=== PATIENT | female | born 1950 | race Caucasian/White ===

== ENCOUNTER 2019-07-08 16:50 | Inpatient (IN) | payer MEDICARE ==
[2019-07-08 17:16] LABS: Basophils % (A) 0 %; Eosinophils # (A) 0.1 k/uL (0-0.7); Eosinophils % (A) 2 %; HCT 35.4 % (34.0-46.0); HGB 11.8 gm/dL (11.4-16.0); Lymphocytes # (A) 0.9 k/uL (1.0-4.8); Lymphocytes % (A) 21 %; MCH 31.2 pg (25.0-35.0); MCHC 33.3 g/dL (31.0-37.0); Monocytes # (A) 0.1 k/uL (0-1.0); Monocytes % (A) 2 %; Neutrophils % (A) 73 %; Platelet Count 331 k/uL (150-450); RBC 3.77 m/uL (3.80-5.40); RDW 12.4 % (11.5-15.5)
[2019-07-08 17:27] LABS: ALT 14 U/L (4-34); AST 28 U/L (14-36); African American GFR (CKD) >90 (>60 ml/min/1.73 sqM); Alkaline Phosphatase 89 U/L (38-126); Anion Gap 6 mmol/L; Blood Urea Nitrogen 8 mg/dL (7-17); Calcium 8.4 mg/dL (8.4-10.2); Carbon Dioxide 22 mmol/L (22-30); Chloride 95 mmol/L (98-107); Glucose 105 mg/dL (74-99); Non-African American GFR(CKD) >90 (>60 ml/min/1.73 sqM); Potassium 4.7 mmol/L (3.5-5.1); Sodium 123 mmol/L (137-145); Total Bilirubin 0.3 mg/dL (0.2-1.3); Total Protein 6.7 g/dL (6.3-8.2)
[2019-07-08] MEDS ORDERED: SODIUM CHLORIDE 0.9% 1,000 ML IV ONE (18:35)
[2019-07-08] MEDS ORDERED: NALOXONE 0.4 MG/ML 1 ML VIAL IV PRN (18:37)
--- NOTE | 2019-07-08 18:55 | ED ---
General Adult HPI - General Chief complaint: Neuro Symptoms/Deficit Stated complaint: Neuro Symptoms Time Seen by Provider: 07/08/19 16:55 Source: patient, EMS Mode of arrival: EMS Limitations: altered mental status - History of Present Illness Initial comments: The patient is a 68-year-old female who was a transfer from [facility] for altered mental status. Formerly [facility] provides a history that the patient was taken into [facility] for ataxia and altered mental status. Laboratory studies and CT of the brain were performed which were unremarkable. The patient did have an elevation in her troponin however was not complaining of any chest pain. They provided her with an aspirin recommended transfer to a facility for neurology evaluation. The patient does arrive to me and does have nystagmus and difficulties with finger to nose. No truncal ataxia appreciated. The patient states that she does not remember most of the details of the morning. She does disclose to me that she has been suffering from trigeminal neuralgia. It reports that she takes gabapentin and carbamazepine for it however as of recently she has been taking excess of her medication. Last night instead of taking 2 tablets of each medication she took 6 tablets of each medication. Reports that this morning she also took 3 tablets of each of the medications when she is only supposed to take the gabapentin. She denies any headaches or visual changes. No blunt head trauma. Denies any neck pain or stiffness. No fevers or chills. Denies any chest pain or shortness of breath. No previous history of cardiac disease. There are no other alleviating, precipitating or modifying factors - Related Data Home Medications Medication Instructions Recorded Confirmed Atorvastatin [Lipitor] 20 mg PO DAILY 07/08/19 07/08/19 Gabapentin [Neurontin] 300 mg PO TID 07/08/19 07/08/19 Lisinopril [Zestril] 10 mg PO BID 07/08/19 07/08/19 Metoprolol Tartrate [Lopressor] 50 mg PO BID 07/08/19 07/08/19 carBAMazepine 200 mg PO QID 07/08/19 07/08/19 Allergies Allergy/AdvReac Type Severity Reaction Status Date / Time Penicillins AdvReac Itching Verified 07/08/19 18:05 Review of Systems ROS Statement: Those systems with pertinent positive or pertinent negative responses have been documented in the HPI. ROS Other: All systems not noted in ROS Statement are negative. Past Medical History Past Medical History: Hyperlipidemia, Hypertension Additional Past Medical History / Comment(s): heart murmur, trigeminal neuralgia, History of Any Multi-Drug Resistant Organisms: None Reported Past Surgical History: Hysterectomy Additional Past Surgical History / Comment(s): surgery for trigeminal neuralgia, Past Psychological History: No Psychological Hx Reported Smoking Status: Former smoker Past Alcohol Use History: None Reported Past Drug Use History: None Reported - Past Family History family Family Medical History: No Reported History General Exam Limitations: altered mental status General appearance: alert, in no apparent distress, other (mild slurred speech) Head exam: Present: atraumatic, normocephalic, normal inspection Eye exam: Present: normal appearance, PERRL, EOMI. Absent: scleral icterus, conjunctival injection, periorbital swelling ENT exam: Present: normal exam, mucous membranes moist Neck exam: Present: normal inspection. Absent: tenderness, meningismus, lymphadenopathy Respiratory exam: Present: normal lung sounds bilaterally. Absent: respiratory distress, wheezes, rales, rhonchi, stridor Cardiovascular Exam: Present: regular rate, normal rhythm, normal heart sounds. Absent: systolic murmur, diastolic murmur, rubs, gallop, clicks GI/Abdominal exam: Present: soft, normal bowel sounds. Absent: distended, tenderness, guarding, rebound, rigid Extremities exam: Present: normal inspection, full ROM, normal capillary refill. Absent: tenderness, pedal edema, joint swelling, calf tenderness Back exam: Present: normal inspection Neurological exam: Present: alert, oriented X3, CN II-XII intact, reflexes normal, other (finger to nose is not smooth/coordinated bilaterally) Psychiatric exam: Present: normal affect, normal mood Skin exam: Present: warm, dry, intact, normal color. Absent: rash Course Vital Signs 07/08/19 07/08/19 16:53 19:28 Temperature 97.7 F Pulse Rate 68 72 Respiratory 18 18 Rate Blood Pressure 150/76 133/68 O2 Sat by Pulse 96 96 Oximetry EKG Findings - EKG Comments: EKG Findings:: EKG demonstrates normal sinus rhythm with a ventricular rate of 32. IL 150. QRS 144. QTC of 536. There is a left bundle branch block. Negative sgarbossa criteria. Medical Decision Making - Medical Decision Making Upon arrival the patient was placed into room 6. A thorough history and physical exam was performed. I did review the records from [facility]. Because of her elevated troponin I did repeat an EKG and laboratory studies here. Sodium is low at 123. Troponin is elevated at 0.185. Carbamazepine l evel is 12.1. The patient was given a liter bolus of normal saline followed by 75 mL per hour. I admitted the patient to the [facility] physicians. Dr. Reyna accepted admission. I will place cardiology and neurology on consult. Patient was admitted to the floor in stable condition - Lab Data Result diagrams: 07/09/19 05:32 07/10/19 06:47 Lab Results 07/08/19 07/08/19 07/08/19 Range/Units 17:11 17:11 17:11 WBC 4.0 (3.8-10.6) k/uL RBC 3.77 L (3.80-5.40) m/uL Hgb 11.8 (11.4-16.0) gm/dL Hct 35.4 (34.0-46.0) % MCV 94.0 (80.0-100.0) fL MCH 31.2 (25.0-35.0) pg MCHC 33.3 (31.0-37.0) g/dL RDW 12.4 (11.5-15.5) % Plt Count 331 (150-450) k/uL Neutrophils % 73 % Lymphocytes % 21 % Monocytes % 2 % Eosinophils % 2 % Basophils % 0 % Neutrophils # 3.0 (1.3-7.7) k/uL Lymphocytes # 0.9 L (1.0-4.8) k/uL Monocytes # 0.1 (0-1.0) k/uL Eosinophils # 0.1 (0-0.7) k/uL Basophils # 0.0 (0-0.2) k/uL Sodium 123 L (137-145) mmol/L Potassium 4.7 (3.5-5.1) mmol/L Chloride 95 L (98-107) mmol/L Carbon Dioxide 22 (22-30) mmol/L Anion Gap 6 mmol/L BUN 8 (7-17) mg/dL Creatinine 0.47 L (0.52-1.04) mg/dL Est GFR (CKD-EPI)AfAm >90 (>60 ml/min/1.73 sqM) Est GFR (CKD-EPI)NonAf >90 (>60 ml/min/1.73 sqM) Glucose 105 H (74-99) mg/dL Calcium 8.4 (8.4-10.2) mg/dL Total Bilirubin 0.3 (0.2-1.3) mg/dL AST 28 (14-36) U/L ALT 14 (4-34) U/L Alkaline Phosphatase 89 (38-126) U/L Troponin I 0.185 H* (0.000-0.034) ng/mL Total Protein 6.7 (6.3-8.2) g/dL Albumin 4.0 (3.5-5.0) g/dL Carbamazepine ug/mL 07/08/19 Range/Units 17:11 WBC (3.8-10.6) k/uL RBC (3.80-5.40) m/uL Hgb (11.4-16.0) gm/dL Hct (34.0-46.0) % MCV (80.0-100.0) fL MCH (25.0-35.0) pg MCHC (31.0-37.0) g/dL RDW (11.5-15.5) % Plt Count (150-450) k/uL Neutrophils % % Lymphocytes % % Monocytes % % Eosinophils % % Basophils % % Neutrophils # (1.3-7.7) k/uL Lymphocytes # (1.0-4.8) k/uL Monocytes # (0-1.0) k/uL Eosinophils # (0-0.7) k/uL Basophils # (0-0.2) k/uL Sodium (137-145) mmol/L Potassium (3.5-5.1) mmol/L Chloride (98-107) mmol/L Carbon Dioxide (22-30) mmol/L Anion Gap mmol/L BUN (7-17) mg/dL Creatinine (0.52-1.04) mg/dL Est GFR (CKD-EPI)AfAm (>60 ml/min/1.73 sqM) Est GFR (CKD-EPI)NonAf (>60 ml/min/1.73 sqM) Glucose (74-99) mg/dL Calcium (8.4-10.2) mg/dL Total Bilirubin (0.2-1.3) mg/dL AST (14-36) U/L ALT (4-34) U/L Alkaline Phosphatase (38-126) U/L Troponin I (0.000-0.034) ng/mL Total Protein (6.3-8.2) g/dL Albumin (3.5-5.0) g/dL Carbamazepine 12.1 ug/mL Disposition Clinical Impression: Acute encephalopathy, Tegretol toxicity, Ataxia, Troponin level elevated, Hyponatremia Disposition: ADMITTED IP TO THIS [facility] Condition: Stable Is patient prescribed a controlled substance at d/c from ED?: No Decision to Admit Reason: Admit from EC Decision Date: 07/08/19 Decision Time: 19:38
[2019-07-08] MEDS: SODIUM CHLORIDE 0.9% 1,000 ML IV SCH (19:28)
[2019-07-08] MEDS: METOPROLOL TARTRATE 50 MG TAB PO SCH (20:42)
[2019-07-08] MEDS: LISINOPRIL 10 MG TAB PO SCH (20:42)
[2019-07-08] MEDS ORDERED: SODIUM BICARB 8.4% 50 ML SYR (1 MEQ/ML) IV STA (22:22)
[2019-07-08] MEDS: DEXTROSE 5% IN WATER 1,000 ML with SODIUM BICARB (1 MEQ/ML) 150 ML IV SCH (23:22)
[2019-07-09 00:17] LABS: African American GFR (CKD) >90 (>60 ml/min/1.73 sqM); Anion Gap 5 mmol/L; Blood Urea Nitrogen 8 mg/dL (7-17); Calcium 8.5 mg/dL (8.4-10.2); Carbamazepine (Tegretol) 8.4 ug/mL; Carbon Dioxide 27 mmol/L (22-30); Chloride 95 mmol/L (98-107); Glucose 93 mg/dL (74-99); Non-African American GFR(CKD) >90 (>60 ml/min/1.73 sqM); Sodium 127 mmol/L (137-145)
--- NOTE | 2019-07-09 02:02 | P.HPIM ---
History of Present Illness H&P Date: 07/08/19 Chief Complaint: confusion one day duration 68 year old female , with TN poorly controlled with current meds of carbamazepine and neurontin, she had severe attack yesterday and started taking extra pills, she believes she had taken at least 6 extra doses yesterday. she currently feels back to her baseline mental status. however, earlier she was found by her sister who came to visit her this morning confused and altered, for which she decided to take her to the hospital . the patient could not comment more about her symptoms , as she does not recall anything wrong with her. she was taken to a different hospital where she had her initial workup done including CT brain without contrast and CTA of head and neck showed possible small vessel disease. . she also had EKG showing LBBB and wide QRS and prolonged QTc , no old EKG to compare , unknonw if this is acute changes. patient denies any associated chest pain . upon her request she was transferred to our facilit y. here she reported overdosing on her pain meds for TN, including carbamazepine , for which acute toxicity suspected given her neuro sympotoms of confusion , and nystagmus findings. along with EKG findings of wide QRS with no old EKG to compare. patient was assumed to have carbamazepine toxicity her level came back at higher than theraputic range. and also found to have low sodium . otherwise h er blood work unremarkable otherwise, denies fever, chills, headache, changes in her vision, nausea or vomting, abd pain , or GI symptoms. she denies falls or head injury, but admits to confusion and ataxia earlier in the morning along with brief episodes of blurry vision. she reports history of TN, and HTN , but denies CAD or CHF. in the past troponins were elevated but trending down . again denies any chest pain or trouble breathing Review of Systems Pertinent positives as noted in HPI. All other systems were reviewed and are negative Past Medical History Past Medical History: Hyperlipidemia, Hypertension Additional Past Medical History / Comment(s): heart murmur, trigeminal neuralgi a, History of Any Multi-Drug Resistant Organisms: None Reported Past Surgical History: Hysterectomy Additional Past Surgical History / Comment(s): surgery for trigeminal neuralgia, Smoking Status: Former smoker - Past Family History family Family Medical History: No Reported History Medications and Allergies Home Medications Medication Instructions Recorded Confirmed Type Atorvastatin [Lipitor] 20 mg PO DAILY 07/08/19 07/08/19 History Gabapentin [Neurontin] 300 mg PO TID 07/08/19 07/08/19 History Lisinopril [Zestril] 10 mg PO BID 07/08/19 07/08/19 History Metoprolol Tartrate [Lopressor] 50 mg PO BID 07/08/19 07/08/19 History carBAMazepine 200 mg PO QID 07/08/19 07/08/19 History Allergies Allergy/AdvReac Type Severity Reaction Status Date / Time Penicillins AdvReac Itching Verified 07/08/19 18:05 Physical Exam Vitals: Vital Signs Temp Pulse Pulse Resp BP BP Pulse Ox 07/08/19 20:16 98 F 72 18 130/72 96 07/08/19 19:28 72 18 133/68 96 07/08/19 16:53 97.7 F 68 18 150/76 96 Intake and Output 07/08/19 07/08/19 07/08/19 06:59 14:59 22:59 Other: Weight 77.111 kg Constitutional: No acute distress, conversant, pleasant Eyes: Anicteric sclerae, moist conjunctiva, no lid-lag Pupils equal round reactive to light, lateral nystagmus with lateral gaze ENMT: NC/AT Oropharynx clear, no erythema, exudates Neck: Supple, FROM, no masses, or JVD No carotid bruits No thyromegaly Lungs: Clear to auscultation Clear to percussion Normal respiratory effort, no accessory muscle use Cardiovascular: Heart regular in rate and rhythm, No murmurs, gallops, or rubs No peripheral edema Abdominal: Soft Nontender, no guarding, rebound or rigidity Abdomen moving with respiration Normoactive bowel sounds No hepatomegaly, No splenomegaly No palpable mass No abdominal wall hernia noted Skin: Normal temperature, tone, texture, turgor No induration No subcutaneous nodules No rash, lesions No ulcers Extremities: No digital cyanosis No clubbing Pedal pulses intact and symmetrical Radial pulses intact and symmetrical No calf tenderness Psychiatric: Alert and oriented to person, place and time Appropriate affect fair judgement Neuro Muscles Strength 5/5 in all 4 extremities Sensation to light touch grossly present throughout Cranial nerves II-XII grossly intact No focal sensory deficits Finger-nose testing no dysmetria however patient is slow, [id number] exam was unremarkable. Patient has lateral nystagmus with lateral gaze, Gait is deferred Lymphatics: no palpable cervical or supraclavicular , or inguinal lymph nodes Results CBC & Chem 7: 07/08/19 17:11 07/08/19 23:02 Labs: Abnormal Lab Results - Last 24 Hours (Table) 07/08/19 07/08/19 07/08/19 Range/Units 17:11 17:11 17:11 RBC 3.77 L (3.80-5.40) m/uL Lymphocytes # 0.9 L (1.0-4.8) k/uL Sodium 123 L (137-145) mmol/L Chloride 95 L (98-107) mmol/L Creatinine 0.47 L (0.52-1.04) mg/dL Glucose 105 H (74-99) mg/dL Troponin I 0.185 H* (0.000-0.034) ng/mL Thrombosis Risk Factor Assmnt - Choose All That Apply Any of the Below Risk Factors Present?: Yes Each Factor Represents 1 point: Obesity (BMI >25) Each Risk Factor Represents 2 Points: Age 61-74 years Thrombosis Risk Factor Assessment Total Risk Factor Score: 3 Thrombosis Risk Factor Assessment Level: Moderate Risk Assessment and Plan Assessment: 68-year-old female with severe trigeminal neuralgia refractory to her home medications, hypertension controlled, comes in with transfer from [facility] for symptoms of ataxia and nystagmus patient admits to overdosing on Tegretol for refractory trigeminal neuralgia pain EKG showed wide QRS no old EKGs to compare admitted for suspected Tegretol toxicity for close monitoring neuro and cardiac eval anticipated length of stay more than 2 midnights Carbamazepine overdosing and poisoning Neuro manifestations with ataxia nystagmus and confusion, improving Cardiomyopathy gestation with white QRS and prolonged QTC unknown baseline Close neuro monitoring Cardiac monitoring Check carbamazepine level every 6 hours Sodium bicarbs IV bolus 150 mEq Start patient on bicarb drip 250 mL per hour (150 meq in 1 L D5%) Hold carbamazepine Consider starting oxcarbamazepine 300 mg twice a day Resume Neurontin Neuro consult Cardiac consult Computed tomography scan findings reviewed Elevated troponins, patient denies any chest pain or shortness of breath Troponins trending down Cardiac monitoring Await cardiac consult Hyponatremia Patient reports this is chronic Continue to monitor currently improving Hypertension controlled resume home meds Preformed a thorough record review from recent hospitalization like [facility] was reviewed and summarized in HPI CODE STATUS: Full code DVT prophylaxis: Mechanical Discussed with: Patient, ER, RN Anticipated length of stay more than [address]: Home A total of 70 minutes was spent on the care of this complex patient more than 50% of the time was spent in counseling and care coordination.
[2019-07-09] MEDS: GABAPENTIN 300 MG CAP PO SCH ×3 (03:29→20:07)
[2019-07-09] MEDS: DEXTROSE 5% IN WATER 1,000 ML with SODIUM BICARB (1 MEQ/ML) 150 ML IV SCH ×3 (03:30→13:37)
[2019-07-09 06:32] LABS: Basophils % (A) 0 %; Eosinophils # (A) 0.1 k/uL (0-0.7); Eosinophils % (A) 2 %; HGB 10.9 gm/dL (11.4-16.0); Lymphocytes # (A) 0.8 k/uL (1.0-4.8); Lymphocytes % (A) 27 %; MCH 31.9 pg (25.0-35.0); MCHC 34.1 g/dL (31.0-37.0); MCV 93.6 fL (80.0-100.0); Mean Platelet Volume 7.3; Monocytes # (A) 0.2 k/uL (0-1.0); Monocytes % (A) 6 %; Neutrophils # (A) 1.8 k/uL (1.3-7.7); Neutrophils % (A) 63 %; Platelet Count 294 k/uL (150-450); RBC 3.42 m/uL (3.80-5.40); RDW 12.5 % (11.5-15.5); WBC 2.9 k/uL (3.8-10.6)
[2019-07-09 06:45] LABS: African American GFR (CKD) >90 (>60 ml/min/1.73 sqM); Anion Gap 1 mmol/L; Blood Urea Nitrogen 6 mg/dL (7-17); Calcium 8.3 mg/dL (8.4-10.2); Carbamazepine (Tegretol) 5.3 ug/mL; Carbon Dioxide 35 mmol/L (22-30); Chloride 96 mmol/L (98-107); Glucose 160 mg/dL (74-99); Non-African American GFR(CKD) >90 (>60 ml/min/1.73 sqM); Potassium 3.3 mmol/L (3.5-5.1); Sodium 132 mmol/L (137-145)
[2019-07-09] MEDS ORDERED: OXcarbazepine 300 MG TAB PO SCH (09:00)
[2019-07-09] MEDS ORDERED: ATORVASTATIN 20 MG TAB PO SCH ×2 (09:00→21:00)
--- NOTE | 2019-07-09 09:10 | ECHOF ---
Referral Reason:Dr Order MEASUREMENTS -------- HEIGHT: 160.0 cm WEIGHT: 85.3 kg BP: 126/80 RVIDd: 2.4 cm (< 3.3) IVSd: 1.8 cm (0.6 - 1.1) LVIDd: 4.0 cm (3.9 - 5.3) LVPWd: 1.6 cm (0.6 - 1.1) IVSs: 1.5 cm LVIDs: 3.5 cm LVPWs: 1.4 cm LAESV Index (A-L): 29.39 ml/m Ao Diam: 2.6 cm (2.0 - 3.7) AV Cusp: 1.7 cm (1.5 - 2.6) LA Diam: 2.6 cm (2.7 - 3.8) MV EXCURSION: 9.718 mm (> 18.000) MV EF SLOPE: 41 mm/s (70 - 150) EPSS: 0.6 cm MV E Hong: 0.62 m/s MV DecT: 201 ms MV A Hong: 1.00 m/s MV E/A Ratio: 0.62 AR PHT: 441 ms RAP: 5.00 mmHg RVSP: 18.54 mmHg FINDINGS -------- Sinus rhythm. Left Bundle Branch Block This was a technically adequate study. The left ventricular size is normal. There is moderate concentric left ventricular hypertrophy. O verall left ventricular systolic function is mild-moderately impaired with, an EF between 40 - 45 %. Normal LAP Grade 1 Diastolic Dysfunction. Basal lateral LV wall motion is hypokinetic. Basal i nferior LV wall motion is hypokinetic. Basal inferoseptal LV wall motion is hypokinetic. Mid la teral LV wall motion is hypokinetic. Mid inferior LV wall motion is hypokinetic. The right ventricle is normal in size. Normal LA size by volume 22+/-6 ml/m2. The right atrial size is normal. Aortic valve is trileaflet and is mildly thickened. Trace amount of aortic regurgitation. Mild mitral annular calcification present. There is trace to mild mitral regurgitation. The tricuspid valve appears structurally normal. Mild tricuspid regurgitation present. Right vent ricular systolic pressure is normal at < 35 mmHg. There is no pulmonic regurgitation present. The aortic root size is normal. Normal inferior vena cava with normal inspiratory collapse consistent with estimated right atrial pre ssure of 5 mmHg. There is a trivial pericardial effusion present. CONCLUSIONS -------- 1. There is moderate concentric left ventricular hypertrophy. 2. Overall left ventricular systolic function is mild-moderately impaired with, an EF between 40 - 45 %. 3. Normal LAP Grade 1 Diastolic Dysfunction. 4. Basal lateral LV wall motion is hypokinetic. 5. Basal inferior LV wall motion is hypokinetic. 6. Basal inferoseptal LV wall motion is hypokinetic. 7. Mid lateral LV wall motion is hypokinetic. 8. Mid inferior LV wall motion is hypokinetic. 9. Normal LA size by volume 22+/-6 ml/m2. 10. Trace amount of aortic regurgitation. 11. Mild mitral annular calcification present. 12. There is trace to mild mitral regurgitation. 13. Mild tricuspid regurgitation present. 14. There is a trivial pericardial effusion present. DECORATING CONSULTANT: Renate Mcdaniel RDCS
[2019-07-09] MEDS: METOPROLOL TARTRATE 50 MG TAB PO SCH ×2 (09:12→20:07)
[2019-07-09] MEDS: LISINOPRIL 10 MG TAB PO SCH ×2 (09:12→20:07)
[2019-07-09] MEDS: HEPARIN SODIUM,PORCINE 5,000 UNIT/ML 1 ML VIAL SQ SCH ×2 (09:12→20:07)
[2019-07-09] MEDS: SODIUM CHLORIDE 0.9% 1,000 ML IV SCH ×3 (09:17→13:37)
[2019-07-09] MEDS ORDERED: POTASSIUM CHLORIDE ER 20 MEQ TAB.ER PO STA (09:52)
[2019-07-09] MEDS ORDERED: SODIUM CHLORIDE 0.9% 1,000 ML in EMPTY BAG 1 BAG IV ONE (09:55)
[2019-07-09] MEDS ORDERED: NITROGLYCERIN SL TABS 0.4 MG TAB SUBLINGUAL PRN (09:55)
[2019-07-09] MEDS ORDERED: ALPRAZolam 0.25 MG TAB PO PRN (09:55)
[2019-07-09] MEDS ORDERED: ATORVASTATIN 80 MG TAB PO STA (09:55)
[2019-07-09] MEDS ORDERED: ALPRAZolam 0.5 MG TAB PO PRN (09:55)
[2019-07-09] MEDS: ASPIRIN 325 MG TAB PO STA ×2 (09:59→10:45)
--- NOTE | 2019-07-09 11:03 | CONS ---
CONSULTATION Lucia Ireland is a 68-year-old lady with a history of hypertension, hyperlipidemia, who also has trigeminal neuralgia, takes carbamazepine at home. Her blood pressure has generally been well controlled, she is reasonably active. She had a stress test in the last year or 2, which were unremarkable for ischemia. However, she came into the hospital with complaints of having an attack of trigeminal neuralgia and she has taken additional medications of carbamazepine, came in with altered mental status. Apparently she was taken to [facility] for ataxia, altered mental status and CT of the brain was performed, which was unremarkable. There was some question of troponin elevation without chest discomfort. She was transferred here since neurology was not available. At the time of my evaluation, she is fully with it, there is no altered mentation. Her sodium when she came in was 123 and her Tegretol level was more than 12.0. However, the level of Tegretol is down to 8.4. Her sodium came up to 132. She is fully lucid. Denies any chest pain or shortness of breath at the time of my evaluation. She is resting comfortably without symptoms. Her troponin levels were 0.1, 0.1 and 0.1 flat. She is resting comfortably without symptoms. PAST MEDICAL HISTORY: Remarkable for hypertension and hyperlipidemia. She also has trigeminal neuralgia and previous hysterectomy. MEDICATIONS: At home include lisinopril 10 mg daily, gabapentin 300 mg t.i.d., atorvastatin 20 mg daily, metoprolol tartrate 50 mg b.i.d., carbamazepine 200 mg q.i.d. ALLERGIES: PENICILLIN. REVIEW OF SYSTEMS: Unremarkable other than above-mentioned facts. PHYSICAL EXAMINATION: Blood pressure is 130/70, pulse rate is 66 per minute, regular. HEENT: Unremarkable. Fundus was not examined by me. NECK: Supple. No JVD. I do not hear a carotid bruit. HEART: Exam reveals S1, S2 heard normally. No rub, murmur or gallop. LUNGS: Clear. Abdomen is soft, nontender. Lower extremities reveal normal pulses. No edema. Central nervous system is normal. EKG revealed sinus mechanism, left bundle. No acute changes. Left bundle is not new for this patient. IMPRESSION: 1. Altered mentation, probably secondary to hyponatremia and elevated Tegretol level, which has resolved. 2. Hypertension. 3. Hyperlipidemia. 4. Troponin elevation, cannot exclude myocardial injury. RECOMMENDATIONS: I am recommending that we will check additional troponin. Get an echocardiogram and supplement her potassium which is somewhat low. Leave her on subcu heparin and based on clinical course, I will make further recommendations. We will increase activity and see how she does today. I discussed my thoughts in detail with the patient. Thank you very much for the consult. LEWIS / TERESA: [id number] /
[2019-07-09] MEDS ORDERED: VERAPAMIL 2.5 MG/ML 2 ML AMP ONE (11:20)
[2019-07-09] MEDS ORDERED: LIDOCAINE 1% INJ 10MG/ML (20 ML MDV) ONE (11:20)
[2019-07-09] MEDS: MIDAZOLAM 2 MG/2 ML VIAL IV ONE ×2 (11:28→11:37)
[2019-07-09] MEDS ORDERED: LIDOCAINE 1% INJ 10MG/ML (20 ML MDV) SQ ONE (11:28)
[2019-07-09] MEDS ORDERED: IV FLUID CONTINUATION 900 ML IV ONE (11:29)
[2019-07-09] MEDS: VERAPAMIL SYRINGE (5 MG/10 ML) INTRAARTER ONE ×2 (11:34→11:43)
[2019-07-09] MEDS ORDERED: HEPARIN SODIUM 1,000 UN/ML (10ML VL) IV ONE (11:38)
[2019-07-09] MEDS ORDERED: IOPAMIDOL-370 100ML BTL INJ ONE (11:43)
--- NOTE | 2019-07-09 12:36 | CC ---
CARDIAC CATHETERIZATION REPORT DATE OF SERVICE: 07/09/2019. PROCEDURE: Left heart catheterization and coronary angiography. PERFORMED BY: Dr. Mame Dietrich. Moderate conscious sedation time was 19 minutes. Patient was administered Versed. Oxygen saturation, hemodynamics and EKG were monitored closely. CLINICAL INFORMATION: Mrs. Lucia Ireland is a 68-year-old lady with a history of nonischemic cardiomyopathy, trigeminal neuralgia, hypertension, and hyperlipidemia. She came into the hospital with altered mentation, had a sodium level of 123, and she also had an elevated Tegretol level. However, once the sodium was corrected, her altered mentation resolved. She was completely lucid. She also had some shortness of breath and echo revealed significant wall motion abnormalities and troponin was elevated suggestive of non-ST elevation CA. She was advised coronary angiography after due discussion regarding risks, benefits, and options. PROCEDURE NOTE: Under local anesthesia and strict aseptic precautions, a 6-Swedish introducer was placed in the right radial artery. Using a 3.5 left and 4.0 right Ne catheters I performed coronary angiography and the same right catheter was used to check LV pressures. LV gram was not performed. The sheath was taken out and TR band applied as per protocol. The saturation of the fingers of the right hand was 95%. The patient tolerated procedure well without complication. Results were discussed with her. I offered to talk to the daughter, but she does not wish me to call and she will call herself. CARDIAC CATHETERIZATION FINDINGS: The left ventricular end-diastolic pressure was 15 mmHg without any gradient across aortic valve. CORONARY ANGIOGRAPHY FINDINGS: RIGHT CORONARY ARTERY: Large dominant vessel. No significant disease Distally it bifurcates into a larger PLV and a relatively smaller PDA. No significant disease, only minor irregularities noted. LEFT MAIN CORONARY ARTERY: Short patent disease-free vessel that bifurcates into LAD and circumflex. LEFT ANTERIOR DESCENDING CORONARY ARTERY: The mid LAD has 35% lesion. LEFT POSTERIOR CIRCUMFLEX CORONARY ARTERY: Nondominant vessel gives off a good-sized obtuse marginal then runs in the AV groove, has minor irregularities. No significant disease is noted in the circumflex system. LEFT VENTRICULOGRAM: Left ventriculogram was not performed. FINAL IMPRESSION: This patient has a right dominant system. Slightly elevated filling pressures. A 35% mid LAD lesion. No other significant disease and LV-gram was not performed. RECOMMENDATIONS: Findings were discussed with the patient. Advised to continue medical therapy. 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 There is no obstructive CAD. She will be going back to the room in a stable condition and results were discussed with her in detail. MMODL / IJN: [id number] /
--- NOTE | 2019-07-09 13:19 | P.CNNES ---
History of Present Illness Consult date: 07/09/19 Requesting physician: Dee Roche Reason for Consult: Acute encephalopathy, ataxia History of Present Illness: Patient is a 68-year-old female, who was transferred from [facility] for altered mental status. Patient has presented with ataxia and altered mental status. Patient had mildly elevated troponins but had no chest pain. Patient was transferred to [facility] for neurological evaluation and altered mental status. Patient has history of trigeminal neuralgia for last 25 years. Patient's t rigeminal neuralgia was very severe, that she required what sounds like microvascular decompression at the [facility] in 2007. After the procedure, her symptoms were much better, and she was taking only Tegretol 1 or 2 tablets a day. However 3 years ago, her symptoms started coming back again off and on. Patient gets episodes of acute neuralgic pain. Patient currently is taking Tegretol 200 mg 4 times a day. Also on gabapentin 300 mg 2 times a day. Patient states that on Friday, 2 days ago, she was in the drive through [place] when she suddenly had an episode of trigeminal neuralgia, pointing to the left ophthalmic division of the trigeminal nerve. Patient states that it was very intense, almost like someone is putting a taser, not letting up. She called her son, who helped her go home. She took an extra tablet of Tegretol, and two extra pills of gabapentin. Afterwards the pain slowly subsided, but the family members noticed that she was slightly altered, not acting right, therefore patient was brought to [facility]. According to the ED report, patient was having trouble recalling events in the previous 24 hours. She was complaining of blurred vision but no diplopia. No tinnitus. She was feeling dizziness, spinning at times. Family members are notices that patient was confused which is not usual for her. Patient underwent UA, which was negative. ProBNP was elevated 2490. Troponin was 0.1 4. Liver panel normal, calcium was slightly low 7.5, sodium was 126, potassium 3.9 renal functions normal. PT/PTT normal, CBC with WBC 3.2, hemoglobin 11.3, platelets 290. EKG shows sinus rhythm with left bundle branch block. Patient underwent CTA of head and neck with and without contrast, which revealed patency of both vertebrals and common carotid arteries. Patency of both carotid bifurcations without hemodynamically significant stenosis. Diminished continuation along the periventricular white matter suggestive of microvascular changes or small vessel disease. Computed tomography scan of head showed atrophic changes and small vessel disease versus microvascular changes that has progressed as compared to the prior study. No acute intracranial bleed, mass effect or acute RETROFLEXION. Patient's vitals in the ER were blood pressure 131/68, pulse rate 70 and patient was afebrile. EKG shows normal sinus rhythm with left bundle branch block. 2-D echo showed moderate concentric LVH. EF between 40-45%. Basal lateral LV month wall motion is hypokinetic. Basal inferior LV wall motion is hypokinetic. Basal inferior septal LV wall motion is hypokinetic. Mid lateral LV wall motion is hypokinetic. Mid inferior LV wall motion is hypokinetic. Normal left atrial size. Blood tests shows sodium 123 on arrival, which has now improved to 132. Renal functions normal. Liver functions normal. Troponins are mildly elevated. Cardiology is on the case. WBC 4.0 hemoglobin 11.8 and platelets are normal. Tegretol level 12.1 on arrival, but now it is 5.3. Patient states that prior to this current episode which occurred on Friday, 2 days ago, the previous episode was about a year ago. She has been doing very well with the current medication regimen as mentioned above. She takes the Tegretol one tablet in the morning, 1 in the afternoon and 2 tablets at bedtime. Also takes gabapentin 1 pill twice a day. Patient quit tobacco 40 years ago. She was a light smoker before that. She drinks alcohol very occasionally. P atient denies missing any doses of her medications. Review of Systems As mentioned above. She complains of fatigue. Denies any chest pain shortness of breath wheezing or cough. Denies nausea vomiting diarrhea. Past Medical History Past Medical History: Hyperlipidemia, Hypertension Additional Past Medical History / Comment(s): heart murmur, trigeminal neuralgia, History of Any Multi-Drug Resistant Organisms: None Reported Past Surgical History: Hysterectomy Additional Past Surgical History / Comment(s): surgery for trigeminal neuralgia, Smoking Status: Former smoker - Past Family History family Family Medical History: No Reported History Medications and Allergies Home Medications Medication Instructions Recorded Confirmed Type Atorvastatin [Lipitor] 20 mg PO DAILY 07/08/19 07/08/19 History Gabapentin [Neurontin] 300 mg PO TID 07/08/19 07/08/19 History Lisinopril [Zestril] 10 mg PO BID 07/08/19 07/08/19 History Metoprolol Tartrate [Lopressor] 50 mg PO BID 07/08/19 07/08/19 History carBAMazepine 200 mg PO QID 07/08/19 07/08/19 History Allergies Allergy/AdvReac Type Severity Reaction Status Date / Time Penicillins AdvReac Itching Verified 07/08/19 18:05 Physical Examination - Vital Signs Vital Signs: Vital Signs Temp Pulse Pulse Resp BP BP Pulse Ox 07/09/19 09:18 98.0 F 74 18 106/64 94 L 07/08/19 23:51 66 18 126/80 97 07/08/19 20:16 98 F 72 18 130/72 96 07/08/19 19:28 72 18 133/68 96 07/08/19 16:53 97.7 F 68 18 150/76 96 Intake and Output 07/08/19 07/09/19 07/09/19 22:59 06:59 14:59 Intake Total 240 Balance 240 Intake: Oral 240 Other: # Voids 3 Weight 77.111 kg 85.5 kg On examination patient is an elderly female, in no distress. Patient is alert and awake oriented to time place and person. Speech and language functions are normal. Attention and concentration and fund of knowledge is adequate. On Cranial nerve examination pupils are round and reactive to light, visual fernando are full, extraocular muscles are intact. Patient has nystagmus and gaze bilaterally. Face is symmetric and tongue protrudes the midline. Palatal elevation and sensation normal. Muscle strength testing the is no pronator drift. The strength is normal in the left arm and both legs. Right arm not checked because of recent cardiac catheterization. Sensory touch is equal. Patient is mildly dysmetric for [id number] on the left. Sensory touch is equal. Tone and bulk of muscles normal. Gait deferred. No obvious bruit, S1 and S2 audible. Peripheral pulses present. Results - Laboratory Findings CBC and BMP: 07/09/19 05:32 07/09/19 05:32 Abnormal Lab Findings: Abnormal Labs 07/08/19 07/08/19 07/08/19 17:11 17:11 17:11 WBC RBC 3.77 L Hgb Hct Lymphocytes # 0.9 L Sodium 123 L Potassium Chloride 95 L Carbon Dioxide BUN Creatinine 0.47 L Glucose 105 H Calcium Troponin I 0.185 H* 07/08/19 07/08/19 07/09/19 23:02 23:02 05:32 WBC 2.9 L RBC 3.42 L Hgb 10.9 L Hct 32.0 L Lymphocytes # 0.8 L Sodium 127 L Potassium Chloride 95 L Carbon Dioxide BUN Creatinine Glucose Calcium Troponin I 0.176 H* 07/09/19 07/09/19 05:32 05:32 WBC RBC Hgb Hct Lymphocytes # Sodium 132 L Potassium 3.3 L Chloride 96 L Carbon Dioxide 35 H BUN 6 L Creatinine 0.42 L Glucose 160 H Calcium 8.3 L Troponin I 0.125 H* Assessment and Plan Assessment: * Trigeminal neuralgia, with recent exacerbation 2 days ago. Patient's neuralgia is under remission at this time. * Altered mental status, likely related to combination of hyponatremia, and taking extra doses of medication to help with trigeminal neuralgia exacerbation. * Elevated cardiac enzymes, with negative cardiac cath. Plan: * Patient's Tegretol level is now back to normal. She wants to go back on Tegretol 200 mg 4 times a day as she was taking previously. Apparently patient has been started on Trileptal 300 mg twice a day, which also works quite well for trigeminal neuralgia. At this time we will stay off Tegretol and continue on Trileptal. However Trileptal is also associated with the risk of hyponatremia, which may have to be monitored. Patient will continue gabapentin 300 mg twice a day. * Patient was recommended to follow up with her neurologist within 1 week to make sure trigeminal neuralgia stays in remission with this new medication. She was recommended to stop Trileptal if she gets any rash. She may still need periodic monitoring of sodium level. * Neurologically clear for discharge.
[2019-07-09] MEDS ORDERED: RX INFO: IV CONTRAST WAS GIVEN 1 EACH MISC MISCELLANE PRN (14:36)
[2019-07-09] MEDS ORDERED: carBAMazepine 200 MG TAB PO STA (16:44)
--- NOTE | 2019-07-09 17:35 | P.PN ---
Subjective Progress Note Date: 07/09/19 Principal diagnosis: Ataxia Patient is a 68-year-old female with hypertension trigeminal neuralgia uptakes Tegretol at home she presented from [facility] for ataxia and mental status changes patient was also noted to have elevated troponin Objective - Vital Signs Vital signs: Vital Signs Temp 98.0 F 07/09/19 09:18 Pulse 65 07/09/19 15:13 Resp 16 07/09/19 15:13 BP 131/69 07/09/19 15:00 Pulse Ox 96 07/09/19 15:00 Intake & Output 07/08/19 07/09/19 07/09/19 18:59 06:59 18:59 Intake Total 576 Balance 576 Weight 77.111 kg 85.5 kg Intake: IV 100 Oral 476 Other: # Voids 3 2 - Constitutional General appearance: Present: no acute distress - EENT ENT: Present: normal oropharynx - Respiratory Respiratory: bilateral: CTA - Cardiovascular Rhythm: regular - Gastrointestinal General gastrointestinal: Present: normal bowel sounds - Integumentary Integumentary: Present: normal turgor - Neurologic Neurologic: Present: CNII-XII intact - Psychiatric Psychiatric: Present: appropriate affect - Labs CBC & Chem 7: 07/09/19 05:32 07/09/19 05:32 Labs: Abnormal Lab Results - Last 24 Hours (Table) 07/08/19 07/08/19 07/08/19 Range/Units 17:11 17:11 23:02 WBC (3.8-10.6) k/uL RBC (3.80-5.40) m/uL Hgb (11.4-16.0) gm/dL Hct (34.0-46.0) % Lymphocytes # (1.0-4.8) k/uL Sodium 123 L (137-145) mmol/L Potassium (3.5-5.1) mmol/L Chloride 95 L (98-107) mmol/L Carbon Dioxide (22-30) mmol/L BUN (7-17) mg/dL Creatinine 0.47 L (0.52-1.04) mg/dL Glucose 105 H (74-99) mg/dL Calcium (8.4-10.2) mg/dL Troponin I 0.185 H* 0.176 H* (0.000-0.034) ng/mL 07/08/19 07/09/19 07/09/19 Range/Units 23:02 05:32 05:32 WBC 2.9 L (3.8-10.6) k/uL RBC 3.42 L (3.80-5.40) m/uL Hgb 10.9 L (11.4-16.0) gm/dL Hct 32.0 L (34.0-46.0) % Lymphocytes # 0.8 L (1.0-4.8) k/uL Sodium 127 L 132 L (137-145) mmol/L Potassium 3.3 L (3.5-5.1) mmol/L Chloride 95 L 96 L (98-107) mmol/L Carbon Dioxide 35 H (22-30) mmol/L BUN 6 L (7-17) mg/dL Creatinine 0.42 L (0.52-1.04) mg/dL Glucose 160 H (74-99) mg/dL Calcium 8.3 L (8.4-10.2) mg/dL Troponin I (0.000-0.034) ng/mL 07/09/19 Range/Units 05:32 WBC (3.8-10.6) k/uL RBC (3.80-5.40) m/uL Hgb (11.4-16.0) gm/dL Hct (34.0-46.0) % Lymphocytes # (1.0-4.8) k/uL Sodium (137-145) mmol/L Potassium (3.5-5.1) mmol/L Chloride (98-107) mmol/L Carbon Dioxide (22-30) mmol/L BUN (7-17) mg/dL Creatinine (0.52-1.04) mg/dL Glucose (74-99) mg/dL Calcium (8.4-10.2) mg/dL Troponin I 0.125 H* (0.000-0.034) ng/mL Assessment and Plan (1) Tegretol toxicity Narrative/Plan: Patient seen earlier today appreciate neurology input heart Tegretol levels have normalized plan for her to continue on Trileptal and gabapentin and recommended staying off the Tegretol she is to follow-up with her neurologist within 1 week and to stop her Tegretol if any rash sodium need to be monitored as an outpatient Current Visit: Yes Status: Acute Code(s): T42.1X1A - POISONING BY IMINOSTILBENES, ACCIDENTAL, INIT SNOMED Code(s): 200963966 (2) Troponin level elevated Narrative/Plan: Appreciate cardiology's input status post cath with no obstructed coronaries, likley secondary to Takotsubo medical management rcommended Current Visit: Yes Status: Acute Code(s): R79.89 - OTHER SPECIFIED ABNORMAL FINDINGS OF BLOOD CHEMISTRY SNOMED Code(s): 344854123 (3) Hyponatremia Narrative/Plan: Improving will need monitoring as outpatient Current Visit: Yes Status: Acute Code(s): E87.1 - HYPO-OSMOLALITY AND HYPONATREMIA SNOMED Code(s): 08684557
[2019-07-09] MEDS ORDERED: HYDROcodone/APAP 7.5-325MG 1 EACH TAB PO PRN (18:38)
[2019-07-09] MEDS: carBAMazepine 200 MG TAB PO SCH (20:07)
[2019-07-10 04:16] VITALS: PULSE 59; RESP 16
[2019-07-10] MEDS: SODIUM CHLORIDE 0.9% 1,000 ML IV SCH (04:16)
[2019-07-10 07:42] LABS: African American GFR (CKD) >90 (>60 ml/min/1.73 sqM); Anion Gap 5 mmol/L; Blood Urea Nitrogen 6 mg/dL (7-17); Calcium 8.9 mg/dL (8.4-10.2); Carbon Dioxide 30 mmol/L (22-30); Chloride 96 mmol/L (98-107); Glucose 97 mg/dL (74-99); Non-African American GFR(CKD) >90 (>60 ml/min/1.73 sqM); Potassium 4.5 mmol/L (3.5-5.1); Sodium 131 mmol/L (137-145)
[2019-07-10] MEDS ORDERED: ASPIRIN 81 MG PO SCH (09:00)
[2019-07-10] MEDS: carBAMazepine 200 MG TAB PO SCH (09:26)
[2019-07-10] MEDS: GABAPENTIN 300 MG CAP PO SCH (09:26)
[2019-07-10] MEDS: METOPROLOL TARTRATE 50 MG TAB PO SCH (09:27)
[2019-07-10] MEDS: HEPARIN SODIUM,PORCINE 5,000 UNIT/ML 1 ML VIAL SQ SCH (09:27)
[2019-07-10] MEDS: LISINOPRIL 10 MG TAB PO SCH (09:27)
[2019-07-10 10:57] VITALS: BP 121/66; TEMP 98.1
--- NOTE | 2019-07-10 12:22 | P.DS ---
Providers Date of admission: 07/08/19 18:41 Expected date of discharge: 07/10/19 Attending physician: Sadie Franklin MD Consults: 07/08/19 18:38 Consult Physician Urgent Consulting Provider: [facility] Consult Reason/Comments: elevated trop Do you want consulting provider notified?: Yes 07/08/19 18:39 Consult Physician Urgent Consulting Provider: Tami Cueto Consult Reason/Comments: acute encephalopathy, ataxia Do you want consulting provider notified?: Yes Primary care physician: Suki Vick - Tasha Diagnosis(es) (1) Tegretol toxicity Subjective patient taking extra doses because of uncontrolled pain. Patient was switched to Trileptal by neurology however patient started to have baked breakthrough pain and she was placed back on Tegretol 400 mg twice a day. Neurology recommended that her switch to take Trileptal can be performed as an outpatient once her trigeminal neuralgia is in remission. Patient will also continue on gabapentin 300 mg 3 times a day. She was seen by me this morning on her pain is now controlled Current Visit: Yes Status: Acute (2) Troponin level elevated Patient had elevated troponin she did has a history of nonischemic cardiomyopathy the setting of her sodium. On 123 and elevated Tegretol levels her mentation improved however she had some shortness of breath and echo showed significant wall motion abnormalities and it was suggesting non-ST elevation OR patient underwent cardiac catheterization this showed a right dominant system. Slightly elevated filling pressures with significant disease. 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 She had no obstructive coronary disease. Current Visit: Yes Status: Acute (3) Hyponatremia Current Visit: Yes Status: Acute Hospital Course: Patient was seen this morning she is back to baseline and her sodium has improved currently 131 she was advised that she needs to follow-up with her family physician as an outpatient for monitoring of her sodium levels she is chest pain-free and has no shortness of breath Patient is stable for discharge Time spent 35 minutes Patient Condition at Discharge: Stable Plan - Discharge Summary Discharge Rx Participant: No New Discharge Prescriptions: No Action Metoprolol Tartrate [Lopressor] 50 mg PO BID Lisinopril [Zestril] 10 mg PO BID Gabapentin [Neurontin] 300 mg PO TID carBAMazepine 200 mg PO QID Atorvastatin [Lipitor] 20 mg PO DAILY Discharge Medication List Atorvastatin [Lipitor] 20 mg PO DAILY 07/08/19 [History] Gabapentin [Neurontin] 300 mg PO TID 07/08/19 [History] Lisinopril [Zestril] 10 mg PO BID 07/08/19 [History] Metoprolol Tartrate [Lopressor] 50 mg PO BID 07/08/19 [History] carBAMazepine 200 mg PO QID 07/08/19 [History] Follow up Appointment(s)/Referral(s): Brian Dietrich MD [STAFF PHYSICIAN] - 07/13/19 1:30 pm Suik Vick MD [Primary Care Provider] - 1-2 days Discharge Disposition: HOME SELF-CARE
--- NOTE | 2019-07-10 14:08 | PN ---
PROGRESS NOTE Mrs Ireland is in sinus rhythm, comfortable, doing well. She has underlying left bundle. Yesterday, I performed a cardiac cath from right radial approach. No significant CAD. Right radial cath site is clean and dry. Vitals are stable. No JVD, S1-S2 heard normally. Lungs are clear. Abdomen and lower extremity exam unchanged. I am recommending that she can be discharged today on the same home medications and I will see her in the office next week. I explained her the cardiac cath findings again and her renal function today is good. She has some wall motion abnormalities and possibility of apical ballooning syndrome should be considered. I discussed the findings and recommendations with her. She will be discharged today. MMODL / IJN: [id number] /
== END 2019-07-10 13:24 | disposition home or self-care (01) | DRG 917 ==
LOC: EC 16:50 → 3SCARD 18:41 → 5NMEDONC 07-09 06:45 → 3SCARD 07-09 06:45
PROVIDERS: ADMIT Internal Medicine; ATTEND Internal Medicine
PROC: 4A023N7 Measurement of Cardiac Sampling and Pressure, Left Heart, Percutaneous Approach (ICD-10-PCS; principal; 2019-07-09 12:40)
PROC: B2111ZZ Fluoroscopy of Multiple Coronary Arteries using Low Osmolar Contrast (ICD-10-PCS; principal; 2019-07-09 12:40)
DX: T42.1X1A Poisoning by iminostilbenes, accidental (unintentional), initial encounter (principal); G93.41 Metabolic encephalopathy; E87.1 Hypo-osmolality and hyponatremia; I42.8 Other cardiomyopathies; I51.81 Takotsubo syndrome; E78.5 Hyperlipidemia, unspecified; F17.200 Nicotine dependence, unspecified, uncomplicated; G50.0 Trigeminal neuralgia; I10 Essential (primary) hypertension; I44.7 Left bundle-branch block, unspecified; H55.00 Unspecified nystagmus; Z79.899 Other long term (current) drug therapy; Z90.710 Acquired absence of both cervix and uterus; Z88.0 Allergy status to penicillin
CPT/HCPCS: 36415; 80048; 80053; 80156; 84484; 85025; 93005; 93306; 93458; 99285

== ENCOUNTER → 2019-07-20 | Outpatient (CLI) | payer MEDICARE ==
[2019-07-20 10:38] LABS: HCT 34.6 % (34.0-46.0); HGB 11.9 gm/dL (11.4-16.0); MCH 32.8 pg (25.0-35.0); MCHC 34.4 g/dL (31.0-37.0); MCV 95.4 fL (80.0-100.0); Mean Platelet Volume 6.8; Platelet Count 371 k/uL (150-450); RBC 3.62 m/uL (3.80-5.40); RDW 12.6 % (11.5-15.5); WBC 3.3 k/uL (3.8-10.6)
[2019-07-20 17:12] LABS: Anion Gap 10.8 mmol/L (4.00-12.00); BUN/Creat Ratio 16.67 Ratio (12.00-20.00); Calcium 9.2 mg/dL (8.7-10.3); Carbon Dioxide 28.2 mmol/L (21.6-31.8); Non-African American GFR(CKD) 92.4 (60.0-200.0); Potassium 4.8 mmol/L (3.5-5.5)
== END ==
LOC: LABWHC1 09:38
PROVIDERS: ATTEND Internal Medicine Endocrinology, Diabetes & Metabolism
DX: I10 Essential (primary) hypertension (principal)
CPT/HCPCS: 36415; 80048; 85027

== ENCOUNTER 2021-12-04 18:34 | Inpatient (IN) | payer MEDICARE ==
[2021-12-04] MEDS ORDERED: SODIUM CHLORIDE 0.9% 1,000 ML IV ONE (18:39)
--- NOTE | 2021-12-04 18:45 | ED ---
Abdominal Pain HPI - General Chief Complaint: Chest Pain Stated Complaint: cardiac, abd pain Time Seen by Provider: 12/04/21 18:39 Source: EMS Mode of arrival: EMS Limitations: altered mental status (Appears delirious) - History of Present Illness Initial Comments: This patient is a 71-year-old woman reportedly with history of trigeminal neuralgia, brought by ambulance to be evaluated for nausea, vomiting and severe upper abdominal pain. Patient on EMS arrival reported to be delirious, diaphoretic, hypotensive. On arrival not able to give much additional history. MD Complaint: abdominal pain -: hour(s) Location: diffuse Radiation: none Severity: severe Associated Symptoms: nausea, vomiting - Related Data Home Medications Medication Instructions Recorded Confirmed Atorvastatin [Lipitor] 20 mg PO DAILY 07/08/19 12/04/21 Gabapentin [Neurontin] 300 mg PO QID 07/08/19 12/04/21 Metoprolol Tartrate [Lopressor] 50 mg PO BID 07/08/19 12/04/21 carBAMazepine 200 mg PO QID 07/08/19 12/04/21 Aspirin EC [Ecotrin Low Dose] 81 mg PO DAILY 12/04/21 12/04/21 Meclizine [Antivert] 12.5 mg PO BID 12/04/21 12/04/21 lisinopriL [Zestril] 20 mg PO DAILY 12/04/21 12/04/21 Allergies Allergy/AdvReac Type Severity Reaction Status Date / Time Penicillins AdvReac Rash/Hives Verified 12/04/21 21:37 Review of Systems ROS Statement: Those systems with pertinent positive or pertinent negative responses have been documented in the HPI. ROS Other: All systems not noted in ROS Statement are negative. Limitations: ROS unobtainable due to patients medical condition Gastrointestinal: Reports: abdominal pain, vomiting Past Medical History Past Medical History: Hyperlipidemia, Hypertension Additional Past Medical History / Comment(s): heart murmur, trigeminal neuralgia, History of Any Multi-Drug Resistant Organisms: None Reported Past Surgical History: Hysterectomy Additional Past Surgical History / Comment(s): surgery for trigeminal neuralgia, Past Psychological History: No Psychological Hx Reported Past Alcohol Use History: None Reported Past Drug Use History: None Reported - Past Family History family Family Medical History: No Reported History Mother Additional Family Medical History / Comment(s): passed from colon cancer in her 60's General Exam Limitations: altered mental status General appearance: obtunded Head exam: Present: atraumatic, normocephalic Eye exam: Present: normal appearance. Absent: scleral icterus, conjunctival injection ENT exam: Present: mucous membranes dry Neck exam: Present: normal inspection Respiratory exam: Present: normal lung sounds bilaterally. Absent: respiratory distress, wheezes, rales, rhonchi, stridor Cardiovascular Exam: Present: regular rate, normal rhythm, normal heart sounds. Absent: systolic murmur, diastolic murmur, rubs, gallop GI/Abdominal exam: Present: soft, tenderness (There is diffuse abdominal te nderness). Absent: guarding, rebound, rigid, mass Extremities exam: Present: normal inspection, normal capillary refill. Absent: pedal edema, calf tenderness Back exam: Present: normal inspection Neurological exam: Present: altered Skin exam: Present: warm, intact, diaphoretic, mottled. Absent: rash Course Vital Signs 12/04/21 12/04/21 12/04/21 18:35 18:39 18:40 Temperature 98.1 F Pulse Rate 95 Pulse Rate [ Pulse Oximetery ] Respiratory 16 Rate Blood Pressure 69/44 86/49 Blood Pressure [Left Arm] Blood Pressure [Right Arm] O2 Sat by Pulse Oximetry 12/04/21 12/04/21 12/04/21 18:43 18:45 18:50 Temperature Pulse Rate 78 80 Pulse Rate [ Pulse Oximetery ] Respiratory Rate Blood Pressure 91/48 97/49 Blood Pressure [Left Arm] Blood Pressure [Right Arm] O2 Sat by Pulse 100 96 97 Oximetry 12/04/21 12/04/21 12/04/21 19:00 19:10 19:20 Temperature Pulse Rate 80 82 82 Pulse Rate [ Pulse Oximetery ] Respiratory Rate Blood Pressure 130/53 91/74 89/55 Blood Pressure [Left Arm] Blood Pressure [Right Arm] O2 Sat by Pulse 98 98 97 Oximetry 12/04/21 12/04/21 12/04/21 19:34 19:40 21:15 Temperature Pulse Rate 84 77 Pulse Rate [ Pulse Oximetery ] Respiratory 18 18 Rate Blood Pressure 94/58 88/51 Blood Pressure [Left Arm] Blood Pressure [Right Arm] O2 Sat by Pulse 97 97 Oximetry 12/04/21 12/04/21 23:30 23:42 Temperature 97.3 F L Pulse Rate 79 Pulse Rate [ 76 Pulse Oximetery ] Respiratory 16 16 Rate Blood Pressure 90/49 Blood Pressure 82/51 [Left Arm] Blood Pressure 76/53 [Right Arm] O2 Sat by Pulse 100 94 L Oximetry Medical Decision Making - Lab Data Result diagrams: 12/05/21 01:58 12/05/21 01:58 Lab Results 12/04/21 12/04/21 12/04/21 Range/Units 18:42 18:42 18:42 WBC 12.3 H (3.8-10.6) k/uL RBC 4.64 (3.80-5.40) m/uL Hgb 14.7 (11.4-16.0) gm/dL Hct 46.0 (34.0-46.0) % MCV 99.1 (80.0-100.0) fL MCH 31.7 (25.0-35.0) pg MCHC 32.0 (31.0-37.0) g/dL RDW 12.2 (11.5-15.5) % Plt Count 418 (150-450) k/uL MPV 7.2 Neutrophils % (Manual) 70 % Band Neuts % (Manual) 2 % Lymphocytes % (Manual) 26 % Monocytes % (Manual) 1 % Eosinophils % (Manual) 1 % Neutrophils # (Manual) 8.80 H (1.3-7.7) k/uL Lymphocytes # (Manual) 3.20 (1.0-4.8) k/uL Monocytes # (Manual) 0.12 (0-1.0) k/uL Eosinophils # (Manual) 0.12 (0-0.7) k/uL Nucleated RBCs 0 (0-0) /100 WBC Manual Slide Review Performed RBC Morphology Normal PT 9.8 (9.0-12.0) sec INR 0.9 (<1.2) APTT 20.3 L (22.0-30.0) sec D-Dimer 8.98 H (<0.60) mg/L FEU Sodium 125 L (137-145) mmol/L Potassium 4.1 (3.5-5.1) mmol/L Chloride 90 L (98-107) mmol/L Carbon Dioxide 19 L (22-30) mmol/L Anion Gap 16 mmol/L BUN 12 (7-17) mg/dL Creatinine 0.76 (0.52-1.04) mg/dL Est GFR (CKD-EPI)AfAm >90 (>60 ml/min/1.73 sqM) Est GFR (CKD-EPI)NonAf 79 (>60 ml/min/1.73 sqM) Glucose 198 H (74-99) mg/dL Calcium 9.8 (8.4-10.2) mg/dL Magnesium 3.1 H (1.6-2.3) mg/dL Total Bilirubin 0.9 (0.2-1.3) mg/dL AST 40 H (14-36) U/L ALT 19 (4-34) U/L Alkaline Phosphatase 470 H (38-126) U/L Troponin I (0.000-0.034) ng/mL NT-Pro-B Natriuret Pep pg/mL Total Protein 6.9 (6.3-8.2) g/dL Albumin 4.5 (3.5-5.0) g/dL Amylase 66 (30-110) U/L Lipase 181 (23-300) U/L 12/04/21 12/04/21 Range/Units 18:42 18:42 WBC (3.8-10.6) k/uL RBC (3.80-5.40) m/uL Hgb (11.4-16.0) gm/dL Hct (34.0-46.0) % MCV (80.0-100.0) fL MCH (25.0-35.0) pg MCHC (31.0-37.0) g/dL RDW (11.5-15.5) % Plt Count (150-450) k/uL MPV Neutrophils % (Manual) % Band Neuts % (Manual) % Lymphocytes % (Manual) % Monocytes % (Manual) % Eosinophils % (Manual) % Neutrophils # (Manual) (1.3-7.7) k/uL Lymphocytes # (Manual) (1.0-4.8) k/uL Monocytes # (Manual) (0-1.0) k/uL Eosinophils # (Manual) (0-0.7) k/uL Nucleated RBCs (0-0) /100 WBC Manual Slide Review RBC Morphology PT (9.0-12.0) sec INR (<1.2) APTT (22.0-30.0) sec D-Dimer (<0.60) mg/L FEU Sodium (137-145) mmol/L Potassium (3.5-5.1) mmol/L Chloride (98-107) mmol/L Carbon Dioxide (22-30) mmol/L Anion Gap mmol/L BUN (7-17) mg/dL Creatinine (0.52-1.04) mg/dL Est GFR (CKD-EPI)AfAm (>60 ml/min/1.73 sqM) Est GFR (CKD-EPI)NonAf (>60 ml/min/1.73 sqM) Glucose (74-99) mg/dL Calcium (8.4-10.2) mg/dL Magnesium (1.6-2.3) mg/dL Total Bilirubin (0.2-1.3) mg/dL AST (14-36) U/L ALT (4-34) U/L Alkaline Phosphatase (38-126) U/L Troponin I <0.012 (0.000-0.034) ng/mL NT-Pro-B Natriuret Pep 961 pg/mL Total Protein (6.3-8.2) g/dL Albumin (3.5-5.0) g/dL Amylase (30-110) U/L Lipase (23-300) U/L - EKG Data EKG shows normal: sinus rhythm, axis (Left axis deviation), intervals (QRS duration 146 ms, prolonged consistent with left bundle branch block. HI and QTc normal.), QRS complexes ((Bundle-branch block) Rate: normal (Rate 61 bpm) Disposition Clinical Impression: Hyponatremia, Acute encephalopathy, Altered mental status, Ileus Disposition: ADMITTED IP TO THIS [facility] Condition: Good
[2021-12-04 18:57] LABS: HGB 14.7 gm/dL (11.4-16.0); MCH 31.7 pg (25.0-35.0); MCV 99.1 fL (80.0-100.0); Mean Platelet Volume 7.2; Platelet Count 418 k/uL (150-450); RBC 4.64 m/uL (3.80-5.40); RDW 12.2 % (11.5-15.5); WBC 12.3 k/uL (3.8-10.6)
[2021-12-04 19:16] LABS: ALT 19 U/L (4-34); AST 40 U/L (14-36); African American GFR (CKD) >90 (>60 ml/min/1.73 sqM); Albumin 4.5 g/dL (3.5-5.0); Alkaline Phosphatase 470 U/L (38-126); Amylase 66 U/L (30-110); Anion Gap 16 mmol/L; Blood Urea Nitrogen 12 mg/dL (7-17); Calcium 9.8 mg/dL (8.4-10.2); Carbon Dioxide 19 mmol/L (22-30); Chloride 90 mmol/L (98-107); Glucose 198 mg/dL (74-99); Lipase 181 U/L (23-300); Magnesium 3.1 mg/dL (1.6-2.3); Non-African American GFR(CKD) 79 (>60 ml/min/1.73 sqM); Potassium 4.1 mmol/L (3.5-5.1); Sodium 125 mmol/L (137-145); Total Bilirubin 0.9 mg/dL (0.2-1.3); Total Protein 6.9 g/dL (6.3-8.2)
[2021-12-04 19:17] LABS: Band Neutrophils % 2 %; Eosinophils # (M) 0.12 k/uL (0-0.7); Monocytes # (M) 0.12 k/uL (0-1.0); Neutrophils % (M) 70 %; Nucleated Red Blood Cells 0 /100 WBC (0-0); Total Cells Counted 100
[2021-12-04 19:18] LABS: RBC Morphology Normal
[2021-12-04 19:20] LABS: INR 0.9 (<1.2); Prothrombin Time 9.8 sec (9.0-12.0)
[2021-12-04 19:31] LABS: Partial Thromboplastin Time 20.3 sec (22.0-30.0)
--- NOTE | 2021-12-04 19:31 | CT ---
EXAMINATION TYPE: CT angio thor/abd pel aorta DATE OF EXAM: 12/04/2021 COMPARISON: None HISTORY: AMS, abd pain, r/o dissection CT DLP: 1765.1 mGycm Automated exposure control for dose reduction was used. CONTRAST: Performed with IV Contrast, patient injected with 100 mL of Isovue 370. Images obtained from the thoracic inlet to the floor the pelvis without and subsequently with the IV contrast. Three-D postprocessed images. There is no mediastinal adenopathy. No hilar masses. There is normal contrast opacification of the pu lmonary arteries. No filling defect there are some interstitial infiltrates in atelectasis in the pos terior lung fernando. There are no hilar masses. Thoracic aorta is intact. No aneurysm. The ascending aorta measures 3.3 cm. No dissection. Liver and spleen are intact. bile ducts are nondilated. There is no adrenal mass. Gallbladder is inta ct and no evidence of pancreatic mass. Kidneys show satisfactory contrast opacification. There is no hydronephrosis. Ureters are not dilated. Bladder distends smoothly. There is mild right-sided fat-con taining inguinal hernia.. No free fluid in the pelvis. No pelvic mass. There is no mesenteric edema. No ascites or free air. No bowel obstruction. There is some fluid-fille d distended small bowel loops that could be mild ileus. The aorta has normal size and there is arterial flow in the celiac artery and superior mesenteric art eries. There is arterial flow in the renal and iliac and femoral arteries. No evidence of hemodynamic stenosis. No arterial aneurysm or dissection. IMPRESSION: Negative CT angiogram of the chest abdomen and pelvis. No arterial aneurysm or dissection. No evidenc e of pulmonary embolism. There is possible small bowel ileus. Interstitial infiltrates and atelectasi s at the posterior lung bases.
--- NOTE | 2021-12-04 19:34 | XR ---
EXAMINATION TYPE: XR chest 1V portable DATE OF EXAM: 12/04/2021 COMPARISON: None HISTORY: Chest pain TECHNIQUE: FINDINGS: There is elevated right diaphragm. There is subsegmental atelectasis at the lung bases bila terally. No hydroureter is seen. There are no hilar masses. IMPRESSION: Subsegmental atelectasis. No heart failure.
[2021-12-04] MEDS ORDERED: ACETAMINOPHEN TAB 325 MG TAB PO PRN (22:15)
[2021-12-04] MEDS ORDERED: NALOXONE 0.4 MG/ML 1 ML VIAL IV PRN (22:15)
[2021-12-05 00:23] LABS: Glucose,Whole Blood 126 mg/dL (70-110)
[2021-12-05] MEDS ORDERED: VANCOMYCIN IV PER PHARMACY 1 EACH MISC MISCELLANE PRN (01:38)
[2021-12-05] MEDS ORDERED: SODIUM CHLORIDE 0.9% 500 ML 500 ML IV ONE (01:47)
[2021-12-05] MEDS: SODIUM CHLORIDE 0.9% 1,000 ML IV SCH ×2 (01:54→05:10)
[2021-12-05 02:00] LABS: Amorphous Sediment,Urine Occasional /hpf; Appearance,Urine Cloudy (Clear); Bacteria,Urine Rare /hpf; Bilirubin,Urine Negative (Negative); Blood,Urine Negative (Negative); Cocaine Screen,Urine Not Detected (NotDetected); Color,Urine Dark Yellow; Glucose,Urine (UA) Negative (Negative); Ketones,Urine Negative (Negative); Leukocyte Esterase,Urine Moderate (Negative); Mucus,Urine Occasional /hpf; Nitrite,Urine Positive (Negative); PH, Urine 6.5 (5.0-8.0); Phencyclidine Screen,Urine Not Detected (NotDetected); Protein,Urine 1+ (Negative); RBC,Urine 1 /hpf (0-5); Specific Gravity,Urine 1.032 (1.001-1.035); Squamous Epithelial Cell,Urine <1 /hpf (0-4); Urn Cannabinoid Scrn Not Detected (NotDetected); Urobilinogen,Urine <2.0 mg/dL (<2.0); WBC,Urine 21 /hpf (0-5)
[2021-12-05] MEDS ORDERED: MEROPENEM 2 GM in SODIUM CHLORIDE 0.9% 100 ML IVPB ONE (02:00)
[2021-12-05 02:01] LABS: Amphetamine Screen,Urine Not Detected (NotDetected); Barbiturate Screen,Urine Not Detected (NotDetected); Benzodiazepines Screen,Urine Not Detected (NotDetected); Methadone Screen, Urine Not Detected (NotDetected); Opiate Screen,Urine Not Detected (NotDetected); Oxycodone Screen, Urine Not Detected (NotDetected); Tricyclic Antidepressant,Urine Not Detected (NotDetected)
[2021-12-05 02:15] LABS: ALT 21 U/L (4-34); AST 45 U/L (14-36); African American GFR (CKD) >90 (>60 ml/min/1.73 sqM); Albumin 3.8 g/dL (3.5-5.0); Alkaline Phosphatase 778 U/L (38-126); Anion Gap 15 mmol/L; Blood Urea Nitrogen 15 mg/dL (7-17); Carbon Dioxide 19 mmol/L (22-30); Chloride 97 mmol/L (98-107); Glucose 131 mg/dL (74-99); Non-African American GFR(CKD) 85 (>60 ml/min/1.73 sqM); Potassium 4.4 mmol/L (3.5-5.1); Sodium 131 mmol/L (137-145); Total Bilirubin 0.8 mg/dL (0.2-1.3)
--- NOTE | 2021-12-05 02:40 | P.EN ---
A- team: Indication: Hypotension, altered mental status Arrived on Scene to find: Lethargic patient with complaints of diffuse abdominal pain, most notably suprapubic region. Patient denied chest discomfort or shortness of breath. Lee catheter in place with 1100 mL's of dark red urine. Vital signs reviewed: vitals BP 91/60, pulse 82, SpO2 97% on room air, and temp 97.1F Patient seen and examined at bedside. General: Ill-appearing female, [no distress], [appears at stated age] Derm: [warm], [dry] Head: [atraumatic], [normocephalic], [symmetric] Eyes: [EOMI], [no lid lag], [anicteric sclera] Mouth: [no lip lesion], [mucus membranes moist] Cardiovascular: [S1S2 reg], [no murmur], [positive posterior tibial pulse bilateral], Lungs: [CTA bilateral], [no rhonchi, no rales] , [no accessory muscle use] Abdominal: [soft], diffuse abdominal tenderness most notably suprapubic, some guarding, [no appreciable organomegaly] Ext: [no gross muscle atrophy], [no edema], [no contractures] Neuro: [no focal neuro deficits] Psych: Lethargic, oriented to person and place Assessment: Shock, suspected septic in nature Case discussed with radiology naturopathic oncology provider Dr. Payne who noted that the patient's prior CT angiogram does not show any obvious etiology for the patient's symptoms. He reported no obvious free air or bowel thickening. He did report severely distended urinary bladder. He suggested a repeat computed tomography scan with contrast to further elucidate the symptoms Plan: Broad-spectrum IV antibiotics including vancomycin and meropenem ordered Lactic acid noted to be elevated to 5 1 L normal saline bolus ordered CT abdomen and pelvis with contrast repeat study ordered Disposition: Continue to monitor on 3 south with low threshold for transfer to ICU if patient does not improve quickly Notified: Primary notified by the RN A Total of 50 minutes of critical care time was spent on the complex care of this patient.
[2021-12-05 02:42] LABS: HCT 45.4 % (34.0-46.0); HGB 14.4 gm/dL (11.4-16.0); MCHC 31.7 g/dL (31.0-37.0); Macrocytosis Slight; Mean Platelet Volume 7.7; Platelet Count 340 k/uL (150-450); RBC 4.36 m/uL (3.80-5.40); RDW 12.5 % (11.5-15.5); WBC 14.2 k/uL (3.8-10.6)
[2021-12-05] MEDS ORDERED: VANCOMYCIN 1,750 MG in SODIUM CHLORIDE 0.9% 500 ML 500 ML IVPB ONE (03:00)
[2021-12-05] MEDS ORDERED: SODIUM CHLORIDE 0.9% 1,000 ML IV ONE (04:08)
[2021-12-05 04:30] LABS: Band Neutrophils % 30 %; Lymphocytes # (M) 0.57 k/uL (1.0-4.8); Monocytes # (M) 0.28 k/uL (0-1.0); Neutrophils % (M) 65 %; Nucleated Red Blood Cells 0 /100 WBC (0-0); Total Cells Counted 200
[2021-12-05 04:37] LABS: Anisocytosis (M) Present; Poikilocytosis (M) Present
--- NOTE | 2021-12-05 05:04 | CT ---
EXAMINATION TYPE: CT brain wo con DATE OF EXAM: 12/05/2021 COMPARISON: None HISTORY: AMS CT DLP: 1099.4 mGycm Automated exposure control for dose reduction was used. Images of the brain obtained with no contrast. There is hypodensity in the periventricular white matter. There is no mass effect nor midline shift. No evidence of intracranial hemorrhage. There is left occipital craniotomy defect. There is some mild cortical hypodensity in the lateral left cerebellar hemisphere that could be postsurgical changes. S tanika turcica appears normal. IMPRESSION: Mild atrophy and chronic small vessel ischemia. No acute intracranial abnormality.
[2021-12-05 05:16] LABS: Glucose,Whole Blood 128 mg/dL (70-110)
--- NOTE | 2021-12-05 05:22 | CT ---
EXAMINATION TYPE: CT abdomen pelvis w con DATE OF EXAM: 12/05/2021 COMPARISON: None HISTORY: Abd pain CT DLP: 1451.6 mGycm Automated exposure control for dose reduction was used. CONTRAST: Performed with IV Contrast, patient injected with 100 mL of Isovue 300. There is some atelectasis at the lung bases. There is small right pleural effusion. Liver and spleen are intact. There is large gallbladder that measures 9.5 x 5.3 cm. No pancreatic mass. Spleen is inta ct. Stomach is intact. The bowel is not dilated. There is no adrenal mass. Kidneys show satisfactory contrast opacification. There is no hydronephrosi s. There is Lee catheter in the urinary bladder. There is contrast in the bladder. There is low-density free fluid in the pelvis. There is dilated large bowel with fluid levels and fecal material. No evidence of free air. The lumba r vertebrae have normal alignment. Disc spaces are fairly normal. No compression fracture. The bony p opal is intact. The hip joints are intact. Small bowel does not appear dilated. Appendix not clearly seen. No sign thickened appendix. IMPRESSION: Compared to examination yesterday there is development of some free fluid in the pelvis. There is con stipation and large bowel ileus not significantly different. The possibility of peritonitis should be considered. There is dilated gallbladder increased compared to yesterday and suggestive of cholecystitis. There is some infiltrate and atelectasis at the lung bases without change.
[2021-12-05] MEDS: NOREPINEPHRINE 4 MG in SODIUM CHLORIDE 0.9% 250 ML IV SCH ×2 (08:29→20:01)
[2021-12-05] MEDS ORDERED: LACTATED RINGERS 1,000 ML IV SCH (09:45)
[2021-12-05] MEDS: ONDANSETRON 4 MG/2 ML VIAL IVP PRN (09:59)
[2021-12-05] MEDS: HYDROmorphone 0.5 MG/0.5 ML SYRINGE IVP PRN ×4 (10:15→23:08)
--- NOTE | 2021-12-05 10:54 | P.CNPUL ---
History of Present Illness Consult date: 12/05/21 Requesting physician: Kulwinder Winkler Reason for consult: other (Critical care management) Chief complaint: Abdominal pain History of present illness: This is a 71-year-old female patient with a known history of hypertension, hyperlipidemia, tic douloureux. She presented to the emergency room yesterday for nausea vomiting and abdominal pain. She was also having altered mental status, hypotension and diaphoresis. CT angiogram of the chest abdomen and pelvis revealed no arterial aneurysms or dissection. No evidence of pulmonary embolism. There is a possible small bowel ileus. Interstitial infiltrates and atelectasis at the lung bases. She was initially admitted to the selective care unit. Approximately 2:00 this morning the patient was found to be more lethargic with complaints of diffuse abdominal pain most notably in the suprapubic region. She also was hypotensive. She was given a liter of normal saline. Computed tomography scan of the brain revealed mild atrophy and chronic small vessel ischemia. No acute intracranial abnormality. She was transferred to the intensive care unit for closer monitoring. She is seen today in consultation. She is awake and alert. She is complaining of fatigue and is drowsy at times. She is oriented. She did require norepinephrine infusion at 4 mcg/m. She is on normal saline now at 130 ML's per hour. She has oxygen at 3 L/m. Follow-up CAT scan of the abdomen revealed development of some free fluid in the pelvis. There is constipation and large bowel ileus not significantly different. Possibility. Tinnitus should be considered. Dilated gallbladder suggestive of cholecystitis. Culture data and atelectasis of the lung bases. Surgical consult is pending. Urine culture pending. White count 14.2. Hemoglobin 14.4. MCV 104. Sodium 131. Potassium 4.4. Bicarb 19. BUN 15. Creatinine 0.72. Glucose 131. Lactic acid 5.0. AST 45. ALT 21. Alk phos 778. Chronic virus by PCR not detected. She had been given vancomycin and meropenem. Review of Systems REVIEW OF SYSTEMS: CONSTITUTIONAL: Fatigue, slow to respond. Denies any recent significant weight loss or weight gain. EYES: Denies change in vision. EARS, NOSE, MOUTH, THROAT: Denies headaches, denies sore throat. CARDIOVASCULAR: Denies chest pain, palpitations or syncopal episodes. RESPIRATORY: Denies shortness of breath, cough, congestion or hemoptysis. GASTROINTESTINAL: Positive for abdominal pain GENITOURINARY: Denies hematuria, denies infections. MUSKULOSKELETAL: Denies pain, denies swelling. INTEGUMENTARY: Denies rash, denies eczema. NEUROLOGICAL: Denies recent memory loss, no recent seizure activity. PSYCHIATRIC: Denies anxiety, denies depression. HEMATOLOGIC/LYMPHATIC: Denies anemia, denies enlarged lymph nodes. Past Medical History Past Medical History: Hyperlipidemia, Hypertension Additional Past Medical History / Comment(s): heart murmur, trigeminal neuralgia, History of Any Multi-Drug Resistant Organisms: None Reported Past Surgical History: Hysterectomy Additional Past Surgical History / Comment(s): surgery for trigeminal neuralgia, Past Psychological History: No Psychological Hx Reported Past Alcohol Use History: None Reported Past Drug Use History: None Reported - Past Family History family Family Medical History: No Reported History Medications and Allergies Home Medications Medication Instructions Recorded Confirmed Type Atorvastatin [Lipitor] 20 mg PO DAILY 07/08/19 12/04/21 History Gabapentin [Neurontin] 300 mg PO QID 07/08/19 12/04/21 History Metoprolol Tartrate [Lopressor] 50 mg PO BID 07/08/19 12/04/21 History carBAMazepine 200 mg PO QID 07/08/19 12/04/21 History Aspirin EC [Ecotrin Low Dose] 81 mg PO DAILY 12/04/21 12/04/21 History Meclizine [Antivert] 12.5 mg PO BID 12/04/21 12/04/21 History lisinopriL [Zestril] 20 mg PO DAILY 12/04/21 12/04/21 History Allergies Allergy/AdvReac Type Severity Reaction Status Date / Time Penicillins AdvReac Rash/Hives Verified 12/04/21 21:37 Physical Exam Vitals: Vital Signs Temp Pulse Pulse Pulse Resp BP BP 12/05/21 09:00 105 H 20 105/55 12/05/21 08:50 104 H 20 109/54 12/05/21 08:40 101 H 16 88/53 12/05/21 08:30 103 H 16 78/48 12/05/21 08:20 105 H 17 92/53 12/05/21 08:10 103 H 19 81/39 12/05/21 08:00 98.2 F 98 17 85/50 12/05/21 07:45 97 17 81/56 12/05/21 07:30 97 17 91/48 12/05/21 07:15 101 H 17 103/53 12/05/21 07:00 100.8 F H 101 H 19 98/61 12/05/21 06:45 103 H 21 102/56 12/05/21 06:30 98 21 98/54 12/05/21 06:15 102 H 20 94/55 12/05/21 06:00 101 H 18 102/51 12/05/21 05:45 101.3 F H 103 H 17 100/59 12/05/21 05:15 102 H 12/05/21 04:12 12/05/21 04:02 96 16 12/05/21 03:45 99.1 F 103 H 18 12/05/21 03:35 98.2 F 110 H 18 12/05/21 02:00 92 12/05/21 01:52 97.6 F 84 15 12/05/21 01:45 12/05/21 01:30 12/05/21 01:26 65/43 12/05/21 01:19 12/05/21 01:09 12/05/21 01:06 12/05/21 00:50 12/05/21 00:10 12/05/21 00:00 12/04/21 23:42 79 16 90/49 12/04/21 23:30 97.3 F L 76 16 82/51 12/04/21 21:15 77 18 88/51 12/04/21 19:40 94/58 12/04/21 19:34 84 18 12/04/21 19:20 82 89/55 12/04/21 19:10 82 91/74 12/04/21 19:00 80 130/53 12/04/21 18:50 80 97/49 12/04/21 18:45 78 91/48 12/04/21 18:43 12/04/21 18:40 86/49 12/04/21 18:39 98.1 F 12/04/21 18:35 95 16 69/44 BP Pulse Ox 12/05/21 09:00 96 12/05/21 08:50 96 12/05/21 08:40 97 12/05/21 08:30 97 12/05/21 08:20 96 12/05/21 08:10 99 12/05/21 08:00 99 12/05/21 07:45 100 12/05/21 07:30 95 12/05/21 07:15 96 12/05/21 07:00 95 12/05/21 06:45 97 12/05/21 06:30 96 12/05/21 06:15 94 L 12/05/21 06:00 95 12/05/21 05:45 95 12/05/21 05:15 12/05/21 04:12 76/48 12/05/21 04:02 85/56 97 12/05/21 03:45 64/48 95 12/05/21 03:35 134/77 96 12/05/21 02:00 97/64 12/05/21 01:52 95/50 98 12/05/21 01:45 91/60 12/05/21 01:30 74/49 12/05/21 01:26 12/05/21 01:19 79/51 12/05/21 01:09 78/53 12/05/21 01:06 92/60 12/05/21 00:50 77/49 12/05/21 00:10 60/50 12/05/21 00:00 65/48 12/04/21 23:42 94 L 12/04/21 23:30 76/53 100 12/04/21 21:15 97 12/04/21 19:40 12/04/21 19:34 97 12/04/21 19:20 97 12/04/21 19:10 98 12/04/21 19:00 98 12/04/21 18:50 97 12/04/21 18:45 96 12/04/21 18:43 100 12/04/21 18:40 12/04/21 18:39 12/04/21 18:35 Intake and Output 12/04/21 12/05/21 12/05/21 22:59 06:59 14:59 Intake Total 130 391.141 Output Total 30 165 Balance 100 226.141 Intake: IV 130 390 Sodium Chloride 0.9% 1, 130 390 000 ml @ 130 mls/hr IV . [id number] [facility] Rx#:[id number] Intake, IV Titration 1.141 Amount Norepinephrine 4 mg In 1.141 Sodium Chloride 0.9% 250 ml @ 0.05 MCG/KG/MIN 15. 554 mls/hr IV .[id number] [facility] Rx#:[id number] Output: Urine 30 165 Other: Voiding Method Indwelling Catheter Indwelling Catheter Weight 81.647 kg GENERAL EXAM: Arousable but doses off easily, 71-year-old female, on 3 L nasal cannula, fairlycomfortable in no apparent distress. HEAD: Normocephalic. History of trigeminal neuralgia EYES: Normal reaction of pupils, equal size. NOSE: Clear with pink turbinates. THROAT: No erythema or exudates. NECK: No masses, no JVD. CHEST: No chest wall deformity. LUNGS: Equal air entry with no crackles, wheeze, rhonchi or dullness. CVS: S1 and S2 normal with no audible murmur, regular rhythm. ABDOMEN: Tender to palpation. SPINE: No scoliosis or deformity SKIN: No rashes CENTRAL NERVOUS SYSTEM: No focal deficits, tone is normal in all 4 extremities. EXTREMITIES: There is no peripheral edema. No clubbing, no cyanosis. Peripheral pulses are intact. Results - Laboratory Findings CBC and BMP: 12/05/21 01:58 12/05/21 01:58 PT/INR, D-dimer PT 9.8 sec (9.0-12.0) 12/04/21 18:42 INR 0.9 (<1.2) 12/04/21 18:42 D-Dimer 8.98 mg/L FEU (<0.60) H 12/04/21 18:42 Abnormal lab findings: Abnormal Labs 12/04/21 12/04/21 12/04/21 18:42 18:42 18:42 WBC 12.3 H MCV Neutrophils # (Manual) 8.80 H Lymphocytes # (Manual) APTT 20.3 L D-Dimer 8.98 H Sodium 125 L Chloride 90 L Carbon Dioxide 19 L Glucose 198 H POC Glucose (mg/dL) Plasma Lactic Acid Aldo Magnesium 3.1 H AST 40 H Alkaline Phosphatase 470 H Total Protein Urine Appearance Urine Protein Urine Nitrite Ur Leukocyte Esterase Urine WBC Urine WBC Clumps Amorphous Sediment Urine Bacteria Urine Mucus 12/05/21 12/05/21 12/05/21 00:21 01:20 01:58 WBC 14.2 H MCV 104.0 H Neutrophils # (Manual) 13.40 H Lymphocytes # (Manual) 0.57 L APTT D-Dimer Sodium Chloride Carbon Dioxide Glucose POC Glucose (mg/dL) 126 H Plasma Lactic Acid Aldo Magnesium AST Alkaline Phosphatase Total Protein Urine Appearance Cloudy H Urine Protein 1+ H Urine Nitrite Positive H Ur Leukocyte Esterase Moderate H Urine WBC 21 H Urine WBC Clumps Occasional H Amorphous Sediment Occasional H Urine Bacteria Rare H Urine Mucus Occasional H 12/05/21 12/05/21 12/05/21 01:58 01:58 05:14 WBC MCV Neutrophils # (Manual) Lymphocytes # (Manual) APTT D-Dimer Sodium 131 L Chloride 97 L Carbon Dioxide 19 L Glucose 131 H POC Glucose (mg/dL) 128 H Plasma Lactic Acid Aldo 5.0 H* Magnesium AST 45 H Alkaline Phosphatase 778 H Total Protein 6.0 L Urine Appearance Urine Protein Urine Nitrite Ur Leukocyte Esterase Urine WBC Urine WBC Clumps Amorphous Sediment Urine Bacteria Urine Mucus 12/05/21 05:46 WBC MCV Neutrophils # (Manual) Lymphocytes # (Manual) APTT D-Dimer Sodium Chloride Carbon Dioxide Glucose POC Glucose (mg/dL) Plasma Lactic Acid Aldo 5.3 H* Magnesium AST Alkaline Phosphatase Total Protein Urine Appearance Urine Protein Urine Nitrite Ur Leukocyte Esterase Urine WBC Urine WBC Clumps Amorphous Sediment Urine Bacteria Urine Mucus - Diagnostic Findings Chest x-ray: image reviewed CT scan - chest: image reviewed Assessment and Plan Assessment: Acute abdominal pain secondary to constipation and large bowel ileus possibility of peritonitis. Development of free fluid in the pelvis. Dilated gallbladder suggestive of cholecystitis Altered mental status secondary to above Hypotension secondary to above currently requiring pressors Lactic acidosis secondary to above Hypertension, history of Hyperlipidemia Tic douloureux Plan: The patient was seen and evaluated CAT scans, medications and labs reviewed Continue vancomycin and meropenem for now Surgical consult pending Titrate the norepinephrine as tolerated Titrate the FiO2 as tolerated Discontinue normal saline and switch to lactated Ringer's We will continue to follow make further recommendations based on her clinical status I have personally seen and examined the patient, performed the documentation and the assessment and plan as written. Number of minutes spent on the visit: 20.
--- NOTE | 2021-12-05 12:29 | P.HPIM ---
History of Present Illness 71-year-old female came in with comments of nausea vomiting and severe abdominal pain patient overall clinical condition worsened on stepdown unit patient was subsequently transferred to ICU patient had a CT-guided CT angios gram of the chest and abdomen and pelvis which showed dilated the gallbladder for possibility of cholecystitis and free fluid in the abdomen. Patient was a lethargic with diffuse abdominal pain hypotensive patient was subsequently transferred to ICU and was started on broad-spectrum and Videx vancomycin and meropenem and lactated Ringer's. Patient lactic acid is high because of which am switching to normal saline. Patient was lethargic and drowsy but improving but now. Patient was evaluated by general surgery and going for expiratory laparotomy patient does have fever and elevated white count of 14.2 no evidence of pneumonia or UTI. REVIEW OF SYSTEMS: CONSTITUTIONAL: As mentioned in HPI HEENT: No recent visual problems or hearing problems. Denied any sore throat. CARDIOVASCULAR: No chest pain, orthopnea, PND, no palpitations, no syncope. PULMONARY: No shortness of breath, no cough, no hemoptysis. GASTROINTESTINAL: As mentioned in HPI NEUROLOGICAL: No headaches, no weakness, no numbness. HEMATOLOGICAL: Denies any bleeding or petechiae. GENITOURINARY: Denies any burning micturition, frequency, or urgency. MUSCULOSKELETAL/RHEUMATOLOGICAL: Denies any joint pain, swelling, or any muscle pain. ENDOCRINE: Denies any polyuria or polydipsia. The rest of the 14-point review of systems is negative. PHYSICAL EXAMINATION: GENERAL: Patient is quite a bit lethargic HEENT: Pupils are round and equally reacting to light. EOMI. No scleral icterus. No conjunctival pallor. Normoce phalic, atraumatic. No pharyngeal erythema. No thyromegaly. CARDIOVASCULAR: S1 and S2 present. No murmurs, rubs, or gallops. PULMONARY: Chest is clear to auscultation, no wheezing or crackles. ABDOMEN: Rigid tender, distended MUSCULOSKELETAL: No joint swelling or deformity. EXTREMITIES: No cyanosis, clubbing, or pedal edema. NEUROLOGICAL: Gross neurological examination did not reveal any focal deficits. SKIN: No rashes. Assessment and plan -Septic shock: Possible intra-abdominal source possibly of cholecystitis and peritonitis cardiovascular broad-spectrum antibiotics any with IV fluids pressor support wean off as tolerated. -Toxic encephalopathy altered mental status secondary to sepsis and septic shock -Lactic acidosis secondary to sepsis hold off lactated Ringer's and patient will be switched to normal saline -Hypertension -hyperlipidemia -Hyponatremia secondary to hypovolemia and sepsis: Continue with IV fluids DVT prophylaxis: Lovenox Past Medical History Past Medical History: Hyperlipidemia, Hypertension Additional Past Medical History / Comment(s): heart murmur, trigeminal neuralgia, History of Any Multi-Drug Resistant Organisms: None Reported Past Surgical History: Hysterectomy Additional Past Surgical History / Comment(s): surgery for trigeminal neuralgia, Past Anesthesia/Blood Transfusion Reactions: No Reported Reaction Past Psychological History: No Psychological Hx Reported Past Alcohol Use History: None Reported Past Drug Use History: None Reported - Past Family History Mother Additional Family Medical History / Comment(s): passed from colon cancer in her 60's family Family Medical History: No Reported History Medications and Allergies Home Medications Medication Instructions Recorded Confirmed Type Atorvastatin [Lipitor] 20 mg PO DAILY 07/08/19 12/04/21 History Gabapentin [Neurontin] 300 mg PO QID 07/08/19 12/04/21 History Metoprolol Tartrate [Lopressor] 50 mg PO BID 07/08/19 12/04/21 History carBAMazepine 200 mg PO QID 07/08/19 12/04/21 History Aspirin EC [Ecotrin Low Dose] 81 mg PO DAILY 12/04/21 12/04/21 History Meclizine [Antivert] 12.5 mg PO BID 12/04/21 12/04/21 History lisinopriL [Zestril] 20 mg PO DAILY 12/04/21 12/04/21 History Allergies Allergy/AdvReac Type Severity Reaction Status Date / Time Penicillins AdvReac Rash/Hives Verified 12/04/21 21:37 Physical Exam Vitals: Vital Signs Temp Pulse Pulse Pulse Resp BP BP 12/05/21 11:00 102 H 15 83/31 12/05/21 10:50 105 H 18 82/46 12/05/21 10:40 105 H 17 91/52 12/05/21 10:30 104 H 16 101/50 12/05/21 10:20 105 H 21 96/54 12/05/21 10:10 103 H 15 94/55 12/05/21 10:00 99 16 99/51 12/05/21 09:50 105 H 17 95/54 12/05/21 09:40 102 H 16 103/59 12/05/21 09:30 105 H 18 105/54 12/05/21 09:20 100 16 98/55 12/05/21 09:10 103 H 17 102/57 12/05/21 09:00 105 H 20 105/55 12/05/21 08:50 104 H 20 109/54 12/05/21 08:40 101 H 16 88/53 12/05/21 08:30 103 H 16 78/48 12/05/21 08:20 105 H 17 92/53 12/05/21 08:10 103 H 19 81/39 12/05/21 08:00 98.2 F 98 17 85/50 12/05/21 07:45 97 17 81/56 12/05/21 07:30 97 17 91/48 12/05/21 07:15 101 H 17 103/53 12/05/21 07:00 100.8 F H 101 H 19 98/61 12/05/21 06:45 103 H 21 102/56 12/05/21 06:30 98 21 98/54 12/05/21 06:15 102 H 20 94/55 12/05/21 06:00 101 H 18 102/51 12/05/21 05:45 101.3 F H 103 H 17 100/59 12/05/21 05:15 102 H 12/05/21 04:12 12/05/21 04:02 96 16 12/05/21 03:45 99.1 F 103 H 18 12/05/21 03:35 98.2 F 110 H 18 12/05/21 02:00 92 12/05/21 01:52 97.6 F 84 15 12/05/21 01:45 12/05/21 01:30 12/05/21 01:26 65/43 12/05/21 01:19 12/05/21 01:09 12/05/21 01:06 12/05/21 00:50 12/05/21 00:10 12/05/21 00:00 12/04/21 23:42 79 16 90/49 12/04/21 23:30 97.3 F L 76 16 82/51 12/04/21 21:15 77 18 88/51 12/04/21 19:40 94/58 12/04/21 19:34 84 18 12/04/21 19:20 82 89/55 12/04/21 19:10 82 91/74 12/04/21 19:00 80 130/53 12/04/21 18:50 80 97/49 12/04/21 18:45 78 91/48 12/04/21 18:43 12/04/21 18:40 86/49 12/04/21 18:39 98.1 F 12/04/21 18:35 95 16 69/44 BP Pulse Ox 12/05/21 11:00 98 12/05/21 10:50 99 12/05/21 10:40 97 12/05/21 10:30 96 12/05/21 10:20 96 12/05/21 10:10 96 12/05/21 10:00 96 12/05/21 09:50 97 12/05/21 09:40 97 12/05/21 09:30 98 12/05/21 09:20 95 12/05/21 09:10 96 12/05/21 09:00 96 12/05/21 08:50 96 12/05/21 08:40 97 12/05/21 08:30 97 12/05/21 08:20 96 12/05/21 08:10 99 12/05/21 08:00 99 12/05/21 07:45 100 12/05/21 07:30 95 12/05/21 07:15 96 12/05/21 07:00 95 12/05/21 06:45 97 12/05/21 06:30 96 12/05/21 06:15 94 L 12/05/21 06:00 95 12/05/21 05:45 95 12/05/21 05:15 12/05/21 04:12 76/48 12/05/21 04:02 85/56 97 12/05/21 03:45 64/48 95 12/05/21 03:35 134/77 96 12/05/21 02:00 97/64 12/05/21 01:52 95/50 98 12/05/21 01:45 91/60 12/05/21 01:30 74/49 12/05/21 01:26 12/05/21 01:19 79/51 12/05/21 01:09 78/53 12/05/21 01:06 92/60 12/05/21 00:50 77/49 12/05/21 00:10 60/50 12/05/21 00:00 65/48 12/04/21 23:42 94 L 12/04/21 23:30 76/53 100 12/04/21 21:15 97 12/04/21 19:40 12/04/21 19:34 97 12/04/21 19:20 97 12/04/21 19:10 98 12/04/21 19:00 98 12/04/21 18:50 97 12/04/21 18:45 96 12/04/21 18:43 100 12/04/21 18:40 12/04/21 18:39 12/04/21 18:35 Intake and Output 12/04/21 12/05/21 12/05/21 22:59 06:59 14:59 Intake Total 130 692.567 Output Total 30 275 Balance 100 417.567 Intake: IV 130 650 Sodium Chloride 0.9% 1, 130 650 000 ml @ 130 mls/hr IV . [id number] [facility] Rx#:[id number] Intake, IV Titration 42.567 Amount Norepinephrine 4 mg In 42.567 Sodium Chloride 0.9% 250 ml @ 0.05 MCG/KG/MIN 15. 554 mls/hr IV .[id number] [facility] Rx#:[id number] Output: Urine 30 275 Other: Voiding Method Indwelling Catheter Indwelling Catheter Weight 81.647 kg 81.647 kg Results CBC & Chem 7: 12/05/21 01:58 12/05/21 01:58 Labs: Abnormal Lab Results - Last 24 Hours (Table) 12/04/21 12/04/21 12/04/21 Range/Units 18:42 18:42 18:42 WBC 12.3 H (3.8-10.6) k/uL MCV (80.0-100.0) fL Neutrophils # (Manual) 8.80 H (1.3-7.7) k/uL Lymphocytes # (Manual) (1.0-4.8) k/uL APTT 20.3 L (22.0-30.0) sec D-Dimer 8.98 H (<0.60) mg/L FEU Sodium 125 L (137-145) mmol/L Chloride 90 L (98-107) mmol/L Carbon Dioxide 19 L (22-30) mmol/L Glucose 198 H (74-99) mg/dL POC Glucose (mg/dL) (70-110) mg/dL Plasma Lactic Acid Aldo (0.7-2.0) mmol/L Magnesium 3.1 H (1.6-2.3) mg/dL AST 40 H (14-36) U/L Alkaline Phosphatase 470 H (38-126) U/L Total Protein (6.3-8.2) g/dL Urine Appearance (Clear) Urine Protein (Negative) Urine Nitrite (Negative) Ur Leukocyte Esterase (Negative) Urine WBC (0-5) /hpf Urine WBC Clumps (None) /hpf Amorphous Sediment (None) /hpf Urine Bacteria (None) /hpf Urine Mucus (None) /hpf 12/05/21 12/05/21 12/05/21 Range/Units 00:21 01:20 01:58 WBC 14.2 H (3.8-10.6) k/uL MCV 104.0 H (80.0-100.0) fL Neutrophils # (Manual) 13.40 H (1.3-7.7) k/uL Lymphocytes # (Manual) 0.57 L (1.0-4.8) k/uL APTT (22.0-30.0) sec D-Dimer (<0.60) mg/L FEU Sodium (137-145) mmol/L Chloride (98-107) mmol/L Carbon Dioxide (22-30) mmol/L Glucose (74-99) mg/dL POC Glucose (mg/dL) 126 H (70-110) mg/dL Plasma Lactic Acid Aldo (0.7-2.0) mmol/L Magnesium (1.6-2.3) mg/dL AST (14-36) U/L Alkaline Phosphatase (38-126) U/L Total Protein (6.3-8.2) g/dL Urine Appearance Cloudy H (Clear) Urine Protein 1+ H (Negative) Urine Nitrite Positive H (Negative) Ur Leukocyte Esterase Moderate H (Negative) Urine WBC 21 H (0-5) /hpf Urine WBC Clumps Occasional H (None) /hpf Amorphous Sediment Occasional H (None) /hpf Urine Bacteria Rare H (None) /hpf Urine Mucus Occasional H (None) /hpf 12/05/21 12/05/21 12/05/21 Range/Units 01:58 01:58 05:14 WBC (3.8-10.6) k/uL MCV (80.0-100.0) fL Neutrophils # (Manual) (1.3-7.7) k/uL Lymphocytes # (Manual) (1.0-4.8) k/uL APTT (22.0-30.0) sec D-Dimer (<0.60) mg/L FEU Sodium 131 L (137-145) mmol/L Chloride 97 L (98-107) mmol/L Carbon Dioxide 19 L (22-30) mmol/L Glucose 131 H (74-99) mg/dL POC Glucose (mg/dL) 128 H (70-110) mg/dL Plasma Lactic Acid Aldo 5.0 H* (0.7-2.0) mmol/L Magnesium (1.6-2.3) mg/dL AST 45 H (14-36) U/L Alkaline Phosphatase 778 H (38-126) U/L Total Protein 6.0 L (6.3-8.2) g/dL Urine Appearance (Clear) Urine Protein (Negative) Urine Nitrite (Negative) Ur Leukocyte Esterase (Negative) Urine WBC (0-5) /hpf Urine WBC Clumps (None) /hpf Amorphous Sediment (None) /hpf Urine Bacteria (None) /hpf Urine Mucus (None) /hpf 12/05/21 Range/Units 05:46 WBC (3.8-10.6) k/uL MCV (80.0-100.0) fL Neutrophils # (Manual) (1.3-7.7) k/uL Lymphocytes # (Manual) (1.0-4.8) k/uL APTT (22.0-30.0) sec D-Dimer (<0.60) mg/L FEU Sodium (137-145) mmol/L Chloride (98-107) mmol/L Carbon Dioxide (22-30) mmol/L Glucose (74-99) mg/dL POC Glucose (mg/dL) (70-110) mg/dL Plasma Lactic Acid Aldo 5.3 H* (0.7-2.0) mmol/L Magnesium (1.6-2.3) mg/dL AST (14-36) U/L Alkaline Phosphatase (38-126) U/L Total Protein (6.3-8.2) g/dL Urine Appearance (Clear) Urine Protein (Negative) Urine Nitrite (Negative) Ur Leukocyte Esterase (Negative) Urine WBC (0-5) /hpf Urine WBC Clumps (None) /hpf Amorphous Sediment (None) /hpf Urine Bacteria (None) /hpf Urine Mucus (None) /hpf Microbiology - Last 24 Hours (Table) 12/05/21 01:20 Urine Culture - Preliminary Urine,Voided Thrombosis Risk Factor Assmnt - Choose All That Apply Any of the Below Risk Factors Present?: Yes Each Factor Represents 1 point: Obesity (BMI >25) Other Risk Factors: Yes Each Risk Factor Represents 2 Points: Age 61-74 years Thrombosis Risk Factor Assessment Total Risk Factor Score: 3 Thrombosis Risk Factor Assessment Level: Moderate Risk
[2021-12-05] MEDS ORDERED: SODIUM CHLORIDE 0.9% 1,000 ML IV SCH (12:30)
--- NOTE | 2021-12-05 12:52 | P.GSCN ---
History of Present Illness Consult date: 12/05/21 History of present illness: CHIEF COMPLAINT: Abdominal pain HISTORY OF PRESENT ILLNESS: This is a 71-year-old female who presented to the hospital with complaints of abdominal pain with nausea and vomiting. She also had altered mental status, hypotensive and diaphoretic. Patient was initially admitted to the cardiac floor. An "Ateam" was called for hypotension and altered mental status. Patient required transfer to the ICU. She's received 2 L fluid bolus. She is on a small dose of Levophed. She has been having fevers, tachycardic, hypotensive, elevated white count and lactic acid. She has diffuse abdominal pain. Computed tomography scan abdomen and pelvis compared to yesterday there is development of some free fluid in the pelvis. There is constipation and large bowel ileus not significant different. Possibility of peritonitis should be considered. Dilated gallbladder increased compared to yesterday and suggestive of cholecystitis. Patient currently on IV antibiotics. Patient has fecal management system in place. She was having copious amounts of diarrhea. Past surgical history includes a hysterectomy. PAST MEDICAL HISTORY: Trigeminal neuralgia, heart murmur, hyperlipidemia and hypertension PAST SURGICAL HISTORY: See list. MEDICATIONS: See list. ALLERGIES: See list. SOCIAL HISTORY: No illicit drug use. REVIEW OF SYSTEMS: CONSTITUTIONAL: Denies fever or chills. HEENT: Denies blurred vision, vision changes, or eye pain. Denies hemoptysis CARDIOVASCULAR: Denies chest pain or pressure. RESPIRATORY: No shortness of breath. GASTROINTESTINAL: See HPI for pertinent findings HEMATOLOGIC: Denies bleeding disorders. GENITOURINARY: Denies any blood in urine or increased urinary frequency. SKIN: Denies pruitis. Denies rash. PHYSICAL EXAM: VITAL SIGNS: Reviewed GENERAL: Well-developed in no acute distress. HEENT: No sclera icterus. Extraocular movements grossly intact. Moist buccal mucosa. Head is atraumatic, normocephalic. No nasal drainage. ABDOMEN: Soft. Distended. Diffuse tenderness more in tender in the lower abdomen NEUROLOGIC: Patient alert and orientated to her name and place. She is confused. And lethargic LABORATORY DATA: IMAGING: CTA chest abdomen pelvis no arterial aneurysm or dissection. No evidence of pulmonary embolism. There is possible small bowel ileus. Interstitial of a tr dino atelectasis at the posterior lung bases. CT abdomen and pelvis as stated above Computed tomography scan of brain mild atrophy and chronic small vessel ischemia. No acute intracranial abnormality. ASSESSMENT: 1. Acute abdominal pain 2. Computed tomography scan abdomen and pelvis with development of free fluid in the pelvis. There is constipation and large bowel ileus. Possibility of pe ritonitis. Dilated gallbladder. 3. Sepsis PLAN: -Patient scheduled for diagnostic laparoscopy and possible laparotomy today with Dr. Aguayo -Keep patient nothing by mouth -Continue supportive care -Continue IV fluids -Continue antibiotics -Continue ICU management Thank you for this consultation Physician Angle Shear Set Up Operator note has been reviewed by physician. Signing provider agrees with the documented findings, assessment, and plan of care. I have personally seen and examined the patient, reviewed the LINING MACHINE OPERATOR /PAs history, exam and MDM and agree with the assessment and plan as written. Based on total visit time, I have performed more than 50% of the visit. As above: Patient seen at 12:30. Patient presented to the hospital with mental status changes, weakness, upper abdominal pain and chest pain, and hypotension. Patient's pain increased while here in the hospital. Initial CT of the chest a nd abdomen showed no definite etiology. Repeat CAT scan abdomen and pelvis was performed early this morning showing again no definitive explanation for her pain however free fluid in the abdomen was present which was not identified previously. There is dilated small and large bowel loops consistent with ileus. The patient's gallbladder is distended as well. The patient points to her lower abdomen as the greatest source of pain currently. Per the ICU staff she has been lethargic throughout the morning but looks better now from a mentation point of view than she has previously. On examination the patient has diffuse tenderness increased in the lower abdomen. The quadrant with the least tenderness actually at this time is the right upper quadrant. She is asking that I not examine her because of the degree of discomfort. The patient has a leukocytosis with significant bandemia as well as lactic acidosis. The clinical scenario was reviewed with the patient and her [id number] present at the bedside. Also discussed her case with Dr. Caban. Certainly abdomen seems to be the most likely source of sepsis. At this point recommend diagnostic laparoscopy to evaluate for possible ischemic bowel. Possible laparotomy and/or bowel resection depending on the intraoperative findings. We did discuss the patient's distended gallbladder seen on CAT scan as well however that seems to be a less likely source of sepsis at this time. Continue broad-spectrum antibiotics. Risks of bleeding, infection, scarring, leak, abscess, possible need for further procedures, hernia, progressive sepsis reviewed. Patient understands and wishes to proceed. Past Medical History Past Medical History: Hyperlipidemia, Hypertension Additional Past Medical History / Comment(s): heart murmur, trigeminal neuralgia, History of Any Multi-Drug Resistant Organisms: None Reported Past Surgical History: Hysterectomy Additional Past Surgical History / Comment(s): surgery for trigeminal neuralgia, Past Anesthesia/Blood Transfusion Reactions: No Reported Reaction Past Psychological History: No Psychological Hx Reported Past Alcohol Use History: None Reported Past Drug Use History: None Reported - Past Family History Mother Additional Family Medical History / Comment(s): passed from colon cancer in her 60's family Family Medical History: No Reported History Medications and Allergies Home Medications Medication Instructions Recorded Confirmed Type Atorvastatin [Lipitor] 20 mg PO DAILY 07/08/19 12/04/21 History Gabapentin [Neurontin] 300 mg PO QID 07/08/19 12/04/21 History Metoprolol Tartrate [Lopressor] 50 mg PO BID 07/08/19 12/04/21 History carBAMazepine 200 mg PO QID 07/08/19 12/04/21 History Aspirin EC [Ecotrin Low Dose] 81 mg PO DAILY 12/04/21 12/04/21 History Meclizine [Antivert] 12.5 mg PO BID 12/04/21 12/04/21 History lisinopriL [Zestril] 20 mg PO DAILY 12/04/21 12/04/21 History Allergies Allergy/AdvReac Type Severity Reaction Status Date / Time Penicillins AdvReac Rash/Hives Verified 12/04/21 21:37 Surgical - Exam Vital Signs Pulse Resp BP 95 16 69/44 12/04/21 18:35 12/04/21 18:35 12/04/21 18:35 Results - Labs 12/05/21 01:58 12/05/21 01:58 Abnormal Lab Results - Last 24 Hours (Table) 12/04/21 12/04/21 12/04/21 Range/Units 18:42 18:42 18:42 WBC 12.3 H (3.8-10.6) k/uL MCV (80.0-100.0) fL Neutrophils # (Manual) 8.80 H (1.3-7.7) k/uL Lymphocytes # (Manual) (1.0-4.8) k/uL APTT 20.3 L (22.0-30.0) sec D-Dimer 8.98 H (<0.60) mg/L FEU Sodium 125 L (137-145) mmol/L Chloride 90 L (98-107) mmol/L Carbon Dioxide 19 L (22-30) mmol/L Glucose 198 H (74-99) mg/dL POC Glucose (mg/dL) (70-110) mg/dL Plasma Lactic Acid Aldo (0.7-2.0) mmol/L Magnesium 3.1 H (1.6-2.3) mg/dL AST 40 H (14-36) U/L Alkaline Phosphatase 470 H (38-126) U/L Total Protein (6.3-8.2) g/dL Urine Appearance (Clear) Urine Protein (Negative) Urine Nitrite (Negative) Ur Leukocyte Esterase (Negative) Urine WBC (0-5) /hpf Urine WBC Clumps (None) /hpf Amorphous Sediment (None) /hpf Urine Bacteria (None) /hpf Urine Mucus (None) /hpf 12/05/21 12/05/21 12/05/21 Range/Units 00:21 01:20 01:58 WBC 14.2 H (3.8-10.6) k/uL MCV 104.0 H (80.0-100.0) fL Neutrophils # (Manual) 13.40 H (1.3-7.7) k/uL Lymphocytes # (Manual) 0.57 L (1.0-4.8) k/uL APTT (22.0-30.0) sec D-Dimer (<0.60) mg/L FEU Sodium (137-145) mmol/L Chloride (98-107) mmol/L Carbon Dioxide (22-30) mmol/L Glucose (74-99) mg/dL POC Glucose (mg/dL) 126 H (70-110) mg/dL Plasma Lactic Acid Aldo (0.7-2.0) mmol/L Magnesium (1.6-2.3) mg/dL AST (14-36) U/L Alkaline Phosphatase (38-126) U/L Total Protein (6.3-8.2) g/dL Urine Appearance Cloudy H (Clear) Urine Protein 1+ H (Negative) Urine Nitrite Positive H (Negative) Ur Leukocyte Esterase Moderate H (Negative) Urine WBC 21 H (0-5) /hpf Urine WBC Clumps Occasional H (None) /hpf Amorphous Sediment Occasional H (None) /hpf Urine Bacteria Rare H (None) /hpf Urine Mucus Occasional H (None) /hpf 12/05/21 12/05/21 12/05/21 Range/Units 01:58 01:58 05:14 WBC (3.8-10.6) k/uL MCV (80.0-100.0) fL Neutrophils # (Manual) (1.3-7.7) k/uL Lymphocytes # (Manual) (1.0-4.8) k/uL APTT (22.0-30.0) sec D-Dimer (<0.60) mg/L FEU Sodium 131 L (137-145) mmol/L Chloride 97 L (98-107) mmol/L Carbon Dioxide 19 L (22-30) mmol/L Glucose 131 H (74-99) mg/dL POC Glucose (mg/dL) 128 H (70-110) mg/dL Plasma Lactic Acid Aldo 5.0 H* (0.7-2.0) mmol/L Magnesium (1.6-2.3) mg/dL AST 45 H (14-36) U/L Alkaline Phosphatase 778 H (38-126) U/L Total Protein 6.0 L (6.3-8.2) g/dL Urine Appearance (Clear) Urine Protein (Negative) Urine Nitrite (Negative) Ur Leukocyte Esterase (Negative) Urine WBC (0-5) /hpf Urine WBC Clumps (None) /hpf Amorphous Sediment (None) /hpf Urine Bacteria (None) /hpf Urine Mucus (None) /hpf 12/05/21 Range/Units 05:46 WBC (3.8-10.6) k/uL MCV (80.0-100.0) fL Neutrophils # (Manual) (1.3-7.7) k/uL Lymphocytes # (Manual) (1.0-4.8) k/uL APTT (22.0-30.0) sec D-Dimer (<0.60) mg/L FEU Sodium (137-145) mmol/L Chloride (98-107) mmol/L Carbon Dioxide (22-30) mmol/L Glucose (74-99) mg/dL POC Glucose (mg/dL) (70-110) mg/dL Plasma Lactic Acid Aldo 5.3 H* (0.7-2.0) mmol/L Magnesium (1.6-2.3) mg/dL AST (14-36) U/L Alkaline Phosphatase (38-126) U/L Total Protein (6.3-8.2) g/dL Urine Appearance (Clear) Urine Protein (Negative) Urine Nitrite (Negative) Ur Leukocyte Esterase (Negative) Urine WBC (0-5) /hpf Urine WBC Clumps (None) /hpf Amorphous Sediment (None) /hpf Urine Bacteria (None) /hpf Urine Mucus (None) /hpf Microbiology - Last 24 Hours (Table) 12/05/21 01:20 Urine Culture - Preliminary Urine,Voided Diabetes panel 12/04/21 12/05/21 Range/Units 18:42 01:58 Sodium 125 L 131 L (137-145) mmol/L Potassium 4.1 4.4 (3.5-5.1) mmol/L Chloride 90 L 97 L (98-107) mmol/L Carbon Dioxide 19 L 19 L (22-30) mmol/L BUN 12 15 (7-17) mg/dL Creatinine 0.76 0.72 (0.52-1.04) mg/dL Glucose 198 H 131 H (74-99) mg/dL Calcium 9.8 9.0 (8.4-10.2) mg/dL AST 40 H 45 H (14-36) U/L ALT 19 21 (4-34) U/L Alkaline Phosphatase 470 H 778 H (38-126) U/L Total Protein 6.9 6.0 L (6.3-8.2) g/dL Albumin 4.5 3.8 (3.5-5.0) g/dL Calcium panel 12/04/21 12/05/21 Range/Units 18:42 01:58 Calcium 9.8 9.0 (8.4-10.2) mg/dL Albumin 4.5 3.8 (3.5-5.0) g/dL Pituitary panel 12/04/21 12/05/21 Range/Units 18:42 01:58 Sodium 125 L 131 L (137-145) mmol/L Potassium 4.1 4.4 (3.5-5.1) mmol/L Chloride 90 L 97 L (98-107) mmol/L Carbon Dioxide 19 L 19 L (22-30) mmol/L BUN 12 15 (7-17) mg/dL Creatinine 0.76 0.72 (0.52-1.04) mg/dL Glucose 198 H 131 H (74-99) mg/dL Calcium 9.8 9.0 (8.4-10.2) mg/dL Adrenal panel 12/04/21 12/05/21 Range/Units 18:42 01:58 Sodium 125 L 131 L (137-145) mmol/L Potassium 4.1 4.4 (3.5-5.1) mmol/L Chloride 90 L 97 L (98-107) mmol/L Carbon Dioxide 19 L 19 L (22-30) mmol/L BUN 12 15 (7-17) mg/dL Creatinine 0.76 0.72 (0.52-1.04) mg/dL Glucose 198 H 131 H (74-99) mg/dL Calcium 9.8 9.0 (8.4-10.2) mg/dL Total Bilirubin 0.9 0.8 (0.2-1.3) mg/dL AST 40 H 45 H (14-36) U/L ALT 19 21 (4-34) U/L Alkaline Phosphatase 470 H 778 H (38-126) U/L Total Protein 6.9 6.0 L (6.3-8.2) g/dL Albumin 4.5 3.8 (3.5-5.0) g/dL
[2021-12-05] MEDS: LACTATED RINGERS 1,000 ML IV SCH ×2 (15:04→21:12)
[2021-12-05] MEDS: MEROPENEM 2 GM in SODIUM CHLORIDE 0.9% 100 ML IVPB SCH ×2 (15:04→23:11)
[2021-12-05] MEDS ORDERED: BUPIVACAIN-EPI 0.25%-1:200,000 30 ML VIAL SQ ONE (15:35)
[2021-12-05] MEDS ORDERED: LIDOCAINE 2% INJ 20 MG/ML (2 ML VIAL) ONE (15:38)
[2021-12-05] MEDS ORDERED: NEOSTIGMINE 1 MG/ML 10 ML VIAL ONE (15:38)
[2021-12-05] MEDS ORDERED: fentaNYL (PF) 50 MCG/ML 2 ML AMP ONE (15:38)
[2021-12-05] MEDS ORDERED: MIDAZOLAM 2 MG/2 ML VIAL ONE (15:38)
[2021-12-05] MEDS ORDERED: SUCCINYLCHOLINE CHLORIDE 200 MG/10 ML VIAL IV ONE (15:38)
[2021-12-05] MEDS ORDERED: ROCURONIUM 10 MG/ML (5 ML VIAL) IV ONE (15:38)
[2021-12-05] MEDS ORDERED: GLYCOPYRROLATE 0.2 MG/ML 2 ML VIAL ONE (15:38)
[2021-12-05] MEDS ORDERED: PROPOFOL 10 MG/ML 20 ML VIAL IV ONE (15:38)
[2021-12-05] MEDS ORDERED: LACTATED RINGERS 1,000 ML IV ONE ×2 (15:42→17:40)
--- NOTE | 2021-12-05 18:21 | P.OP ---
Date of Procedure: 12/05/21 Procedure(s) Performed: PREOPERATIVE DIAGNOSIS: Abdominal sepsis POSTOPERATIVE DIAGNOSIS: Cholecystitis PROCEDURE: Diagnostic laparoscopy, laparoscopic cholecystectomy SURGEON: Dede EBL: 10 mL ANESTHESIA: Gen. COMPLICATIONS: None OPERATIVE PROCEDURE: The patient was brought and placed on the operating room table in the supine position. The patient was placed under general anesthesia at that time. The abdomen was prepped and draped in the usual sterile fashion. A small vertical infraumbilical incision was made. The fascia was grasped with the Kaiser forceps. The fascia was retracted anteriorly. The Veress needle was advanced into the peritoneal cavity. The saline drop test was normal. Insuff lation took place up to 15 mmHg. A 5 mm optical trocar was advanced and the peritoneal cavity. Upon initial insertion of the camera no obvious abnormalities were identified other than a moderate amount of serous fluid in the abdomen. 2 additional 5 mm trochars were placed in the left lateral abdomen under direct visualization. The abdomen was then more carefully examined once we had our graspers available. The bowel was ran from the ileocecal valve to the ligament of Treitz. No small bowel abnormalities were present. I then examined the colon from the cecum to the hepatic flexure from the hepatic flexure to the splenic flexure and from the splenic flexure to the mid sigmoid colon. No abnormalities were present. The patient's serous fluid that was present in the abdominal cavity was evacuated and using a luki tube fluid was sent for Gram stain and culture. The patient's stomach appeared normal. The gallbladder was distended and as I inspected the region of the infundibulum th ere was a slight change in the color of the gallbladder wall that appeared slightly ischemic. I broke scrub at that time and discuss the situation with the family. I advised that given the CAT scan appearance of the gallbladder and the intraoperative appearance of the gallbladder that we proceed with cholecystectomy to at least eliminate that as a possible source of sepsis. An additional 12 mm trocar was advanced into the epigastric incision site. 25 mm trochars were placed in the right upper quadrant. The gallbladder was retracted superiorly and laterally. The peritoneum overlying the infundibulum was bluntly dissected. The patient's cystic duct was visualized. The junction between the cystic duct common and hepatic duct was identified. The critical view of safety was achieved after blunt dissection. The cystic duct was then divided after placement of 3 12 mm clips on the patient's side and one on the specimen side. The cystic artery was identified and clipped as well. A small vessel was seen along the gallbladder fossa and clipped as well. The gallbladder was then removed from the liver bed using electrocautery. There was certainly edema present between the liver and the gallbladder. The gallbladder was then removed from the epigastric trocar site with an Endo Catch bag. The gallbladder fossa was irrigated with saline. There was no evidence of any bleeding or biliary drainage seen. I did place a drain in the gallbladder fossa through the most lateral 5 mm right upper quadrant trocar site. This was sutured in place using a 3-0 silk stitch. The fascia at the 12 millimeter site was closed using a EmMike 0 Vicryl stitch. The trochars were then removed. The skin at all 5 sites was closed using a 4-0 Monocryl stitch. Skin glue was utilized on the incision sites. During the procedure the most inferior left-sided 5 mm trocar was noted to pull back into the abdominal wall. This was trocar that the CO2 gas was connected to. Some of the lower abdominal wall was insufflated as a result of that. At the end of this procedure the sponge and needle counts were correct. DISPOSITION: Guarded to the ICU
--- NOTE | 2021-12-05 19:06 | XR ---
EXAMINATION TYPE: XR chest 1V confirm line [facility] DATE OF EXAM: 12/05/2021 COMPARISON: Yesterday HISTORY: Line placement TECHNIQUE: FINDINGS: There is right jugular catheter with tip in the superior vena cava. There is some infiltrat e or atelectasis at both lung bases. There is soft tissue air on the left lateral chest wall. No pneu mothorax. Trachea is midline. IMPRESSION: There is soft tissue air on the left lateral chest wall. There is increasing infiltrate a nd atelectasis in both lower lobes compared to yesterday. Heart failure is possible as well. No pneum othorax.
[2021-12-05 19:15] LABS: Glucose,Whole Blood 102 mg/dL (70-110)
[2021-12-05] MEDS: HEPARIN SODIUM,PORCINE/PF 5,000 UNIT/0.5 ML SYRINGE SQ SCH ×2 (19:53→23:10)
[2021-12-05] MEDS ORDERED: VANCOMYCIN 1,750 MG in SODIUM CHLORIDE 0.9% 500 ML 500 ML IVPB SCH (20:00)
[2021-12-06] MEDS: HYDROmorphone 0.5 MG/0.5 ML SYRINGE IVP PRN ×5 (01:09→15:04)
[2021-12-06] MEDS: LACTATED RINGERS 1,000 ML IV SCH ×3 (02:31→22:17)
[2021-12-06] MEDS: NOREPINEPHRINE 4 MG in SODIUM CHLORIDE 0.9% 250 ML IV SCH (03:43)
[2021-12-06 04:12] LABS: Glucose,Whole Blood 117 mg/dL (70-110)
[2021-12-06] MEDS ORDERED: METOPROLOL TARTRATE 5 MG/5 ML VIAL IVP ONE (05:01)
[2021-12-06 07:02] LABS: HCT 41.5 % (34.0-46.0); HGB 13.3 gm/dL (11.4-16.0); MCV 100.1 fL (80.0-100.0); Mean Platelet Volume 7.5; Platelet Count 315 k/uL (150-450); RBC 4.15 m/uL (3.80-5.40); RDW 12.5 % (11.5-15.5); WBC 7.9 k/uL (3.8-10.6)
[2021-12-06 07:17] LABS: ALT 26 U/L (4-34); AST 64 U/L (14-36); African American GFR (CKD) >90 (>60 ml/min/1.73 sqM); Albumin 2.4 g/dL (3.5-5.0); Alkaline Phosphatase 401 U/L (38-126); Anion Gap 5 mmol/L; Blood Urea Nitrogen 20 mg/dL (7-17); Calcium 7.5 mg/dL (8.4-10.2); Carbon Dioxide 22 mmol/L (22-30); Chloride 106 mmol/L (98-107); Glucose 116 mg/dL (74-99); Non-African American GFR(CKD) >90 (>60 ml/min/1.73 sqM); Potassium 4.9 mmol/L (3.5-5.1); Sodium 133 mmol/L (137-145); Total Bilirubin 0.4 mg/dL (0.2-1.3); Total Protein 4.4 g/dL (6.3-8.2)
--- NOTE | 2021-12-06 07:59 | P.PN ---
Subjective Progress Note Date: 12/06/21 Principal diagnosis: Sepsis. This is a 71-year-old female patient with a known history of hypertension, hyperlipidemia, tic douloureux. She presented to the emergency room yesterday for nausea vomiting and abdominal pain. She was also having altered mental status, hypotension and diaphoresis. CT angiogram of the chest abdomen and pelvis revealed no arterial aneurysms or dissection. No evidence of pulmonary embolism. There is a possible small bowel ileus. Interstitial infiltrates and atelectasis at the lung bases. She was initially admitted to the selective care unit. Approximately 2:00 this morning the patient was found to be more lethargic with complaints of diffuse abdominal pain most notably in the suprapubic region. She also was hypotensive. She was given a liter of normal saline. Computed tomography scan of the brain revealed mild atrophy and chronic small vessel ischemia. No acute intracranial abnormality. She was transferred to the intensive care unit for closer monitoring. She is seen today in consultation. She is awake and alert. She is complaining of fatigue and is drowsy at times. She is oriented. She did require norepinephrine infusion at 4 mcg/m. She is on normal saline now at 130 ML's per hour. She has oxygen at 3 L/m. Follow-up CAT scan of the abdomen revealed development of some free fluid in the pelvis. There is constipation and large bowel ileus not significantly different. Possibility. Tinnitus should be considered. Dilated gallbladder suggestive of cholecystitis. Culture data and atelectasis of the lung bases. Surgical consult is pending. Urine culture pending. White count 14.2. Hemoglobin 14.4. MCV 104. Sodium 131. Potassium 4.4. Bicarb 19. BUN 15. Creatinine 0.72. Glucose 131. Lactic acid 5.0. AST 45. ALT 21. Alk phos 778. Chronic virus by PCR not detected. She had been given vancomycin and meropenem. Progress note dated 12/06/2021. 71-year-old female that we saw yesterday in consultation, for possible sepsis and hypotension. She was initially admitted to the general medical floor. She has a history of hypertension, hyperlipidemia, and trigeminal neuralgia. We are concerned about abdominal sepsis. She went for laparoscopic exploration, and ended up with a laparoscopic cholecystectomy, for cholecystitis. The patient is currently resting comfortably in the ICU, room 265. Blood cultures are apparently positive for gram-positive cocci. The patient is on vancomycin and meropenem. Today, she is on 2 L of oxygen. The patient remains on lactated Ringer's at 130 mL an hour. In addition, the patient's on norepinephrine at 0.05 mcg/kg/m. She had some tachycardia, and was given some beta tristen from the hospital service. Currently labs include a white count of 7.9, hemoglobin 13.3, hematocrit 41.5, and a platelet count of 315,000. Sodium 133, potassium 4.9, chlorides 106, CO2 22, BUN 20, creatinine 0.62. Albumin was 2.4. Chest x- ray shows bibasilar atelectasis. Blood cultures were positive for staphylococcus epidermidis. Objective - Vital Signs Vital signs: Vital Signs Temp 98.8 F 12/06/21 00:00 Pulse 101 H 12/06/21 07:00 Resp 20 12/06/21 07:00 BP 124/63 12/06/21 07:00 Pulse Ox 94 L 12/06/21 07:00 FiO2 Intake & Output 12/05/21 12/06/21 12/06/21 18:59 06:59 18:59 Intake Total 2262.567 2463.229 138.555 Output Total 520 1395 40 Balance 8612.226 6025.229 98.555 Weight 82.3 kg Intake: IV 2220 2030 130 Lactated Ringers 1,000 ml 1300 130 @ 130 mls/hr IV .Q7H42M [facility] Rx#:[id number] Meropenem 2 gm In Sodium 100 Chloride 0.9% 100 ml @ 33 .3 mls/hr IVPB Q8HR [facility] Rx#:[id number] Sodium Chloride 0.9% 1, 1170 130 000 ml @ 130 mls/hr IV . Q7H42M [facility] Rx#:[id number] Vancomycin 1,750 mg In 500 Sodium Chloride 0.9% 500 ml 500 ml @ 167 mls/hr IVPB Q16H [facility] Rx#: [id number] Intake, IV Titration 42.567 433.229 8.555 Amount Norepinephrine 4 mg In 42.567 433.229 8.555 Sodium Chloride 0.9% 250 ml @ 0.05 MCG/KG/MIN 15. 554 mls/hr IV .[id number] [facility] Rx#:[id number] Output: Drainage 55 Right Abdomen 55 Urine 510 1340 40 Estimated Blood Loss 10 Other: Voiding Method Indwelling Catheter Indwelling Catheter - Exam No acute distress, oriented 3. Nasal O2 in place at 2 L. The patient is a bit pale. HEENT examination is grossly unremarkable. Neck supple. Full range of motion. No adenopathy thyromegaly or neck vein distention. Cardiovascular examination reveals regular rhythm rate. S1-S2 normal. No S3 or S4. No discernible murmur noted. Heart sounds are distant. Heart rate 101 bpm. Lungs reveal scattered bilateral rhonchi. No wheezes. No crackles. Breath sounds equal bilaterally. 2 L saturation is 94%. Abdomen soft without bowel sounds. Abdomen is a bit tender. Extremities are intact. No cyanosis clubbing or edema. Skin is without rash or lesion. Neurologic examination is brief but nonfocal. - Labs CBC & Chem 7: 12/06/21 06:21 12/06/21 06:21 Labs: Abnormal Lab Results - Last 24 Hours (Table) 12/06/21 12/06/21 12/06/21 Range/Units 04:10 06:21 06:21 MCV 100.1 H (80.0-100.0) fL Sodium 133 L (137-145) mmol/L BUN 20 H (7-17) mg/dL Glucose 116 H (74-99) mg/dL POC Glucose (mg/dL) 117 H (70-110) mg/dL Calcium 7.5 L (8.4-10.2) mg/dL AST 64 H (14-36) U/L Alkaline Phosphatase 401 H (38-126) U/L Total Protein 4.4 L (6.3-8.2) g/dL Albumin 2.4 L (3.5-5.0) g/dL Microbiology - Last 24 Hours (Table) 12/05/21 17:32 Body Fluid Culture - Preliminary Peritoneal Fluid 12/05/21 17:32 Anaerobic Culture - Preliminary Peritoneal Fluid 12/05/21 20:46 Stool Culture - Preliminary Stool 12/04/21 19:15 Blood Culture Gram Stain - Preliminary Blood Blood Culture - Preliminary Staphylococcus epidermidis 12/04/21 19:20 Blood Culture Gram Stain - Preliminary Blood 12/04/21 19:20 Blood Culture - Final Blood 12/04/21 19:15 Blood Culture - Final Blood 12/05/21 01:20 Urine Culture - Preliminary Urine,Voided Assessment and Plan Assessment: Postop day #1, status post exploratory laparoscopy, and laparoscopic cholecystectomy, (12/05/2021), for acute cholecystitis. Abdominal pain, with possible abdominal sepsis. Mental status changes, secondary to encephalopathy from sepsis, improved. Hypotension, likely secondary to sepsis, still requiring norepinephrine. Lactic acidosis, secondary to sepsis. History of hypertension. History of hyperlipidemia. History of trigeminal neuralgia/tic douloureux Plan: Plan dated 12/06/2021. The patient will remain in the intensive care unit. The patient is currently on norepinephrine. Receiving lactated Ringer's at 130 mL an hour. The patient's on vancomycin and meropenem. Blood cultures were positive for Staphylococcus epidermidis. We will continue to follow. I did ask the nurse to make sure an incentive spirometer was ordered. She'll be doing it hourly. Labs, x-rays, and medications are reviewed. Prognosis is guarded. We will continue to follow and make recommendations along the way. Time with Patient: Greater than 30
[2021-12-06 08:10] LABS: Band Neutrophils % 25 %; Lymphocytes # (M) 0.55 k/uL (1.0-4.8); Metamyelocytes # (M) 0.16 k/uL (0); Metamyelocytes % 2 %; Monocytes # (M) 0.71 k/uL (0-1.0); Neutrophils % (M) 59 %; Nucleated Red Blood Cells 0 /100 WBC (0-0); Total Cells Counted 200
[2021-12-06] MEDS: MEROPENEM 2 GM in SODIUM CHLORIDE 0.9% 100 ML IVPB SCH ×2 (08:16→16:53)
[2021-12-06] MEDS: HEPARIN SODIUM,PORCINE/PF 5,000 UNIT/0.5 ML SYRINGE SQ SCH ×2 (08:16→16:53)
[2021-12-06] MEDS: VANCOMYCIN 1,500 MG in SODIUM CHLORIDE 0.9% 250 ML IVPB SCH ×2 (10:24→22:15)
--- NOTE | 2021-12-06 11:08 | P.PN ---
Subjective Progress Note Date: 12/06/21 CHIEF COMPLAINT: Abdominal pain with sepsis HISTORY OF PRESENT ILLNESS: Patient is POD#1 status post diagnostic laparoscopy and laparoscopic cholecystectomy for cholecystitis. Gallbladder had appeared slightly ischemic noted in OR report. Patient remains in the ICU. She reports improvement in her abdominal pain from yesterday. Patient is more awake and alert. Denies any nausea or vomiting. She is on 2 L of oxygen satting at 94%. She is afebrile. Mild tachycardic. Has fecal management system in place. JUANA drain 40 mL serous output this a.m. Remains on a small amount of Levophed. WBC is 7.9 Hgb 13.3 platelets 315. Sodium 133 potassium 4.9 creatinine 0.60 total bilirubin 0.4 AST 45 up to 64 ALT 26 alk phos 778 down to 401. Fluid culture from surgery pending. Positive blood culture Staphylococcus epidermidis PHYSICAL EXAM: VITAL SIGNS: Reviewed. GENERAL: Well-developed in no acute distress. HEENT: No sclera icterus. Extraocular movements grossly intact. Moist buccal mucosa. Head is atraumatic, normocephalic. ABDOMEN: Soft. Nondistended. Tenderness at incision site. Decreased tenderness compared to yesterday. Incision sites clean dry and intact. JUANA drainage is serous output. NEUROLOGIC: Alert and oriented. Cranial nerves II through XII grossly intact. ASSESSMENT: 1. Acute cholecystitis status post exploratory laparoscopy and laparoscopic cholecystectomy 2. Abdominal sepsis PLAN: -Start sips of clear liquids -Continue IV fluids -Continue IV antibiotics -Add [place] for oral pain medication -Add incentive spirometer -Continue pain medication as needed -Continue ICU management -Continue supportive care Physician Hand Drawer In Helper note has been reviewed by physician. Signing provider agrees with the documented findings, assessment, and plan of care. I have personally seen and examined the patient, reviewed the CREAM DUMPER /PAs history, exam and MDM and agree with the assessment and plan as written. Based on total visit time, I have performed more than 50% of the visit. As above: Patient is more alert than yesterday. She is off of the IV pressors. Cultures are noted. JUANA drain is serosanguineous. Still complaining of abdomi nal pain but states it is better than yesterday. Mild to moderate diffuse tenderness on exam. Still having loose stools. C. diff was negative. Cultures of the stool are pending. Continue IV antibiotics. Continue with clear liquid diet for now. We'll follow with you. Objective - Vital Signs Vital signs: Vital Signs Temp 99.1 F 12/06/21 08:00 Pulse 105 H 12/06/21 10:15 Resp 17 12/06/21 10:15 BP 129/64 12/06/21 10:15 Pulse Ox 94 L 12/06/21 10:15 FiO2 Intake & Output 12/05/21 12/06/21 12/06/21 18:59 06:59 18:59 Intake Total 2262.567 2463.229 908.417 Output Total 520 1395 215 Balance 2498.851 4301.229 693.417 Weight 82.3 kg Intake: IV 2220 2030 870 Lactated Ringers 1,000 ml 1300 520 @ 130 mls/hr IV .Q7H42M [facility] Rx#:[id number] Meropenem 2 gm In Sodium 100 100 Chloride 0.9% 100 ml @ 33 .3 mls/hr IVPB Q8HR [facility] Rx#:[id number] Sodium Chloride 0.9% 1, 1170 130 000 ml @ 130 mls/hr IV . Q7H42M [facility] Rx#:[id number] Vancomycin 1,500 mg In 250 Sodium Chloride 0.9% 250 ml @ 125 mls/hr IVPB Q12H [facility] Rx#:[id number] Vancomycin 1,750 mg In 500 Sodium Chloride 0.9% 500 ml 500 ml @ 167 mls/hr IVPB Q16H [facility] Rx#: [id number] Intake, IV Titration 42.567 433.229 38.417 Amount Norepinephrine 4 mg In 42.567 433.229 38.417 Sodium Chloride 0.9% 250 ml @ 0.05 MCG/KG/MIN 15. 554 mls/hr IV .[id number] [facility] Rx#:[id number] Output: Drainage 55 Right Abdomen 55 Urine 510 1340 215 Estimated Blood Loss 10 Other: Voiding Method Indwelling Catheter Indwelling Catheter Indwelling Catheter - Labs CBC & Chem 7: 12/06/21 06:21 12/06/21 06:21 Labs: Abnormal Lab Results - Last 24 Hours (Table) 12/06/21 12/06/21 12/06/21 Range/Units 04:10 06:21 06:21 MCV 100.1 H (80.0-100.0) fL Lymphocytes # (Manual) 0.55 L (1.0-4.8) k/uL Metamyelocytes # (Man) 0.16 H (0) k/uL Sodium 133 L (137-145) mmol/L BUN 20 H (7-17) mg/dL Glucose 116 H (74-99) mg/dL POC Glucose (mg/dL) 117 H (70-110) mg/dL Calcium 7.5 L (8.4-10.2) mg/dL AST 64 H (14-36) U/L Alkaline Phosphatase 401 H (38-126) U/L Total Protein 4.4 L (6.3-8.2) g/dL Albumin 2.4 L (3.5-5.0) g/dL Microbiology - Last 24 Hours (Table) 12/05/21 17:32 Body Fluid Culture - Preliminary Peritoneal Fluid 12/05/21 17:32 Anaerobic Culture - Preliminary Peritoneal Fluid 12/05/21 20:46 Stool Culture - Preliminary Stool 12/04/21 19:15 Blood Culture Gram Stain - Preliminary Blood Blood Culture - Preliminary Staphylococcus epidermidis 12/04/21 19:20 Blood Culture Gram Stain - Preliminary Blood 12/04/21 19:20 Blood Culture - Final Blood 12/04/21 19:15 Blood Culture - Final Blood 12/05/21 01:20 Urine Culture - Preliminary Urine,Voided
[2021-12-06] MEDS ORDERED: SODIUM CHLORIDE 0.9% 1,000 ML IV ONE (11:24)
[2021-12-06] MEDS: HYDROmorphone 1 MG/ML 1 ML SYRINGE IVP PRN ×3 (12:40→22:35)
[2021-12-06] MEDS ORDERED: MECLIZINE 12.5 MG TAB PO PRN (13:09)
--- NOTE | 2021-12-06 13:09 | P.PN ---
Subjective Progress Note Date: 12/06/21 71-year-old female came in with comments of nausea vomiting and severe abdominal pain patient overall clinical condition worsened on stepdown unit patient was subsequently transferred to ICU patient had a CT-guided CT angios gram of the chest and abdomen and pelvis which showed dilated the gallbladder for possibility of cholecystitis and free fluid in the abdomen. Patient was a lethargic with diffuse abdominal pain hypotensive patient was subsequently transferred to ICU and was started on broad-spectrum and Videx vancomycin and meropenem and lactated Ringer's. Patient lactic acid is high because of which am switching to normal saline. Patient was lethargic and drowsy but improving but now. Patient was evaluated by general surgery and going for expiratory laparotomy patient does have fever and elevated white count of 14.2 no evidence of pneumonia or UTI. 12/06/2021 Patient is monitored in intensive care unit. She underwent exploratory laprotomy and also laproscopic cholecystectomy with Dr Aguayo yesterday evening. Prior to she had chest xray for line placement which showed increasing infiltrate and atelectasis in both lower lobes compared to yesterday. Heart failure is possible as well. She is maintained on levophed and continues on lactated ringer at 130 mls per hour. She received a 1L fluid bolus today. Patient did have an echocardiogram in 2019 showing LV function of 40 to 45% with hypokinesis. Surgery has cleared patient for small sips of clear liquid today and discussed adding norco for pain management. She has drain present to right abdomen. She had sodium level today of 133, potassium 4.9, BUN 20, creatinine 0.62, glucose 116. C. Dif is negative. Her most recent lactic acid is 5.3, pending repeat today. Blood culture showing staph epi on 1 of 2 cultures. This could be possible contaminant. Stool culture pending. Surgical cultures are pending. She continues on vancomycin and meropenem. Review of Systems Constitutional: Denied any fatigue denied any fever. Cardio vascular: denied any chest pain, palpitations Gastrointestinal: Reports abdominal pain. diarrhea. Pulmonary: Denied any shortness of breath cough Neurologic denied any new focal deficits All inpatient medications were reviewed and appropriate changes in these medications as dictated in the interval history and assessment and plan. PHYSICAL EXAMINATION: GENERAL: Patient is quite a bit lethargic HEENT: Pupils are round and equally reacting to light. EOMI. No scleral icterus. No conjunctival pallor. Normocephalic, atraumatic. No pharyngeal erythema. No thyromegaly. CARDIOVASCULAR: S1 and S2 present. No murmurs, rubs, or gallops. PULMONARY: Chest is clear to auscultation, no wheezing or crackles. ABDOMEN: Post Surgical abdomen. MUSCULOSKELETAL: No joint swelling or deformity. EXTREMITIES: No cyanosis, clubbing, or pedal edema. NEUROLOGICAL: Gross neurological examination did not reveal any focal deficits. SKIN: No rashes. Assessment and plan -Septic shock: Possible intra-abdominal source patient is postoperative day #1 laproscopic cholecystectomy secondary to cholecystitis -Toxic encephalopathy altered mental status secondary to sepsis and septic shock, improving -Lactic acidosis secondary to sepsis -Sinus tachycardia posisbly from sepsis, patient has not been receiving oral medications -Hypertension -hyperlipidemia -Hyponatremia secondary to hypovolemia and sepsis: Continue with IV fluids -History nonischemic cardiomyopathy with most recent LV function 40 to 45% -History trigeminal neuralgia GI prophylaxis: DVT prophylaxis: Lovenox Full Code The impression and plan of care has been dictated by Heather Barber, Nurse Practitioner as directed. Dr. Benjamín MD I have performed a history and physical examination and medical decision making of this patient, discussed the same with the dictator, and agree with the dictators assessment and plan as written, documented as a scribe. Based on total visit time, I have performed more than 50% of this visit. Objective - Vital Signs Vital signs: Vital Signs Temp 99.1 F 12/06/21 08:00 Pulse 105 H 12/06/21 10:15 Resp 17 12/06/21 10:15 BP 129/64 12/06/21 10:15 Pulse Ox 94 L 12/06/21 10:15 FiO2 Intake & Output 12/05/21 12/06/21 12/06/21 18:59 06:59 18:59 Intake Total 2262.567 2463.229 908.417 Output Total 520 1395 215 Balance 2976.028 2461.229 693.417 Weight 82.3 kg Intake: IV 2219 2029 870 Lactated Ringers 1,000 ml 1300 520 @ 130 mls/hr IV .Q7H42M [facility] Rx#:[id number] Meropenem 2 gm In Sodium 100 100 Chloride 0.9% 100 ml @ 33 .3 mls/hr IVPB Q8HR [facility] Rx#:[id number] Sodium Chloride 0.9% 1, 1170 130 000 ml @ 130 mls/hr IV . Q7H42M [facility] Rx#:[id number] Vancomycin 1,500 mg In 250 Sodium Chloride 0.9% 250 ml @ 125 mls/hr IVPB Q12H [facility] Rx#:[id number] Vancomycin 1,750 mg In 500 Sodium Chloride 0.9% 500 ml 500 ml @ 167 mls/hr IVPB Q16H [facility] Rx#: [id number] Intake, IV Titration 42.567 433.229 38.417 Amount Norepinephrine 4 mg In 42.567 433.229 38.417 Sodium Chloride 0.9% 250 ml @ 0.05 MCG/KG/MIN 15. 554 mls/hr IV .[id number] [facility] Rx#:[id number] Output: Drainage 55 Right Abdomen 55 Urine 510 1340 215 Estimated Blood Loss 10 Other: Voiding Method Indwelling Catheter Indwelling Catheter Indwelling Catheter - Labs CBC & Chem 7: 12/06/21 06:21 12/06/21 06:21 Labs: Abnormal Lab Results - Last 24 Hours (Table) 12/06/21 12/06/21 12/06/21 Range/Units 04:10 06:21 06:21 MCV 100.1 H (80.0-100.0) fL Lymphocytes # (Manual) 0.55 L (1.0-4.8) k/uL Metamyelocytes # (Man) 0.16 H (0) k/uL Sodium 133 L (137-145) mmol/L BUN 20 H (7-17) mg/dL Glucose 116 H (74-99) mg/dL POC Glucose (mg/dL) 117 H (70-110) mg/dL Calcium 7.5 L (8.4-10.2) mg/dL AST 64 H (14-36) U/L Alkaline Phosphatase 401 H (38-126) U/L Total Protein 4.4 L (6.3-8.2) g/dL Albumin 2.4 L (3.5-5.0) g/dL Microbiology - Last 24 Hours (Table) 12/05/21 17:32 Body Fluid Culture - Preliminary Peritoneal Fluid 12/05/21 17:32 Anaerobic Culture - Preliminary Peritoneal Fluid 12/05/21 20:46 Stool Culture - Preliminary Stool 12/04/21 19:15 Blood Culture Gram Stain - Preliminary Blood Blood Culture - Preliminary Staphylococcus epidermidis 12/04/21 19:20 Blood Culture Gram Stain - Preliminary Blood 12/04/21 19:20 Blood Culture - Final Blood 12/04/21 19:15 Blood Culture - Final Blood 12/05/21 01:20 Urine Culture - Preliminary Urine,Voided Assessment and Plan Time with Patient: Less than 30
[2021-12-06] MEDS: HYDROcodone/APAP 5-325MG 1 EACH TAB PO PRN (14:44)
[2021-12-06] MEDS: GABAPENTIN 100 MG CAP PO SCH ×2 (15:05→22:15)
[2021-12-06] MEDS: carBAMazepine 200 MG TAB PO SCH ×2 (18:18→22:16)
--- NOTE | 2021-12-06 20:42 | CT ---
EXAM: CODE STROKE: CT brain wo contr CLINICAL HISTORY: Code stroke. COMPARISON: 12/05/2021 TECHNIQUE: Contiguous axial noncontrast images of the brain were obtained. Coronal and sagittal refor mats were generated and reviewed. Automated dose control was used for this exam. FINDINGS: There is no evidence for intracranial hemorrhage, mass effect or midline shift. There is mild white m atter disease and parenchymal volume loss. Ventricular size and configuration is within normal limits for degree of parenchymal volume. The paranasal sinuses demonstrate mild mucosal thickening of the right maxillary sinus, otherwise marizol ar.. The mastoid air cells are clear. No evidence for calvarial fracture. Left occipital craniotomy seen. IMPRESSION: No acute intracranial abnormality.
[2021-12-06 21:00] LABS: Glucose,Whole Blood 101 mg/dL (70-110)
[2021-12-06] MEDS ORDERED: METOPROLOL TARTRATE 25 MG TAB PO SCH (21:00)
--- NOTE | 2021-12-06 21:26 | CT ---
EXAMINATION TYPE: CODE STROKE: CTA head neck DATE OF EXAM: 12/06/2021 HISTORY: code stroke COMPARISON: None available CT DLP: 410 mGycm. Automated Exposure Control for Dose Reduction was Utilized. TECHNIQUE: CTA scan of the head and neck is performed with IV Contrast, patient injected with 100ml mL of Isovue 370, axial images are obtained, coronal and sagittal reformatted images are reviewed. 3D reconstructed images are created on an independent workstation and reviewed. FINDINGS: There are scattered mild atherosclerotic plaques. There is no evidence of high-grade stenosis, dissec tion or aneurysm seen in the bilateral common carotid, cervical internal carotid and vertebral arteri es. There is no evidence of high-grade stenosis, dissection or aneurysm in the intracranial internal singh tid arteries, anterior, middle and posterior cerebral arteries as well as in the imaged vertebral and basilar arteries. The communicating arteries are unremarkable.. There is mild subcutaneous emphysema about the left supraclavicular neck soft tissues. IMPRESSION: No significant abnormality of the head and neck arteries. Incidental subcutaneous emphysema about the left supraclavicular neck soft tissues. Correlate for rec ent procedure/instrumentation. Otherwise clinical follow-up. NASCET criteria was used in interpretation of this exam?
[2021-12-06 21:29] LABS: ALT 25 U/L (4-34); AST 65 U/L (14-36); African American GFR (CKD) >90 (>60 ml/min/1.73 sqM); Albumin 2.1 g/dL (3.5-5.0); Alkaline Phosphatase 346 U/L (38-126); Anion Gap 7 mmol/L; Blood Urea Nitrogen 19 mg/dL (7-17); Calcium 7.3 mg/dL (8.4-10.2); Carbon Dioxide 22 mmol/L (22-30); Chloride 102 mmol/L (98-107); Glucose 104 mg/dL (74-99); HCT 35.6 % (34.0-46.0); HGB 11.6 gm/dL (11.4-16.0); MCH 32.8 pg (25.0-35.0); MCHC 32.5 g/dL (31.0-37.0); Mean Platelet Volume 7.3; Non-African American GFR(CKD) >90 (>60 ml/min/1.73 sqM); Platelet Count 279 k/uL (150-450); Potassium 4.5 mmol/L (3.5-5.1); RBC 3.53 m/uL (3.80-5.40); Sodium 131 mmol/L (137-145); Total Bilirubin 0.4 mg/dL (0.2-1.3); WBC 5.2 k/uL (3.8-10.6)
[2021-12-06 21:30] LABS: INR 0.9 (<1.2); Prothrombin Time 10.4 sec (9.0-12.0)
[2021-12-06 21:31] LABS: Partial Thromboplastin Time 46.2 sec (22.0-30.0)
[2021-12-06 21:55] LABS: Band Neutrophils % 31 %; Eosinophils # (M) 0.05 k/uL (0-0.7); Lymphocytes # (M) 0.47 k/uL (1.0-4.8); Metamyelocytes # (M) 0.21 k/uL (0); Metamyelocytes % 4 %; Monocytes # (M) 0.21 k/uL (0-1.0); Myelocytes # (M) 0.05 k/uL (0); Myelocytes % 1 %; Neutrophils % (M) 52 %; Nucleated Red Blood Cells 0 /100 WBC (0-0); Total Cells Counted 200
[2021-12-07] MEDS: MEROPENEM 2 GM in SODIUM CHLORIDE 0.9% 100 ML IVPB SCH ×3 (00:30→17:22)
[2021-12-07] MEDS: HEPARIN SODIUM,PORCINE/PF 5,000 UNIT/0.5 ML SYRINGE SQ SCH ×3 (00:30→17:22)
[2021-12-07] MEDS: HYDROmorphone 1 MG/ML 1 ML SYRINGE IVP PRN (02:38)
[2021-12-07 06:05] LABS: African American GFR (CKD) >90 (>60 ml/min/1.73 sqM); Non-African American GFR(CKD) 90 (>60 ml/min/1.73 sqM)
[2021-12-07 06:20] LABS: African American GFR (CKD) >90 (>60 ml/min/1.73 sqM); Anion Gap 4 mmol/L; Blood Urea Nitrogen 17 mg/dL (7-17); Calcium 7.5 mg/dL (8.4-10.2); Carbon Dioxide 26 mmol/L (22-30); Chloride 103 mmol/L (98-107); Glucose 103 mg/dL (74-99); Magnesium 2.5 mg/dL (1.6-2.3); Non-African American GFR(CKD) 90 (>60 ml/min/1.73 sqM); Potassium 4.7 mmol/L (3.5-5.1); Sodium 133 mmol/L (137-145)
[2021-12-07 06:32] LABS: HCT 36.9 % (34.0-46.0); MCHC 32.5 g/dL (31.0-37.0); MCV 101.3 fL (80.0-100.0); Mean Platelet Volume 7.5; Platelet Count 276 k/uL (150-450); RBC 3.65 m/uL (3.80-5.40); RDW 12.9 % (11.5-15.5); WBC 6.5 k/uL (3.8-10.6)
[2021-12-07 07:09] LABS: Band Neutrophils % 39 %; Lymphocytes # (M) 0.78 k/uL (1.0-4.8); Metamyelocytes # (M) 0.07 k/uL (0); Metamyelocytes % 1 %; Monocytes # (M) 0.13 k/uL (0-1.0); Neutrophils % (M) 44 %; Nucleated Red Blood Cells 0 /100 WBC (0-0); Total Cells Counted 200
[2021-12-07 07:10] LABS: Anisocytosis (M) Present
[2021-12-07 07:14] LABS: Poikilocytosis (M) Present
[2021-12-07 07:25] LABS: Carbamazepine (Tegretol) 5.6 ug/mL
--- NOTE | 2021-12-07 08:29 | P.CRDCN ---
History of Present Illness Consult date: 12/07/21 Chief complaint: Change in mental status History of present illness: This is a 71-year-old female patient with a past medical history significant for mild nonobstructive coronary artery disease based on heart catheterization in [address] Dietrich, mildly impaired LV function was EF between 40-45% also based on echocardiogram in 2020 as well as hypertension and dyslipidemia. We are asked to see the patient in consultation today in the intensive care. For further evaluation of abnormal cardiac enzymes and mildly elevated troponin. The patient presented to the hospital a few days ago complaining of abdominal discomfort associated with nausea and vomiting. She also was found to have mild change in mental status. She underwent further investigation and she underwent exploratory laparoscopy and resection of the gallbladder. The procedure was uneventful. Last night the patient developed change in mental status. Because of that further investigation was performed and a stroke protocol was done. She underwent a computed tomography scan of the brain which showed no acute abnormalities. She underwent also a CTA of the head and neck and also that came in to be unremarkable. She underwent troponin which came in to be slightly ab normal. Please note that the patient is currently hypotensive and she is septic and she is requiring small doses of norepinephrine. She was seen and evaluated this morning. Clinically she seems to be stable. She reported no pain in the chest and no shortness of breath and no dizziness or lightheadedness and no feeling of any heart racing or fluttering. She has been maintaining normal sinus mechanism. An EKG showed sinus rhythm with LBBB. The rest of blood work came in to be unremarkable Past Medical History Past Medical History: Hyperlipidemia, Hypertension Additional Past Medical History / Comment(s): heart murmur, trigeminal neuralgia, History of Any Multi-Drug Resistant Organisms: None Reported Past Surgical History: Hysterectomy Additional Past Surgical History / Comment(s): surgery for trigeminal neuralgia, Past Anesthesia/Blood Transfusion Reactions: No Reported Reaction Past Psychological History: No Psychological Hx Reported Past Alcohol Use History: None Reported Past Drug Use History: None Reported - Past Family History Mother Additional Family Medical History / Comment(s): passed from colon cancer in her 60's family Family Medical History: No Reported History Medications and Allergies Home Medications Medication Instructions Recorded Confirmed Type Atorvastatin [Lipitor] 20 mg PO DAILY 07/08/19 12/04/21 History Gabapentin [Neurontin] 300 mg PO QID 07/08/19 12/04/21 History Metoprolol Tartrate [Lopressor] 50 mg PO BID 07/08/19 12/04/21 History carBAMazepine 200 mg PO QID 07/08/19 12/04/21 History Aspirin EC [Ecotrin Low Dose] 81 mg PO DAILY 12/04/21 12/04/21 History Meclizine [Antivert] 12.5 mg PO BID 12/04/21 12/04/21 History lisinopriL [Zestril] 20 mg PO DAILY 12/04/21 12/04/21 History Allergies Allergy/AdvReac Type Severity Reaction Status Date / Time Penicillins AdvReac Rash/Hives Verified 12/04/21 21:37 Physical Exam Vitals: Vital Signs Temp Pulse Resp BP Pulse Ox 12/07/21 07:46 91 L 12/07/21 07:30 93 19 129/65 12/07/21 07:00 92 18 110/63 12/07/21 06:30 93 14 104/81 99 12/07/21 06:00 89 11 L 119/63 12/07/21 05:30 95 11 L 136/60 97 12/07/21 05:00 108 H 19 114/59 12/07/21 04:30 94 10 L 93/63 97 12/07/21 04:00 98.2 F 97 13 103/55 12/07/21 03:30 94 14 95/47 97 12/07/21 03:00 96 8 L 136/71 98 12/07/21 02:30 105 H 10 L 119/56 97 12/07/21 02:00 109 H 12 105/83 95 12/07/21 01:30 105 H 15 117/100 94 L 12/07/21 01:00 112 H 14 142/74 12/07/21 00:02 105 H 15 102/48 96 12/07/21 00:00 97.8 F 106 H 9 L 102/48 12/06/21 23:30 109 H 11 L 90/46 97 12/06/21 23:00 118 H 10 L 127/64 12/06/21 22:30 131 H 14 126/73 86 L 12/06/21 22:00 137 H 17 104/57 12/06/21 21:30 137 H 15 100/64 12/06/21 21:00 140 H 15 159/88 12/06/21 20:59 97.6 F 137 H 15 100/64 95 12/06/21 20:30 159/88 12/06/21 20:00 97.6 F 140 H 13 116/60 12/06/21 19:30 128 H 10 L 103/50 95 12/06/21 19:00 131 H 10 L 125/67 94 L 12/06/21 18:30 138 H 20 118/96 96 12/06/21 18:00 133 H 12 121/67 94 L 12/06/21 17:30 130 H 17 122/82 95 12/06/21 17:00 125 H 13 104/57 94 L 12/06/21 16:30 121 H 11 L 106/72 93 L 12/06/21 16:00 120 H 10 L 86/63 93 L 12/06/21 15:30 126 H 12 75/44 93 L 12/06/21 15:00 140 H 16 125/100 95 12/06/21 14:30 120 H 14 122/98 12/06/21 14:00 111 H 12 102/57 94 L 12/06/21 13:30 113 H 13 100/47 94 L 12/06/21 13:00 120 H 15 119/49 93 L 12/06/21 12:45 124 H 11 L 154/120 95 12/06/21 12:30 124 H 25 H 133/77 12/06/21 12:15 129 H 21 136/67 12/06/21 12:00 98.6 F 124 H 17 118/72 90 L 12/06/21 11:45 116 H 17 131/72 9 L 12/06/21 11:30 111 H 15 122/64 95 12/06/21 11:15 111 H 12 108/44 95 12/06/21 11:00 116 H 15 95 12/06/21 10:45 107 H 12 101/50 92 L 12/06/21 10:30 111 H 9 L 126/60 93 L 12/06/21 10:15 105 H 17 129/64 94 L 12/06/21 10:00 104 H 10 L 105/55 94 L 12/06/21 09:45 103 H 10 L 113/57 94 L 12/06/21 09:30 104 H 15 102/54 94 L 12/06/21 09:15 103 H 9 L 100/52 94 L 12/06/21 09:00 105 H 12 107/57 94 L 12/06/21 08:45 106 H 15 97/53 93 L 12/06/21 08:30 107 H 12 70/57 93 L Intake and Output 12/06/21 12/07/21 12/07/21 22:59 06:59 14:59 Intake Total 1520 1040 260 Output Total 710 775 250 Balance 810 265 10 Intake: IV 1040 1040 260 Lactated Ringers 1,000 ml 1040 1040 260 @ 133 mls/hr IV .Q7H32M [facility] Rx#:[id number] Oral 480 Output: Drainage 80 100 Right Abdomen 80 100 Urine 630 775 150 Other: Voiding Method Indwelling Catheter Indwelling Catheter - Constitutional General appearance: no acute distress - Respiratory Respiratory: bilateral: diminished - Cardiovascular Rhythm: regular Heart sounds: normal: S1, S2 Abnormal Heart Sounds: systolic murmur Results 12/07/21 05:40 12/07/21 05:40 Cardiac Enzymes 12/06/21 12/06/21 Range/Units 21:08 21:08 AST 65 H (14-36) U/L Troponin I 0.120 H* (0.000-0.034) ng/mL Coagulation 12/06/21 Range/Units 21:08 PT 10.4 (9.0-12.0) sec APTT 46.2 H (22.0-30.0) sec CBC 12/06/21 12/07/21 Range/Units 21:08 05:40 WBC 5.2 6.5 (3.8-10.6) k/uL RBC 3.53 L 3.65 L (3.80-5.40) m/uL Hgb 11.6 12.0 (11.4-16.0) gm/dL Hct 35.6 36.9 (34.0-46.0) % Plt Count 279 276 (150-450) k/uL Comprehensive Metabolic Panel 12/06/21 12/07/21 12/07/21 Range/Units 21:08 05:40 05:40 Sodium 131 L 133 L (137-145) mmol/L Potassium 4.5 4.7 (3.5-5.1) mmol/L Chloride 102 103 (98-107) mmol/L Carbon Dioxide 22 26 (22-30) mmol/L BUN 19 H 17 (7-17) mg/dL Creatinine 0.62 0.63 0.63 (0.52-1.04) mg/dL Glucose 104 H 103 H (74-99) mg/dL Calcium 7.3 L 7.5 L (8.4-10.2) mg/dL AST 65 H (14-36) U/L ALT 25 (4-34) U/L Alkaline Phosphatase 346 H (38-126) U/L Total Protein 4.0 L (6.3-8.2) g/dL Albumin 2.1 L (3.5-5.0) g/dL Current Medications Generic Name Dose Route Start Last Admin Trade Name Freq PRN Reason Stop Dose Admin Acetaminophen 650 mg 12/04/21 22:15 Acetaminophen Tab 325 Mg Tab PO Q6HR PRN Mild Pain or Fever > 100.5 Hydrocodone Bitart/Acetaminophen 1 each 12/06/21 11:07 12/06/21 14:44 Hydrocodone/Apap 5-325mg 1 Each Tab PO 1 each Q4HR PRN Administration Pain Aspirin 81 mg 12/07/21 09:00 Aspirin 81 Mg PO DAILY [facility] Atorvastatin Calcium 20 mg 12/07/21 09:00 Atorvastatin 20 Mg Tab PO DAILY [facility] Carbamazepine 200 mg 12/06/21 18:00 12/06/21 22:16 Carbamazepine 200 Mg Tab PO 200 mg QID [facility] Administration Gabapentin 200 mg 12/06/21 16:00 12/06/21 22:15 Gabapentin 100 Mg Cap PO 200 mg TID [facility] Administration Heparin Sodium (Porcine) 5,000 unit 12/05/21 18:15 12/07/21 00:30 Heparin Sodium,Porcine/Pf 5,000 Unit/0.5 Ml Syringe SQ 5,000 unit Q8HR [facility] Administration Hydromorphone HCl 0.5 mg 12/05/21 09:33 12/06/21 15:04 Hydromorphone 0.5 Mg/0.5 Ml Syringe IVP 0.5 mg Q2HR PRN Administration Pain Hydromorphone HCl 1 mg 12/05/21 09:33 12/07/21 02:38 Hydromorphone 1 Mg/Ml 1 Ml Syringe IVP 1 mg Q2HR PRN Administration Pain Norepinephrine Bitartrate 4 mg 254 mls @ 15.554 mls/hr 12/05/21 08:15 12/06/21 12:59 / Sodium Chloride IV 0 mcg/kg/min .[id number] [facility] 0 mls/hr Titration Protocol 0.05 MCG/KG/MIN Meropenem 2 gm/ Sodium 100 mls @ 33.3 mls/hr 12/05/21 16:00 12/07/21 00:30 Chloride IVPB 33.3 mls/hr Q8HR [facility] Administration Protocol Lactated Ringer's 1,000 mls @ 133 mls/hr 12/05/21 14:30 12/06/21 22:17 Lactated Ringers IV 133 mls/hr .Q7H32M [facility] Administration Vancomycin HCl 1,500 mg/ 250 mls @ 125 mls/hr 12/06/21 10:00 12/06/21 22:15 Sodium Chloride IVPB 125 mls/hr Q12H [facility] Administration Meclizine HCl 12.5 mg 12/06/21 13:09 Meclizine 12.5 Mg Tab PO BID PRN Vertigo Metoprolol Tartrate 50 mg 12/07/21 09:00 Metoprolol Tartrate 25 Mg Tab PO BID [facility] Miscellaneous Information 1 each 12/07/21 09:00 Vancomycin Trough Due 1 Each Misc MISCELLANE 12/07/21 09:01 ONCE ONE Naloxone HCl 0.2 mg 12/04/21 22:15 Naloxone 0.4 Mg/Ml 1 Ml Vial IV Q2M PRN Opioid Reversal Ondansetron HCl 4 mg 12/05/21 09:33 12/05/21 09:59 Ondansetron 4 Mg/2 Ml Vial IVP 4 mg Q6HR PRN Administration Nausea And Vomiting Intake and Output 12/06/21 12/07/21 12/07/21 22:59 06:59 14:59 Intake Total 1520 1040 260 Output Total 710 775 250 Balance 810 265 10 Intake: IV 1040 1040 260 Lactated Ringers 1,000 ml 1040 1040 260 @ 133 mls/hr IV .Q7H32M [facility] Rx#:[id number] Oral 480 Output: Drainage 80 100 Right Abdomen 80 100 Urine 630 775 150 Other: Voiding Method Indwelling Catheter Indwelling Catheter 12/07/21 05:40 12/07/21 05:40 Assessment and Plan Assessment: Assessment #1 abdominal discomfort associated with nausea and vomiting related to cholecystitis #2 status post laparoscopic cholecystectomy #3 change in mental status #4 hypotension related to sepsis currently the patient is on norepinephrine #5 evidence of myocardial injury was no evidence of ischemia #6 known mild nonobstructive coronary artery disease Plan #1 continue supporting the patient's blood pressure #2 continue aspirin as well as a statin #3 the evidence of myocardial injury is likely related to hypotension #4 we will obtain an echocardiogram to assess for any wall motion abnormalities and assess ejection fraction #5 continue beta tristen #6 follow-up with the patient
--- NOTE | 2021-12-07 08:59 | P.PN ---
Subjective Progress Note Date: 12/07/21 Principal diagnosis: Sepsis. This is a 71-year-old female patient with a known history of hypertension, hyperlipidemia, tic douloureux. She presented to the emergency room yesterday for nausea vomiting and abdominal pain. She was also having altered mental status, hypotension and diaphoresis. CT angiogram of the chest abdomen and pelvis revealed no arterial aneurysms or dissection. No evidence of pulmonary embolism. There is a possible small bowel ileus. Interstitial infiltrates and atelectasis at the lung bases. She was initially admitted to the selective care unit. Approximately 2:00 this morning the patient was found to be more lethargic with complaints of diffuse abdominal pain most notably in the suprapubic region. She also was hypotensive. She was given a liter of normal saline. Computed tomography scan of the brain revealed mild atrophy and chronic small vessel ischemia. No acute intracranial abnormality. She was transferred to the intensive care unit for closer monitoring. She is seen today in consultation. She is awake and alert. She is complaining of fatigue and is drowsy at times. She is oriented. She did require norepinephrine infusion at 4 mcg/m. She is on normal saline now at 130 ML's per hour. She has oxygen at 3 L/m. Follow-up CAT scan of the abdomen revealed development of some free fluid in the pelvis. There is constipation and large bowel ileus not significantly different. Possibility. Tinnitus should be considered. Dilated gallbladder suggestive of cholecystitis. Culture data and atelectasis of the lung bases. Surgical consult is pending. Urine culture pending. White count 14.2. Hemoglobin 14.4. MCV 104. Sodium 131. Potassium 4.4. Bicarb 19. BUN 15. Creatinine 0.72. Glucose 131. Lactic acid 5.0. AST 45. ALT 21. Alk phos 778. Chronic virus by PCR not detected. She had been given vancomycin and meropenem. Progress note dated 12/06/2021. 71-year-old female that we saw yesterday in consultation, for possible sepsis and hypotension. She was initially admitted to the general medical floor. She has a history of hypertension, hyperlipidemia, and trigeminal neuralgia. We are concerned about abdominal sepsis. She went for laparoscopic exploration, and ended up with a laparoscopic cholecystectomy, for cholecystitis. The patient is currently resting comfortably in the ICU, room 265. Blood cultures are apparently positive for gram-positive cocci. The patient is on vancomycin and meropenem. Today, she is on 2 L of oxygen. The patient remains on lactated Ringer's at 130 mL an hour. In addition, the patient's on norepinephrine at 0.05 mcg/kg/m. She had some tachycardia, and was given some beta tristen from the hospital service. Currently labs include a white count of 7.9, hemoglobin 13.3, hematocrit 41.5, and a platelet count of 315,000. Sodium 133, potassium 4.9, chlorides 106, CO2 22, BUN 20, creatinine 0.62. Albumin was 2.4. Chest x- ray shows bibasilar atelectasis. Blood cultures were positive for staphylococcus epidermidis. Progress note dated 12/07/2021. 72-year-old female seen 2 days ago in consultation, her sepsis and hypotension. The patient went to the operating room, and had a laparoscopic cholecystectomy, for cholecystitis. Apparently last night, she developed significant confusion and disorientation. Currently, the patient's on 4 L nasal cannula. She's receiving lactated Ringer's at 130 mL an hour. Today is postop day #2. The patient did go for computed tomography scan of the brain which was negative, and a CT angiogram which was also negative. Urine is showing evidence of gram- negative bacilli. She remains on vancomycin and meropenem. White count 6.5, hemoglobin 12, hematocrit 36.9, and platelet count 276,000. Sodium 133, potassium 4.7, chlorides 103, CO2 26, BUN 17, creatinine 0.63. Troponins were 0.120 and 0.461. Cardiology was consulted. TSH was normal. Objective - Vital Signs Vital signs: Vital Signs Temp 98.2 F 12/07/21 04:00 Pulse 93 12/07/21 07:30 Resp 19 12/07/21 07:30 BP 129/65 12/07/21 07:30 Pulse Ox 91 L 12/07/21 07:46 FiO2 Intake & Output 12/06/21 12/07/21 12/07/21 18:59 06:59 18:59 Intake Total 2922.365 1560 260 Output Total 840 1155 250 Balance 2082.365 405 10 Intake: IV 1910 1560 260 Lactated Ringers 1,000 ml 910 @ 130 mls/hr IV .Q7H42M [facility] Rx#:[id number] Lactated Ringers 1,000 ml 650 1560 260 @ 133 mls/hr IV .Q7H32M [facility] Rx#:[id number] Meropenem 2 gm In Sodium 100 Chloride 0.9% 100 ml @ 33 .3 mls/hr IVPB Q8HR [facility] Rx#:[id number] Vancomycin 1,500 mg In 250 Sodium Chloride 0.9% 250 ml @ 125 mls/hr IVPB Q12H [facility] Rx#:[id number] Intake, IV Titration 52.365 Amount Norepinephrine 4 mg In 52.365 Sodium Chloride 0.9% 250 ml @ 0.05 MCG/KG/MIN 15. 554 mls/hr IV .[id number] [facility] Rx#:[id number] Oral 960 Output: Drainage 115 100 Right Abdomen 115 100 Urine 725 1155 150 Other: Voiding Method Indwelling Catheter Indwelling Catheter - Exam No acute distress, confused. Nasal O2 in place at 4 L. HEENT examination is grossly unremarkable. Neck supple. Full range of motion. No adenopathy thyromegaly or neck vein distention. Cardiovascular examination reveals regular rhythm rate. S1-S2 normal. No S3 or S4. No discernible murmur noted. Heart sounds are distant. Heart rate 93 bpm. Lungs reveal scattered bilateral rhonchi. No wheezes. No crackles. Breath sounds equal bilaterally. 4 L saturation is 93%. Abdomen soft without bowel sounds. Abdomen is a bit tender. Extremities are intact. No cyanosis clubbing or edema. Skin is without rash or lesion. Neurologic examination is brief but nonfocal. - Labs CBC & Chem 7: 12/07/21 05:40 12/07/21 05:40 Labs: Abnormal Lab Results - Last 24 Hours (Table) 12/06/21 12/06/21 12/06/21 Range/Units 21:08 21:08 21:08 RBC 3.53 L (3.80-5.40) m/uL MCV 101.0 H (80.0-100.0) fL Lymphocytes # (Manual) 0.47 L (1.0-4.8) k/uL Metamyelocytes # (Man) 0.21 H (0) k/uL Myelocytes # (Manual) 0.05 H (0) k/uL APTT 46.2 H (22.0-30.0) sec Sodium 131 L (137-145) mmol/L BUN 19 H (7-17) mg/dL Glucose 104 H (74-99) mg/dL Calcium 7.3 L (8.4-10.2) mg/dL Magnesium (1.6-2.3) mg/dL AST 65 H (14-36) U/L Alkaline Phosphatase 346 H (38-126) U/L Troponin I (0.000-0.034) ng/mL Total Protein 4.0 L (6.3-8.2) g/dL Albumin 2.1 L (3.5-5.0) g/dL 12/06/21 12/07/21 12/07/21 Range/Units 21:08 05:40 05:40 RBC 3.65 L (3.80-5.40) m/uL MCV 101.3 H (80.0-100.0) fL Lymphocytes # (Manual) 0.78 L (1.0-4.8) k/uL Metamyelocytes # (Man) 0.07 H (0) k/uL Myelocytes # (Manual) (0) k/uL APTT (22.0-30.0) sec Sodium 133 L (137-145) mmol/L BUN (7-17) mg/dL Glucose 103 H (74-99) mg/dL Calcium 7.5 L (8.4-10.2) mg/dL Magnesium 2.5 H (1.6-2.3) mg/dL AST (14-36) U/L Alkaline Phosphatase (38-126) U/L Troponin I 0.120 H* (0.000-0.034) ng/mL Total Protein (6.3-8.2) g/dL Albumin (3.5-5.0) g/dL 12/07/21 Range/Units 05:40 RBC (3.80-5.40) m/uL MCV (80.0-100.0) fL Lymphocytes # (Manual) (1.0-4.8) k/uL Metamyelocytes # (Man) (0) k/uL Myelocytes # (Manual) (0) k/uL APTT (22.0-30.0) sec Sodium (137-145) mmol/L BUN (7-17) mg/dL Glucose (74-99) mg/dL Calcium (8.4-10.2) mg/dL Magnesium (1.6-2.3) mg/dL AST (14-36) U/L Alkaline Phosphatase (38-126) U/L Troponin I 0.461 H* (0.000-0.034) ng/mL Total Protein (6.3-8.2) g/dL Albumin (3.5-5.0) g/dL Microbiology - Last 24 Hours (Table) 12/05/21 17:32 Gram Stain - Preliminary Peritoneal Fluid Body Fluid Culture - Preliminary 12/05/21 01:20 Urine Culture - Preliminary Urine,Voided Gram Neg Bacilli Assessment and Plan Assessment: Postop day #2, status post exploratory laparoscopy, and laparoscopic cholecystectomy, (12/05/2021), for acute cholecystitis. Abdominal pain, with possible abdominal sepsis. Mental status changes, secondary to encephalopathy from sepsis, initially better, but now bit worse. Hypotension, likely secondary to sepsis, still requiring norepinephrine. Lactic acidosis, secondary to sepsis. History of hypertension. History of hyperlipidemia. History of trigeminal neuralgia/tic douloureux Plan: Plan dated 12/06/2021. The patient will remain in the intensive care unit. The patient is currently on norepinephrine. Receiving lactated Ringer's at 130 mL an hour. The patient's on vancomycin and meropenem. Blood cultures were positive for Staphylococcus epidermidis. We will continue to follow. I did ask the nurse to make sure an incentive spirometer was ordered. She'll be doing it hourly. Labs, x-rays, and medications are reviewed. Prognosis is guarded. We will continue to follow and make recommendations along the way. Plan dated 12/07/2021. The patient will be seen by neurology. Computed tomography scan of the brain was negative. CT angiogram was negative. The patient's urine is showing eviden ce of gram-negative bacilli. Her encephalopathy could relate to sepsis. She remains on vancomycin and meropenem. She is on 4 L. Today's postop day #2. She's getting lactated Ringer's at 130 mL an hour. Labs, x-rays, and medications are reviewed. Additional recommendations and suggestions are forthcoming. Time with Patient: Greater than 30
[2021-12-07] MEDS ORDERED: VANCOMYCIN TROUGH DUE 1 EACH MISC MISCELLANE ONE (09:00)
[2021-12-07] MEDS: GABAPENTIN 100 MG CAP PO SCH ×3 (09:20→22:06)
[2021-12-07] MEDS: ASPIRIN 81 MG PO SCH (09:20)
[2021-12-07] MEDS: ATORVASTATIN 20 MG TAB PO SCH (09:20)
[2021-12-07] MEDS: METOPROLOL TARTRATE 25 MG TAB PO SCH ×2 (09:21→18:58)
[2021-12-07] MEDS: carBAMazepine 200 MG TAB PO SCH ×4 (09:21→22:06)
[2021-12-07] MEDS: NOREPINEPHRINE 4 MG in SODIUM CHLORIDE 0.9% 250 ML IV SCH (09:21)
[2021-12-07] MEDS: LACTATED RINGERS 1,000 ML IV SCH ×3 (09:22→21:24)
--- NOTE | 2021-12-07 10:15 | P.CNNES ---
History of Present Illness Consult date: 12/07/21 Requesting physician: Yosef Caban Reason for Consult: altered mental status. History of Present Illness: This is a 71-year-old woman with history of hypertension, hyperlipidemia, trigeminal neuralgia who presented emergency department because of abdominal pain with nausea vomiting. Neurology is consulted for altered mental status. Some of the history is obtained from medical record and patient's nurses at. It seems the patient presented with altered mental status with hypotension and diaphoresis. Patient urinary analysis and urine culture was positive for urinary tract infection. As well as was felt the patient had the abdominal sepsis. Patient had laparoscopic cholecystectomy for cholecystitis during this hospital visit and today is postop day 2. She was getting Dilaudid. Per the overnight nurse the patient the confusion was worsening and it appears that she had difficulty getting her words out and will concern for stroke and stroke code was activated. As a result she had CT of the head which is reported as no acute intracranial abnormality. CT and drowsy of the head and neck was reported as no significant abnormality of the head and neck artery. Incidental subcutaneous emphysema about the left supraclavicular neck soft tissue. Correlate for recent procedure/instrumentation. Otherwise clinical follow-up. According to the patient she does not have any history of stroke or seizures in the past. No IV TPA was given since she likely due to sepsis and the risk outweighed the benefit and was outside window. Today one of the ICU nurses stated that she has not been sleeping sensitized patient has been in the the hospital and has not slept for couple days. She is on Carbamazepine 200mg 1 tab qid for Trigemenial Neurlagia. Some of the other workup during his hospital visit consisted of: Ammonia level is less than 9 TSH is 1.650 Her initial sodium is 125 and most recent one is 133. AST and ALT slightly elevated and is slightly trending up. UDS is negative. Carbamazepine level is 5.6 Blood cultures is staph epidermidis and the urine culture was gram-negative bacilli. I personally reviewed the CT of the head and there is no acute or subacute ischemia. There is no intracranial hemorrhage. The patient does have old surgical over posterior left for her Trigemenial neuralgia and she did verify that. Review of Systems Review of system: The 12 point system was reviewed and apparent positive and negative per HPI. Past Medical History Past Medical History: Hyperlipidemia, Hypertension Additional Past Medical History / Comment(s): heart murmur, trigeminal neuralgi a, History of Any Multi-Drug Resistant Organisms: None Reported Past Surgical History: Hysterectomy Additional Past Surgical History / Comment(s): surgery for trigeminal neuralgia, Past Anesthesia/Blood Transfusion Reactions: No Reported Reaction Past Psychological History: No Psychological Hx Reported Past Alcohol Use History: None Reported Past Drug Use History: None Reported - Past Family History Mother Additional Family Medical History / Comment(s): passed from colon cancer in her 60's family Family Medical History: No Reported History Medications and Allergies Home Medications Medication Instructions Recorded Confirmed Type Atorvastatin [Lipitor] 20 mg PO DAILY 07/08/19 12/04/21 History Gabapentin [Neurontin] 300 mg PO QID 07/08/19 12/04/21 History Metoprolol Tartrate [Lopressor] 50 mg PO BID 07/08/19 12/04/21 History carBAMazepine 200 mg PO QID 07/08/19 12/04/21 History Aspirin EC [Ecotrin Low Dose] 81 mg PO DAILY 12/04/21 12/04/21 History Meclizine [Antivert] 12.5 mg PO BID 12/04/21 12/04/21 History lisinopriL [Zestril] 20 mg PO DAILY 12/04/21 12/04/21 History Allergies Allergy/AdvReac Type Severity Reaction Status Date / Time Penicillins AdvReac Rash/Hives Verified 12/04/21 21:37 Physical Examination - Vital Signs Vital Signs: Vital Signs Temp Pulse Resp BP Pulse Ox 12/07/21 07:46 91 L 12/07/21 07:30 93 19 129/65 12/07/21 07:00 92 18 110/63 12/07/21 06:30 93 14 104/81 99 12/07/21 06:00 89 11 L 119/63 12/07/21 05:30 95 11 L 136/60 97 12/07/21 05:00 108 H 19 114/59 12/07/21 04:30 94 10 L 93/63 97 12/07/21 04:00 98.2 F 97 13 103/55 12/07/21 03:30 94 14 95/47 97 12/07/21 03:00 96 8 L 136/71 98 12/07/21 02:30 105 H 10 L 119/56 97 12/07/21 02:00 109 H 12 105/83 95 12/07/21 01:30 105 H 15 117/100 94 L 12/07/21 01:00 112 H 14 142/74 12/07/21 00:02 105 H 15 102/48 96 12/07/21 00:00 97.8 F 106 H 9 L 102/48 12/06/21 23:30 109 H 11 L 90/46 97 12/06/21 23:00 118 H 10 L 127/64 12/06/21 22:30 131 H 14 126/73 86 L 12/06/21 22:00 137 H 17 104/57 12/06/21 21:30 137 H 15 100/64 12/06/21 21:00 140 H 15 159/88 12/06/21 20:59 97.6 F 137 H 15 100/64 95 12/06/21 20:30 159/88 12/06/21 20:00 97.6 F 140 H 13 116/60 12/06/21 19:30 128 H 10 L 103/50 95 12/06/21 19:00 131 H 10 L 125/67 94 L 12/06/21 18:30 138 H 20 118/96 96 12/06/21 18:00 133 H 12 121/67 94 L 12/06/21 17:30 130 H 17 122/82 95 12/06/21 17:00 125 H 13 104/57 94 L 12/06/21 16:30 121 H 11 L 106/72 93 L 12/06/21 16:00 120 H 10 L 86/63 93 L 12/06/21 15:30 126 H 12 75/44 93 L 12/06/21 15:00 140 H 16 125/100 95 12/06/21 14:30 120 H 14 122/98 12/06/21 14:00 111 H 12 102/57 94 L 12/06/21 13:30 113 H 13 100/47 94 L 12/06/21 13:00 120 H 15 119/49 93 L 12/06/21 12:45 124 H 11 L 154/120 95 12/06/21 12:30 124 H 25 H 133/77 12/06/21 12:15 129 H 21 136/67 12/06/21 12:00 98.6 F 124 H 17 118/72 90 L 12/06/21 11:45 116 H 17 131/72 9 L 12/06/21 11:30 111 H 15 122/64 95 12/06/21 11:15 111 H 12 108/44 95 12/06/21 11:00 116 H 15 95 12/06/21 10:45 107 H 12 101/50 92 L 12/06/21 10:30 111 H 9 L 126/60 93 L 12/06/21 10:15 105 H 17 129/64 94 L 12/06/21 10:00 104 H 10 L 105/55 94 L Intake and Output 12/06/21 12/07/21 12/07/21 22:59 06:59 14:59 Intake Total 1520 1040 260 Output Total 710 775 250 Balance 810 265 10 Intake: IV 1040 1040 260 Lactated Ringers 1,000 ml 1040 1040 260 @ 133 mls/hr IV .Q7H32M [facility] Rx#:[id number] Oral 480 Output: Drainage 80 100 Right Abdomen 80 100 Urine 630 775 150 Other: Voiding Method Indwelling Catheter Indwelling Catheter GENERAL: The patient is lying in bed and is not in acute distress. CHEST: The heart rate is regular rate rhythm. No murmurs to auscultation. LUNG: Clear to auscultation bilaterally no wheezing noted throughout. Not labored breathing. ABDOMEN/GI: Bowel sounds present in all 4 quadrants. No tenderness to palpation throughout. NEUROLOGICAL: Higher mental function: The patient is slightly drowsy but awakeable to voice. Is oriented to self, stated she is in the hospital with options. She correctly stated the month and year. She correctly stated the current stated and country. She is able to name objects correctly. She has some word finding difficulty and appears expressive aphasia. Patient is following simple commands. No aphasia and no neglect. Cranial nerves: The pupils are round, equal and reactive to light. Visual fernando had a hard time because of cooperation. Extraocular movement is intact no nystagmus is noted. Facial sensation is normal to touch throughout. The facial strength is normal throughout. Hearing is normal bilaterally to hand rub. Tongue is midline and moved [id number] without any difficulty. No dysarthria is noted. Shoulder shrug is normal bilaterally. Motor: The strength is 5 over 5 throughout uppers while lowers had hard time but was able to slightly lift above gravity. Normal tone and bulk. Cerebellum: Normal finger to nose bilaterally. Sensation: Sensation is normal to touch throughout. Reflexes (right/left): 2+ throughout. Plantars are mute bilaterally. Results - Laboratory Findings CBC and BMP: 12/07/21 05:40 12/07/21 05:40 Abnormal Lab Findings: Abnormal Labs 12/04/21 12/04/21 12/04/21 18:42 18:42 18:42 WBC 12.3 H RBC MCV Neutrophils # (Manual) 8.80 H Lymphocytes # (Manual) Metamyelocytes # (Man) Myelocytes # (Manual) APTT 20.3 L D-Dimer 8.98 H Sodium 125 L Chloride 90 L Carbon Dioxide 19 L BUN Glucose 198 H POC Glucose (mg/dL) Plasma Lactic Acid Aldo Calcium Magnesium 3.1 H AST 40 H Alkaline Phosphatase 470 H Troponin I Total Protein Albumin Urine Appearance Urine Protein Urine Nitrite Ur Leukocyte Esterase Urine WBC Urine WBC Clumps Amorphous Sediment Urine Bacteria Urine Mucus 12/05/21 12/05/21 12/05/21 00:21 01:20 01:58 WBC 14.2 H RBC MCV 104.0 H Neutrophils # (Manual) 13.40 H Lymphocytes # (Manual) 0.57 L Metamyelocytes # (Man) Myelocytes # (Manual) APTT D-Dimer Sodium Chloride Carbon Dioxide BUN Glucose POC Glucose (mg/dL) 126 H Plasma Lactic Acid Aldo Calcium Magnesium AST Alkaline Phosphatase Troponin I Total Protein Albumin Urine Appearance Cloudy H Urine Protein 1+ H Urine Nitrite Positive H Ur Leukocyte Esterase Moderate H Urine WBC 21 H Urine WBC Clumps Occasional H Amorphous Sediment Occasional H Urine Bacteria Rare H Urine Mucus Occasional H 12/05/21 12/05/21 12/05/21 01:58 01:58 05:14 WBC RBC MCV Neutrophils # (Manual) Lymphocytes # (Manual) Metamyelocytes # (Man) Myelocytes # (Manual) APTT D-Dimer Sodium 131 L Chloride 97 L Carbon Dioxide 19 L BUN Glucose 131 H POC Glucose (mg/dL) 128 H Plasma Lactic Acid Aldo 5.0 H* Calcium Magnesium AST 45 H Alkaline Phosphatase 778 H Troponin I Total Protein 6.0 L Albumin Urine Appearance Urine Protein Urine Nitrite Ur Leukocyte Esterase Urine WBC Urine WBC Clumps Amorphous Sediment Urine Bacteria Urine Mucus 12/05/21 12/06/21 12/06/21 05:46 04:10 06:21 WBC RBC MCV 100.1 H Neutrophils # (Manual) Lymphocytes # (Manual) 0.55 L Metamyelocytes # (Man) 0.16 H Myelocytes # (Manual) APTT D-Dimer Sodium Chloride Carbon Dioxide BUN Glucose POC Glucose (mg/dL) 117 H Plasma Lactic Acid Aldo 5.3 H* Calcium Magnesium AST Alkaline Phosphatase Troponin I Total Protein Albumin Urine Appearance Urine Protein Urine Nitrite Ur Leukocyte Esterase Urine WBC Urine WBC Clumps Amorphous Sediment Urine Bacteria Urine Mucus 12/06/21 12/06/21 12/06/21 06:21 21:08 21:08 WBC RBC 3.53 L MCV 101.0 H Neutrophils # (Manual) Lymphocytes # (Manual) 0.47 L Metamyelocytes # (Man) 0.21 H Myelocytes # (Manual) 0.05 H APTT 46.2 H D-Dimer Sodium 133 L Chloride Carbon Dioxide BUN 20 H Glucose 116 H POC Glucose (mg/dL) Plasma Lactic Acid Aldo Calcium 7.5 L Magnesium AST 64 H Alkaline Phosphatase 401 H Troponin I Total Protein 4.4 L Albumin 2.4 L Urine Appearance Urine Protein Urine Nitrite Ur Leukocyte Esterase Urine WBC Urine WBC Clumps Amorphous Sediment Urine Bacteria Urine Mucus 12/06/21 12/06/21 12/07/21 21:08 21:08 05:40 WBC RBC 3.65 L MCV 101.3 H Neutrophils # (Manual) Lymphocytes # (Manual) 0.78 L Metamyelocytes # (Man) 0.07 H Myelocytes # (Manual) APTT D-Dimer Sodium 131 L Chloride Carbon Dioxide BUN 19 H Glucose 104 H POC Glucose (mg/dL) Plasma Lactic Acid Aldo Calcium 7.3 L Magnesium AST 65 H Alkaline Phosphatase 346 H Troponin I 0.120 H* Total Protein 4.0 L Albumin 2.1 L Urine Appearance Urine Protein Urine Nitrite Ur Leukocyte Esterase Urine WBC Urine WBC Clumps Amorphous Sediment Urine Bacteria Urine Mucus 12/07/21 12/07/21 05:40 05:40 WBC RBC MCV Neutrophils # (Manual) Lymphocytes # (Manual) Metamyelocytes # (Man) Myelocytes # (Manual) APTT D-Dimer Sodium 133 L Chloride Carbon Dioxide BUN Glucose 103 H POC Glucose (mg/dL) Plasma Lactic Acid Aldo Calcium 7.5 L Magnesium 2.5 H AST Alkaline Phosphatase Troponin I 0.461 H* Total Protein Albumin Urine Appearance Urine Protein Urine Nitrite Ur Leukocyte Esterase Urine WBC Urine WBC Clumps Amorphous Sediment Urine Bacteria Urine Mucus Assessment and Plan Assessment: Altered mental status due to multifactorial: Septic encephalopathy (possible abdominal sepsis with UTI), medication (Dilaudid) and sleep deprivation Patient has some expressive aphasia rule out stroke Acute cholecystitis status post exploratory laparoscopic cholecystectomy Chronic mild hyponatremia on Tegretol History of trigeminal neuralgia Plan: I ordered a routine EEG. Recommend MRI of the brain without is cleared by surgery team. Patient is on aspirin 81 mg, Lipitor 20 mg daily. 2-D echo was ordered by cardiology Q2 hour neuro checks. We'll defer the rest of the medical management to the primary team and ICU team. Cardiology was consulted for elevated troponin General surgery team is on board The plan is discussed with the nurse. Thank you for the consultation. Abdelrahman Caban M.D. Neuro-Hospitalist Time with Patient: Greater than 30
[2021-12-07] MEDS: VANCOMYCIN 1,500 MG in SODIUM CHLORIDE 0.9% 250 ML IVPB SCH (11:37)
--- NOTE | 2021-12-07 12:25 | CA ---
Transthoracic Echo Report Name: Lucia Ireland Age: 71 Gender: F : 1950 Exam Date: 12/07/2021 07:58 Exam Location: [facility] Ht (in): 64 Wt (lb): 181 Ordering Physician: Elian Costa MD ([id number]) Attending/Referring Phys: Brian Dietrich MD ([id number]) Trekking Guide Leisa Overton RDCS Procedure CPT: Indications: elevated troponin Cardiac Hx: Technical Quality: Good Contrast 1: N/A Total Dose (mL): Contrast 2: Total Dose (mL): MEASUREMENTS (Male / Female) Normal Values 2D ECHO LV Diastolic Diameter PLAX 4.6 cm 4.2 - 5.9 / 3.9 - 5.3 cm LV Systolic Diameter PLAX 3.9 cm IVS Diastolic Thickness 1.2 cm 0.6 - 1.0 / 0.6 - 0.9 cm LVPW Diastolic Thickness 1.2 cm 0.6 - 1.0 / 0.6 - 0.9 cm LV Relative Wall Thickness 0.5 RV Internal Dim ED PLAX 3.9 cm LA Systolic Diameter LX 3.0 cm 3.0 - 4.0 / 2.7 - 3.8 cm M-MODE Aortic Root Diameter MM 3.3 cm LA Systolic Diameter MM 3.4 cm LA Ao Ratio MM 1.0 MV E Point Septal Separation 0.2 cm AV Cusp Separation MM 2.1 cm DOPPLER MV Area PHT 4.5 cm??? Mitral E Point Velocity 36.6 cm/s Mitral A Point Velocity 99.7 cm/s Mitral E to A Ratio 0.4 MV Deceleration Time 168.4 ms TR Peak Velocity 339.9 cm/s TR Peak Gradient 46.2 mmHg Right Ventricular Systolic Press 48.5 mmHg FINDINGS Left Ventricle Left ventricular ejection fraction is estimated at 40-45%. Septel, Inferior hypokinesis, Right Ventricle Mild right ventricular dilatation. Mild pulmonary hypertension. Right Atrium Right atrium not well visualized. Left Atrium Normal left atrial size. Possible PFO.ASD. Mitral Valve Structurally normal mitral valve. Mild mitral regurgitation. Aortic Valve Trileaflet aortic valve. Aortic valve sclerosis. Tricuspid Valve Structurally normal tricuspid valve. Moderate tricuspid regurgitation. Pulmonic Valve Structurally normal pulmonic valve. Pericardium Echo free space anterior to the right ventricle likely represents a fat pad. Aorta Aortic root and proximal ascending aorta not well visualized. CONCLUSIONS Reduced systolic function ejection fraction 40-45% with septal and inferior wall hypokinesis Previewed by: Dr. Alex Gonzalez MD (Electronically Signed) Final Date: 07 December 2021 12:24
--- NOTE | 2021-12-07 13:46 | P.PN ---
Subjective Progress Note Date: 12/07/21 71-year-old female came in with comments of nausea vomiting and severe abdominal pain patient overall clinical condition worsened on stepdown unit patient was subsequently transferred to ICU patient had a CT-guided CT angios gram of the chest and abdomen and pelvis which showed dilated the gallbladder for possibility of cholecystitis and free fluid in the abdomen. Patient was a lethargic with diffuse abdominal pain hypotensive patient was subsequently transferred to ICU and was started on broad-spectrum and Videx vancomycin and meropenem and lactated Ringer's. Patient lactic acid is high because of which am switching to normal saline. Patient was lethargic and drowsy but improving but now. Patient was evaluated by general surgery and going for expiratory laparotomy patient does have fever and elevated white count of 14.2 no evidence of pneumonia or UTI. 12/06/2021 Patient is monitored in intensive care unit. She underwent exploratory laprotomy and also laproscopic cholecystectomy with Dr Aguayo yesterday evening. Prior to she had chest xray for line placement which showed increasing infiltrate and atelectasis in both lower lobes compared to yesterday. Heart failure is possible as well. She is maintained on levophed and continues on lactated ringer at 130 mls per hour. She received a 1L fluid bolus today. Patient did have an echocardiogram in 2019 showing LV function of 40 to 45% with hypokinesis. Surgery has cleared patient for small sips of clear liquid today and discussed adding norco for pain management. She has drain present to right abdomen. She had sodium level today of 133, potassium 4.9, BUN 20, creatinine 0.62, glucose 116. C. Dif is negative. Her most recent lactic acid is 5.3, pending repeat today. Blood culture showing staph epi on 1 of 2 cultures. This could be possible contaminant. Stool culture pending. Surgical cultures are pending. She continues on vancomycin and meropenem. 12/07/2021 Patient continues to be monitored in ICU. She had an episode of acute confusion yesterday around dinner time and code stroke was called. Brain CT/CTA completed which are negative for acute, no stroke, mass, or hemorrhage noted. Neurology was consulted. Patient underwent EEG today which is pending. She did have troponin elevation found during routine stroke protocol lab work, for this cardiology was consulted and felt troponin elevation is from sepsis. Echocardio gram showing EF 40 to 45% with septal inferior hypokinesis with moderate TR. Labs today showing sodium 133, potassium 4.7, BUN 17, creatinine 0.63, calcium 7.5, magnesium 2.5. TSH 1.650. She is alert x 2 today with confusion. She is tolerating diet, reports no abdominal pain. She is having diarrhea, FMS is in place, and was checked for C.Dif is pending at this time. Narcotics have been placed on hold. She continues on IV antibiotics. Urine culture showing gram negative bacilli.Temperature 98.4, heart rate 100, blood pressure 128/73, 98% room air. Pressor support has been placed on hold for the last 24 hours. She is being followed by gen surgery, supervisor assembly and packing, and neurology. Review of Systems Constitutional: Denied any fatigue denied any fever. Cardio vascular: denied any chest pain, palpitations Gastrointestinal: Reports abdominal pain. diarrhea. Pulmonary: Denied any shortness of breath cough Neurologic denied any new focal deficits All inpatient medications were reviewed and appropriate changes in these medications as dictated in the interval history and assessment and plan. PHYSICAL EXAMINATION: GENERAL: Patient is awake alert x 2 she is confused. HEENT: Pupils are round and equally reacting to light. EOMI. No scleral icterus. No conjunctival pallor. Normocephalic, atraumatic. No pharyngeal erythema. No thyromegaly. CARDIOVASCULAR: S1 and S2 present. No murmurs, rubs, or gallops. PULMONARY: Chest is clear to auscultation, no wheezing or crackles. ABDOMEN: Post Surgical abdomen. Normoactive bowel sounds. MUSCULOSKELETAL: No joint swelling or deformity. EXTREMITIES: No cyanosis, clubbing, Mild lower extremity edema. NEUROLOGICAL: Gross neurological examination did not reveal any focal deficits. Confused. SKIN: No rashes. Assessment and plan -Septic shock: Possible intra-abdominal source patient is postoperative day #2 laproscopic cholecystectomy secondary to cholecystitis on Antibiotics, cultures are pending -Toxic encephalopathy altered mental status secondary to sepsis and septic shock -Lactic acidosis secondary to sepsis -Sinus tachycardia, hypotension from sepsis, patient has also been resumed on home beta tristen and heart rate has improved -Troponin Leak from sepsis -Hypertension was hypotensive and now off pressor support maintaining blood pressure in the 120s systolic -Possible acute UTI, urine culture showing gram negative bacilli -Diarrhea, C.Dif pending -hyperlipidemia -Hyponatremia secondary to hypovolemia and sepsis: Continue with IV fluids -History nonischemic cardiomyopathy with most recent LV function 40 to 45% -History trigeminal neuralgia Resumed on home medication, gabapentin has been decreased from home dose -GI prophylaxis: DVT prophylaxis: Lovenox Full Code The impression and plan of care has been dictated by Heather Barber, Nurse Practitioner as directed. Dr. Benjamín MD I have performed a history and physical examination and medical decision making of this patient, discussed the same with the dictator, and agree with the dictators assessment and plan as written, documented as a scribe. Based on total visit time, I have performed more than 50% of this visit. Objective - Vital Signs Vital signs: Vital Signs Temp 98.4 F 12/07/21 08:59 Pulse 100 12/07/21 10:00 Resp 15 12/07/21 10:00 BP 128/73 12/07/21 10:00 Pulse Ox 98 12/07/21 10:00 FiO2 Intake & Output 12/06/21 12/07/21 12/07/21 18:59 06:59 18:59 Intake Total 2922.365 1560 850 Output Total 840 1155 600 Balance 2082.365 405 250 Intake: IV 1910 1560 650 Lactated Ringers 1,000 ml 910 @ 130 mls/hr IV .Q7H42M [facility] Rx#:[id number] Lactated Ringers 1,000 ml 650 1560 650 @ 133 mls/hr IV .Q7H32M [facility] Rx#:[id number] Meropenem 2 gm In Sodium 100 Chloride 0.9% 100 ml @ 33 .3 mls/hr IVPB Q8HR [facility] Rx#:[id number] Vancomycin 1,500 mg In 250 Sodium Chloride 0.9% 250 ml @ 125 mls/hr IVPB Q12H [facility] Rx#:[id number] Intake, IV Titration 52.365 Amount Norepinephrine 4 mg In 52.365 Sodium Chloride 0.9% 250 ml @ 0.05 MCG/KG/MIN 15. 554 mls/hr IV .[id number] [facility] Rx#:[id number] Oral 960 200 Output: Drainage 115 100 Right Abdomen 115 100 Urine 725 1155 500 Other: Voiding Method Indwelling Catheter Indwelling Catheter Indwelling Catheter - Labs CBC & Chem 7: 12/07/21 05:40 12/07/21 05:40 Labs: Abnormal Lab Results - Last 24 Hours (Table) 12/06/21 12/06/21 12/06/21 Range/Units 21:08 21:08 21:08 RBC 3.53 L (3.80-5.40) m/uL MCV 101.0 H (80.0-100.0) fL Lymphocytes # (Manual) 0.47 L (1.0-4.8) k/uL Metamyelocytes # (Man) 0.21 H (0) k/uL Myelocytes # (Manual) 0.05 H (0) k/uL APTT 46.2 H (22.0-30.0) sec Sodium 131 L (137-145) mmol/L BUN 19 H (7-17) mg/dL Glucose 104 H (74-99) mg/dL Calcium 7.3 L (8.4-10.2) mg/dL Magnesium (1.6-2.3) mg/dL AST 65 H (14-36) U/L Alkaline Phosphatase 346 H (38-126) U/L Troponin I (0.000-0.034) ng/mL Total Protein 4.0 L (6.3-8.2) g/dL Albumin 2.1 L (3.5-5.0) g/dL 12/06/21 12/07/21 12/07/21 Range/Units 21:08 05:40 05:40 RBC 3.65 L (3.80-5.40) m/uL MCV 101.3 H (80.0-100.0) fL Lymphocytes # (Manual) 0.78 L (1.0-4.8) k/uL Metamyelocytes # (Man) 0.07 H (0) k/uL Myelocytes # (Manual) (0) k/uL APTT (22.0-30.0) sec Sodium 133 L (137-145) mmol/L BUN (7-17) mg/dL Glucose 103 H (74-99) mg/dL Calcium 7.5 L (8.4-10.2) mg/dL Magnesium 2.5 H (1.6-2.3) mg/dL AST (14-36) U/L Alkaline Phosphatase (38-126) U/L Troponin I 0.120 H* (0.000-0.034) ng/mL Total Protein (6.3-8.2) g/dL Albumin (3.5-5.0) g/dL 12/07/21 Range/Units 05:40 RBC (3.80-5.40) m/uL MCV (80.0-100.0) fL Lymphocytes # (Manual) (1.0-4.8) k/uL Metamyelocytes # (Man) (0) k/uL Myelocytes # (Manual) (0) k/uL APTT (22.0-30.0) sec Sodium (137-145) mmol/L BUN (7-17) mg/dL Glucose (74-99) mg/dL Calcium (8.4-10.2) mg/dL Magnesium (1.6-2.3) mg/dL AST (14-36) U/L Alkaline Phosphatase (38-126) U/L Troponin I 0.461 H* (0.000-0.034) ng/mL Total Protein (6.3-8.2) g/dL Albumin (3.5-5.0) g/dL Microbiology - Last 24 Hours (Table) 12/05/21 17:32 Gram Stain - Preliminary Peritoneal Fluid Body Fluid Culture - Preliminary 12/05/21 01:20 Urine Culture - Preliminary Urine,Voided Gram Neg Bacilli Assessment and Plan Time with Patient: Greater than 30
--- NOTE | 2021-12-07 14:39 | P.PN ---
Subjective Progress Note Date: 12/07/21 CHIEF COMPLAINT: Abdominal pain with sepsis HISTORY OF PRESENT ILLNESS: Patient is POD#2 status post diagnostic laparoscopy and laparoscopic cholecystectomy for cholecystitis. Gallbladder had appeared slightly ischemic noted in OR report. Patient remains in the ICU. Overnight patient developed significant confusion and disorientation. Patient had a computed tomography scan of the brain was negative and CTA that was negative for any significant abnormality in the head and neck arteries. Incidental subcutaneous emphysema about the left supraclavicular soft tissue of the neck. Correlate for recent procedure or instrumentation. Echo EF of 40-45% with septal and inferior wall hypokinesis. Patient is being evaluated by neurology service and scheduled for MRI of the brain. She is currently off the Levophed. Her stool output has decreased. C. diff is negative. Her stool cultures pending. Afebrile. Her tachycardia has improved. They have resumed a beta tristen. Blood pressure is stable. White count 6.5. Positive blood culture. Elevated troponin seen evaluated by cardiology service who felt there is evidence of myocardial injury due to hypotension and no evidence of ischemia. Patient seen and examined with Dr. jones PHYSICAL EXAM: VITAL SIGNS: Reviewed. GENERAL: Well-developed in no acute distress. HEENT: No sclera icterus. Extraocular movements grossly intact. Moist buccal mucosa. Head is atraumatic, normocephalic. ABDOMEN: Soft. Nondistended. Tenderness at incision sites. Decreased tenderness compared to yesterday. Incision sites clean dry and intact. JUANA drainage is serous output. NEUROLOGIC: Patient is awake but confused. Alert and orientated 1 name only ASSESSMENT: 1. Acute cholecystitis status post exploratory laparoscopy and laparoscopic cholecystectomy 2. Abdominal sepsis 3. Encephalopathy likely due to sepsis 4. Elevated troponins evaluated by cardiology PLAN: -Continue clear liquids -Continue IV fluids -Continue IV antibiotics -Continue pain medication as needed. Discussed with nursing staff to limit the amount of narcotics given -Continue ICU management -Continue supportive care Physician Medical Lab Assistant note has been reviewed by physician. Signing provider agrees with the documented findings, assessment, and plan of care. Objective - Vital Signs Vital signs: Vital Signs Temp 98.4 F 12/07/21 08:59 Pulse 100 12/07/21 10:00 Resp 15 12/07/21 10:00 BP 128/73 12/07/21 10:00 Pulse Ox 98 12/07/21 10:00 FiO2 Intake & Output 12/06/21 12/07/21 12/07/21 18:59 06:59 18:59 Intake Total 2922.365 1560 850 Output Total 840 1155 600 Balance 2082.365 405 250 Weight 82.3 kg Intake: IV 1910 1560 650 Lactated Ringers 1,000 ml 910 @ 130 mls/hr IV .Q7H42M [facility] Rx#:[id number] Lactated Ringers 1,000 ml 650 1560 650 @ 133 mls/hr IV .Q7H32M [facility] Rx#:[id number] Meropenem 2 gm In Sodium 100 Chloride 0.9% 100 ml @ 33 .3 mls/hr IVPB Q8HR [facility] Rx#:[id number] Vancomycin 1,500 mg In 250 Sodium Chloride 0.9% 250 ml @ 125 mls/hr IVPB Q12H [facility] Rx#:[id number] Intake, IV Titration 52.365 Amount Norepinephrine 4 mg In 52.365 Sodium Chloride 0.9% 250 ml @ 0.05 MCG/KG/MIN 15. 554 mls/hr IV .[id number] [facility] Rx#:[id number] Oral 960 200 Output: Drainage 115 100 Right Abdomen 115 100 Urine 725 1155 500 Other: Voiding Method Indwelling Catheter Indwelling Catheter Indwelling Catheter - Labs CBC & Chem 7: 12/07/21 05:40 12/07/21 05:40 Labs: Abnormal Lab Results - Last 24 Hours (Table) 12/06/21 12/06/21 12/06/21 Range/Units 21:08 21:08 21:08 RBC 3.53 L (3.80-5.40) m/uL MCV 101.0 H (80.0-100.0) fL Lymphocytes # (Manual) 0.47 L (1.0-4.8) k/uL Metamyelocytes # (Man) 0.21 H (0) k/uL Myelocytes # (Manual) 0.05 H (0) k/uL APTT 46.2 H (22.0-30.0) sec Sodium 131 L (137-145) mmol/L BUN 19 H (7-17) mg/dL Glucose 104 H (74-99) mg/dL Calcium 7.3 L (8.4-10.2) mg/dL Magnesium (1.6-2.3) mg/dL AST 65 H (14-36) U/L Alkaline Phosphatase 346 H (38-126) U/L Troponin I (0.000-0.034) ng/mL Total Protein 4.0 L (6.3-8.2) g/dL Albumin 2.1 L (3.5-5.0) g/dL 12/06/21 12/07/21 12/07/21 Range/Units 21:08 05:40 05:40 RBC 3.65 L (3.80-5.40) m/uL MCV 101.3 H (80.0-100.0) fL Lymphocytes # (Manual) 0.78 L (1.0-4.8) k/uL Metamyelocytes # (Man) 0.07 H (0) k/uL Myelocytes # (Manual) (0) k/uL APTT (22.0-30.0) sec Sodium 133 L (137-145) mmol/L BUN (7-17) mg/dL Glucose 103 H (74-99) mg/dL Calcium 7.5 L (8.4-10.2) mg/dL Magnesium 2.5 H (1.6-2.3) mg/dL AST (14-36) U/L Alkaline Phosphatase (38-126) U/L Troponin I 0.120 H* (0.000-0.034) ng/mL Total Protein (6.3-8.2) g/dL Albumin (3.5-5.0) g/dL 12/07/21 Range/Units 05:40 RBC (3.80-5.40) m/uL MCV (80.0-100.0) fL Lymphocytes # (Manual) (1.0-4.8) k/uL Metamyelocytes # (Man) (0) k/uL Myelocytes # (Manual) (0) k/uL APTT (22.0-30.0) sec Sodium (137-145) mmol/L BUN (7-17) mg/dL Glucose (74-99) mg/dL Calcium (8.4-10.2) mg/dL Magnesium (1.6-2.3) mg/dL AST (14-36) U/L Alkaline Phosphatase (38-126) U/L Troponin I 0.461 H* (0.000-0.034) ng/mL Total Protein (6.3-8.2) g/dL Albumin (3.5-5.0) g/dL Microbiology - Last 24 Hours (Table) 12/05/21 17:32 Gram Stain - Preliminary Peritoneal Fluid Body Fluid Culture - Preliminary 12/05/21 01:20 Urine Culture - Preliminary Urine,Voided Gram Neg Bacilli
[2021-12-07] MEDS ORDERED: QUEtiapine 25 MG TAB PO PRN (19:58)
[2021-12-08] MEDS: HEPARIN SODIUM,PORCINE/PF 5,000 UNIT/0.5 ML SYRINGE SQ SCH ×4 (00:18→23:43)
[2021-12-08] MEDS: MEROPENEM 2 GM in SODIUM CHLORIDE 0.9% 100 ML IVPB SCH ×4 (00:18→23:43)
--- NOTE | 2021-12-08 02:04 | EEG ---
ELECTROENCEPHALOGRAM REPORT CLINICAL HISTORY: This is a 71-year-old woman with altered mental status. RELEVANT MEDICATION: Dilaudid. EEG TYPE: A routine 21-channel EEG is performed with video using the 10/20 electrode placement system. DESCRIPTION: Wakefulness is only obtained. During awake state, the background consists of low-to- moderate voltage of 6.5 to 7.5 hertz activity that is well modulated, well sustained. At times, the background consists of diffuse delta activities and sometimes intermixed with theta. There is no physiological stage 2 sleep architecture. There is no focal slowing. Interictal and ictal is none. ACTIVATION PROCEDURE: Photic stimulation was briefly done, but was discontinued because of her cooperation. With limited photic stimulation, there is no photic driving and there is no abnormality during the photic stimulation. Hyperventilation is not performed. CLINICAL INTERPRETATION: This is an abnormal routine EEG. The background slowing is suggestive of mild-to- moderate encephalopathy. Otherwise, there is no focal slowing, epileptiform discharges, or seizure on the EEG. Clinical correlation is recommended MMODMarge / PAULN: [id number] / MTDD
[2021-12-08] MEDS: LACTATED RINGERS 1,000 ML IV SCH ×4 (05:15→23:44)
[2021-12-08] MEDS: NOREPINEPHRINE 4 MG in SODIUM CHLORIDE 0.9% 250 ML IV SCH ×2 (05:16→18:15)
[2021-12-08 06:50] LABS: HCT 37.7 % (34.0-46.0); HGB 12.5 gm/dL (11.4-16.0); MCH 33.9 pg (25.0-35.0); MCV 102.8 fL (80.0-100.0); Macrocytosis Slight; Mean Platelet Volume 7.3; Platelet Count 260 k/uL (150-450); RBC 3.67 m/uL (3.80-5.40); RDW 12.8 % (11.5-15.5); WBC 7.1 k/uL (3.8-10.6)
[2021-12-08 07:33] LABS: African American GFR (CKD) >90 (>60 ml/min/1.73 sqM); Anion Gap 8 mmol/L; Blood Urea Nitrogen 12 mg/dL (7-17); Calcium 7.9 mg/dL (8.4-10.2); Carbon Dioxide 25 mmol/L (22-30); Chloride 101 mmol/L (98-107); Glucose 123 mg/dL (74-99); Non-African American GFR(CKD) >90 (>60 ml/min/1.73 sqM); Potassium 3.8 mmol/L (3.5-5.1); Sodium 134 mmol/L (137-145)
--- NOTE | 2021-12-08 08:12 | P.PN ---
Subjective Progress Note Date: 12/08/21 Principal diagnosis: Change in mental state This is a 71-year-old female patient with a past medical history significant for mild nonobstructive coronary artery disease based on heart catheterization in [address] Dietrich, mildly impaired LV function was EF between 40-45% also based on echocardiogram in 2020 as well as hypertension and dyslipidemia. We are asked to see the patient in consultation today in the intensive care. For further evaluation of abnormal cardiac enzymes and mildly elevated troponin. The patient presented to the hospital a few days ago complaining of abdominal discomfort associated with nausea and vomiting. She also was found to have mild change in mental status. She underwent further investigation and she underwent exploratory laparoscopy and resection of the gallbladder. The procedure was uneventful. Last night the patient developed change in mental status. Because of that further investigation was performed and a stroke protocol was done. She underwent a computed tomography scan of the brain which showed no acute abnormalities. She underwent also a CTA of the head and neck and also that came in to be unremarkable. She underwent troponin which came in to be slightly abnormal. Please note that the patient is currently hypotensive and she is septic and she is requiring small doses of norepinephrine. She was seen and evaluated this morning. Clinically she seems to be stable. She reported no pain in the chest and no shortness of breath and no dizziness or lightheadedness and no feeling of a otherwise continue aspirin and statin ny heart racing or fluttering. She has been maintaining normal sinus mechanism. An EKG showed sinus rhythm with LBBB. The rest of blood work came in to be unremarkable December [id number] The patient was seen this morning. Her mentation has improved. She remains asymptomatic interval chest pain or chest discomfort or shortness of breath. The echo showed similar finding compared to before was EF between 40-45%. She remains slightly tachycardic and for that reason I'm going to increase the dose of beta tristen. Objective - Vital Signs Vital signs: Vital Signs Temp 98.2 F 12/08/21 04:00 Pulse 108 H 12/08/21 07:00 Resp 14 12/08/21 07:00 BP 131/74 12/08/21 07:00 Pulse Ox 95 12/08/21 07:00 FiO2 Intake & Output 12/07/21 12/08/21 12/08/21 18:59 06:59 18:59 Intake Total 2340 1560 130 Output Total 1345 1005 60 Balance 995 555 70 Weight 82.3 kg 90.9 kg Intake: IV 1690 1560 130 Lactated Ringers 1,000 ml 1690 1560 130 @ 133 mls/hr IV .Q7H32M [facility] Rx#:[id number] Oral 650 Output: Drainage 175 45 Right Abdomen 175 45 Urine 1170 960 60 Other: Voiding Method Indwelling Catheter Indwelling Catheter - Constitutional General appearance: Present: no acute distress - Respiratory Respiratory: bilateral: diminished - Cardiovascular Rhythm: regular - Labs CBC & Chem 7: 12/08/21 06:11 12/08/21 06:11 Labs: Abnormal Lab Results - Last 24 Hours (Table) 12/07/21 12/08/21 12/08/21 Range/Units 05:40 06:11 06:11 RBC 3.67 L (3.80-5.40) m/uL MCV 102.8 H (80.0-100.0) fL Sodium 134 L (137-145) mmol/L Creatinine 0.48 L (0.52-1.04) mg/dL Glucose 123 H (74-99) mg/dL Calcium 7.9 L (8.4-10.2) mg/dL Troponin I 0.461 H* (0.000-0.034) ng/mL Microbiology - Last 24 Hours (Table) 12/05/21 20:46 Stool Culture - Preliminary Stool 12/05/21 01:20 Urine Culture - Final Urine,Voided Klebsiella pneumoniae 12/05/21 17:32 Gram Stain - Preliminary Peritoneal Fluid Body Fluid Culture - Preliminary Assessment and Plan Assessment: Assessment #1 abdominal discomfort associated with nausea and vomiting related to cholecystitis #2 status post laparoscopic cholecystectomy #3 change in mental status #4 hypotension related to sepsis currently the patient is on norepinephrine #5 evidence of myocardial injury was no evidence of ischemia #6 known mild nonobstructive coronary artery disease Plan #1 continue supporting the patient's blood pressure #2 continue aspirin as well as a statin #3 the evidence of myocardial injury is likely related to hypotension #4 increase the dose of beta tristen
[2021-12-08] MEDS: METOPROLOL TARTRATE 50 MG TAB PO SCH ×3 (08:14→21:43)
[2021-12-08] MEDS: ATORVASTATIN 20 MG TAB PO SCH (08:14)
[2021-12-08] MEDS: GABAPENTIN 100 MG CAP PO SCH ×3 (08:14→21:42)
[2021-12-08] MEDS: carBAMazepine 200 MG TAB PO SCH ×4 (08:14→21:43)
[2021-12-08] MEDS: ASPIRIN 81 MG PO SCH (08:14)
--- NOTE | 2021-12-08 10:44 | P.PN ---
Subjective Progress Note Date: 12/08/21 71-year-old female came in with comments of nausea vomiting and severe abdominal pain patient overall clinical condition worsened on stepdown unit patient was subsequently transferred to ICU patient had a CT-guided CT angios gram of the chest and abdomen and pelvis which showed dilated the gallbladder for possibility of cholecystitis and free fluid in the abdomen. Patient was a lethargic with diffuse abdominal pain hypotensive patient was subsequently transferred to ICU and was started on broad-spectrum and Videx vancomycin and meropenem and lactated Ringer's. Patient lactic acid is high because of which am switching to normal saline. Patient was lethargic and drowsy but improving but now. Patient was evaluated by general surgery and going for expiratory laparotomy patient does have fever and elevated white count of 14.2 no evidence of pneumonia or UTI. 12/06/2021 Patient is monitored in intensive care unit. She underwent exploratory laprotomy and also laproscopic cholecystectomy with Dr Aguayo yesterday evening. Prior to she had chest xray for line placement which showed increasing infiltrate and atelectasis in both lower lobes compared to yesterday. Heart failure is possible as well. She is maintained on levophed and continues on lactated ringer at 130 mls per hour. She received a 1L fluid bolus today. Patient did have an echocardiogram in 2019 showing LV function of 40 to 45% with hypokinesis. Surgery has cleared patient for small sips of clear liquid today and discussed adding norco for pain management. She has drain present to right abdomen. She had sodium level today of 133, potassium 4.9, BUN 20, creatinine 0.62, glucose 116. C. Dif is negative. Her most recent lactic acid is 5.3, pending repeat today. Blood culture showing staph epi on 1 of 2 cultures. This could be possible contaminant. Stool culture pending. Surgical cultures are pending. She continues on vancomycin and meropenem. 12/07/2021 Patient continues to be monitored in ICU. She had an episode of acute confusion yesterday around dinner time and code stroke was called. Brain CT/CTA completed which are negative for acute, no stroke, mass, or hemorrhage noted. Neurology was consulted. Patient underwent EEG today which is pending. She did have troponin elevation found during routine stroke protocol lab work, for this cardiology was consulted and felt troponin elevation is from sepsis. Echocardio gram showing EF 40 to 45% with septal inferior hypokinesis with moderate TR. Labs today showing sodium 133, potassium 4.7, BUN 17, creatinine 0.63, calcium 7.5, magnesium 2.5. TSH 1.650. She is alert x 2 today with confusion. She is tolerating diet, reports no abdominal pain. She is having diarrhea, FMS is in place, and was checked for C.Dif is pending at this time. Narcotics have been placed on hold. She continues on IV antibiotics. Urine culture showing gram negative bacilli.Temperature 98.4, heart rate 100, blood pressure 128/73, 98% room air. Pressor support has been placed on hold for the last 24 hours. She is being followed by gen surgery, rounding and backing machine operator, and neurology. 12/08/2021 Patient continues in intensive care unit. She had a dose of seroquel at HS and nurse reports her sleeping well last night. FMS management system was removed and patient has not had a BM. She is tolerating some clear liquid diet. She is alert x 2, able to state she is in the hospital, thinks it is 1970s. Does have some ongoing speech issues. From a neurology perspective MRI has been ordered to rule out stroke. Continues with JUANA drain to right abdomen with serosanguineous drainage. White count 7.1, sodium 134, potassium 3.8, BUN 12, creatinine 0.48. Troponins are trending 0.120, 0.461 - cardiology is following patient and beta tristen will be increased today as she has remained slightly tachycardic. Review of Systems Constitutional: Denied any fatigue denied any fever. Cardio vascular: denied any chest pain, palpitations Gastrointestinal: Denies pain, no diarrhea Pulmonary: Denied any shortness of breath cough Neurologic denied any new focal deficits, confused All inpatient medications were reviewed and appropriate changes in these medications as dictated in the interval history and assessment and plan. PHYSICAL EXAMINATION: GENERAL: Patient is awake alert x 2 she is confused. HEENT: Pupils are round and equally reacting to light. EOMI. No scleral icterus. No conjunctival pallor. Normocephalic, atraumatic. No pharyngeal erythema. No thyromegaly. CARDIOVASCULAR: S1 and S2 present. No murmurs, rubs, or gallops. PULMONARY: Chest is clear to auscultation, no wheezing or crackles. ABDOMEN: Post Surgical abdomen. Normoactive bowel sounds. IDC in place, FMS has been removed MUSCULOSKELETAL: No joint swelling or deformity. EXTREMITIES: No cyanosis, clubbing, Mild lower extremity edema. NEUROLOGICAL: Gross neurological examination did not reveal any focal deficits. Confused. She does have some slowed speech response. SKIN: No rashes. Assessment and plan -Septic shock: Possible intra-abdominal source patient is postoperative day #3 laproscopic cholecystectomy secondary to cholecystitis on Antibiotics, cultures are pending -Toxic encephalopathy altered mental status secondary to sepsis and septic shock, rule out stroke, mentation has slightly improved today -Lactic acidosis secondary to sepsis -Sinus tachycardia, hypotension from sepsis, patient has also been resumed on home beta tristen and heart rate has improved -Troponin Leak from sepsis -Hypertension was hypotensive and now off pressor support maintaining blood pressure in the 120s systolic -Klebsiella UTI continues on meropenem -Diarrhea, C.Dif pending -hyperlipidemia -Hyponatremia secondary to hypovolemia and sepsis: Continue with IV fluids -History nonischemic cardiomyopathy with most recent LV function 40 to 45% -History trigeminal neuralgia Resumed on home medication, gabapentin has been decreased from home dose -GI prophylaxis: DVT prophylaxis: Lovenox Full Code Plan Patient will continue to be monitored in intensive care unit with cardiology, neurology, surgery, and pulmonary rounding and backing machine operator following the patient closely. She is off pressor support maintaining blood pressure. She continues with intermittent episode of tachycardia and beta tristen was adjusted. Blood cultures with staph epi are most likely a contaminent species. She does have Klebsiella UTI and continues on IV meropenem. Mentation has slightly improved, however MRI has been ordered to rule out stroke. On clear liquid diet. The impression and plan of care has been dictated by Heather Barber, Nurse Practitioner as directed. Dr. Benjamín MD I have performed a history and physical examination and medical decision making of this patient, discussed the same with the dictator, and agree with the dictators assessment and plan as written, documented as a scribe. Based on total visit time, I have performed more than 50% of this visit. Objective - Vital Signs Vital signs: Vital Signs Temp 98 F 12/08/21 08:00 Pulse 86 12/08/21 10:00 Resp 15 12/08/21 10:00 BP 134/82 12/08/21 10:00 Pulse Ox 95 12/08/21 10:00 FiO2 Intake & Output 12/07/21 12/08/21 12/08/21 18:59 06:59 18:59 Intake Total 2340 1560 520 Output Total 1345 1005 355 Balance 995 555 165 Weight 82.3 kg 90.9 kg Intake: IV 1690 1560 520 Lactated Ringers 1,000 ml 1690 1560 520 @ 133 mls/hr IV .Q7H32M [facility] Rx#:[id number] Oral 650 Output: Drainage 175 45 70 Right Abdomen 175 45 70 Urine 1170 960 285 Other: Voiding Method Indwelling Catheter Indwelling Catheter Indwelling Catheter - Labs CBC & Chem 7: 12/08/21 06:11 12/08/21 06:11 Labs: Abnormal Lab Results - Last 24 Hours (Table) 12/08/21 12/08/21 Range/Units 06:11 06:11 RBC 3.67 L (3.80-5.40) m/uL MCV 102.8 H (80.0-100.0) fL Sodium 134 L (137-145) mmol/L Creatinine 0.48 L (0.52-1.04) mg/dL Glucose 123 H (74-99) mg/dL Calcium 7.9 L (8.4-10.2) mg/dL Microbiology - Last 24 Hours (Table) 12/05/21 20:46 Stool Culture - Preliminary Stool 12/05/21 01:20 Urine Culture - Final Urine,Voided Klebsiella pneumoniae 12/05/21 17:32 Gram Stain - Preliminary Peritoneal Fluid Body Fluid Culture - Preliminary Assessment and Plan Time with Patient: Greater than 30
--- NOTE | 2021-12-08 11:49 | P.PN ---
Subjective Progress Note Date: 12/08/21 Principal diagnosis: Sepsis. This is a 71-year-old female patient with a known history of hypertension, hyperlipidemia, tic douloureux. She presented to the emergency room yesterday for nausea vomiting and abdominal pain. She was also having altered mental status, hypotension and diaphoresis. CT angiogram of the chest abdomen and pelvis revealed no arterial aneurysms or dissection. No evidence of pulmonary embolism. There is a possible small bowel ileus. Interstitial infiltrates and atelectasis at the lung bases. She was initially admitted to the selective care unit. Approximately 2:00 this morning the patient was found to be more lethargic with complaints of diffuse abdominal pain most notably in the suprapubic region. She also was hypotensive. She was given a liter of normal saline. Computed tomography scan of the brain revealed mild atrophy and chronic small vessel ischemia. No acute intracranial abnormality. She was transferred to the intensive care unit for closer monitoring. She is seen today in consultation. She is awake and alert. She is complaining of fatigue and is drowsy at times. She is oriented. She did require norepinephrine infusion at 4 mcg/m. She is on normal saline now at 130 ML's per hour. She has oxygen at 3 L/m. Follow-up CAT scan of the abdomen revealed development of some free fluid in the pelvis. There is constipation and large bowel ileus not significantly different. Possibility. Tinnitus should be considered. Dilated gallbladder suggestive of cholecystitis. Culture data and atelectasis of the lung bases. Surgical consult is pending. Urine culture pending. White count 14.2. Hemoglobin 14.4. MCV 104. Sodium 131. Potassium 4.4. Bicarb 19. BUN 15. Creatinine 0.72. Glucose 131. Lactic acid 5.0. AST 45. ALT 21. Alk phos 778. Chronic virus by PCR not detected. She had been given vancomycin and meropenem. Progress note dated 12/06/2021. 71-year-old female that we saw yesterday in consultation, for possible sepsis and hypotension. She was initially admitted to the general medical floor. She has a history of hypertension, hyperlipidemia, and trigeminal neuralgia. We are concerned about abdominal sepsis. She went for laparoscopic exploration, and ended up with a laparoscopic cholecystectomy, for cholecystitis. The patient is currently resting comfortably in the ICU, room 265. Blood cultures are apparently positive for gram-positive cocci. The patient is on vancomycin and meropenem. Today, she is on 2 L of oxygen. The patient remains on lactated Ringer's at 130 mL an hour. In addition, the patient's on norepinephrine at 0.05 mcg/kg/m. She had some tachycardia, and was given some beta tristen from the hospital service. Currently labs include a white count of 7.9, hemoglobin 13.3, hematocrit 41.5, and a platelet count of 315,000. Sodium 133, potassium 4.9, chlorides 106, CO2 22, BUN 20, creatinine 0.62. Albumin was 2.4. Chest x- ray shows bibasilar atelectasis. Blood cultures were positive for staphylococcus epidermidis. Progress note dated 12/07/2021. 72-year-old female seen 2 days ago in consultation, her sepsis and hypotension. The patient went to the operating room, and had a laparoscopic cholecystectomy, for cholecystitis. Apparently last night, she developed significant confusion and disorientation. Currently, the patient's on 4 L nasal cannula. She's receiving lactated Ringer's at 130 mL an hour. Today is postop day #2. The patient did go for computed tomography scan of the brain which was negative, and a CT angiogram which was also negative. Urine is showing evidence of gram- negative bacilli. She remains on vancomycin and meropenem. White count 6.5, hemoglobin 12, hematocrit 36.9, and platelet count 276,000. Sodium 133, potassium 4.7, chlorides 103, CO2 26, BUN 17, creatinine 0.63. Troponins were 0.120 and 0.461. Cardiology was consulted. TSH was normal. Progress note dated 12/08/2021. 71-year-old female seen 3 days ago consultation for sepsis and hypotension. The patient ended up going to the operating room, and had a laparoscopic cholecystectomy for cholecystitis. More recently, she developed significant confusion, and disorientation. This morning, she was going for an MRI scan. She's currently on 2 L of oxygen. She's receiving lactated Ringer's at 130 mL an hour. Staphylococcus epidermidis was found in the blood. Klebsiella species was found in the urine. The patient is on meropenem. White count 7.1, hemoglobin 12.5, hematocrit 37.7, and platelet count 260,000. Sodium 134, potassium 3.8, chlorides 101, CO2 25, BUN 12, creatinine 0.48. Objective - Vital Signs Vital signs: Vital Signs Temp 98 F 12/08/21 08:00 Pulse 91 12/08/21 11:00 Resp 15 12/08/21 11:00 BP 133/71 12/08/21 11:00 Pulse Ox 92 L 12/08/21 11:00 FiO2 Intake & Output 12/07/21 12/08/21 12/08/21 18:59 06:59 18:59 Intake Total 2340 1560 650 Output Total 1345 1005 465 Balance 995 555 185 Weight 82.3 kg 90.9 kg Intake: IV 1690 1560 650 Lactated Ringers 1,000 ml 1690 1560 650 @ 133 mls/hr IV .Q7H32M [facility] Rx#:[id number] Oral 650 Output: Drainage 175 45 120 Right Abdomen 175 45 120 Urine 1170 960 345 Other: Voiding Method Indwelling Catheter Indwelling Catheter Indwelling Catheter - Exam No acute distress, confused. Nasal O2 in place at 2 L. HEENT examination is grossly unremarkable. Neck supple. Full range of motion. No adenopathy thyromegaly or neck vein distention. Cardiovascular examination reveals regular rhythm rate. S1-S2 normal. No S3 or S4. No discernible murmur noted. Heart sounds are distant. Heart rate 88 bpm. Lungs reveal scattered bilateral rhonchi. No wheezes. No crackles. Breath sounds equal bilaterally. 2 L saturation is 95 %. Abdomen soft without bowel sounds. Abdomen is a bit tender. Extremities are intact. No cyanosis clubbing or edema. Skin is without rash or lesion. Neurologic examination is brief but nonfocal. - Labs CBC & Chem 7: 12/08/21 06:11 12/08/21 06:11 Labs: Abnormal Lab Results - Last 24 Hours (Table) 12/08/21 12/08/21 Range/Units 06:11 06:11 RBC 3.67 L (3.80-5.40) m/uL MCV 102.8 H (80.0-100.0) fL Sodium 134 L (137-145) mmol/L Creatinine 0.48 L (0.52-1.04) mg/dL Glucose 123 H (74-99) mg/dL Calcium 7.9 L (8.4-10.2) mg/dL Microbiology - Last 24 Hours (Table) 12/05/21 20:46 Stool Culture - Preliminary Stool 12/05/21 01:20 Urine Culture - Final Urine,Voided Klebsiella pneumoniae 12/05/21 17:32 Gram Stain - Preliminary Peritoneal Fluid Body Fluid Culture - Preliminary Assessment and Plan Assessment: Postop day #3, status post exploratory laparoscopy, and laparoscopic cholecystectomy, (12/05/2021), for acute cholecystitis. Abdominal pain, with possible abdominal sepsis. Mental status changes, secondary to encephalopathy from sepsis, initially better, but now a bit worse. Hypotension, likely secondary to sepsis, recovered. Lactic acidosis, secondary to sepsis. History of hypertension. History of hyperlipidemia. History of trigeminal neuralgia/tic douloureux Plan: Plan dated 12/06/2021. The patient will remain in the intensive care unit. The patient is currently on norepinephrine. Receiving lactated Ringer's at 130 mL an hour. The patient's on vancomycin and meropenem. Blood cultures were positive for Staphylococcus epidermidis. We will continue to follow. I did ask the nurse to make sure an incentive spirometer was ordered. She'll be doing it hourly. Labs, x-rays, and medications are reviewed. Prognosis is guarded. We will continue to follow and make recommendations along the way. Plan dated 12/07/2021. The patient will be seen by neurology. Computed tomography scan of the brain was negative. CT angiogram was negative. The patient's urine is showing evidence of gram-negative bacilli. Her encephalopathy could relate to sepsis. She remains on vancomycin and meropenem. She is on 4 L. Today's postop day #2. She's getting lactated Ringer's at 130 mL an hour. Labs, x-rays, and medications are reviewed. Additional recommendations and suggestions are forthcoming. Plan dated 12/08/2021. The patient will be going for an MRI of the brain today. Today is postop day #3. She has been seen by neurology. She remains on appropriate medications. She remains on meropenem. Klebsiella species was found in the urine. Labs, x- rays, medications are reviewed. The patient was weaned off of pressors She continues on incentive spirometer. Additional recommendations and suggestions are forthcoming. Prognosis is guarded. We will continue to follow patient and make recommendations along the way. Time with Patient: Greater than 30
--- NOTE | 2021-12-08 12:20 | MR ---
EXAMINATION TYPE: MR brain wo con DATE OF EXAM: 12/08/2021 COMPARISON: CT 12/06/2021 HISTORY: 71-year-old female confusion, AMS TECHNIQUE: Multiplanar, multisequence images of the brain and brainstem were acquired without IV con trast. Diffusion-weighted imaging is performed. The patient was moving and fast brain protocol was ut ilized. There is artifact due to a rosary with safety pin posteriorly. This was removed at the end of the scan and the patient would not allow for any additional scanning. FINDINGS: No evidence for acute infarction, hemorrhage, mass, mass effect, midline shift, herniation, effacemen t of basal cisterns, or extra-axial fluid collection. The ventricles and sulci are age-appropriate with mild generalized volume loss. Major intracranial flow voids are intact. Images weighted sequences show a small peripheral area of focal encephalomalacia in the adjacent ilio psoas posterolateral left cerebellar hemisphere. There is moderate patchy and confluent bright white matter change in both cerebral hemispheres. Midline structures demonstrate normal morphology. The craniocervical junction is normal. Moderate mucosal thickening posterior right maxillary sinus. IMPRESSION: Motion degraded exam. There is additional metal artifact posteriorly. No definite acute intracranial abnormality seen. No definite abnormality on diffusion sequence. Mild age-related atrophy. Moderate p atchy and confluent burden of chronic small vessel ischemic disease. 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
--- NOTE | 2021-12-08 13:45 | P.PN ---
Subjective Progress Note Date: 12/08/21 The patient is seen at bedside and per nurse sometimes she seems confused. Otherwise no change. Objective - Vital Signs Vital signs: Vital Signs Temp 98 F 12/08/21 12:04 Pulse 98 12/08/21 12:04 Resp 20 12/08/21 12:04 BP 134/77 12/08/21 12:04 Pulse Ox 91 L 12/08/21 12:04 FiO2 Intake & Output 12/07/21 12/08/21 12/08/21 18:59 06:59 18:59 Intake Total 2340 1560 780 Output Total 1345 1005 565 Balance 995 555 215 Weight 82.3 kg 90.9 kg Intake: IV 1690 1560 780 Lactated Ringers 1,000 ml 1690 1560 780 @ 133 mls/hr IV .Q7H32M [facility] Rx#:[id number] Oral 650 Output: Drainage 175 45 160 Right Abdomen 175 45 160 Urine 1170 960 405 Other: Voiding Method Indwelling Catheter Indwelling Catheter Indwelling Catheter - Exam GENERAL: The patient is lying in bed and is not in acute distress. NEUROLOGICAL: Higher mental function: The patient is slightly drowsy but awakeable to voice. Is oriented to self, stated she is in the hospital. She correctly stated the month and did not respond to year. She is able to name objects correctly. She has some word finding difficulty and appears to talking jibberish and appears expressive aphasia. Patient is following simple commands. No aphasia and no neglect. Cranial nerves: The pupils are round, equal and reactive to light. Visual fernando had a hard time because of cooperation. Extraocular movement is intact no nystagmus is noted. Facial sensation is normal to touch throughout. The facial strength is normal throughout. Hearing is normal bilaterally to hand rub. Tongue is midline and moved [id number] without any difficulty. No dysarthria is noted. Shoulder shrug is normal bilaterally. Motor: The strength is 5 over 5 throughout uppers while lowers had hard time but was able to slightly lift above gravity. Normal tone and bulk. Cerebellum: Normal finger to nose bilaterally. Sensation: Sensation is normal to touch throughout. Reflexes (right/left): 2+ throughout. Plantars are mute bilaterally. Some of the other workup during his hospital visit consisted of: Ammonia level is less than 9 TSH is 1.650 Her initial sodium is 125 and most recent one is 133. AST and ALT slightly elevated and is slightly trending up. UDS is negative. Carbamazepine level is 5.6 Blood cultures is staph epidermidis and the urine culture was gram-negative bacilli. CT of the head which is reported as no acute intracranial abnormality. I personally reviewed the CT of the head and there is no acute or subacute ischem ia. There is no intracranial hemorrhage. The patient does have old surgical over posterior left for her Trigemenial neuralgia and she did verify that. CTA head and neck was reported as no significant abnormality of the head and neck artery. Incidental subcutaneous emphysema about the left supraclavicular neck soft tissue. Correlate for recent procedure/instrumentation. Otherwise clinical follow-up. Routine EEG is abnormal. The back was suggestive mild to moderate encephalopathy. Otherwise there is no focal slowing, perform discharges or seizure on the EEG. MRI the brain is reported as motion degraded exam. There is additional metal artifact posterior. No definite acute intracranial abnormality seen. No definite of abnormality on diffusion sequence. Mild age-related atrophy. Mod erate patchy and confluent burden of chronic small vessel ischemic disease. 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 I personally reviewed the MRI and agree with the report 2-D echo is reported as reduced systolic function with ejection fraction of 40- 45% with septal and inferior wall hypokinesis. Normal left atrial size. Possible PFO ASD - Labs CBC & Chem 7: 12/08/21 06:11 12/08/21 06:11 Labs: Abnormal Lab Results - Last 24 Hours (Table) 12/08/21 12/08/21 Range/Units 06:11 06:11 RBC 3.67 L (3.80-5.40) m/uL MCV 102.8 H (80.0-100.0) fL Sodium 134 L (137-145) mmol/L Creatinine 0.48 L (0.52-1.04) mg/dL Glucose 123 H (74-99) mg/dL Calcium 7.9 L (8.4-10.2) mg/dL Microbiology - Last 24 Hours (Table) 12/04/21 19:15 Blood Culture Gram Stain - Preliminary Blood Blood Culture - Preliminary Staphylococcus epidermidis 12/04/21 19:20 Blood Culture Gram Stain - Preliminary Blood Blood Culture - Preliminary Coagulase Negative Staph 12/05/21 20:46 Stool Culture - Preliminary Stool 12/05/21 01:20 Urine Culture - Final Urine,Voided Klebsiella pneumoniae Assessment and Plan Assessment: Altered mental status due to multifactorial: Septic encephalopathy (possible abdominal sepsis with UTI) Patient has appearnace some expressive aphasia seems due to above. MRI Brain is negative for stroke Acute cholecystitis status post exploratory laparoscopic cholecystectomy Chronic mild hyponatremia on Tegretol History of trigeminal neuralgia Plan: Patient is on aspirin 81 mg, Lipitor 20 mg daily. Q2 hour neuro checks. We'll defer the rest of the medical management to the primary team and ICU team. Cardiology was consulted for elevated troponin General surgery team is on board The plan is discussed with the nurse. Abdelrahman Caban M.D. Neuro-Hospitalist Time with Patient: Less than 30
--- NOTE | 2021-12-08 15:42 | P.PN ---
Subjective Progress Note Date: 12/08/21 CHIEF COMPLAINT: Cholecystitis HISTORY OF PRESENT ILLNESS: The patient is a 71-year-old female who presented with sepsis including cholecystitis. She had acute mental status changes. Extensive workup is being done. Patient is resting comfortably in the intensive care unit. ROS: No reports of nausea and vomiting. No fevers or chills. No new chest pain. PHYSICAL EXAM: VITAL SIGNS: Reviewed CONSTITUTIONAL: Well developed and in no acute distress. EYES: Extraocular movements grossly intact. HEAD, EARS, NOSE, THROAT: Moist buccal mucosa. Head is atraumatic, normocephalic. No nasal drainage. RESPIRATORY: Non-labored respirations and equal bilateral excursions. CARDIOVASCULAR: Palpable 2+ radial pulses. ABDOMEN: Incisions intact MUSCULOSKELETAL: No gross deformity of the lower extremities noted. No clubbing. No cyanosis. SKIN: Good skin turgor. Well perfused. NEUROLOGIC: Cranial nerves II through XII grossly intact PSYCH: Lethargic CLINICAL LABS: Reviewed. WBC normal 7.1. Hemoglobin improving 12.1-12.5. ASSESSMENT: 1. Cholecystitis with sepsis 2. Acute neurological event PLAN: 1. Continue antibiotics 2. Neurology consulted for acute neurological event Objective - Vital Signs Vital signs: Vital Signs Temp 98 F 12/08/21 12:04 Pulse 105 H 12/08/21 15:00 Resp 15 12/08/21 15:00 BP 158/79 12/08/21 15:00 Pulse Ox 91 L 12/08/21 15:00 FiO2 Intake & Output 12/07/21 12/08/21 12/08/21 18:59 06:59 18:59 Intake Total 2340 1560 1140 Output Total 1345 1005 665 Balance 995 555 475 Weight 82.3 kg 90.9 kg Intake: IV 1690 1560 1140 Lactated Ringers 1,000 ml 1690 1560 1040 @ 133 mls/hr IV .Q7H32M [facility] Rx#:[id number] Meropenem 2 gm In Sodium 100 Chloride 0.9% 100 ml @ 33 .3 mls/hr IVPB Q8HR [facility] Rx#:[id number] Oral 650 Output: Drainage 175 45 160 Right Abdomen 175 45 160 Urine 1170 960 505 Other: Voiding Method Indwelling Catheter Indwelling Catheter Indwelling Catheter - Labs CBC & Chem 7: 12/08/21 06:11 12/08/21 06:11 Labs: Abnormal Lab Results - Last 24 Hours (Table) 12/08/21 12/08/21 Range/Units 06:11 06:11 RBC 3.67 L (3.80-5.40) m/uL MCV 102.8 H (80.0-100.0) fL Sodium 134 L (137-145) mmol/L Creatinine 0.48 L (0.52-1.04) mg/dL Glucose 123 H (74-99) mg/dL Calcium 7.9 L (8.4-10.2) mg/dL Microbiology - Last 24 Hours (Table) 12/05/21 17:32 Anaerobic Culture - Preliminary Peritoneal Fluid 12/05/21 17:32 Gram Stain - Preliminary Peritoneal Fluid Body Fluid Culture - Preliminary 12/04/21 19:15 Blood Culture Gram Stain - Preliminary Blood Blood Culture - Preliminary Staphylococcus epidermidis 12/04/21 19:20 Blood Culture Gram Stain - Preliminary Blood Blood Culture - Preliminary Coagulase Negative Staph 12/05/21 20:46 Stool Culture - Preliminary Stool 12/05/21 01:20 Urine Culture - Final Urine,Voided Klebsiella pneumoniae
[2021-12-08] MEDS: ONDANSETRON 4 MG/2 ML VIAL IVP PRN ×2 (16:00→22:21)
[2021-12-09] MEDS: HYDROcodone/APAP 5-325MG 1 EACH TAB PO PRN ×2 (03:55→18:00)
[2021-12-09 05:53] LABS: Basophils % (A) 1 %; Eosinophils # (A) 0.2 k/uL (0-0.7); Eosinophils % (A) 3 %; HCT 38.1 % (34.0-46.0); HGB 12.2 gm/dL (11.4-16.0); Lymphocytes # (A) 0.6 k/uL (1.0-4.8); Lymphocytes % (A) 10 %; MCH 32.1 pg (25.0-35.0); MCHC 32.1 g/dL (31.0-37.0); Mean Platelet Volume 7.4; Monocytes # (A) 0.4 k/uL (0-1.0); Monocytes % (A) 6 %; Neutrophils # (A) 4.8 k/uL (1.3-7.7); Neutrophils % (A) 78 %; Platelet Count 313 k/uL (150-450); RBC 3.81 m/uL (3.80-5.40); RDW 12.5 % (11.5-15.5); WBC 6.1 k/uL (3.8-10.6)
[2021-12-09 06:08] LABS: African American GFR (CKD) >90 (>60 ml/min/1.73 sqM); Anion Gap 9 mmol/L; Blood Urea Nitrogen 13 mg/dL (7-17); Calcium 7.9 mg/dL (8.4-10.2); Carbon Dioxide 27 mmol/L (22-30); Chloride 97 mmol/L (98-107); Glucose 109 mg/dL (74-99); Non-African American GFR(CKD) >90 (>60 ml/min/1.73 sqM); Potassium 3.2 mmol/L (3.5-5.1); Sodium 133 mmol/L (137-145)
[2021-12-09] MEDS: POTASSIUM CHLORIDE 20 MEQ in WATER FOR INJECTION 1 100ML.BAG IVPB SCH ×5 (06:33→16:44)
--- NOTE | 2021-12-09 07:58 | P.PN ---
Subjective Progress Note Date: 12/09/21 Principal diagnosis: Change in mental state This is a 71-year-old female patient with a past medical history significant for mild nonobstructive coronary artery disease based on heart catheterization in [address] Dietrich, mildly impaired LV function was EF between 40-45% also based on echocardiogram in 2020 as well as hypertension and dyslipidemia. We are asked to see the patient in consultation today in the intensive care. For further evaluation of abnormal cardiac enzymes and mildly elevated troponin. The patient presented to the hospital a few days ago complaining of abdominal discomfort associated with nausea and vomiting. She also was found to have mild change in mental status. She underwent further investigation and she underwent exploratory laparoscopy and resection of the gallbladder. The procedure was uneventful. Last night the patient developed change in mental status. Because of that further investigation was performed and a stroke protocol was done. She underwent a computed tomography scan of the brain which showed no acute abnormalities. She underwent also a CTA of the head and neck and also that came in to be unremarkable. She underwent troponin which came in to be slightly abnormal. Please note that the patient is currently hypotensive and she is septic and she is requiring small doses of norepinephrine. She was seen and evaluated this morning. Clinically she seems to be stable. She reported no pain in the chest and no shortness of breath and no dizziness or lightheadedness and no feeling of a otherwise continue aspirin and statin ny heart racing or fluttering. She has been maintaining normal sinus mechanism. An EKG showed sinus rhythm with LBBB. The rest of blood work came in to be unremarkable December 082021 The patient was seen this morning. Her mentation has improved. She remains asymptomatic interval chest pain or chest discomfort or shortness of breath. The echo showed similar finding compared to before was EF between 40-45%. She remains slightly tachycardic and for that reason I'm going to increase the dose of beta tristen. December 092021 The patient was seen this morning. She reports no pain in the chest and no shortness of breath at this point. The echo revealed an EF between 40-40% which has not changed compared to before. On examination she is tachycardic. Yesterday I did increase the dose of carvedilol but in spite of that she continues to be tachycardic and going to follow-up with the dose of metoprolol 200 mg by mouth twice a day. The patient can be transferred out of the intensive care unit. Objective - Vital Signs Vital signs: Vital Signs Temp 98.0 F 12/09/21 02:15 Pulse 102 H 12/09/21 02:15 Resp 14 12/09/21 02:15 BP 134/80 12/09/21 02:15 Pulse Ox 92 L 12/09/21 02:15 FiO2 Intake & Output 12/08/21 12/09/21 12/09/21 18:59 06:59 18:59 Intake Total 1620 660 Output Total 1020 955 60 Balance 600 -295 -60 Intake: IV 1620 660 Lactated Ringers 1,000 ml 1420 660 @ 133 mls/hr IV .Q7H32M [facility] Rx#:[id number] Meropenem 2 gm In Sodium 200 Chloride 0.9% 100 ml @ 33 .3 mls/hr IVPB Q8HR [facility] Rx#:[id number] Output: Drainage 340 440 60 Right Abdomen 340 440 60 Urine 680 515 Other: Voiding Method Indwelling Catheter Indwelling Catheter # Bowel Movements 1 - Constitutional General appearance: Present: no acute distress - Respiratory Respiratory: bilateral: diminished - Cardiovascular Rhythm: regular Heart sounds: normal: S1, S2 - Labs CBC & Chem 7: 12/09/21 05:37 12/09/21 05:37 Labs: Abnormal Lab Results - Last 24 Hours (Table) 12/09/21 12/09/21 Range/Units 05:37 05:37 Lymphocytes # 0.6 L (1.0-4.8) k/uL Sodium 133 L (137-145) mmol/L Potassium 3.2 L (3.5-5.1) mmol/L Chloride 97 L (98-107) mmol/L Glucose 109 H (74-99) mg/dL Calcium 7.9 L (8.4-10.2) mg/dL Microbiology - Last 24 Hours (Table) 12/05/21 20:46 Stool Culture - Final Stool 12/05/21 17:32 Anaerobic Culture - Preliminary Peritoneal Fluid 12/05/21 17:32 Gram Stain - Preliminary Peritoneal Fluid Body Fluid Culture - Preliminary 12/04/21 19:15 Blood Culture Gram Stain - Preliminary Blood Blood Culture - Preliminary Staphylococcus epidermidis 12/04/21 19:20 Blood Culture Gram Stain - Preliminary Blood Blood Culture - Preliminary Coagulase Negative Staph Assessment and Plan Assessment: Assessment #1 abdominal discomfort associated with nausea and vomiting related to cholecystitis #2 status post laparoscopic cholecystectomy #3 change in mental status #4 hypotension related to sepsis currently the patient is on norepinephrine #5 evidence of myocardial injury was no evidence of ischemia #6 known mild nonobstructive coronary artery disease Plan #1 continue supporting the patient's blood pressure #2 continue aspirin as well as a statin #3 the evidence of myocardial injury is likely related to hypotension #4 increase the dose of beta tristen #5 the patient Transferred out of the intensive care unit
[2021-12-09] MEDS ORDERED: FUROSEMIDE 10 MG/ML 10 ML VIAL IV STA (08:49)
[2021-12-09] MEDS: HEPARIN SODIUM,PORCINE/PF 5,000 UNIT/0.5 ML SYRINGE SQ SCH ×2 (08:53→15:34)
[2021-12-09] MEDS: GABAPENTIN 100 MG CAP PO SCH ×3 (08:53→21:55)
[2021-12-09] MEDS: ATORVASTATIN 20 MG TAB PO SCH (08:54)
[2021-12-09] MEDS: METOPROLOL TARTRATE 50 MG TAB PO SCH ×2 (08:54→21:55)
[2021-12-09] MEDS: ASPIRIN 81 MG PO SCH (08:54)
[2021-12-09] MEDS: carBAMazepine 200 MG TAB PO SCH ×4 (08:56→21:55)
[2021-12-09] MEDS: MEROPENEM 2 GM in SODIUM CHLORIDE 0.9% 100 ML IVPB SCH ×2 (08:56→17:08)
--- NOTE | 2021-12-09 10:40 | P.PN ---
Subjective Progress Note Date: 12/09/21 Principal diagnosis: Sepsis. This is a 71-year-old female patient with a known history of hypertension, hyperlipidemia, tic douloureux. She presented to the emergency room yesterday for nausea vomiting and abdominal pain. She was also having altered mental status, hypotension and diaphoresis. CT angiogram of the chest abdomen and pelvis revealed no arterial aneurysms or dissection. No evidence of pulmonary embolism. There is a possible small bowel ileus. Interstitial infiltrates and atelectasis at the lung bases. She was initially admitted to the selective care unit. Approximately 2:00 this morning the patient was found to be more lethargic with complaints of diffuse abdominal pain most notably in the suprapubic region. She also was hypotensive. She was given a liter of normal saline. Computed tomography scan of the brain revealed mild atrophy and chronic small vessel ischemia. No acute intracranial abnormality. She was transferred to the intensive care unit for closer monitoring. She is seen today in consultation. She is awake and alert. She is complaining of fatigue and is drowsy at times. She is oriented. She did require norepinephrine infusion at 4 mcg/m. She is on normal saline now at 130 ML's per hour. She has oxygen at 3 L/m. Follow-up CAT scan of the abdomen revealed development of some free fluid in the pelvis. There is constipation and large bowel ileus not significantly different. Possibility. Tinnitus should be considered. Dilated gallbladder suggestive of cholecystitis. Culture data and atelectasis of the lung bases. Surgical consult is pending. Urine culture pending. White count 14.2. Hemoglobin 14.4. MCV 104. Sodium 131. Potassium 4.4. Bicarb 19. BUN 15. Creatinine 0.72. Glucose 131. Lactic acid 5.0. AST 45. ALT 21. Alk phos 778. Chronic virus by PCR not detected. She had been given vancomycin and meropenem. Progress note dated 12/06/2021. 71-year-old female that we saw yesterday in consultation, for possible sepsis and hypotension. She was initially admitted to the general medical floor. She has a history of hypertension, hyperlipidemia, and trigeminal neuralgia. We are concerned about abdominal sepsis. She went for laparoscopic exploration, and ended up with a laparoscopic cholecystectomy, for cholecystitis. The patient is currently resting comfortably in the ICU, room 265. Blood cultures are apparently positive for gram-positive cocci. The patient is on vancomycin and meropenem. Today, she is on 2 L of oxygen. The patient remains on lactated Ringer's at 130 mL an hour. In addition, the patient's on norepinephrine at 0.05 mcg/kg/m. She had some tachycardia, and was given some beta tristen from the hospital service. Currently labs include a white count of 7.9, hemoglobin 13.3, hematocrit 41.5, and a platelet count of 315,000. Sodium 133, potassium 4.9, chlorides 106, CO2 22, BUN 20, creatinine 0.62. Albumin was 2.4. Chest x- ray shows bibasilar atelectasis. Blood cultures were positive for staphylococcus epidermidis. Progress note dated 12/07/2021. 72-year-old female seen 2 days ago in consultation, her sepsis and hypotension. The patient went to the operating room, and had a laparoscopic cholecystectomy, for cholecystitis. Apparently last night, she developed significant confusion and disorientation. Currently, the patient's on 4 L nasal cannula. She's receiving lactated Ringer's at 130 mL an hour. Today is postop day #2. The patient did go for computed tomography scan of the brain which was negative, and a CT angiogram which was also negative. Urine is showing evidence of gram- negative bacilli. She remains on vancomycin and meropenem. White count 6.5, hemoglobin 12, hematocrit 36.9, and platelet count 276,000. Sodium 133, potassium 4.7, chlorides 103, CO2 26, BUN 17, creatinine 0.63. Troponins were 0.120 and 0.461. Cardiology was consulted. TSH was normal. Progress note dated 12/08/2021. 71-year-old female seen 3 days ago consultation for sepsis and hypotension. The patient ended up going to the operating room, and had a laparoscopic cholecystectomy for cholecystitis. More recently, she developed significant confusion, and disorientation. This morning, she was going for an MRI scan. She's currently on 2 L of oxygen. She's receiving lactated Ringer's at 130 mL an hour. Staphylococcus epidermidis was found in the blood. Klebsiella species was found in the urine. The patient is on meropenem. White count 7.1, hemoglobin 12.5, hematocrit 37.7, and platelet count 260,000. Sodium 134, potassium 3.8, chlorides 101, CO2 25, BUN 12, creatinine 0.48. Progress note dated 12/09/2021. 71-year-old female, seen 4 days ago in consultation for sepsis and hypotension. The patient was thought to have an intra-abdominal process, and went to the operating room, and had a laparoscopic cholecystectomy for cholecystitis. She developed postoperative confusion and disorientation, likely metabolic in origin . MRI scan of the brain was negative. She's doing better each day. Currently, she is on room air. Her lactated Ringer's is running at 60 mL an hour. She will get Lasix 60 mg IV push once today. Clinically, she is much more awake and alert. White count 6.1, hemoglobin 12.2, hematocrit 38.1, with a normal platelet count. Sodium 133, potassium 3.2, chlorides 97, CO2 27, BUN 13, creatinine 0.54. Urine cultures are positive for Klebsiella pneumoniae. Blood cultures were positive for coag-negative staph. She is currently on meropenem. Objective - Vital Signs Vital signs: Vital Signs Temp 98 F 12/09/21 08:00 Pulse 98 12/09/21 08:00 Resp 14 12/09/21 08:00 BP 138/77 12/09/21 08:00 Pulse Ox 92 L 12/09/21 08:00 FiO2 Intake & Output 12/08/21 12/09/21 12/09/21 18:59 06:59 18:59 Intake Total 1620 660 120 Output Total 2707 256 0428 Balance 600 -295 -1570 Intake: IV 1620 660 120 Lactated Ringers 1,000 ml 1420 660 120 @ 133 mls/hr IV .Q7H32M [facility]CK[facility]NA Rx#:[id number] Meropenem 2 gm In Sodium 200 Chloride 0.9% 100 ml @ 33 .3 mls/hr IVPB Q8HR [facility] Rx#:[id number] Output: Drainage 340 440 140 Right Abdomen 340 440 140 Urine 095 905 7100 Other: Voiding Method Indwelling Catheter Indwelling Catheter Indwelling Catheter # Bowel Movements 1 - Exam No acute distress, confused. Patient currently on room air. HEENT examination is grossly unremarkable. Neck supple. Full range of motion. No adenopathy thyromegaly or neck vein distention. Cardiovascular examination reveals regular rhythm rate. S1-S2 normal. No S3 or S4. No discernible murmur noted. Heart sounds are distant. Heart rate 97 bpm. Lungs reveal scattered bilateral rhonchi. No wheezes. No crackles. Breath sounds equal bilaterally. Room air saturation is 92-94%. Abdomen soft without bowel sounds. Abdomen is a bit tender. Extremities are intact. No cyanosis clubbing or edema. Skin is without rash or lesion. Neurologic examination is brief but nonfocal. - Labs CBC & Chem 7: 12/09/21 05:37 12/09/21 05:37 Labs: Abnormal Lab Results - Last 24 Hours (Table) 12/09/21 12/09/21 Range/Units 05:37 05:37 Lymphocytes # 0.6 L (1.0-4.8) k/uL Sodium 133 L (137-145) mmol/L Potassium 3.2 L (3.5-5.1) mmol/L Chloride 97 L (98-107) mmol/L Glucose 109 H (74-99) mg/dL Calcium 7.9 L (8.4-10.2) mg/dL Microbiology - Last 24 Hours (Table) 12/05/21 17:32 Gram Stain - Preliminary Peritoneal Fluid Body Fluid Culture - Preliminary 12/05/21 20:46 Stool Culture - Final Stool 12/05/21 17:32 Anaerobic Culture - Preliminary Peritoneal Fluid 12/04/21 19:15 Blood Culture Gram Stain - Preliminary Blood Blood Culture - Preliminary Staphylococcus epidermidis 12/04/21 19:20 Blood Culture Gram Stain - Preliminary Blood Blood Culture - Preliminary Coagulase Negative Staph Assessment and Plan Assessment: Postop day #4, status post exploratory laparoscopy, and laparoscopic cholecystectomy, (12/05/2021), for acute cholecystitis. Klebsiella pneumoniae urinary tract infection. Abdominal pain, with possible abdominal sepsis. Mental status changes, secondary to encephalopathy from sepsis, initially better, but now a bit worse. Hypotension, likely secondary to sepsis, recovered. Lactic acidosis, secondary to sepsis. History of hypertension. History of hyperlipidemia. History of trigeminal neuralgia/tic douloureux Plan: Plan dated 12/06/2021. The patient will remain in the intensive care unit. The patient is currently on norepinephrine. Receiving lactated Ringer's at 130 mL an hour. The patient's o n vancomycin and meropenem. Blood cultures were positive for Staphylococcus epidermidis. We will continue to follow. I did ask the nurse to make sure an incentive spirometer was ordered. She'll be doing it hourly. Labs, x-rays, and medications are reviewed. Prognosis is guarded. We will continue to follow and make recommendations along the way. Plan dated 12/07/2021. The patient will be seen by neurology. Computed tomography scan of the brain was negative. CT angiogram was negative. The patient's urine is showing evidence of gram-negative bacilli. Her encephalopathy could relate to sepsis. She remains on vancomycin and meropenem. She is on 4 L. Today's postop day #2. She's getting lactated Ringer's at 130 mL an hour. Labs, x-rays, and medications are reviewed. Additional recommendations and suggestions are forthcoming. Plan dated 12/08/2021. The patient will be going for an MRI of the brain today. Today is postop day #3. She has been seen by neurology. She remains on appropriate medications. She remains on meropenem. Klebsiella species was found in the urine. Labs, x- rays, medications are reviewed. The patient was weaned off of pressors She continues on incentive spirometer. Additional recommendations and suggestions are forthcoming. Prognosis is guarded. We will continue to follow patient and make recommendations along the way. Plan dated 12/09/2021. The patient's currently on meropenem for her Klebsiella pneumoniae urinary tract infection. The patient is clinically much improved, and her mental status is much better. MRI of the brain was negative. Labs, x-rays, and medications are all reviewed. The patient has been weaned off of vasopressors. We will continue to follow make recommendations along the way. We continue to encourage hourly use of the incentive spirometer, ongoing GI and DVT prophylaxis, and deep breathing, coughing, and clearing of secretions. Time with Patient: Less than 30
[2021-12-09] MEDS ORDERED: Potassium Replacement Protocol 1 EACH MISC MISCELLANE PRN (11:59)
--- NOTE | 2021-12-09 12:04 | P.PN ---
Subjective Progress Note Date: 12/09/21 71-year-old female came in with comments of nausea vomiting and severe abdominal pain patient overall clinical condition worsened on stepdown unit patient was subsequently transferred to ICU patient had a CT-guided CT angios gram of the chest and abdomen and pelvis which showed dilated the gallbladder for possibility of cholecystitis and free fluid in the abdomen. Patient was a lethargic with diffuse abdominal pain hypotensive patient was subsequently transferred to ICU and was started on broad-spectrum and Videx vancomycin and meropenem and lactated Ringer's. Patient lactic acid is high because of which am switching to normal saline. Patient was lethargic and drowsy but improving but now. Patient was evaluated by general surgery and going for expiratory laparotomy patient does have fever and elevated white count of 14.2 no evidence of pneumonia or UTI. 12/06/2021 Patient is monitored in intensive care unit. She underwent exploratory laprotomy and also laproscopic cholecystectomy with Dr Aguayo yesterday evening. Prior to she had chest xray for line placement which showed increasing infiltrate and atelectasis in both lower lobes compared to yesterday. Heart failure is possible as well. She is maintained on levophed and continues on lactated ringer at 130 mls per hour. She received a 1L fluid bolus today. Patient did have an echocardiogram in 2019 showing LV function of 40 to 45% with hypokinesis. Surgery has cleared patient for small sips of clear liquid today and discussed adding norco for pain management. She has drain present to right abdomen. She had sodium level today of 133, potassium 4.9, BUN 20, creatinine 0.62, glucose 116. C. Dif is negative. Her most recent lactic acid is 5.3, pending repeat today. Blood culture showing staph epi on 1 of 2 cultures. This could be possible contaminant. Stool culture pending. Surgical cultures are pending. She continues on vancomycin and meropenem. 12/07/2021 Patient continues to be monitored in ICU. She had an episode of acute confusion yesterday around dinner time and code stroke was called. Brain CT/CTA completed which are negative for acute, no stroke, mass, or hemorrhage noted. Neurology was consulted. Patient underwent EEG today which is pending. She did have troponin elevation found during routine stroke protocol lab work, for this cardiology was consulted and felt troponin elevation is from sepsis. Echocardio gram showing EF 40 to 45% with septal inferior hypokinesis with moderate TR. Labs today showing sodium 133, potassium 4.7, BUN 17, creatinine 0.63, calcium 7.5, magnesium 2.5. TSH 1.650. She is alert x 2 today with confusion. She is tolerating diet, reports no abdominal pain. She is having diarrhea, FMS is in place, and was checked for C.Dif is pending at this time. Narcotics have been placed on hold. She continues on IV antibiotics. Urine culture showing gram negative bacilli.Temperature 98.4, heart rate 100, blood pressure 128/73, 98% room air. Pressor support has been placed on hold for the last 24 hours. She is being followed by gen surgery, director of corporate marketing, and neurology. 12/08/2021 Patient continues in intensive care unit. She had a dose of seroquel at HS and nurse reports her sleeping well last night. FMS management system was removed and patient has not had a BM. She is tolerating some clear liquid diet. She is alert x 2, able to state she is in the hospital, thinks it is 1970s. Does have some ongoing speech issues. From a neurology perspective MRI has been ordered to rule out stroke. Continues with JUANA drain to right abdomen with serosanguineous drainage. White count 7.1, sodium 134, potassium 3.8, BUN 12, creatinine 0.48. Troponins are trending 0.120, 0.461 - cardiology is following patient and beta tristen will be increased today as she has remained slightly tachycardic. 12/09/2021 Patient continues to be monitored in intensive care unit. She has been downgraded to med surg with no tele pending available bed. Her mentation is slightly improved. She has klebsiella UTI on IV meropenem and ID will be consulted for further management. Sodium today 133, potassium 3.2. Potassium will be supplemented with total 80 meq IV and also patient received a dose of 60 mg IV lasix today. IV fluids have been decreased to lactated ringer at 60 mls. She does have some increased lower extremity edema greater in her left leg. She has been maintained off pressor support. Continues on some liquid diet. No white count, hgb stable at 12.2. Afebrile, heart rate 98, blood pressure 138/77, 92% on 2L nasal cannula. Review of Systems Constitutional: Denied any fatigue denied any fever. Cardio vascular: denied any chest pain, palpitations Gastrointestinal: Denies pain, no diarrhea Pulmonary: Denied any shortness of breath cough Neurologic denied any new focal deficits, confused All inpatient medications were reviewed and appropriate changes in these medications as dictated in the interval history and assessment and plan. PHYSICAL EXAMINATION: GENERAL: Patient is awake alert x 2 she is confused although improving appears in no acute distress. HEENT: Pupils are round and equally reacting to light. EOMI. No scleral icterus. No conjunctival pallor. Normocephalic, atraumatic. No pharyngeal erythema. No thyromegaly. CARDIOVASCULAR: S1 and S2 present. No murmurs, rubs, or gallops. PULMONARY: Chest is clear to auscultation, no wheezing or crackles. ABDOMEN: Post Surgical abdomen. Normoactive bowel sounds. IDC in place, FMS has been removed MUSCULOSKELETAL: No joint swelling or deformity. EXTREMITIES: No cyanosis, clubbing, Mild lower extremity edema. NEUROLOGICAL: Gross neurological examination did not reveal any focal deficits. Confused. She does have some slowed speech response. SKIN: No rashes. Assessment and plan -Septic shock: Possible intra-abdominal source patient is postoperative day #4 laproscopic cholecystectomy secondary to cholecystitis on Antibiotics, cultures are pending -Toxic encephalopathy altered mental status secondary to sepsis and septic shock, rule out stroke, mentation has slightly improved today -Lactic acidosis secondary to sepsis -Sinus tachycardia, hypotension from sepsis, patient has also been resumed on home beta tristen and heart rate has improved, medications also increased by cardiology -Troponin Leak from sepsis -Hypertension was hypotensive and now off pressor support maintaining blood pressure in the 120s systolic -Klebsiella UTI continues on meropenem -Diarrhea, C.Dif pending -hyperlipidemia -Hyponatremia secondary to hypovolemia and sepsis: Continue with IV fluids -History nonischemic cardiomyopathy with most recent LV function 40 to 45% -History trigeminal neuralgia Resumed on home medication, gabapentin has been decreased from home dose -GI prophylaxis: DVT prophylaxis: Lovenox Full Code Plan Patient has been downgraded from ICU to the medical floor she is currently pending a bed. Continues off pressor support. She received a dose of IV lasix today and IV fluids were decreased. She also received IV potassium replacement. Will repeat labs in the AM. She is being followed by surgery, cardiology, and pulmonary director of corporate marketing. Neurology has ruled out acute stroke as caused for altered mental status most likely encephalopathy from sepsis and component of klebsiella UTI. ID has been consulted for further recommendations regarding antibiotic therapy. She continues on IV meropenem. Diet per surgery. Will consult PT/OT for evaluation of patient tomorrow. Repeat labs in AM. The impression and plan of care has been dictated by Heather Barber, Nurse Practitioner as directed. Dr. Benjamín MD I have performed a history and physical examination and medical decision making of this patient, discussed the same with the dictator, and agree with the dictators assessment and plan as written, documented as a scribe. Based on total visit time, I have performed more than 50% of this visit. Objective - Vital Signs Vital signs: Vital Signs Temp 98 F 12/09/21 08:00 Pulse 98 12/09/21 08:00 Resp 14 12/09/21 08:00 BP 138/77 12/09/21 08:00 Pulse Ox 92 L 12/09/21 08:00 FiO2 Intake & Output 12/08/21 12/09/21 12/09/21 18:59 06:59 18:59 Intake Total 1620 660 120 Output Total 3913 949 7382 Balance 600 -295 -1570 Intake: IV 1620 660 120 Lactated Ringers 1,000 ml 1420 660 120 @ 133 mls/hr IV .Q7H32M [facility] Rx#:[id number] Meropenem 2 gm In Sodium 200 Chloride 0.9% 100 ml @ 33 .3 mls/hr IVPB Q8HR [facility] Rx#:[id number] Output: Drainage 340 440 140 Right Abdomen 340 440 140 Urine 960 166 4079 Other: Voiding Method Indwelling Catheter Indwelling Catheter Indwelling Catheter # Bowel Movements 1 - Labs CBC & Chem 7: 12/09/21 05:37 12/09/21 05:37 Labs: Abnormal Lab Results - Last 24 Hours (Table) 12/09/21 12/09/21 Range/Units 05:37 05:37 Lymphocytes # 0.6 L (1.0-4.8) k/uL Sodium 133 L (137-145) mmol/L Potassium 3.2 L (3.5-5.1) mmol/L Chloride 97 L (98-107) mmol/L Glucose 109 H (74-99) mg/dL Calcium 7.9 L (8.4-10.2) mg/dL Microbiology - Last 24 Hours (Table) 12/05/21 17:32 Gram Stain - Preliminary Peritoneal Fluid Body Fluid Culture - Preliminary 12/05/21 20:46 Stool Culture - Final Stool 12/05/21 17:32 Anaerobic Culture - Preliminary Peritoneal Fluid 12/04/21 19:15 Blood Culture Gram Stain - Preliminary Blood Blood Culture - Preliminary Staphylococcus epidermidis 12/04/21 19:20 Blood Culture Gram Stain - Preliminary Blood Blood Culture - Preliminary Coagulase Negative Staph Assessment and Plan Time with Patient: Less than 30
[2021-12-09] MEDS: NOREPINEPHRINE 4 MG in SODIUM CHLORIDE 0.9% 250 ML IV SCH (13:03)
[2021-12-09] MEDS: ONDANSETRON 4 MG/2 ML VIAL IVP PRN ×2 (13:05→19:30)
--- NOTE | 2021-12-09 13:47 | P.PN ---
Subjective Progress Note Date: 12/09/21 The patient is seen at bedside and per nurse she is more awake and verbalizing better today and does not seem confused. She is accompanied with her son and (who are at bedside) and agree she is talking much better. Objective - Vital Signs Vital signs: Vital Signs Temp 98 F 12/09/21 08:00 Pulse 98 12/09/21 08:00 Resp 14 12/09/21 08:00 BP 138/77 12/09/21 08:00 Pulse Ox 92 L 12/09/21 08:00 FiO2 Intake & Output 12/08/21 12/09/21 12/09/21 18:59 06:59 18:59 Intake Total 1620 660 540 Output Total 2314 972 3253 Balance 600 295 -2150 Intake: IV 1620 660 540 Lactated Ringers 1,000 ml 1420 660 540 @ 133 mls/hr IV .Q7H32M [facility] Rx#:[id number] Meropenem 2 gm In Sodium 200 Chloride 0.9% 100 ml @ 33 .3 mls/hr IVPB Q8HR [facility] Rx#:[id number] Output: Drainage 340 440 140 Right Abdomen 340 440 140 Urine 807 407 8718 Other: Voiding Method Indwelling Catheter Indwelling Catheter Indwelling Catheter # Bowel Movements 1 - Exam GENERAL: The patient is lying in bed and is not in acute distress. NEUROLOGICAL: Higher mental function: The patient is awake, alert, oriented to self, place and time. No aphasia and no neglect. Cranial nerves: The pupils are round, equal and reactive to light. Visual fernando had a hard time because of cooperation. Extraocular movement is intact no nystagmus is noted. Facial sensation is normal to touch throughout. The facial strength is normal throughout. Hearing is normal bilaterally to hand rub. Tongue is midline and moved [id number] without any difficulty. No dysarthria is noted. Shoulder shrug is normal bilaterally. Motor: The strength is 5 over 5 throughout uppers while lowers had hard time but was able to slightly lift above gravity. Normal tone and bulk. Cerebellum: Normal finger to nose bilaterally. Sensation: Sensation is normal to touch throughout. Reflexes (right/left): 2+ throughout. Plantars are mute bilaterally. Some of the other workup during his hospital visit consisted of: Ammonia level is less than 9 TSH is 1.650 Her initial sodium is 125 and most recent one is 133. AST and ALT slightly elevated and is slightly trending up. UDS is negative. Carbamazepine level is 5.6 Blood cultures is staph epidermidis and the urine culture was gram-negative bacilli. CT of the head which is reported as no acute intracranial abnormality. I personally reviewed the CT of the head and there is no acute or subacute ischemia. There is no intracranial hemorrhage. The patient does have old surgical over posterior left for her Trigemenial neuralgia and she did verify that. CTA head and neck was reported as no significant abnormality of the head and neck artery. Incidental subcutaneous emphysema about the left supraclavicular neck soft tissue. Correlate for recent procedure/instrumentation. Otherwise clinical follow-up. Routine EEG is abnormal. The back was suggestive mild to moderate encephalopathy. Otherwise there is no focal slowing, perform discharges or seizure on the EEG. MRI the brain is reported as motion degraded exam. There is additional metal ar tifact posterior. No definite acute intracranial abnormality seen. No definite of abnormality on diffusion sequence. Mild age-related atrophy. Moderate patchy and confluent burden of chronic small vessel ischemic disease. 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 I personally reviewed the MRI and agree with the report 2-D echo is reported as reduced systolic function with ejection fraction of 40- 45% with septal and inferior wall hypokinesis. Normal left atrial size. Possi ble PFO ASD - Labs CBC & Chem 7: 12/09/21 05:37 12/09/21 05:37 Labs: Abnormal Lab Results - Last 24 Hours (Table) 12/09/21 12/09/21 Range/Units 05:37 05:37 Lymphocytes # 0.6 L (1.0-4.8) k/uL Sodium 133 L (137-145) mmol/L Potassium 3.2 L (3.5-5.1) mmol/L Chloride 97 L (98-107) mmol/L Glucose 109 H (74-99) mg/dL Calcium 7.9 L (8.4-10.2) mg/dL Microbiology - Last 24 Hours (Table) 12/04/21 19:15 Blood Culture Gram Stain - Final Blood Blood Culture - Final Staphylococcus epidermidis 12/04/21 19:20 Blood Culture Gram Stain - Final Blood Blood Culture - Final Staphylococcus epidermidis 12/05/21 17:32 Gram Stain - Preliminary Peritoneal Fluid Body Fluid Culture - Preliminary 12/05/21 20:46 Stool Culture - Final Stool 12/05/21 17:32 Anaerobic Culture - Preliminary Peritoneal Fluid Assessment and Plan Assessment: Altered mental status due to multifactorial: Septic encephalopathy (possible abdominal sepsis with UTI). MRI Brain is negative for acute or subacute stroke---mentation improved. Acute cholecystitis status post exploratory laparoscopic cholecystectomy Chronic mild hyponatremia on Tegretol History of trigeminal neuralgia Plan: Patient is on aspirin 81 mg, Lipitor 20 mg daily. We'll defer the rest of the medical management to the primary team and ICU team. Cardiology was consulted for elevated troponin General surgery team is on board The plan is discussed with the patient, her family members ( and son) and her nurse. No additional work-up is needed. Will sign off. Please reconsult if needed. Abdelrahman Caban M.D. Neuro-Hospitalist Time with Patient: Less than 30
--- NOTE | 2021-12-09 14:00 | P.PN ---
Subjective Progress Note Date: 12/09/21 CHIEF COMPLAINT: Cholecystitis HISTORY OF PRESENT ILLNESS: The patient is a 71-year-old female who presented with sepsis including cholecystitis. She had acute mental status changes. This morning, she is more alert. She reports generalized abdominal pain. She is on clear liquids. She reports nausea. She is in the intensive care unit ROS: No reports vomiting. No fevers or chills. No new chest pain. PHYSICAL EXAM: VITAL SIGNS: Reviewed CONSTITUTIONAL: Well developed and in no acute distress. EYES: Extraocular movements grossly intact. HEAD, EARS, NOSE, THROAT: Moist buccal mucosa. Head is atraumatic, normocephalic. No nasal drainage. RESPIRATORY: Non-labored respirations and equal bilateral excursions. CARDIOVASCULAR: Palpable 2+ radial pulses. ABDOMEN: Incisions intact. No peritonitis. MUSCULOSKELETAL: No gross deformity of the lower extremities noted. No clubbing. No cyanosis. SKIN: Good skin turgor. Well perfused. NEUROLOGIC: Cranial nerves II through XII grossly intact PSYCH: Alert to self CLINICAL LABS: Reviewed. WBC normal. Potassium low 3.3. ASSESSMENT: 1. Cholecystitis with sepsis 2. Acute neurological event 3. Hypokalemia PLAN: 1. Supplement for low potassium due to hypokalemia 2. Hold advancement of diet pending improvement of nausea and abdominal pain Objective - Vital Signs Vital signs: Vital Signs Temp 98 F 12/09/21 08:00 Pulse 98 12/09/21 08:00 Resp 14 12/09/21 08:00 BP 138/77 12/09/21 08:00 Pulse Ox 92 L 12/09/21 08:00 FiO2 Intake & Output 12/08/21 12/09/21 12/09/21 18:59 06:59 18:59 Intake Total 1620 660 540 Output Total 4822 655 5865 Balance 600 -295 -2200 Intake: IV 1620 660 540 Lactated Ringers 1,000 ml 1420 660 540 @ 133 mls/hr IV .Q7H32M [facility] Rx#:[id number] Meropenem 2 gm In Sodium 200 Chloride 0.9% 100 ml @ 33 .3 mls/hr IVPB Q8HR [facility] Rx#:[id number] Output: Drainage 340 440 190 Right Abdomen 340 440 190 Urine 737 202 8637 Other: Voiding Method Indwelling Catheter Indwelling Catheter Indwelling Catheter # Bowel Movements 1 - Labs CBC & Chem 7: 12/09/21 05:37 12/09/21 05:37 Labs: Abnormal Lab Results - Last 24 Hours (Table) 12/09/21 12/09/21 Range/Units 05:37 05:37 Lymphocytes # 0.6 L (1.0-4.8) k/uL Sodium 133 L (137-145) mmol/L Potassium 3.2 L (3.5-5.1) mmol/L Chloride 97 L (98-107) mmol/L Glucose 109 H (74-99) mg/dL Calcium 7.9 L (8.4-10.2) mg/dL Microbiology - Last 24 Hours (Table) 12/04/21 19:15 Blood Culture Gram Stain - Final Blood Blood Culture - Final Staphylococcus epidermidis 12/04/21 19:20 Blood Culture Gram Stain - Final Blood Blood Culture - Final Staphylococcus epidermidis 12/05/21 17:32 Gram Stain - Preliminary Peritoneal Fluid Body Fluid Culture - Preliminary 12/05/21 20:46 Stool Culture - Final Stool 12/05/21 17:32 Anaerobic Culture - Preliminary Peritoneal Fluid
[2021-12-09] MEDS: LACTATED RINGERS 1,000 ML IV SCH (15:39)
--- NOTE | 2021-12-09 22:43 | P.CONS ---
History of Present Illness - Reason for Consult Consult date: 12/09/21 Klebsiella UTI Requesting physician: Heather Barber - Chief Complaint Vomiting and right upper quadrant abdominal pain x few days - History of Present Illness Patient is a 71-year-old female presenting to the hospital 5 days ago for evaluation of nausea vomiting and upper abdominal pain patient on presentation to the hospital did have a CT of abdominal pelvis with evidence of free fluid in the pelvis possibly of peritonitis patient was evaluated by general surgery she was taken to the OR on 12/05/2021 patient was noticed to have evidence of cholecystitis in this patient s/p laparoscopic cholecystectomy patient did have a peritoneal fluid cultures obtained on 91 and has been for days now and not finalized patient did have a urine culture with the Klebsiella pneumonia I and blood culture has been positive for staph epi blood culture has not been repeated since then patient on presentation to the hospital was afebrile she did have a fever of 101.3 on 12/05/2020 the patient has been afebrile since then patient did have a normal white count kidney function has been normal infectious disease was consulted today after the patient has been in the hospital for 5 days for UTI patient is currently breathing comfortably patient denies having any chest pain shortness of breath or cough some abdominal discomfort and nausea but no vomiting and no diarrhea Review of Systems Positive point has been mentioned in the HPI rest of the systems are negative Past Medical History Past Medical History: Hyperlipidemia, Hypertension Additional Past Medical History / Comment(s): heart murmur, trigeminal neuralgia, History of Any Multi-Drug Resistant Organisms: None Reported Past Surgical History: Hysterectomy Additional Past Surgical History / Comment(s): surgery for trigeminal neuralgia, Past Anesthesia/Blood Transfusion Reactions: No Reported Reaction Past Psychological History: No Psychological Hx Reported Past Alcohol Use History: None Reported Past Drug Use History: None Reported - Past Family History Mother Additional Family Medical History / Comment(s): passed from colon cancer in her 60's family Family Medical History: No Reported History Medications and Allergies Home Medications Medication Instructions Recorded Confirmed Type Atorvastatin [Lipitor] 20 mg PO DAILY 07/08/19 12/04/21 History Gabapentin [Neurontin] 300 mg PO QID 07/08/19 12/04/21 History Metoprolol Tartrate [Lopressor] 50 mg PO BID 07/08/19 12/04/21 History carBAMazepine 200 mg PO QID 07/08/19 12/04/21 History Aspirin EC [Ecotrin Low Dose] 81 mg PO DAILY 12/04/21 12/04/21 History Meclizine [Antivert] 12.5 mg PO BID 12/04/21 12/04/21 History lisinopriL [Zestril] 20 mg PO DAILY 12/04/21 12/04/21 History Allergies Allergy/AdvReac Type Severity Reaction Status Date / Time Penicillins AdvReac Rash/Hives Verified 12/04/21 21:37 Physical Exam Vitals: Vital Signs Temp Pulse Pulse Resp BP BP Pulse Ox 12/09/21 14:40 97.8 F 90 16 134/70 93 L 12/09/21 08:00 98 F 98 14 138/77 92 L 12/09/21 02:15 98.0 F 102 H 14 134/80 92 L 12/09/21 00:00 128/71 12/08/21 23:00 113 H 13 132/79 93 L 12/08/21 22:00 112 H 13 122/68 93 L 12/08/21 21:00 112 H 15 136/74 93 L 12/08/21 20:00 115 H 15 123/79 93 L 12/08/21 19:00 114 H 25 H 131/73 91 L 12/08/21 18:00 107 H 14 133/77 92 L 12/08/21 17:00 107 H 15 173/93 94 L 12/08/21 16:00 98.2 F 117 H 25 H 153/86 93 L Intake and Output 12/09/21 12/09/21 12/09/21 06:59 14:59 22:59 Intake Total 420 540 Output Total 525 2740 Balance -105 -2200 Intake: IV 420 540 Lactated Ringers 1,000 ml 420 540 @ 133 mls/hr IV .Q7H32M [facility] Rx#:[id number] Output: Drainage 230 190 Right Abdomen 230 190 Urine 295 2550 Other: Voiding Method Indwelling Catheter # Bowel Movements 1 GENERAL DESCRIPTION: Elderly female lying in bed, no distress. No tachypnea or accessory muscle of respiration use. HEENT: Shows Pallor , no scleral icterus. Oral mucous membrane is dry. No pharyngeal erythema or thrush NECK: Trachea central, no thyromegaly. LUNGS: Unlabored breathing. Clear to auscultation anteriorly. No wheeze or crackle. HEART: S1, S2, regular rate and rhythm. No loud murmur ABDOMEN: Soft, mild distention and right-sided tenderness EXTREMITIES: No edema of feet. SKIN: No rash, no masses palpable. NEUROLOGICAL: The patient is awake, alert, oriented x3, mood and affect normal. Results CBC & Chem 7: 12/09/21 05:37 12/09/21 05:37 Labs: Abnormal Lab Results - Last 24 Hours (Table) 12/09/21 12/09/21 Range/Units 05:37 05:37 Lymphocytes # 0.6 L (1.0-4.8) k/uL Sodium 133 L (137-145) mmol/L Potassium 3.2 L (3.5-5.1) mmol/L Chloride 97 L (98-107) mmol/L Glucose 109 H (74-99) mg/dL Calcium 7.9 L (8.4-10.2) mg/dL Microbiology - Last 24 Hours (Table) 12/04/21 19:15 Blood Culture Gram Stain - Final Blood Blood Culture - Final Staphylococcus epidermidis 12/04/21 19:20 Blood Culture Gram Stain - Final Blood Blood Culture - Final Staphylococcus epidermidis 12/05/21 17:32 Gram Stain - Preliminary Peritoneal Fluid Body Fluid Culture - Preliminary 12/05/21 20:46 Stool Culture - Final Stool 12/05/21 17:32 Anaerobic Culture - Preliminary Peritoneal Fluid Assessment and Plan (1) Cholecystitis Current Visit: Yes Status: Acute Code(s): K81.9 - CHOLECYSTITIS, UNSPECIFIED SNOMED Code(s): 60072153 Plan: 1patient presented to hospital with sepsis secondary to the acute cholecystitis in this patient s/p laparoscopic cholecystectomy 4 days ago with abdominal cultures so far not finalized. 2positive blood cultures staph epi likely skin contaminant blood cultures will be repeated document clearance of bacteremia. 3positive culture with Klebsiella possible component of UTI. 4penicillin allergy but no history of anaphylaxis. 5discontinue meropenem. 6start the patient on Rocephin 2 g daily and oral Flagyl for waiting for the culture to finalize. We will follow on clinical condition and cultures to further adjust medication if needed Thank you for this consultation will follow this patient along with you Time with Patient: Greater than 30
[2021-12-10] MEDS: MEROPENEM 2 GM in SODIUM CHLORIDE 0.9% 100 ML IVPB SCH (01:09)
[2021-12-10] MEDS: HEPARIN SODIUM,PORCINE/PF 5,000 UNIT/0.5 ML SYRINGE SQ SCH ×3 (01:10→16:13)
[2021-12-10] MEDS: ONDANSETRON 4 MG/2 ML VIAL IVP PRN ×2 (02:24→08:24)
[2021-12-10] MEDS: HYDROcodone/APAP 5-325MG 1 EACH TAB PO PRN ×2 (08:24→21:50)
[2021-12-10] MEDS: carBAMazepine 200 MG TAB PO SCH ×4 (08:24→21:46)
[2021-12-10] MEDS: METOPROLOL TARTRATE 50 MG TAB PO SCH ×2 (08:24→21:47)
[2021-12-10] MEDS: ATORVASTATIN 20 MG TAB PO SCH (08:24)
[2021-12-10] MEDS: GABAPENTIN 100 MG CAP PO SCH ×3 (08:24→21:47)
[2021-12-10] MEDS: ASPIRIN 81 MG PO SCH (08:25)
[2021-12-10] MEDS: metroNIDAZOLE 500 MG TAB PO SCH ×3 (08:32→21:46)
[2021-12-10] MEDS: LACTATED RINGERS 1,000 ML IV SCH (08:32)
--- NOTE | 2021-12-10 09:15 | P.PN ---
Subjective Progress Note Date: 12/10/21 Principal diagnosis: Abdominal pain Patient was transferred out of the ICU over the weekend. Remains slightly confused this morning. Complaining of abdominal pain still. Labs still shows significant bandemia on recent CBC. She is afebrile however has become mildly tachycardic again. JUANA drain is serous. Her peritoneal cultures are negative. Her urinary cultures showing Klebsiella. Her blood culture showed staph epi. Apparently the fecal management system that was draining diarrhea was removed in the last 24-48 hours. It sounds like she has not moved her bowels since then. She has tolerating small volume of clear liquids at this time. Objective - Vital Signs Vital signs: Vital Signs Temp 98.8 F 12/10/21 03:39 Pulse 110 H 12/10/21 03:39 Resp 15 12/10/21 03:39 BP 143/85 12/10/21 03:39 Pulse Ox 95 12/10/21 03:39 FiO2 Intake & Output 12/09/21 12/10/21 12/10/21 18:59 06:59 18:59 Intake Total 540 275 Output Total 2740 525 Balance -2200 -250 Intake: IV 540 Lactated Ringers 1,000 ml 540 @ 133 mls/hr IV .Q7H32M [facility] Rx#:[id number] Oral 275 Output: Drainage 190 125 Right Abdomen 190 125 Urine 2550 400 Other: Voiding Method Indwelling Catheter Indwelling Catheter - Exam Abdomen: Soft, mild distention, mild diffuse tenderness, JUANA draining serous, incisions clean and dry - Labs CBC & Chem 7: 12/09/21 05:37 12/09/21 05:37 Labs: Microbiology - Last 24 Hours (Table) 12/05/21 20:46 Stool Culture - Final Stool 12/05/21 17:32 Gram Stain - Final Peritoneal Fluid Body Fluid Culture - Final 12/04/21 19:15 Blood Culture Gram Stain - Final Blood Blood Culture - Final Staphylococcus epidermidis 12/04/21 19:20 Blood Culture Gram Stain - Final Blood Blood Culture - Final Staphylococcus epidermidis Assessment and Plan (1) Abdominal pain Narrative/Plan: 71-year-old female with abdominal pain. He underwent recent diagnostic laparoscopy with cholecystectomy. Patient still having abdominal discomfort and tenderness. Still with significant bandemia on recent labs. We'll order abdominal x-ray at this time to evaluate for ileus since the patient has had less stools after the fecal management system was removed. Possible repeat CT abdomen and pelvis if pain persists and x-rays inconclusive. Current Visit: Yes Status: Acute Code(s): R10.9 - UNSPECIFIED ABDOMINAL PAIN SNOMED Code(s): 03741200
[2021-12-10 09:48] LABS: C Reactive Protein 15.6 mg/dL (0.00-0.80); Magnesium 1.7 mg/dL (1.5-2.4)
[2021-12-10 09:49] LABS: African American GFR (CKD) 112.1 (60.0-200.0); Albumin 2.7 g/dL (3.8-4.9); Albumin/Globulin Ratio 1.35 (1.60-3.17); BUN/Creat Ratio 26.2 Ratio (12.00-20.00); Blood Urea Nitrogen 13.1 mg/dL (9.0-27.0); Calcium 8.3 mg/dL (8.7-10.3); Non-African American GFR(CKD) 96.7 (60.0-200.0); Potassium 3.6 mmol/L (3.5-5.5); Total Bilirubin 0.2 mg/dL (0.30-1.20); Total Protein 4.7 g/dL (6.2-8.2)
[2021-12-10] MEDS ORDERED: Magnesium Replacement Protocol 1 EACH MISC MISCELLANE PRN (10:08)
[2021-12-10 10:11] LABS: Basophils # (A) 0.01 X 10*3/uL (0.00-0.10); Basophils % (A) 0.1 %; Eosinophils # (A) 0.13 X 10*3/uL (0.04-0.35); Eosinophils % (A) 1.6 %; HCT 36.7 % (37.2-46.3); HGB 12.4 g/dL (12.0-15.0); Immature Grans, Automated 4.9 %; Lymphocytes # (A) 1.13 X 10*3/uL (0.90-5.00); Lymphocytes % (A) 13.5 %; MCH 32.3 pg (27.0-32.0); MCHC 33.8 g/dL (32.0-37.0); MCV 95.6 fL (80.0-97.0); Mean Platelet Volume 9.9 fL (9.5-12.2); Monocytes # (A) 0.79 X 10*3/uL (0.20-1.00); Monocytes % (A) 9.4 %; NRBC Per 100 WBC 0 /100 WBCS (0.0-0.0); Neutrophils # (A) 5.89 X 10*3/uL (1.80-7.70); Neutrophils % (A) 70.5 %; Platelet Count 409 X 10*3/uL (140-440); RBC 3.84 X 10*6/uL (4.10-5.20); RDW 13.1 % (11.5-14.5); WBC 8.36 X 10*3/uL (4.50-10.00)
[2021-12-10] MEDS ORDERED: POTASSIUM CHLORIDE ER 20 MEQ TAB.ER PO STA (10:12)
[2021-12-10] MEDS ORDERED: KETOROLAC 15 MG/ML 1 ML VIAL IVP STA (10:21)
[2021-12-10] MEDS: MAGNESIUM SULFATE-D5W PMX 1 GM in DEXTROSE/WATER 1 100ML.BAG IVPB SCH ×2 (10:59→13:11)
--- NOTE | 2021-12-10 11:28 | XR ---
2 view abdomen HISTORY: Abdominal pain 2 views of the abdomen on [address] scan 12/05/2021 There is a surgical drain in the right upper quadrant. Distended gas-filled loops of small and large bowel are noted. Probable basilar atelectatic changes noted within the lungs. No evidence of pneumope ritoneum. Surgical clips are present in the right upper quadrant. IMPRESSION: Findings may be related to postoperative ileus rather than bowel obstruction. Probable ba silar atelectasis.
--- NOTE | 2021-12-10 11:30 | P.PN ---
Subjective 71-year-old female patient with a past medical history significant for mild nonobstructive coronary artery disease based on heart catheterization in [address] Dietrich, nonischemic cardiomyopathy with mildly impaired LV function was EF between 40-45% also based on echocardiogram in 2020 as well as hypertension and dyslipidemia. We were initially consulted for elevated troponin. Patient presents to the emergency department with nausea vomiting and abdominal pain. She was also hypotensive and altered mental status. She was transferred to the ICU secondary to worsening altered mental status and hypotension. She was seen by General Surgery and was diagnosed with cholecystitis. She underwent diagnostic laparoscopy and laparoscopic cholecystectomy on 12/[address] Aguayo. Echocardiogram revealed EF of 40-45%, septal and inferior wall hypokinesis, Prior Echo in 2019 with similar findings. 12/10 Patient seen and examined at bedside, she continues to have increased abdominal pain, nausea and vomiting. She denies any chest pain or shortness of breath. Patient was transferred out of ICU yesterday. She is mildly tachycardic this morning. Her beta tristen was increased yesterday. She has not had a bowel movement today. BP 143/85. HR 110. The echo revealed an EF between 40-40% which has not changed compared to before GENERAL: No acute distress. Ill. NECK: Supple without JVD LUNGS: Breath sounds clear to auscultation bilaterally. Respiration equal and unlabored. No wheezes, rales or rhonchi. HEART: Regular rate and rhythm without murmurs, rubs or gallops. S1 and S2 heard. EXTREMITIES: Normal range of motion, no edema. No clubbing or cyanosis. Peripheral pulses intact. ASSESSMENT Altered mental status Sepsis Acute cholecystitis s/p diagnostic laparoscopy and laparoscopic cholecystectomy on 12/05 Hypotension related to sepsis Elevated troponin, secondary to above, no evidence of ischemia Mild nonobstructive coronary artery disease Non-ischemic cardiomyopathy Hypertension Dyslipidemia PLAN Continue aspirin, statin, beta tristen Continue supportive care Post operative management per Surgery Further recommendations based on clinical course Nurse Practitioner note has been reviewed, I agree with a documented findings and plan of care. Patient was seen and examined. Objective - Vital Signs Vital signs: Vital Signs Temp 98.8 F 12/10/21 03:39 Pulse 110 H 12/10/21 03:39 Resp 15 12/10/21 03:39 BP 143/85 12/10/21 03:39 Pulse Ox 95 12/10/21 03:39 FiO2 Intake & Output 12/09/21 12/10/21 12/10/21 18:59 06:59 18:59 Intake Total 540 275 Output Total 2740 525 Balance -2200 -250 Intake: IV 540 Lactated Ringers 1,000 ml 540 @ 133 mls/hr IV .Q7H32M [facility] Rx#:[id number] Oral 275 Output: Drainage 190 125 Right Abdomen 190 125 Urine 2550 400 Other: Voiding Method Indwelling Catheter Indwelling Catheter - Labs CBC & Chem 7: 12/10/21 05:03 12/10/21 05:03 Labs: Microbiology - Last 24 Hours (Table) 12/05/21 20:46 Stool Culture - Final Stool 12/05/21 17:32 Gram Stain - Final Peritoneal Fluid Body Fluid Culture - Final 12/04/21 19:15 Blood Culture Gram Stain - Final Blood Blood Culture - Final Staphylococcus epidermidis 12/04/21 19:20 Blood Culture Gram Stain - Final Blood Blood Culture - Final Staphylococcus epidermidis
--- NOTE | 2021-12-10 12:41 | P.PN ---
Subjective Progress Note Date: 12/10/21 Principal diagnosis: UTI and cholecystitis Patient is a 71-year-old female presented to hospital with right-sided abdominal pain and nausea and vomiting has been diagnosed with a cholecystitis status post cholecystectomy also with a component of UTI and positive for Kle bsiella and a culture positive for staph epi likely skin contamination. On today's evaluation that is 12/10/2021, the patient denies having any fever or chills, patient mentioned that feeling that good she is breathing comfortably on nasal cannula oxygen has been tolerating some abdominal discomfort but no nausea vomiting or diarrhea Objective - Vital Signs Vital signs: Vital Signs Temp 98.8 F 12/10/21 03:39 Pulse 110 H 12/10/21 03:39 Resp 15 12/10/21 03:39 BP 143/85 12/10/21 03:39 Pulse Ox 95 12/10/21 03:39 FiO2 Intake & Output 12/09/21 12/10/21 12/10/21 18:59 06:59 18:59 Intake Total 540 275 Output Total 2740 525 60 Balance -2200 -250 -60 Intake: IV 540 Lactated Ringers 1,000 ml 540 @ 133 mls/hr IV .Q7H32M [facility] Rx#:[id number] Oral 275 Output: Drainage 190 125 60 Right Abdomen 190 125 60 Urine 2550 400 Other: Voiding Method Indwelling Catheter Indwelling Catheter Indwelling Catheter - Exam GENERAL DESCRIPTION: An elderly female up in the chair in no distress RESPIRATORY SYSTEM: Unlabored breathing , decreased breath sounds at bases HEART: S1 S2 regular rate and rhythm , ABDOMEN: Soft , mild distention and tenderness EXTREMITIES: No edema feet - Labs CBC & Chem 7: 12/10/21 05:03 12/10/21 05:03 Labs: Abnormal Lab Results - Last 24 Hours (Table) 12/10/21 12/10/21 Range/Units 05:03 05:03 RBC 3.84 L (4.10-5.20) X 10*6/uL Hct 36.7 L (37.2-46.3) % MCH 32.3 H (27.0-32.0) pg Immature Gran # 0.41 H (0.00-0.04) X 10*3/uL Creatinine 0.5 L (0.6-1.5) mg/dL BUN/Creatinine Ratio 26.20 H (12.00-20.00) Ratio Calcium 8.3 L (8.7-10.3) mg/dL Total Bilirubin 0.20 L (0.30-1.20) mg/dL AST 64 H (13-35) U/L C-Reactive Protein 15.60 H (0.00-0.80) mg/dL Total Protein 4.7 L (6.2-8.2) g/dL Albumin 2.7 L (3.8-4.9) g/dL Albumin/Globulin Ratio 1.35 L (1.60-3.17) g/dL Microbiology - Last 24 Hours (Table) 12/05/21 20:46 Stool Culture - Final Stool 12/05/21 17:32 Gram Stain - Final Peritoneal Fluid Body Fluid Culture - Final 12/04/21 19:15 Blood Culture Gram Stain - Final Blood Blood Culture - Final Staphylococcus epidermidis 12/04/21 19:20 Blood Culture Gram Stain - Final Blood Blood Culture - Final Staphylococcus epidermidis Assessment and Plan (1) Cholecystitis Current Visit: Yes Status: Acute Code(s): K81.9 - CHOLECYSTITIS, UNSPECIFIED SNOMED Code(s): 68943751 Plan: 1patient presented to hospital with sepsis secondary to the acute cholecystitis in this patient s/p laparoscopic cholecystectomy with abdominal cultures so far negative. 2positive blood cultures staph epi likely skin contaminant blood cultures will be repeated document clearance of bacteremia. 3positive culture with Klebsiella possible component of UTI. 4penicillin allergy but no history of anaphylaxis. 5patient to continue with Rocephin 2 g daily and oral Flagyl and monitor clinical course closely Time with Patient: Less than 30
--- NOTE | 2021-12-10 14:29 | P.PN ---
Subjective Progress Note Date: 12/10/21 This is a 71-year-old female patient with a known history of hypertension, hyperlipidemia, tic douloureux. She presented to the emergency room yesterday for nausea vomiting and abdominal pain. She was also having altered mental status, hypotension and diaphoresis. CT angiogram of the chest abdomen and pelvis revealed no arterial aneurysms or dissection. No evidence of pulmonary embolism. There is a possible small bowel ileus. Interstitial infiltrates and atelectasis at the lung bases. She was initially admitted to the selective care unit. Approximately 2:00 this morning the patient was found to be more lethargic with complaints of diffuse abdominal pain most notably in the suprapubic region. She also was hypotensive. She was given a liter of normal saline. Computed tomography scan of the brain revealed mild atrophy and chronic small vessel ischemia. No acute intracranial abnormality. She was transferred to the intensive care unit for closer monitoring. She is seen today in [facility]. She is awake and alert. She is complaining of fatigue and is drowsy at times. She is oriented. She did require norepinephrine infusion at 4 mcg/m. She is on normal saline now at 130 ML's per hour. She has oxygen at 3 L/m. Follow-up CAT scan of the abdomen revealed development of some free fluid in the pelvis. There is constipation and large bowel ileus not significantly differen t. Possibility. Tinnitus should be considered. Dilated gallbladder suggestive of cholecystitis. Culture data and atelectasis of the lung bases. Surgical consult is pending. Urine culture pending. White count 14.2. Hemoglobin 14.4. MCV 104. Sodium 131. Potassium 4.4. Bicarb 19. BUN 15. Creatinine 0.72. Glucose 131. Lactic acid 5.0. AST 45. ALT 21. Alk phos 778. Chronic virus by PCR not detected. She had been given vancomycin and meropenem. Progress note dated 12/06/2021. 71-year-old female that we saw yesterday in consultation, for possible sepsis and hypotension. She was initially admitted to the general medical floor. She has a history of hypertension, hyperlipidemia, and trigeminal neuralgia. We are concerned about abdominal sepsis. She went for laparoscopic exploration, and ended up with a laparoscopic cholecystectomy, for cholecystitis. The patient is currently resting comfortably in the ICU, room 265. Blood cultures are apparently positive for gram-positive cocci. The patient is on vancomycin and meropenem. Today, she is on 2 L of oxygen. The patient remains on lactated Ringer's at 130 mL an hour. In addition, the patient's on norepinephrine at 0.05 mcg/kg/m. She had some tachycardia, and was given some beta tristen from the hospital service. Currently labs include a white count of 7.9, hemoglobin 13.3, hematocrit 41.5, and a platelet count of 315,000. Sodium 133, potassium 4.9, chlorides 106, CO2 22, BUN 20, creatinine 0.62. Albumin was 2.4. Chest x- ray shows bibasilar atelectasis. Blood cultures were positive for staphylococcus epidermidis. Progress note dated 12/07/2021. 72-year-old female seen 2 days ago in consultation, her sepsis and hypotension. The patient went to the operating room, and had a laparoscopic cholecystectomy, for cholecystitis. Apparently last night, she developed significant confusion and disorientation. Currently, the patient's on 4 L nasal cannula. She's receiving lactated Ringer's at 130 mL an hour. Today is postop day #2. The patient did go for computed tomography scan of the brain which was negative, and a CT angiogram which was also negative. Urine is showing evidence of gram-negat josefina bacilli. She remains on vancomycin and meropenem. White count 6.5, hemoglobin 12, hematocrit 36.9, and platelet count 276,000. Sodium 133, potassium 4.7, chlorides 103, CO2 26, BUN 17, creatinine 0.63. Troponins were 0.120 and 0.461. Cardiology was consulted. TSH was normal. Progress note dated 12/08/2021. 71-year-old female seen 3 days ago consultation for sepsis and hypotension. The patient ended up going to the operating room, and had a laparoscopic cholecystectomy for cholecystitis. More recently, she developed significant confusion, and disorientation. This morning, she was going for an MRI scan. She's currently on 2 L of oxygen. She's receiving lactated Ringer's at 130 mL an hour. Staphylococcus epidermidis was found in the blood. Klebsiella species was found in the urine. The patient is on meropenem. White count 7.1, hemoglobin 12.5, hematocrit 37.7, and platelet count 260,000. Sodium 134, potassium 3.8, chlorides 101, CO2 25, BUN 12, creatinine 0.48. Progress note dated 12/09/2021. 71-year-old female, seen 4 days ago in consultation for sepsis and hypotension. The patient was thought to have an intra-abdominal process, and went to the operating room, and had a laparoscopic cholecystectomy for cholecystitis. She developed postoperative confusion and disorientation, likely metabolic in origin. MRI scan of the brain was negative. She's doing better each day. Currently, she is on room air. Her lactated Ringer's is running at 60 mL an hour. She will get Lasix 60 mg IV push once today. Clinically, she is much more awake and alert. White count 6.1, hemoglobin 12.2, hematocrit 38.1, with a normal platelet count. Sodium 133, potassium 3.2, chlorides 97, CO2 27, BUN 13, creatinine 0.54. Urine cultures are positive for Klebsiella pneumoniae. Blood cultures were positive for coag-negative staph. She is currently on meropenem. On 12/10/2021, the patient is doing well. She is postcholecystectomy the patient is postop day #4. She also had a UTI with Klebsiella. The patient denies having any new complaints. No fever or chills. No hemodynamic instability. She is breathing comfortably and she is on room air oxygen. No nausea. No emesis. No diarrhea. This afternoon, an NG tube was inserted and the patient was having his abdominal pain and distention. She is nothing by mouth and the NG tube is still in place and the patient is still elevated output from her NG tube. No flatness. No abdominal distention. Denies any si gnificant pain. She is afebrile. Her blood work, the patient's at present 8.3 with hemoglobin 12.4 and a platelet count of 49. He is a 30 with a creatinine of 0.5 and his sodium level is at 140. The blood culture was positive for staph epidermidis, the fluid cultures also negative. The patient's is assumed to be contamination. The patient remains on Rocephin 2 g every 24 hours and the patient is also on oral Flagyl.Apparently the fecal management system that was draining diarrhea was removed in the last 24-48 hours. It sounds like she has not moved her bowels since then. She has tolerating small volume of clear liquids at this time. Objective - Vital Signs Vital signs: Vital Signs Temp 97.8 F 12/10/21 12:47 Pulse 67 12/10/21 12:47 Resp 18 12/10/21 12:47 BP 97/67 12/10/21 12:47 Pulse Ox 95 12/10/21 12:47 FiO2 Intake & Output 12/09/21 12/10/21 12/10/21 18:59 06:59 18:59 Intake Total 540 275 Output Total 2740 525 60 Balance -2200 -250 -60 Intake: IV 540 Lactated Ringers 1,000 ml 540 @ 133 mls/hr IV .Q7H32M [facility] Rx#:[id number] Oral 275 Output: Drainage 190 125 60 Right Abdomen 190 125 60 Urine 2550 400 Other: Voiding Method Indwelling Catheter Indwelling Catheter Indwelling Catheter - Exam No acute distress, confused. Patient currently on room air. NG tube is in place HEENT examination is grossly unremarkable. Neck supple. Full range of motion. No adenopathy thyromegaly or neck vein distention. Cardiovascular examination reveals regular rhythm rate. S1-S2 normal. No S3 or S4. No discernible murmur noted. Heart sounds are distant. Lungs reveal scattered bilateral rhonchi. No wheezes. No crackles. Breath sounds equal bilaterally. Abdomen soft without bowel sounds. Abdomen is a bit tender. The patient also has a JUANA drain in the right upper quadrant and there is serous drainage collecting in the JUANA drain. Bowel sounds are absent at this point in time. No direct tenderness. No rebound tenderness. No guarding. Extremities are intact. No cyanosis clubbing or edema. Examination of the skin revealed no evidence of significant rashes, suspicious appearing nevi or other concerning lesions. Neurologic examination is brief but nonfocal. - Labs CBC & Chem 7: 12/10/21 05:03 12/10/21 05:03 Labs: Abnormal Lab Results - Last 24 Hours (Table) 12/10/21 12/10/21 Range/Units 05:03 05:03 RBC 3.84 L (4.10-5.20) X 10*6/uL Hct 36.7 L (37.2-46.3) % MCH 32.3 H (27.0-32.0) pg Immature Gran # 0.41 H (0.00-0.04) X 10*3/uL Creatinine 0.5 L (0.6-1.5) mg/dL BUN/Creatinine Ratio 26.20 H (12.00-20.00) Ratio Calcium 8.3 L (8.7-10.3) mg/dL Total Bilirubin 0.20 L (0.30-1.20) mg/dL AST 64 H (13-35) U/L C-Reactive Protein 15.60 H (0.00-0.80) mg/dL Total Protein 4.7 L (6.2-8.2) g/dL Albumin 2.7 L (3.8-4.9) g/dL Albumin/Globulin Ratio 1.35 L (1.60-3.17) g/dL Microbiology - Last 24 Hours (Table) 12/05/21 17:32 Anaerobic Culture - Final Peritoneal Fluid 12/05/21 20:46 Stool Culture - Final Stool 12/05/21 17:32 Gram Stain - Final Peritoneal Fluid Body Fluid Culture - Final 12/04/21 19:15 Blood Culture Gram Stain - Final Blood Blood Culture - Final Staphylococcus epidermidis 12/04/21 19:20 Blood Culture Gram Stain - Final Blood Blood Culture - Final Staphylococcus epidermidis Assessment and Plan Plan: Postop day #4, status post exploratory laparoscopy, and laparoscopic cholecystectomy, (12/05/2021), for acute cholecystitis. The patient remains nothing by mouth. NG tube is in place. Bowel sounds are hypoactive. Remains on a combination of Rocephin and Flagyl for now. Surgical wound site is dry clean and intact and the patient is a JUANA drain in place with serous drainage. Since NG tube was inserted, the patient had increased output in order of more than a liter. Rule out underlying ileus. Bowel sounds are absent at this point in time. Klebsiella pneumoniae urinary tract infection. Abdominal pain, with possible abdominal sepsis. Mental status changes, secondary to encephalopathy from sepsis, initially better, but now a bit worse. Hypotension, likely secondary to sepsis, recovered. Lactic acidosis, secondary to sepsis. History of hypertension. History of hyperlipidemia. History of trigeminal neuralgia/tic douloureux Plan Keep NG tube in place and monitor the output Continue Rocephin and Flagyl for now Monitor the output from the JUANA drain Keep the patient nothing by mouth Encouraged use of incentive spirometer Monitor electrolytes General surgeries on the case Infectious disease on the case Hemodynamically stable We'll continue to follow
--- NOTE | 2021-12-10 14:32 | P.PN ---
Subjective Progress Note Date: 12/10/21 71-year-old female came in with comments of nausea vomiting and severe abdominal pain patient overall clinical condition worsened on stepdown unit patient was subsequently transferred to ICU patient had a CT-guided CT angios gram of the chest and abdomen and pelvis which showed dilated the gallbladder for possibility of cholecystitis and free fluid in the abdomen. Patient was a lethargic with diffuse abdominal pain hypotensive patient was subsequently transferred to ICU and was started on broad-spectrum and Videx vancomycin and meropenem and lactated Ringer's. Patient lactic acid is high because of which am switching to normal saline. Patient was lethargic and drowsy but improving but now. Patient was evaluated by general surgery and going for expiratory laparotomy patient does have fever and elevated white count of 14.2 no evidence of pneumonia or UTI. 12/06/2021 Patient is monitored in intensive care unit. She underwent exploratory laprotomy and also laproscopic cholecystectomy with Dr Aguayo yesterday evening. Prior to she had chest xray for line placement which showed increasing infiltrate and atelectasis in both lower lobes compared to yesterday. Heart failure is possible as well. She is maintained on levophed and continues on lactated ringer at 130 mls per hour. She received a 1L fluid bolus today. Patient did have an echocardiogram in 2019 showing LV function of 40 to 45% with hypokinesis. Surgery has cleared patient for small sips of clear liquid today and discussed adding norco for pain management. She has drain present to right abdomen. She had sodium level today of 133, potassium 4.9, BUN 20, creatinine 0.62, glucose 116. C. Dif is negative. Her most recent lactic acid is 5.3, pending repeat today. Blood culture showing staph epi on 1 of 2 cultures. This could be possible contaminant. Stool culture pending. Surgical cultures are pending. She continues on vancomycin and meropenem. 12/07/2021 Patient continues to be monitored in ICU. She had an episode of acute confusion yesterday around dinner time and code stroke was called. Brain CT/CTA completed which are negative for acute, no stroke, mass, or hemorrhage noted. Neurology was consulted. Patient underwent EEG today which is pending. She did have troponin elevation found during routine stroke protocol lab work, for this cardiology was consulted and felt troponin elevation is from sepsis. Echocardio gram showing EF 40 to 45% with septal inferior hypokinesis with moderate TR. Labs today showing sodium 133, potassium 4.7, BUN 17, creatinine 0.63, calcium 7.5, magnesium 2.5. TSH 1.650. She is alert x 2 today with confusion. She is tolerating diet, reports no abdominal pain. She is having diarrhea, FMS is in place, and was checked for C.Dif is pending at this time. Narcotics have been placed on hold. She continues on IV antibiotics. Urine culture showing gram negative bacilli.Temperature 98.4, heart rate 100, blood pressure 128/73, 98% room air. Pressor support has been placed on hold for the last 24 hours. She is being followed by gen surgery, mussel opener, and neurology. 12/08/2021 Patient continues in intensive care unit. She had a dose of seroquel at HS and nurse reports her sleeping well last night. FMS management system was removed and patient has not had a BM. She is tolerating some clear liquid diet. She is alert x 2, able to state she is in the hospital, thinks it is 1970s. Does have some ongoing speech issues. From a neurology perspective MRI has been ordered to rule out stroke. Continues with JUANA drain to right abdomen with serosanguineous drainage. White count 7.1, sodium 134, potassium 3.8, BUN 12, creatinine 0.48. Troponins are trending 0.120, 0.461 - cardiology is following patient and beta tristen will be increased today as she has remained slightly tachycardic. 12/09/2021 Patient continues to be monitored in intensive care unit. She has been downgraded to med surg with no tele pending available bed. Her mentation is slightly improved. She has klebsiella UTI on IV meropenem and ID will be consulted for further management. Sodium today 133, potassium 3.2. Potassium will be supplemented with total 80 meq IV and also patient received a dose of 60 mg IV lasix today. IV fluids have been decreased to lactated ringer at 60 mls. She does have some increased lower extremity edema greater in her left leg. She has been maintained off pressor support. Continues on some liquid diet. No white count, hgb stable at 12.2. Afebrile, heart rate 98, blood pressure 138/77, 92% on 2L nasal cannula. 12/10/2021 Patient is monitored on medical floor. Today she feels "medium", having abdominal pain, and also having increased abdominal bloating. Gave a dose of toradol today she continues on norco. Surgery is following. She had abdominal xray completed today showing possible postoperative ileus versus bowel obstruction with probable basilar atelectasis. Today she is sitting up in chair. ID has been consulted for further antibiotic management and medications were adjusted to PO flagyl and IV ceftriaxone pending finalized surgical and repeat blood cultures. Labs today showing white count 8.36, hgb 12.4, sodium is 140 which improved with lasix, potassium 3.6, magnesium 1.7, BUN 13.1, creatinine 0.5. CRP 15.60. PT has evaluated the patient today and recommending subacute rehab. Review of Systems Constitutional: Denied any fatigue denied any fever. Cardio vascular: denied any chest pain, palpitations Gastrointestinal: Reports increased abdominal pain today. Pulmonary: Denied any shortness of breath cough Neurologic denied any new focal deficits, confused All inpatient medications were reviewed and appropriate changes in these medications as dictated in the interval history and assessment and plan. PHYSICAL EXAMINATION: GENERAL: Patient is awake alert x 2 she is confused although improving appears in no acute distress. HEENT: Pupils are round and equally reacting to light. EOMI. No scleral icterus. No conjunctival pallor. Normocephalic, atraumatic. No pharyngeal erythema. No thyromegaly. CARDIOVASCULAR: S1 and S2 present. No murmurs, rubs, or gallops. PULMONARY: Chest is clear to auscultation, no wheezing or crackles. Dimished. ABDOMEN: Post Surgical abdomen incisions intact. She does have some abdominal distention and tympany. Hypoactive bowel sounds. MUSCULOSKELETAL: No joint swelling or deformity. EXTREMITIES: No cyanosis, clubbing, Mild lower extremity edema. NEUROLOGICAL: Gross neurological examination did not reveal any focal deficits. Confused. She does have some slowed speech response. SKIN: No rashes. Assessment and plan -Septic shock: Possible intra-abdominal source patient is postoperative day #5 laproscopic cholecystectomy secondary to cholecystitis on Antibiotics, cultures are pending -Toxic encephalopathy altered mental status secondary to sepsis and septic shock, rule out stroke -Lactic acidosis secondary to sepsis improved -Sinus tachycardia, hypotension from sepsis, patient has also been resumed on home beta tristen and heart rate has improved, medications also increased by cardiology -Troponin Leak from sepsis -Hypertension was hypotensive and now off pressor support maintaining blood pres sure in the 120s systolic -Klebsiella UTI continues on meropenem -Diarrhea, C.Dif pending -hyperlipidemia -Hyponatremia secondary to hypovolemia and sepsis: Continue with IV fluids -History nonischemic cardiomyopathy with most recent LV function 40 to 45% -History trigeminal neuralgia Resumed on home medication, gabapentin has been decreased from home dose -GI prophylaxis: DVT prophylaxis: Lovenox Full Code Plan Patient is monitored on medical floor, continues on IV and PO antibiotics infectious disease is following cultures. Abdominal xray showing possible postoperative ileus. She is being followed by surgery, cardiology, and pulmonary mussel opener. Neurology has ruled out acute stroke as caused for altered mental status most likely encephalopathy from sepsis and component of klebsiella UTI and septic abdomen. Diet per surgery. PT/OT is recommending subacute rehab on discharge. Continue to encourage ambulation and incentive spirometer. The impression and plan of care has been dictated by Heather Barber, Nurse Practitioner as directed. Dr. Benjamín MD I have performed a history and physical examination and medical decision making of this patient, discussed the same with the dictator, and agree with the dictators assessment and plan as written, documented as a scribe. Based on total visit time, I have performed more than 50% of this visit. Objective - Vital Signs Vital signs: Vital Signs Temp 97.8 F 12/10/21 12:47 Pulse 67 12/10/21 12:47 Resp 18 12/10/21 12:47 BP 97/67 12/10/21 12:47 Pulse Ox 95 12/10/21 12:47 FiO2 Intake & Output 12/09/21 12/10/21 12/10/21 18:59 06:59 18:59 Intake Total 540 275 Output Total 2740 525 60 Balance -2200 -250 -60 Intake: IV 540 Lactated Ringers 1,000 ml 540 @ 133 mls/hr IV .Q7H32M [facility] Rx#:[id number] Oral 275 Output: Drainage 190 125 60 Right Abdomen 190 125 60 Urine 2550 400 Other: Voiding Method Indwelling Catheter Indwelling Catheter Indwelling Catheter - Labs CBC & Chem 7: 12/10/21 05:03 12/10/21 05:03 Labs: Abnormal Lab Results - Last 24 Hours (Table) 12/10/21 12/10/21 Range/Units 05:03 05:03 RBC 3.84 L (4.10-5.20) X 10*6/uL Hct 36.7 L (37.2-46.3) % MCH 32.3 H (27.0-32.0) pg Immature Gran # 0.41 H (0.00-0.04) X 10*3/uL Creatinine 0.5 L (0.6-1.5) mg/dL BUN/Creatinine Ratio 26.20 H (12.00-20.00) Ratio Calcium 8.3 L (8.7-10.3) mg/dL Total Bilirubin 0.20 L (0.30-1.20) mg/dL AST 64 H (13-35) U/L C-Reactive Protein 15.60 H (0.00-0.80) mg/dL Total Protein 4.7 L (6.2-8.2) g/dL Albumin 2.7 L (3.8-4.9) g/dL Albumin/Globulin Ratio 1.35 L (1.60-3.17) g/dL Microbiology - Last 24 Hours (Table) 12/05/21 17:32 Anaerobic Culture - Final Peritoneal Fluid 12/05/21 20:46 Stool Culture - Final Stool 12/05/21 17:32 Gram Stain - Final Peritoneal Fluid Body Fluid Culture - Final 12/04/21 19:15 Blood Culture Gram Stain - Final Blood Blood Culture - Final Staphylococcus epidermidis 12/04/21 19:20 Blood Culture Gram Stain - Final Blood Blood Culture - Final Staphylococcus epidermidis Assessment and Plan Time with Patient: Less than 30
[2021-12-10] MEDS: bisacodyL 10 MG SUPP RECTAL SCH (17:37)
[2021-12-10 20:22] LABS: Glucose,Whole Blood 102 mg/dL (70-110)
[2021-12-11] MEDS: HEPARIN SODIUM,PORCINE/PF 5,000 UNIT/0.5 ML SYRINGE SQ SCH ×4 (00:30→23:58)
[2021-12-11] MEDS: LACTATED RINGERS 1,000 ML IV SCH ×3 (03:44→08:27)
[2021-12-11] MEDS: GABAPENTIN 100 MG CAP PO SCH ×3 (08:25→20:59)
[2021-12-11] MEDS: ASPIRIN 81 MG PO SCH (08:26)
[2021-12-11] MEDS: METOPROLOL TARTRATE 50 MG TAB PO SCH ×2 (08:26→21:00)
[2021-12-11] MEDS: ATORVASTATIN 20 MG TAB PO SCH (08:26)
[2021-12-11] MEDS: metroNIDAZOLE 500 MG TAB PO SCH ×3 (08:26→20:59)
[2021-12-11] MEDS: bisacodyL 10 MG SUPP RECTAL SCH (08:27)
[2021-12-11] MEDS: carBAMazepine 200 MG TAB PO SCH ×4 (08:28→21:00)
[2021-12-11] MEDS: lisinopriL 10 MG TAB PO SCH (08:33)
[2021-12-11] MEDS ORDERED: lisinopriL 20 MG TAB PO SCH (09:00)
--- NOTE | 2021-12-11 09:29 | P.PN ---
Subjective Progress Note Date: 12/11/21 71-year-old female came in with comments of nausea vomiting and severe abdominal pain patient overall clinical condition worsened on stepdown unit patient was subsequently transferred to ICU patient had a CT-guided CT angios gram of the chest and abdomen and pelvis which showed dilated the gallbladder for possibility of cholecystitis and free fluid in the abdomen. Patient was a lethargic with diffuse abdominal pain hypotensive patient was subsequently transferred to ICU and was started on broad-spectrum and Videx vancomycin and meropenem and lactated Ringer's. Patient lactic acid is high because of which am switching to normal saline. Patient was lethargic and drowsy but improving but now. Patient was evaluated by general surgery and going for expiratory laparotomy patient does have fever and elevated white count of 14.2 no evidence of pneumonia or UTI. 12/06/2021 Patient is monitored in intensive care unit. She underwent exploratory laprotomy and also laproscopic cholecystectomy with Dr Aguayo yesterday evening. Prior to she had chest xray for line placement which showed increasing infiltrate and atelectasis in both lower lobes compared to yesterday. Heart failure is possible as well. She is maintained on levophed and continues on lactated ringer at 130 mls per hour. She received a 1L fluid bolus today. Patient did have an echocardiogram in 2019 showing LV function of 40 to 45% with hypokinesis. Surgery has cleared patient for small sips of clear liquid today and discussed adding norco for pain management. She has drain present to right abdomen. She had sodium level today of 133, potassium 4.9, BUN 20, creatinine 0.62, glucose 116. C. Dif is negative. Her most recent lactic acid is 5.3, pending repeat today. Blood culture showing staph epi on 1 of 2 cultures. This could be possible contaminant. Stool culture pending. Surgical cultures are pending. She continues on vancomycin and meropenem. 12/07/2021 Patient continues to be monitored in ICU. She had an episode of acute confusion yesterday around dinner time and code stroke was called. Brain CT/CTA completed which are negative for acute, no stroke, mass, or hemorrhage noted. Neurology was consulted. Patient underwent EEG today which is pending. She did have troponin elevation found during routine stroke protocol lab work, for this cardiology was consulted and felt troponin elevation is from sepsis. Echocardio gram showing EF 40 to 45% with septal inferior hypokinesis with moderate TR. Labs today showing sodium 133, potassium 4.7, BUN 17, creatinine 0.63, calcium 7.5, magnesium 2.5. TSH 1.650. She is alert x 2 today with confusion. She is tolerating diet, reports no abdominal pain. She is having diarrhea, FMS is in place, and was checked for C.Dif is pending at this time. Narcotics have been placed on hold. She continues on IV antibiotics. Urine culture showing gram negative bacilli.Temperature 98.4, heart rate 100, blood pressure 128/73, 98% room air. Pressor support has been placed on hold for the last 24 hours. She is being followed by gen surgery, job specification writer, and neurology. 12/08/2021 Patient continues in intensive care unit. She had a dose of seroquel at HS and nurse reports her sleeping well last night. FMS management system was removed and patient has not had a BM. She is tolerating some clear liquid diet. She is alert x 2, able to state she is in the hospital, thinks it is 1970s. Does have some ongoing speech issues. From a neurology perspective MRI has been ordered to rule out stroke. Continues with JUANA drain to right abdomen with serosanguineous drainage. White count 7.1, sodium 134, potassium 3.8, BUN 12, creatinine 0.48. Troponins are trending 0.120, 0.461 - cardiology is following patient and beta tristen will be increased today as she has remained slightly tachycardic. 12/09/2021 Patient continues to be monitored in intensive care unit. She has been downgraded to med surg with no tele pending available bed. Her mentation is slightly improved. She has klebsiella UTI on IV meropenem and ID will be consulted for further management. Sodium today 133, potassium 3.2. Potassium will be supplemented with total 80 meq IV and also patient received a dose of 60 mg IV lasix today. IV fluids have been decreased to lactated ringer at 60 mls. She does have some increased lower extremity edema greater in her left leg. She has been maintained off pressor support. Continues on some liquid diet. No white count, hgb stable at 12.2. Afebrile, heart rate 98, blood pressure 138/77, 92% on 2L nasal cannula. 12/10/2021 Patient is monitored on medical floor. Today she feels "medium", having abdominal pain, and also having increased abdominal bloating. Gave a dose of toradol today she continues on norco. Surgery is following. She had abdominal xray completed today showing possible postoperative ileus versus bowel obstruction with probable basilar atelectasis. Today she is sitting up in chair. ID has been consulted for further antibiotic management and medications were adjusted to PO flagyl and IV ceftriaxone pending finalized surgical and repeat blood cultures. Labs today showing white count 8.36, hgb 12.4, sodium is 140 which improved with lasix, potassium 3.6, magnesium 1.7, BUN 13.1, creatinine 0.5. CRP 15.60. PT has evaluated the patient today and recommending subacute rehab. 12/11/2021 Patient resting in bed today. Abdominal xray yesterday showing possible postoperative ileus. NG tube in place and patient has had 300 mls of output overnight. She reports decreased abdominal discomfort today about a 3/10. Abdomen is soft today with increased bowel sounds. She states she did have a BM. Overall fatigued but feeling better. She is alert and mentation has improved. Repeat blood culture is pending, Stool culture negatiave, peritoneal fluid culture negative. ID following cultures and she is on IV ceftriaxone and oral flagyl. States lungs feel heavy, diminished breath sounds. Labs pending. Afebrile, heart rate 99, blood pressure 160/87, 91% room air. Review of Systems Constitutional: Reports fatigue denied any fever. Cardio vascular: denied any chest pain, palpitations Gastrointestinal: Abdominal pain improved. had BM. Pulmonary: Reports "heavy breathing" no cough. Neurologic denied any new focal deficits,, reports weakness. All inpatient medications were reviewed and appropriate changes in these medications as dictated in the interval history and assessment and plan. PHYSICAL EXAMINATION: GENERAL: Patient is awake alert x 2, oriented and less confused, fatigued, appears in no acute distress. HEENT: Pupils are round and equally reacting to light. EOMI. No scleral icterus. No conjunctival pallor. Normocephalic, atraumatic. No pharyngeal erythema. No thyromegaly. CARDIOVASCULAR: S1 and S2 present. No murmurs, rubs, or gallops. PULMONARY: Chest is clear to auscultation, no wheezing or crackles. Diminished. ABDOMEN: Post Surgical abdomen incisions intact. Abdomen is soft today, with increased bowel sounds. NG tube in place. MUSCULOSKELETAL: No joint swelling or deformity. EXTREMITIES: No cyanosis, clubbing, Mild lower extremity edema. Non pitting NEUROLOGICAL: Gross neurological examination did not reveal any focal deficits. Generalized weakness. SKIN: No rashes. Assessment and plan -Septic shock: Possible intra-abdominal source patient is postoperative day #6 laproscopic cholecystectomy secondary to cholecystitis negative peritoneal cultures -Postoperative ileus with NG tube in place, resolving -Toxic encephalopathy altered mental status secondary to sepsis and septic shock, ruled out stroke -Lactic acidosis secondary to sepsis improved -Sinus tachycardia, hypotension from sepsis, patient has also been resumed on home beta tristen and heart rate has improved, medications also increased by cardiology -Troponin Leak from sepsis -Hypertension was hypotensive and now off pressor support maintaining blood pressure in the 120s systolic -Klebsiella UTI -Staph epi bacteremia, possible contaminent repeat cultures pending -Diarrhea, C.Dif pending -hyperlipidemia -Hyponatremia secondary to hypovolemia and sepsis: Continue with IV fluids -History nonischemic cardiomyopathy with most recent LV function 40 to 45% -History trigeminal neuralgia Resumed on home medication, gabapentin has been decreased from home dose -GI prophylaxis: DVT prophylaxis: Lovenox Full Code Plan Patient is monitored on medical floor, continues on IV and PO antibiotics infectious disease is following cultures. Abdominal xray showing possible postoperative ileus. NG tube in place. NPO except medications. She is being fol lowed by surgery, cardiology, and pulmonary job specification writer. Neurology has ruled out acute stroke as caused for altered mental status most likely encephalopathy from sepsis and component of klebsiella UTI and septic abdomen. Mentation has improved she is alert. PT/OT is recommending subacute rehab on discharge. Continue to encourage ambulation and incentive spirometer. The impression and plan of care has been dictated by Heather Barber Nurse Practitioner as directed. Dr. Benjamín MD I have performed a history and physical examination and medical decision making of this patient, discussed the same with the dictator, and agree with the dictators assessment and plan as written, documented as a scribe. Based on total visit time, I have performed more than 50% of this visit. Objective - Vital Signs Vital signs: Vital Signs Temp 98 F 12/11/21 07:47 Pulse 99 12/11/21 07:47 Resp 19 12/11/21 07:47 BP 160/87 12/11/21 07:47 Pulse Ox 91 L 12/11/21 07:47 FiO2 Intake & Output 12/10/21 12/11/21 12/11/21 18:59 06:59 18:59 Intake Total 720 Output Total 260 1550 270 Balance -295 -423 -600 Intake: Intake, IV Titration 720 Amount Lactated Ringers 1,000 ml 720 @ 60 mls/hr IV .[id number] [facility] Rx#:[id number] Output: Gastric Drainage 1000 Drainage 60 50 30 Right Abdomen 60 50 30 Urine 200 500 240 Other: Voiding Method Indwelling Catheter Indwelling Catheter - Labs CBC & Chem 7: 12/10/21 05:03 12/10/21 05:03 Labs: Abnormal Lab Results - Last 24 Hours (Table) 12/10/21 12/10/21 Range/Units 05:03 05:03 RBC 3.84 L (4.10-5.20) X 10*6/uL Hct 36.7 L (37.2-46.3) % MCH 32.3 H (27.0-32.0) pg Immature Gran # 0.41 H (0.00-0.04) X 10*3/uL Creatinine 0.5 L (0.6-1.5) mg/dL BUN/Creatinine Ratio 26.20 H (12.00-20.00) Ratio Calcium 8.3 L (8.7-10.3) mg/dL Total Bilirubin 0.20 L (0.30-1.20) mg/dL AST 64 H (13-35) U/L C-Reactive Protein 15.60 H (0.00-0.80) mg/dL Total Protein 4.7 L (6.2-8.2) g/dL Albumin 2.7 L (3.8-4.9) g/dL Albumin/Globulin Ratio 1.35 L (1.60-3.17) g/dL Microbiology - Last 24 Hours (Table) 12/10/21 05:03 Blood Culture - Preliminary Blood No Growth after 24 hours 12/05/21 17:32 Anaerobic Culture - Final Peritoneal Fluid 12/05/21 20:46 Stool Culture - Final Stool 12/05/21 17:32 Gram Stain - Final Peritoneal Fluid Body Fluid Culture - Final Assessment and Plan Time with Patient: Less than 30
[2021-12-11 09:30] LABS: HCT 33.1 % (37.2-46.3); HGB 11.5 g/dL (12.0-15.0); MCH 32.3 pg (27.0-32.0); MCHC 34.7 g/dL (32.0-37.0); Mean Platelet Volume 9.3 fL (9.5-12.2); NRBC Per 100 WBC 0 /100 WBCS (0.0-0.0); Platelet Count 403 X 10*3/uL (140-440); RBC 3.56 X 10*6/uL (4.10-5.20); WBC 9.15 X 10*3/uL (4.50-10.00)
[2021-12-11 09:35] LABS: ALT 18 U/L (8-44); AST 58 U/L (13-35); African American GFR (CKD) 112.1 (60.0-200.0); Albumin 2.5 g/dL (3.8-4.9); Albumin/Globulin Ratio 1.32 (1.60-3.17); Alkaline Phosphatase 101 U/L (41-126); Blood Urea Nitrogen 13.4 mg/dL (9.0-27.0); Calcium 7.8 mg/dL (8.7-10.3); Chloride 99 mmol/L (96-109); Globulin 1.9 g/dL (1.6-3.3); Glucose 113 mg/dL (70-110); Lipase 50 U/L (14-63); Non-African American GFR(CKD) 96.7 (60.0-200.0); Potassium 3.4 mmol/L (3.5-5.5); Sodium 140 mmol/L (135-145); Total Bilirubin <0.15 mg/dL (0.30-1.20); Total Protein 4.4 g/dL (6.2-8.2)
--- NOTE | 2021-12-11 10:17 | XR ---
EXAMINATION TYPE: XR chest 2V DATE OF EXAM: 12/11/2021 10:03 AM COMPARISON: Chest radiographs from 12/05/2021 TECHNIQUE: XR chest 2V Frontal and lateral views of the chest. CLINICAL INDICATION:Female, 71 years old with history of dyspnea; FINDINGS: Lungs/Pleura: Streaky atelectasis in the right midlung. There is no evidence of pleural effusion, foc al consolidation, or pneumothorax. Pulmonary vascularity: Unremarkable. Heart/mediastinum: Cardiomediastinal silhouette is enlarged and stable. Musculoskeletal: No acute osseous pathology. Lines/Tubes: Nasogastric tube with its distal tip and side-port projecting under the diaphragm. Right internal jugular central venous catheter with distal tip at the superior vena cava. IMPRESSION: 1. Nasogastric tube in appropriate position. 2. Cardiomegaly without evidence of heart failure. 3. No evidence of focal consolidation.
[2021-12-11 10:26] LABS: Basophils # (A) 0.07 X 10*3/uL (0.00-0.10); Basophils % (A) 0.8 %; Eosinophils # (A) 0.45 X 10*3/uL (0.04-0.35); Eosinophils % (A) 4.9 %; Lymphocytes # (A) 1.28 X 10*3/uL (0.90-5.00); Monocytes # (A) 0.81 X 10*3/uL (0.20-1.00); Monocytes % (A) 8.9 %; Neutrophils # (A) 6.27 X 10*3/uL (1.80-7.70); Neutrophils % (A) 68.4 %
[2021-12-11 10:27] LABS: Acanthocytes 2+
[2021-12-11] MEDS ORDERED: Potassium Replacement Protocol 1 EACH MISC MISCELLANE PRN (11:09)
[2021-12-11] MEDS: POTASSIUM CHLORIDE 20 MEQ in WATER FOR INJECTION 1 100ML.BAG IVPB SCH ×2 (12:00→13:56)
--- NOTE | 2021-12-11 12:20 | P.PN ---
Subjective 71-year-old female patient with a past medical history significant for mild nonobstructive coronary artery disease based on heart catheterization in [address] Dietrich, nonischemic cardiomyopathy with mildly impaired LV function was EF between 40-45% also based on echocardiogram in 2020 as well as hypertension and dyslipidemia. We were initially consulted for elevated troponin. Patient presents to the emergency department with nausea vomiting and abdominal pain. She was also hypotensive and altered mental status. She was transferred to the ICU secondary to worsening altered mental status and hypotension. She was seen by General Surgery and was diagnosed with cholecystitis. She underwent diagnostic laparoscopy and laparoscopic cholecystectomy on 12/[address] Aguayo. Echocardiogram revealed EF of 40-45%, septal and inferior wall hypokinesis, Prior Echo in 2019 with similar findings. 12/11 Patient seen and examined at bedside, abdominal xray revealed postoperative ileus rather than bowel obstruction. NG tube was placed. She continues to have abdominal pain but improved from yesterday. She denies any chest pain or shortness of breath. BP 143/85. HR 110. The echo revealed an EF between 40- 40% which has not changed compared to before. BP elevated at 160/87. HR improved in 90s. Renal function is stable. BUN 13 and 0.5 creatinine yesterday. GENERAL: No acute distress. Ill. NECK: Supple without JVD LUNGS: Breath sounds clear to auscultation bilaterally. Respiration equal and unlabored. No wheezes, rales or rhonchi. HEART: Regular rate and rhythm without murmurs, rubs or gallops. S1 and S2 heard. EXTREMITIES: Normal range of motion, no edema. No clubbing or cyanosis. Peripheral pulses intact. ASSESSMENT Altered mental status Sepsis Acute cholecystitis s/p diagnostic laparoscopy and laparoscopic cholecystectomy on 12/05 Hypotension related to sepsis,resolved. Elevated troponin, secondary to above, no evidence of ischemia Mild nonobstructive coronary artery disease Non-ischemic cardiomyopathy Hypertension Dyslipidemia PLAN Continue aspirin, statin, beta tristen Restart patient's lisinopril, adjust as needed. Continue supportive care Post operative management per Surgery From a cardiology perspective, no further inpatient workup at this time. We will follow the patient as needed. Please reconsult if needed. Nurse Practitioner note has been reviewed, I agree with a documented findings and plan of care. Patient was seen and examined. Objective - Vital Signs Vital signs: Vital Signs Temp 98 F 12/11/21 07:47 Pulse 99 12/11/21 07:47 Resp 19 12/11/21 07:47 BP 160/87 12/11/21 07:47 Pulse Ox 91 L 12/11/21 07:47 FiO2 Intake & Output 12/10/21 12/11/21 12/11/21 18:59 06:59 18:59 Intake Total 720 Output Total 260 1550 270 Balance -260 -830 -270 Intake: Intake, IV Titration 720 Amount Lactated Ringers 1,000 ml 720 @ 60 mls/hr IV .[id number] [facility] Rx#:[id number] Output: Gastric Drainage 1000 Drainage 60 50 30 Right Abdomen 60 50 30 Urine 200 500 240 Other: Voiding Method Indwelling Catheter Indwelling Catheter - Labs CBC & Chem 7: 12/11/21 05:06 12/11/21 05:06 Labs: Abnormal Lab Results - Last 24 Hours (Table) 12/10/21 12/10/21 12/11/21 Range/Units 05:03 05:03 05:06 RBC 3.84 L 3.56 L (4.10-5.20) X 10*6/uL Hgb 11.5 L (12.0-15.0) g/dL Hct 36.7 L 33.1 L (37.2-46.3) % MCH 32.3 H 32.3 H (27.0-32.0) pg MPV 9.3 L (9.5-12.2) fL Immature Gran # 0.41 H (0.00-0.04) X 10*3/uL Creatinine 0.5 L (0.6-1.5) mg/dL BUN/Creatinine Ratio 26.20 H (12.00-20.00) Ratio Calcium 8.3 L (8.7-10.3) mg/dL Total Bilirubin 0.20 L (0.30-1.20) mg/dL AST 64 H (13-35) U/L C-Reactive Protein 15.60 H (0.00-0.80) mg/dL Total Protein 4.7 L (6.2-8.2) g/dL Albumin 2.7 L (3.8-4.9) g/dL Albumin/Globulin Ratio 1.35 L (1.60-3.17) g/dL Microbiology - Last 24 Hours (Table) 12/10/21 05:03 Blood Culture - Preliminary Blood No Growth after 24 hours 12/05/21 17:32 Anaerobic Culture - Final Peritoneal Fluid 12/05/21 20:46 Stool Culture - Final Stool 12/05/21 17:32 Gram Stain - Final Peritoneal Fluid Body Fluid Culture - Final
--- NOTE | 2021-12-11 14:32 | P.PN ---
Subjective Progress Note Date: 12/11/21 CHIEF COMPLAINT: Abdominal pain with sepsis HISTORY OF PRESENT ILLNESS: Patient is status post diagnostic laparoscopy and laparoscopic cholecystectomy for cholecystitis. Patient had increased abdominal pain yesterday with nausea and vomiting. Abdominal x-ray had showed postoperative ileus. Patient had NG tube placed. A total of 1600 mL of brownish output. Patient did report having a bowel movement today and some flatus. She denies any nausea. She reports overall feeling better than she did yesterday. Afebrile. WBC is 9.15 Hgb 11.5 platelets 403 sodium 140 potassium 3.4 creatinine 0.5 repeat blood culture negative. Lactic acid 0.8 Positive UTI with Klebsiella pneumonia PHYSICAL EXAM: VITAL SIGNS: Reviewed. GENERAL: Well-developed in no acute distress. HEENT: No sclera icterus. Extraocular movements grossly intact. Moist buccal mucosa. Head is atraumatic, normocephalic. ABDOMEN: Soft. Nondistended. Minimal tenderness to palpation. JUANA drain with 110ml serosanguineous output. NEUROLOGIC: Patient is awake and answering questions appropriately ASSESSMENT: 1. Acute cholecystitis status post exploratory laparoscopy and laparoscopic cholecystectomy 2. Abdominal sepsis 3. Encephalopathy likely due to sepsis 4. Postoperative ileus 5. Hypokalemia PLAN: -Continue NG tube for decompression -Keep patient nothing by mouth -Potassium being replaced by medicine service -Continue IV fluids -Continue IV antibiotics per ID service -Continue supportive care -DVT prophylaxis subcu heparin Physician Sap Consultant note has been reviewed by physician. Signing provider agrees with the documented findings, assessment, and plan of care. I have personally seen and examined the patient, reviewed the [employer] /PAs history, exam and MDM and agree with the assessment and plan as written. Based on total visit time, I have performed more than 50% of the visit. As above: Patient doing better today. Her pain improved after nasogastric tube placement. She did have a small bowel movement today. Patient seems more alert today. Abdomen is minimally tender at this time. Incisions are clean and dry. JUANA drain remained serosanguineous. Keep nasogastric tube in place today. Repeat abdominal x-rays tomorrow. Objective - Vital Signs Vital signs: Vital Signs Temp 97.6 F 12/11/21 11:45 Pulse 84 12/11/21 11:45 Resp 18 12/11/21 11:45 BP 114/77 12/11/21 11:45 Pulse Ox 92 L 12/11/21 11:45 FiO2 Intake & Output 12/10/21 12/11/21 12/11/21 18:59 06:59 18:59 Intake Total 720 Output Total 260 1550 900 Balance -260 830 900 Intake: Intake, IV Titration 720 Amount Lactated Ringers 1,000 ml 720 @ 60 mls/hr IV .[id number] [facility] Rx#:[id number] Output: Gastric Drainage 1000 600 Drainage 60 50 60 Right Abdomen 60 50 60 Urine 200 500 240 Other: Voiding Method Indwelling Catheter Indwelling Catheter Indwelling Catheter # Bowel Movements 1 - Labs CBC & Chem 7: 12/11/21 05:06 12/11/21 05:06 Labs: Abnormal Lab Results - Last 24 Hours (Table) 12/11/21 12/11/21 Range/Units 05:06 05:06 RBC 3.56 L (4.10-5.20) X 10*6/uL Hgb 11.5 L (12.0-15.0) g/dL Hct 33.1 L (37.2-46.3) % MCH 32.3 H (27.0-32.0) pg MPV 9.3 L (9.5-12.2) fL Immature Gran # 0.27 H (0.00-0.04) X 10*3/uL Eosinophils # 0.45 H (0.04-0.35) X 10*3/uL Potassium 3.4 L (3.5-5.5) mmol/L Creatinine 0.5 L (0.6-1.5) mg/dL BUN/Creatinine Ratio 26.80 H (12.00-20.00) Ratio Glucose 113 H (70-110) mg/dL Calcium 7.8 L (8.7-10.3) mg/dL Total Bilirubin <0.15 L (0.30-1.20) mg/dL AST 58 H (13-35) U/L Total Protein 4.4 L (6.2-8.2) g/dL Albumin 2.5 L (3.8-4.9) g/dL Albumin/Globulin Ratio 1.32 L (1.60-3.17) g/dL Microbiology - Last 24 Hours (Table) 12/10/21 05:03 Blood Culture - Preliminary Blood No Growth after 24 hours 12/05/21 17:32 Anaerobic Culture - Final Peritoneal Fluid
--- NOTE | 2021-12-11 14:40 | P.PN ---
Subjective Progress Note Date: 12/11/21 This is a 71-year-old female patient with a known history of hypertension, hyperlipidemia, tic douloureux. She presented to the emergency room yesterday for nausea vomiting and abdominal pain. She was also having altered mental status, hypotension and diaphoresis. CT angiogram of the chest abdomen and pelvis revealed no arterial aneurysms or dissection. No evidence of pulmonary embolism. There is a possible small bowel ileus. Interstitial infiltrates and atelectasis at the lung bases. She was initially admitted to the selective care unit. Approximately 2:00 this morning the patient was found to be more lethargic with complaints of diffuse abdominal pain most notably in the suprapubic region. She also was hypotensive. She was given a liter of normal saline. Computed tomography scan of the brain revealed mild atrophy and chronic small vessel ischemia. No acute intracranial abnormality. She was transferred to the intensive care unit for closer monitoring. She is seen today in [facility]. She is awake and alert. She is complaining of fatigue and is drowsy at times. She is oriented. She did require norepinephrine infusion at 4 mcg/m. She is on normal saline now at 130 ML's per hour. She has oxygen at 3 L/m. Follow-up CAT scan of the abdomen revealed development of some free fluid in the pelvis. There is constipation and large bowel ileus not significantly differen t. Possibility. Tinnitus should be considered. Dilated gallbladder suggestive of cholecystitis. Culture data and atelectasis of the lung bases. Surgical consult is pending. Urine culture pending. White count 14.2. Hemoglobin 14.4. MCV 104. Sodium 131. Potassium 4.4. Bicarb 19. BUN 15. Creatinine 0.72. Glucose 131. Lactic acid 5.0. AST 45. ALT 21. Alk phos 778. Chronic virus by PCR not detected. She had been given vancomycin and meropenem. Progress note dated 12/06/2021. 71-year-old female that we saw yesterday in consultation, for possible sepsis and hypotension. She was initially admitted to the general medical floor. She has a history of hypertension, hyperlipidemia, and trigeminal neuralgia. We are concerned about abdominal sepsis. She went for laparoscopic exploration, and ended up with a laparoscopic cholecystectomy, for cholecystitis. The patient is currently resting comfortably in the ICU, room 265. Blood cultures are apparently positive for gram-positive cocci. The patient is on vancomycin and meropenem. Today, she is on 2 L of oxygen. The patient remains on lactated Ringer's at 130 mL an hour. In addition, the patient's on norepinephrine at 0.05 mcg/kg/m. She had some tachycardia, and was given some beta tristen from the hospital service. Currently labs include a white count of 7.9, hemoglobin 13.3, hematocrit 41.5, and a platelet count of 315,000. Sodium 133, potassium 4.9, chlorides 106, CO2 22, BUN 20, creatinine 0.62. Albumin was 2.4. Chest x- ray shows bibasilar atelectasis. Blood cultures were positive for staphylococcus epidermidis. Progress note dated 12/07/2021. 72-year-old female seen 2 days ago in consultation, her sepsis and hypotension. The patient went to the operating room, and had a laparoscopic cholecystectomy, for cholecystitis. Apparently last night, she developed significant confusion and disorientation. Currently, the patient's on 4 L nasal cannula. She's receiving lactated Ringer's at 130 mL an hour. Today is postop day #2. The patient did go for computed tomography scan of the brain which was negative, and a CT angiogram which was also negative. Urine is showing evidence of gram-negat josefina bacilli. She remains on vancomycin and meropenem. White count 6.5, hemoglobin 12, hematocrit 36.9, and platelet count 276,000. Sodium 133, potassium 4.7, chlorides 103, CO2 26, BUN 17, creatinine 0.63. Troponins were 0.120 and 0.461. Cardiology was consulted. TSH was normal. Progress note dated 12/08/2021. 71-year-old female seen 3 days ago consultation for sepsis and hypotension. The patient ended up going to the operating room, and had a laparoscopic cholecystectomy for cholecystitis. More recently, she developed significant confusion, and disorientation. This morning, she was going for an MRI scan. She's currently on 2 L of oxygen. She's receiving lactated Ringer's at 130 mL an hour. Staphylococcus epidermidis was found in the blood. Klebsiella species was found in the urine. The patient is on meropenem. White count 7.1, hemoglobin 12.5, hematocrit 37.7, and platelet count 260,000. Sodium 134, potassium 3.8, chlorides 101, CO2 25, BUN 12, creatinine 0.48. Progress note dated 12/09/2021. 71-year-old female, seen 4 days ago in consultation for sepsis and hypotension. The patient was thought to have an intra-abdominal process, and went to the operating room, and had a laparoscopic cholecystectomy for cholecystitis. She developed postoperative confusion and disorientation, likely metabolic in origin. MRI scan of the brain was negative. She's doing better each day. Currently, she is on room air. Her lactated Ringer's is running at 60 mL an hour. She will get Lasix 60 mg IV push once today. Clinically, she is much more awake and alert. White count 6.1, hemoglobin 12.2, hematocrit 38.1, with a normal platelet count. Sodium 133, potassium 3.2, chlorides 97, CO2 27, BUN 13, creatinine 0.54. Urine cultures are positive for Klebsiella pneumoniae. Blood cultures were positive for coag-negative staph. She is currently on meropenem. On 12/10/2021, the patient is doing well. She is postcholecystectomy the patient is postop day #4. She also had a UTI with Klebsiella. The patient denies having any new complaints. No fever or chills. No hemodynamic instability. She is breathing comfortably and she is on room air oxygen. No nausea. No emesis. No diarrhea. This afternoon, an NG tube was inserted and the patient was having his abdominal pain and distention. She is nothing by mouth and the NG tube is still in place and the patient is still elevated output from her NG tube. No flatness. No abdominal distention. Denies any si gnificant pain. She is afebrile. Her blood work, the patient's at present 8.3 with hemoglobin 12.4 and a platelet count of 49. He is a 30 with a creatinine of 0.5 and his sodium level is at 140. The blood culture was positive for staph epidermidis, the fluid cultures also negative. The patient's is assumed to be contamination. The patient remains on Rocephin 2 g every 24 hours and the patient is also on oral Flagyl.Apparently the fecal management system that was draining diarrhea was removed in the last 24-48 hours. It sounds like she has not moved her bowels since then. She has tolerating small volume of clear liquids at this time. 12/11/2021, the patient is essentially sitting up on a chair and she is calm and comfortable and she is postop day #5. As mentioned earlier, the patient developed a component of ileus yesterday and the patient required an NG tube insertion. NG tube remains in place. Meanwhile, the patient was given laxative suppositories and she had a bowel movement yesterday and today. Bowel sounds are hypoactive. The patient is able to produce stool. Abdomen is nondistended. JUANA drain is in place. The patient is taking Dulcolax rectally. She is on IV fluids lactated Ringer at the rate of 60 mL an hour. She remains on examination Flagyl and Rocephin. No nausea. No chest pain. Altered mentation. Her blood work, the patient has a white cell count 9.7 with hemoglobin of 11.7 and a platelet count of 403. Patient also has sodium of 140, potassium is 3.4, chloride of 99 and a bicarb level of 27. The BUN is a 30 with a creatinine of 0.5. Objective - Vital Signs Vital signs: Vital Signs Temp 97.6 F 12/11/21 11:45 Pulse 84 12/11/21 11:45 Resp 18 12/11/21 11:45 BP 114/77 12/11/21 11:45 Pulse Ox 92 L 12/11/21 11:45 FiO2 Intake & Output 12/10/21 12/11/21 12/11/21 18:59 06:59 18:59 Intake Total 720 Output Total 260 1550 900 Balance -260 -830 -900 Intake: Intake, IV Titration 720 Amount Lactated Ringers 1,000 ml 720 @ 60 mls/hr IV .[id number] [facility] Rx#:[id number] Output: Gastric Drainage 1000 600 Drainage 60 50 60 Right Abdomen 60 50 60 Urine 200 500 240 Other: Voiding Method Indwelling Catheter Indwelling Catheter Indwelling Catheter # Bowel Movements 1 - Exam No acute distress, confused. Patient currently on room air. NG tube is in place HEENT examination is grossly unremarkable. Neck supple. Full range of motion. No adenopathy thyromegaly or neck vein distention. Cardiovascular examination reveals regular rhythm rate. S1-S2 normal. No S3 or S4. No discernible murmur noted. Heart sounds are distant. Lungs reveal scattered bilateral rhonchi. No wheezes. No crackles. Breath sounds equal bilaterally. Abdomen soft without bowel sounds. Abdomen is a bit tender. The patient also has a JUANA drain in the right upper quadrant and there is serous drainage col lecting in the JUANA drain. Bowel sounds are absent at this point in time. No direct tenderness. No rebound tenderness. No guarding. Extremities are intact. No cyanosis clubbing or edema. Examination of the skin revealed no evidence of significant rashes, suspicious appearing nevi or other concerning lesions. Neurologic examination is brief but nonfocal. - Labs CBC & Chem 7: 12/11/21 05:06 12/11/21 05:06 Labs: Abnormal Lab Results - Last 24 Hours (Table) 12/11/21 12/11/21 Range/Units 05:06 05:06 RBC 3.56 L (4.10-5.20) X 10*6/uL Hgb 11.5 L (12.0-15.0) g/dL Hct 33.1 L (37.2-46.3) % MCH 32.3 H (27.0-32.0) pg MPV 9.3 L (9.5-12.2) fL Immature Gran # 0.27 H (0.00-0.04) X 10*3/uL Eosinophils # 0.45 H (0.04-0.35) X 10*3/uL Potassium 3.4 L (3.5-5.5) mmol/L Creatinine 0.5 L (0.6-1.5) mg/dL BUN/Creatinine Ratio 26.80 H (12.00-20.00) Ratio Glucose 113 H (70-110) mg/dL Calcium 7.8 L (8.7-10.3) mg/dL Total Bilirubin <0.15 L (0.30-1.20) mg/dL AST 58 H (13-35) U/L Total Protein 4.4 L (6.2-8.2) g/dL Albumin 2.5 L (3.8-4.9) g/dL Albumin/Globulin Ratio 1.32 L (1.60-3.17) g/dL Microbiology - Last 24 Hours (Table) 12/10/21 05:03 Blood Culture - Preliminary Blood No Growth after 24 hours 12/05/21 17:32 Anaerobic Culture - Final Peritoneal Fluid Assessment and Plan Plan: Postop day #5, status post exploratory laparoscopy, and laparoscopic cholecystectomy, (12/05/2021), for acute cholecystitis. The patient is still on examination Rocephin and Flagyl. JUANA drain is in place and output is serosanguineous. Postoperative ileus, currently has an NG tube in place, the patient received Dulcolax suppositories and the patient was able to produce stool Klebsiella pneumoniae urinary tract infection. Abdominal pain, with possible abdominal sepsis. Mental status changes, secondary to encephalopathy from sepsis, initially better, but now a bit worse. Hypotension, likely secondary to sepsis, recovered. Lactic acidosis, secondary to sepsis. History of hypertension. History of hyperlipidemia. History of trigeminal neuralgia/tic douloureux Plan Overall restlessness in stable and the patient is using incentive spirometer. Chest x-ray was done today showed some atelectatic changes/confusion left lung base. Otherwise the right lung was clear and the patient has a pulse ox of 92% on room air oxygen. Keep NG tube in place and monitor the output Continue Rocephin and Flagyl for now Monitor the output from the JUANA drain Keep the patient nothing by mouth Encouraged use of incentive spirometer Monitor electrolytes General surgeries on the case Infectious disease on the case Hemodynamically stable We'll continue to follow
[2021-12-11 16:29] VITALS: BMI 34.4
[2021-12-12] MEDS: LACTATED RINGERS 1,000 ML IV SCH ×2 (06:00→22:13)
--- NOTE | 2021-12-12 08:04 | XR ---
EXAMINATION TYPE: XR abdomen 2V DATE OF EXAM: 12/12/2021 HISTORY: Pain. Technique: 3 views of the abdomen are submitted. Comparison: 12/10/2021 Findings: Right hemiabdominal drainage tube remains unchanged in position. NG tube is noted to course into the stomach. There is no convincing evidence of pneumoperitoneum. There are persistent distended loops of small and large bowel however there is evidence of interval i mprovement with maximal distention at this time of 3.5 cm versus 7.7 cm previously. No mass effects are noted. No renal calcifications are identified. IMPRESSION: 1. Persistent but much improved distention of small and large bowel compatible with improving ileus.
[2021-12-12] MEDS: HEPARIN SODIUM,PORCINE/PF 5,000 UNIT/0.5 ML SYRINGE SQ SCH ×2 (08:21→16:20)
[2021-12-12] MEDS: ASPIRIN 81 MG PO SCH (08:21)
[2021-12-12] MEDS: bisacodyL 10 MG SUPP RECTAL SCH ×2 (08:21→08:42)
[2021-12-12] MEDS: GABAPENTIN 100 MG CAP PO SCH ×3 (08:21→21:26)
[2021-12-12] MEDS: metroNIDAZOLE 500 MG TAB PO SCH ×3 (08:22→21:26)
[2021-12-12] MEDS: ATORVASTATIN 20 MG TAB PO SCH (08:22)
[2021-12-12] MEDS: lisinopriL 10 MG TAB PO SCH (08:22)
[2021-12-12] MEDS: METOPROLOL TARTRATE 50 MG TAB PO SCH ×2 (08:22→21:26)
[2021-12-12] MEDS: carBAMazepine 200 MG TAB PO SCH ×4 (08:25→21:26)
--- NOTE | 2021-12-12 09:09 | P.PN ---
Subjective Progress Note Date: 12/12/21 71-year-old female came in with comments of nausea vomiting and severe abdominal pain patient overall clinical condition worsened on stepdown unit patient was subsequently transferred to ICU patient had a CT-guided CT angios gram of the chest and abdomen and pelvis which showed dilated the gallbladder for possibility of cholecystitis and free fluid in the abdomen. Patient was a lethargic with diffuse abdominal pain hypotensive patient was subsequently transferred to ICU and was started on broad-spectrum and Videx vancomycin and meropenem and lactated Ringer's. Patient lactic acid is high because of which am switching to normal saline. Patient was lethargic and drowsy but improving but now. Patient was evaluated by general surgery and going for expiratory laparotomy patient does have fever and elevated white count of 14.2 no evidence of pneumonia or UTI. 12/06/2021 Patient is monitored in intensive care unit. She underwent exploratory laprotomy and also laproscopic cholecystectomy with Dr Aguayo yesterday evening. Prior to she had chest xray for line placement which showed increasing infiltrate and atelectasis in both lower lobes compared to yesterday. Heart failure is possible as well. She is maintained on levophed and continues on lactated ringer at 130 mls per hour. She received a 1L fluid bolus today. Patient did have an echocardiogram in 2019 showing LV function of 40 to 45% with hypokinesis. Surgery has cleared patient for small sips of clear liquid today and discussed adding norco for pain management. She has drain present to right abdomen. She had sodium level today of 133, potassium 4.9, BUN 20, creatinine 0.62, glucose 116. C. Dif is negative. Her most recent lactic acid is 5.3, pending repeat today. Blood culture showing staph epi on 1 of 2 cultures. This could be possible contaminant. Stool culture pending. Surgical cultures are pending. She continues on vancomycin and meropenem. 12/07/2021 Patient continues to be monitored in ICU. She had an episode of acute confusion yesterday around dinner time and code stroke was called. Brain CT/CTA completed which are negative for acute, no stroke, mass, or hemorrhage noted. Neurology was consulted. Patient underwent EEG today which is pending. She did have troponin elevation found during routine stroke protocol lab work, for this cardiology was consulted and felt troponin elevation is from sepsis. Echocardio gram showing EF 40 to 45% with septal inferior hypokinesis with moderate TR. Labs today showing sodium 133, potassium 4.7, BUN 17, creatinine 0.63, calcium 7.5, magnesium 2.5. TSH 1.650. She is alert x 2 today with confusion. She is tolerating diet, reports no abdominal pain. She is having diarrhea, FMS is in place, and was checked for C.Dif is pending at this time. Narcotics have been placed on hold. She continues on IV antibiotics. Urine culture showing gram negative bacilli.Temperature 98.4, heart rate 100, blood pressure 128/73, 98% room air. Pressor support has been placed on hold for the last 24 hours. She is being followed by gen surgery, immigration guard, and neurology. 12/08/2021 Patient continues in intensive care unit. She had a dose of seroquel at HS and nurse reports her sleeping well last night. FMS management system was removed and patient has not had a BM. She is tolerating some clear liquid diet. She is alert x 2, able to state she is in the hospital, thinks it is 1970s. Does have some ongoing speech issues. From a neurology perspective MRI has been ordered to rule out stroke. Continues with JUANA drain to right abdomen with serosanguineous drainage. White count 7.1, sodium 134, potassium 3.8, BUN 12, creatinine 0.48. Troponins are trending 0.120, 0.461 - cardiology is following patient and beta tristen will be increased today as she has remained slightly tachycardic. 12/09/2021 Patient continues to be monitored in intensive care unit. She has been downgraded to med surg with no tele pending available bed. Her mentation is slightly improved. She has klebsiella UTI on IV meropenem and ID will be consulted for further management. Sodium today 133, potassium 3.2. Potassium will be supplemented with total 80 meq IV and also patient received a dose of 60 mg IV lasix today. IV fluids have been decreased to lactated ringer at 60 mls. She does have some increased lower extremity edema greater in her left leg. She has been maintained off pressor support. Continues on some liquid diet. No white count, hgb stable at 12.2. Afebrile, heart rate 98, blood pressure 138/77, 92% on 2L nasal cannula. 12/10/2021 Patient is monitored on medical floor. Today she feels "medium", having abdominal pain, and also having increased abdominal bloating. Gave a dose of toradol today she continues on norco. Surgery is following. She had abdominal xray completed today showing possible postoperative ileus versus bowel obstruction with probable basilar atelectasis. Today she is sitting up in chair. ID has been consulted for further antibiotic management and medications were adjusted to PO flagyl and IV ceftriaxone pending finalized surgical and repeat blood cultures. Labs today showing white count 8.36, hgb 12.4, sodium is 140 which improved with lasix, potassium 3.6, magnesium 1.7, BUN 13.1, creatinine 0.5. CRP 15.60. PT has evaluated the patient today and recommending subacute rehab. 12/11/2021 Patient resting in bed today. Abdominal xray yesterday showing possible postoperative ileus. NG tube in place and patient has had 300 mls of output overnight. She reports decreased abdominal discomfort today about a 3/10. Abdomen is soft today with increased bowel sounds. She states she did have a BM. Overall fatigued but feeling better. She is alert and mentation has improved. Repeat blood culture is pending, Stool culture negatiave, peritoneal fluid culture negative. ID following cultures and she is on IV ceftriaxone and oral flagyl. States lungs feel heavy, diminished breath sounds. Labs pending. Afebrile, heart rate 99, blood pressure 160/87, 91% room air. 12/12/2021 Patient resting in bed. She is alert states she feels exhausted today has not been sleeping well. NG tube remains in place continues with output about 150 mls out. She is hoping NG tube can come out today. Abdominal xray today showing improving ileus. Her abdomen is soft today and bowel sounds are increased. She does have some mild peripheral edema. Blood pressure 160s systolic cardiology is following and adjusting medications. Repeat blood cultures negative so far. Infectious disease on consult, following cultures. Continues on PO and IV antibiotics. Repeat labs pending for today. Review of Systems Constitutional: Reports fatigue denied any fever. Cardio vascular: denied any chest pain, palpitations Gastrointestinal: Abdominal pain improved. had BM states it was liquid. Pulmonary: Reports no shortness of breath, no cough Neurologic denied any new focal deficits,, reports weakness. All inpatient medications were reviewed and appropriate changes in these medications as dictated in the interval history and assessment and plan. PHYSICAL EXAMINATION: GENERAL: Patient is awake alert x 2, oriented and less confused, fatigued, appears in no acute distress. HEENT: Pupils are round and equally reacting to light. EOMI. No scleral icterus. No conjunctival pallor. Normocephalic, atraumatic. No pharyngeal erythema. No thyromegaly. CARDIOVASCULAR: S1 and S2 present. No murmurs, rubs, or gallops. PULMONARY: Chest is clear to auscultation, no wheezing or crackles. Diminished. ABDOMEN: Post Surgical abdomen incisions intact. Abdomen is soft today, with increased bowel sounds. NG tube in place. IDC in place. MUSCULOSKELETAL: No joint swelling or deformity. EXTREMITIES: No cyanosis, clubbing, Mild lower extremity edema. Non pitting NEUROLOGICAL: Gross neurological examination did not reveal any focal deficits. Generalized weakness. SKIN: No rashes. Assessment and plan -Septic shock: Possible intra-abdominal source patient is postoperative day #7 laproscopic cholecystectomy secondary to cholecystitis negative peritoneal cultures -Postoperative ileus with NG tube in place, resolving -Toxic encephalopathy altered mental status secondary to sepsis and septic shock, ruled out stroke, now alert and oriented. -Lactic acidosis secondary to sepsis improved -Sinus tachycardia, hypotension from sepsis, patient has also been resumed on home beta tristen and heart rate has improved, medications also increased by cardiology -Troponin Leak from sepsis -Hypertension was hypotensive requiring pressor support initially -Klebsiella UTI -Staph epi bacteremia, possible contaminent repeat cultures pending -Diarrhea, C.Dif pending -hyperlipidemia -Hyponatremia secondary to hypovolemia and sepsis: resolved with IV fluids -History nonischemic cardiomyopathy with most recent LV function 40 to 45% -History trigeminal neuralgia Resumed on home medication, gabapentin has been decreased from home dose -GI prophylaxis: DVT prophylaxis: Lovenox Full Code Plan Patient is monitored on medical floor, continues on IV and PO antibiotics infectious disease is following cultures. NG tube in place. NPO except medications. She is being followed by surgery, cardiology, and pulmonary immigration guard. Neurology has ruled out acute stroke as caused for altered mental status most likely encephalopathy from sepsis and component of klebsiella UTI and septic abdomen. Mentation has improved she is alert. PT/OT is recommending subacute rehab on discharge. Patient would like to discharge home with homecare pending clinical course. Continue to encourage ambulation and incentive spirometer. The impression and plan of care has been dictated by Heather Barber, Nurse Practitioner as directed. Dr. Benjamín MD I have performed a history and physical examination and medical decision making of this patient, discussed the same with the dictator, and agree with the dictators assessment and plan as written, documented as a scribe. Based on total visit time, I have performed more than 50% of this visit. Objective - Vital Signs Vital signs: Vital Signs Temp 98 F 12/12/21 07:32 Pulse 96 12/12/21 07:32 Resp 22 12/12/21 07:32 BP 164/74 12/12/21 07:32 Pulse Ox 93 L 12/12/21 07:32 FiO2 Intake & Output 12/11/21 12/12/21 12/12/21 18:59 06:59 18:59 Intake Total 1150 Output Total 1200 1475 Balance -50 -1475 Weight 90.9 kg Intake: Intake, IV Titration 970 Amount Lactated Ringers 1,000 ml 720 @ 0 mls/hr IV [facility] Rx#:[id number] Potassium Chloride 20 meq 200 In Water For Injection 1 100ml.bag @ 50 mls/hr IVPB Q2H [facility] Rx#: [id number] cefTRIAXone 2 gm In 50 Sodium Chloride 0.9% 50 ml @ 100 mls/hr IVPB Q24HR [facility] Rx#:[id number] Oral 180 Output: Gastric Drainage 600 750 Drainage 60 Right Abdomen 60 Urine 540 725 Other: Voiding Method Indwelling Catheter Indwelling Catheter # Voids 1 # Bowel Movements 1 2 - Labs CBC & Chem 7: 12/11/21 05:06 12/11/21 05:06 Labs: Abnormal Lab Results - Last 24 Hours (Table) 12/11/21 12/11/21 Range/Units 05:06 05:06 RBC 3.56 L (4.10-5.20) X 10*6/uL Hgb 11.5 L (12.0-15.0) g/dL Hct 33.1 L (37.2-46.3) % MCH 32.3 H (27.0-32.0) pg MPV 9.3 L (9.5-12.2) fL Immature Gran # 0.27 H (0.00-0.04) X 10*3/uL Eosinophils # 0.45 H (0.04-0.35) X 10*3/uL Potassium 3.4 L (3.5-5.5) mmol/L Creatinine 0.5 L (0.6-1.5) mg/dL BUN/Creatinine Ratio 26.80 H (12.00-20.00) Ratio Glucose 113 H (70-110) mg/dL Calcium 7.8 L (8.7-10.3) mg/dL Total Bilirubin <0.15 L (0.30-1.20) mg/dL AST 58 H (13-35) U/L Total Protein 4.4 L (6.2-8.2) g/dL Albumin 2.5 L (3.8-4.9) g/dL Albumin/Globulin Ratio 1.32 L (1.60-3.17) g/dL Microbiology - Last 24 Hours (Table) 12/10/21 05:03 Blood Culture - Preliminary Blood No Growth after 48 hours Assessment and Plan Time with Patient: Less than 30
[2021-12-12 09:17] LABS: African American GFR (CKD) 120.6 (60.0-200.0); Anion Gap 14.8 mmol/L (10.00-18.00); BUN/Creat Ratio 25.5 Ratio (12.00-20.00); Blood Urea Nitrogen 10.2 mg/dL (9.0-27.0); Calcium 7.5 mg/dL (8.7-10.3); Carbon Dioxide 28.2 mmol/L (20.0-27.5); Non-African American GFR(CKD) 104.1 (60.0-200.0); Potassium 3.1 mmol/L (3.5-5.5)
[2021-12-12] MEDS ORDERED: Potassium Replacement Protocol 1 EACH MISC MISCELLANE PRN ×2 (12:27→13:24)
[2021-12-12] MEDS: LACTULOSE 20 GM/30 ML CUP PO SCH (12:48)
--- NOTE | 2021-12-12 12:51 | P.PN ---
Subjective Progress Note Date: 12/12/21 CHIEF COMPLAINT: Abdominal pain with sepsis HISTORY OF PRESENT ILLNESS: Patient is status post diagnostic laparoscopy and laparoscopic cholecystectomy for cholecystitis on 12/05/21. Patient reports improvement in her abdominal pain. Denies any nausea. NG tube in place with a total of 850 ML output through the night and this morning. Brownish in color. JUANA drain with serosanguineous output. Patient reports having very small liquid stool and flatus. Afebrile. Sodium is 141 potassium is 3.1 creatinine 0.4 magnesium yesterday was 2.0 abdominal x-ray persistent but much improved distention of small and large bowel compatible with improving ileus PHYSICAL EXAM: VITAL SIGNS: Reviewed. GENERAL: Well-developed in no acute distress. HEENT: No sclera icterus. Extraocular movements grossly intact. Moist buccal mucosa. Head is atraumatic, normocephalic. ABDOMEN: Soft. Nondistended. Minimal tenderness to palpation. JUANA drain with serosanguineous output. NEUROLOGIC: Patient is awake and answering questions appropriately ASSESSMENT: 1. Acute cholecystitis status post exploratory laparoscopy and laparoscopic cholecystectomy 2. Abdominal sepsis 3. Encephalopathy likely due to sepsis 4. Postoperative ileus showing improvement 5. Hypokalemia 6. UTI PLAN: -Continue NG tube for decompression -Keep patient nothing by mouth -Continue to replace Potassium -Continue IV fluids -Continue IV antibiotics per ID service -Continue supportive care -DVT prophylaxis subcu heparin Physician Community Support Associate note has been reviewed by physician. Signing provider agrees with the documented findings, assessment, and plan of care. Objective - Vital Signs Vital signs: Vital Signs Temp 98.4 F 12/12/21 12:37 Pulse 64 12/12/21 12:37 Resp 18 12/12/21 12:37 BP 110/71 12/12/21 12:37 Pulse Ox 95 12/12/21 12:37 FiO2 Intake & Output 12/11/21 12/12/21 12/12/21 18:59 06:59 18:59 Intake Total 1150 Output Total 1200 1475 1220 Balance -50 -1475 -1220 Weight 90.9 kg Intake: Intake, IV Titration 970 Amount Lactated Ringers 1,000 ml 720 @ 0 mls/hr IV [facility] Rx#:[id number] Potassium Chloride 20 meq 200 In Water For Injection 1 100ml.bag @ 50 mls/hr IVPB Q2H [facility] Rx#: [id number] cefTRIAXone 2 gm In 50 Sodium Chloride 0.9% 50 ml @ 100 mls/hr IVPB Q24HR [facility] Rx#:[id number] Oral 180 Output: Gastric Drainage 600 750 Drainage 60 Right Abdomen 60 Urine 874 270 2169 Uretheral (Lee) 200 Other: Voiding Method Indwelling Catheter Indwelling Catheter Indwelling Catheter # Voids 1 1 # Bowel Movements 1 2 - Labs CBC & Chem 7: 12/11/21 05:06 12/12/21 05:04 Labs: Abnormal Lab Results - Last 24 Hours (Table) 12/12/21 Range/Units 05:04 Potassium 3.1 L (3.5-5.5) mmol/L Carbon Dioxide 28.2 H (20.0-27.5) mmol/L Creatinine 0.4 L (0.6-1.5) mg/dL BUN/Creatinine Ratio 25.50 H (12.00-20.00) Ratio Calcium 7.5 L (8.7-10.3) mg/dL Microbiology - Last 24 Hours (Table) 12/10/21 05:03 Blood Culture - Preliminary Blood No Growth after 48 hours
[2021-12-12] MEDS ORDERED: POTASSIUM CHLORIDE ER 20 MEQ TAB.ER PO SCH (13:00)
--- NOTE | 2021-12-12 13:30 | P.PN ---
Subjective Progress Note Date: 12/12/21 This is a 71-year-old female patient with a known history of hypertension, hyperlipidemia, tic douloureux. She presented to the emergency room yesterday for nausea vomiting and abdominal pain. She was also having altered mental status, hypotension and diaphoresis. CT angiogram of the chest abdomen and pelvis revealed no arterial aneurysms or dissection. No evidence of pulmonary embolism. There is a possible small bowel ileus. Interstitial infiltrates and atelectasis at the lung bases. She was initially admitted to the selective care unit. Approximately 2:00 this morning the patient was found to be more lethargic with complaints of diffuse abdominal pain most notably in the suprapubic region. She also was hypotensive. She was given a liter of normal saline. Computed tomography scan of the brain revealed mild atrophy and chronic small vessel ischemia. No acute intracranial abnormality. She was transferred to the intensive care unit for closer monitoring. She is seen today in [facility]. She is awake and alert. She is complaining of fatigue and is drowsy at times. She is oriented. She did require norepinephrine infusion at 4 mcg/m. She is on normal saline now at 130 ML's per hour. She has oxygen at 3 L/m. Follow-up CAT scan of the abdomen revealed development of some free fluid in the pelvis. There is constipation and large bowel ileus not significantly differen t. Possibility. Tinnitus should be considered. Dilated gallbladder suggestive of cholecystitis. Culture data and atelectasis of the lung bases. Surgical consult is pending. Urine culture pending. White count 14.2. Hemoglobin 14.4. MCV 104. Sodium 131. Potassium 4.4. Bicarb 19. BUN 15. Creatinine 0.72. Glucose 131. Lactic acid 5.0. AST 45. ALT 21. Alk phos 778. Chronic virus by PCR not detected. She had been given vancomycin and meropenem. Progress note dated 12/06/2021. 71-year-old female that we saw yesterday in consultation, for possible sepsis and hypotension. She was initially admitted to the general medical floor. She has a history of hypertension, hyperlipidemia, and trigeminal neuralgia. We are concerned about abdominal sepsis. She went for laparoscopic exploration, and ended up with a laparoscopic cholecystectomy, for cholecystitis. The patient is currently resting comfortably in the ICU, room 265. Blood cultures are apparently positive for gram-positive cocci. The patient is on vancomycin and meropenem. Today, she is on 2 L of oxygen. The patient remains on lactated Ringer's at 130 mL an hour. In addition, the patient's on norepinephrine at 0.05 mcg/kg/m. She had some tachycardia, and was given some beta tristen from the hospital service. Currently labs include a white count of 7.9, hemoglobin 13.3, hematocrit 41.5, and a platelet count of 315,000. Sodium 133, potassium 4.9, chlorides 106, CO2 22, BUN 20, creatinine 0.62. Albumin was 2.4. Chest x- ray shows bibasilar atelectasis. Blood cultures were positive for staphylococcus epidermidis. Progress note dated 12/07/2021. 72-year-old female seen 2 days ago in consultation, her sepsis and hypotension. The patient went to the operating room, and had a laparoscopic cholecystectomy, for cholecystitis. Apparently last night, she developed significant confusion and disorientation. Currently, the patient's on 4 L nasal cannula. She's receiving lactated Ringer's at 130 mL an hour. Today is postop day #2. The patient did go for computed tomography scan of the brain which was negative, and a CT angiogram which was also negative. Urine is showing evidence of gram-negat josefina bacilli. She remains on vancomycin and meropenem. White count 6.5, hemoglobin 12, hematocrit 36.9, and platelet count 276,000. Sodium 133, potassium 4.7, chlorides 103, CO2 26, BUN 17, creatinine 0.63. Troponins were 0.120 and 0.461. Cardiology was consulted. TSH was normal. Progress note dated 12/08/2021. 71-year-old female seen 3 days ago consultation for sepsis and hypotension. The patient ended up going to the operating room, and had a laparoscopic cholecystectomy for cholecystitis. More recently, she developed significant confusion, and disorientation. This morning, she was going for an MRI scan. She's currently on 2 L of oxygen. She's receiving lactated Ringer's at 130 mL an hour. Staphylococcus epidermidis was found in the blood. Klebsiella species was found in the urine. The patient is on meropenem. White count 7.1, hemoglobin 12.5, hematocrit 37.7, and platelet count 260,000. Sodium 134, potassium 3.8, chlorides 101, CO2 25, BUN 12, creatinine 0.48. Progress note dated 12/09/2021. 71-year-old female, seen 4 days ago in consultation for sepsis and hypotension. The patient was thought to have an intra-abdominal process, and went to the operating room, and had a laparoscopic cholecystectomy for cholecystitis. She developed postoperative confusion and disorientation, likely metabolic in origin. MRI scan of the brain was negative. She's doing better each day. Currently, she is on room air. Her lactated Ringer's is running at 60 mL an hour. She will get Lasix 60 mg IV push once today. Clinically, she is much more awake and alert. White count 6.1, hemoglobin 12.2, hematocrit 38.1, with a normal platelet count. Sodium 133, potassium 3.2, chlorides 97, CO2 27, BUN 13, creatinine 0.54. Urine cultures are positive for Klebsiella pneumoniae. Blood cultures were positive for coag-negative staph. She is currently on meropenem. On 12/10/2021, the patient is doing well. She is postcholecystectomy the patient is postop day #4. She also had a UTI with Klebsiella. The patient denies having any new complaints. No fever or chills. No hemodynamic instability. She is breathing comfortably and she is on room air oxygen. No nausea. No emesis. No diarrhea. This afternoon, an NG tube was inserted and the patient was having his abdominal pain and distention. She is nothing by mouth and the NG tube is still in place and the patient is still elevated output from her NG tube. No flatness. No abdominal distention. Denies any si gnificant pain. She is afebrile. Her blood work, the patient's at present 8.3 with hemoglobin 12.4 and a platelet count of 49. He is a 30 with a creatinine of 0.5 and his sodium level is at 140. The blood culture was positive for staph epidermidis, the fluid cultures also negative. The patient's is assumed to be contamination. The patient remains on Rocephin 2 g every 24 hours and the patient is also on oral Flagyl.Apparently the fecal management system that was draining diarrhea was removed in the last 24-48 hours. It sounds like she has not moved her bowels since then. She has tolerating small volume of clear liquids at this time. 12/11/2021, the patient is essentially sitting up on a chair and she is calm and comfortable and she is postop day #5. As mentioned earlier, the patient developed a component of ileus yesterday and the patient required an NG tube insertion. NG tube remains in place. Meanwhile, the patient was given laxative suppositories and she had a bowel movement yesterday and today. Bowel sounds are hypoactive. The patient is able to produce stool. Abdomen is nondistended. JUANA drain is in place. The patient is taking Dulcolax rectally. She is on IV fluids lactated Ringer at the rate of 60 mL an hour. She remains on examination Flagyl and Rocephin. No nausea. No chest pain. Altered mentation. Her blood work, the patient has a white cell count 9.7 with hemoglobin of 11.7 and a platelet count of 403. Patient also has sodium of 140, potassium is 3.4, chloride of 99 and a bicarb level of 27. The BUN is a 30 with a creatinine of 0.5. 12/12/2021, the patient is postop day #6. NG tube is in place. Output is about 300 over the past 24 hours. As such, NG tube will be kept in place. The patient's producing liquid bowel movement. No abdominal distention. Bowel sounds are hypoactive. The patient is taking popsicles. JUANA drain is in place. Surgical wound sites are clean and intact. No new complaints. The patient is on same antibiotic coverage which included a combination of Rocephin and Flagyl. The patient is also on IV fluids and place. The patient on lactated Ringer. Electrodes are all within normal limits. Creatinine is 0.4. Urine is at 10. Sodium is 141 Objective - Vital Signs Vital signs: Vital Signs Temp 98.4 F 12/12/21 12:37 Pulse 64 12/12/21 12:37 Resp 18 12/12/21 12:37 BP 110/71 12/12/21 12:37 Pulse Ox 95 12/12/21 12:37 FiO2 Intake & Output 12/11/21 12/12/21 12/12/21 18:59 06:59 18:59 Intake Total 1150 Output Total 1200 1475 1220 Balance -50 -1475 -1224 Weight 90.9 kg Intake: Intake, IV Titration 970 Amount Lactated Ringers 1,000 ml 720 @ 0 mls/hr IV .[facility] Rx#:[id number] Potassium Chloride 20 meq 200 In Water For Injection 1 100ml.bag @ 50 mls/hr IVPB Q2H [facility] Rx#: [id number] cefTRIAXone 2 gm In 50 Sodium Chloride 0.9% 50 ml @ 100 mls/hr IVPB Q24HR [facility] Rx#:[id number] Oral 180 Output: Gastric Drainage 600 750 Drainage 60 Right Abdomen 60 Urine [id number] Uretheral (Lee) 200 Other: Voiding Method Indwelling Catheter Indwelling Catheter Indwelling Catheter # Voids 1 1 # Bowel Movements 1 2 - Exam No acute distress, confused. Patient currently on room air. NG tube is in place HEENT examination is grossly unremarkable. Neck supple. Full range of motion. No adenopathy thyromegaly or neck vein distention. Cardiovascular examination reveals regular rhythm rate. S1-S2 normal. No S3 or S4. No discernible murmur noted. Heart sounds are distant. Lungs reveal scattered bilateral rhonchi. No wheezes. No crackles. Breath sounds equal bilaterally. Abdomen soft without bowel sounds. Abdomen is a bit tender. The patient also has a JUANA drain in the right upper quadrant and there is serous drainage collecting in the JUANA drain. Bowel sounds are absent at this point in time. No direct tenderness. No rebound tenderness. No guarding. Extremities are intact. No cyanosis clubbing or edema. Examination of the skin revealed no evidence of significant rashes, suspicious appearing nevi or other concerning lesions. Neurologic examination is brief but nonfocal. - Labs CBC & Chem 7: 12/11/21 05:06 12/12/21 05:04 Labs: Abnormal Lab Results - Last 24 Hours (Table) 12/12/21 Range/Units 05:04 Potassium 3.1 L (3.5-5.5) mmol/L Carbon Dioxide 28.2 H (20.0-27.5) mmol/L Creatinine 0.4 L (0.6-1.5) mg/dL BUN/Creatinine Ratio 25.50 H (12.00-20.00) Ratio Calcium 7.5 L (8.7-10.3) mg/dL Microbiology - Last 24 Hours (Table) 12/10/21 05:03 Blood Culture - Preliminary Blood No Growth after 48 hours Assessment and Plan Plan: Postop day # 6, status post exploratory laparoscopy, and laparoscopic cholecystectomy, (12/05/2021), for acute cholecystitis. The patient is still on examination Rocephin and Flagyl. JUANA drain is in place and output is serosanguineous. The patient remains on a combination of Rocephin and Flagyl and the peritoneal fluid cultures of been negative. Postoperative ileus, currently has an NG tube in place, the patient received Dulcolax suppositories and the patient was able to produce stool, output from the NG tube is being monitored and insulin For another 24 hours. Klebsiella pneumoniae urinary tract infection. Abdominal pain, with possible abdominal sepsis. Mental status changes, secondary to encephalopathy from sepsis, initially better, but now a bit worse. Hypotension, likely secondary to sepsis, recovered. Lactic acidosis, secondary to sepsis. History of hypertension. History of hyperlipidemia. History of trigeminal neuralgia/tic douloureux Plan Keep NG tube in place for another 24 hours Continue using incentive spirometer Monitor the output from the JUANA drain Popsicles and been allowed by general surgeon Encouraged use of incentive spirometer Monitor electrolytes General surgeries on the case Infectious disease on the case Hemodynamically stable We'll continue to follow
[2021-12-12] MEDS: POTASSIUM CHLORIDE 20 MEQ in WATER FOR INJECTION 1 100ML.BAG IVPB SCH ×2 (14:36→16:20)
[2021-12-12] MEDS: METOCLOPRAMIDE 5 MG/ML 2 ML VIAL IVP SCH ×2 (14:36→17:27)
[2021-12-12 22:50] LABS: Basophils % (A) 1 %; Eosinophils # (A) 0.2 k/uL (0-0.7); Eosinophils % (A) 3 %; HCT 33.9 % (34.0-46.0); Lymphocytes # (A) 1.2 k/uL (1.0-4.8); Lymphocytes % (A) 15 %; MCHC 32.4 g/dL (31.0-37.0); MCV 98.9 fL (80.0-100.0); Mean Platelet Volume 7.7; Monocytes # (A) 0.4 k/uL (0-1.0); Monocytes % (A) 4 %; Neutrophils % (A) 76 %; Platelet Count 451 k/uL (150-450); RBC 3.43 m/uL (3.80-5.40); RDW 12.5 % (11.5-15.5); WBC 7.9 k/uL (3.8-10.6)
[2021-12-13] MEDS: METOCLOPRAMIDE 5 MG/ML 2 ML VIAL IVP SCH ×5 (00:28→23:17)
[2021-12-13] MEDS: HEPARIN SODIUM,PORCINE/PF 5,000 UNIT/0.5 ML SYRINGE SQ SCH ×4 (00:28→23:17)
[2021-12-13] MEDS: ATORVASTATIN 20 MG TAB PO SCH (08:08)
[2021-12-13] MEDS: metroNIDAZOLE 500 MG TAB PO SCH ×3 (08:08→21:49)
[2021-12-13] MEDS: GABAPENTIN 100 MG CAP PO SCH ×3 (08:08→21:49)
[2021-12-13] MEDS: LACTULOSE 20 GM/30 ML CUP PO SCH (08:09)
[2021-12-13] MEDS: ASPIRIN 81 MG PO SCH (08:09)
[2021-12-13] MEDS: lisinopriL 10 MG TAB PO SCH (08:09)
[2021-12-13] MEDS: METOPROLOL TARTRATE 50 MG TAB PO SCH ×2 (08:10→21:49)
[2021-12-13] MEDS: bisacodyL 10 MG SUPP RECTAL SCH (08:31)
[2021-12-13] MEDS: carBAMazepine 200 MG TAB PO SCH ×4 (08:36→21:50)
[2021-12-13 10:54] LABS: African American GFR (CKD) >90 (>60 ml/min/1.73 sqM); Anion Gap 12 mmol/L; Blood Urea Nitrogen 8 mg/dL (7-17); Calcium 7.4 mg/dL (8.4-10.2); Carbon Dioxide 31 mmol/L (22-30); Chloride 94 mmol/L (98-107); Glucose 98 mg/dL (74-99); Non-African American GFR(CKD) >90 (>60 ml/min/1.73 sqM); Sodium 137 mmol/L (137-145)
[2021-12-13] MEDS ORDERED: Potassium Replacement Protocol 1 EACH MISC MISCELLANE PRN (10:56)
[2021-12-13] MEDS: POTASSIUM CHLORIDE 20 MEQ in WATER FOR INJECTION 1 100ML.BAG IVPB SCH ×2 (11:42→13:50)
--- NOTE | 2021-12-13 12:13 | P.PN ---
Subjective Progress Note Date: 12/13/21 CHIEF COMPLAINT: Abdominal pain with sepsis HISTORY OF PRESENT ILLNESS: Patient is status post diagnostic laparoscopy and laparoscopic cholecystectomy for cholecystitis on 12/05/21. She denies any abdominal pain. Denies nausea. NG tube with 200 ML output this morning and 600 throughout the night. Patient has been taking and popsicles. She has had multiple loose bowel movements. She is having flatus. Afebrile. Sodium was 137 potassium is 3.0 creatinine 0.38 Lee catheter was discontinued yesterday. Patient reports no difficulty urinating. Reglan and lactulose added yesterday PHYSICAL EXAM: VITAL SIGNS: Reviewed. GENERAL: Well-developed in no acute distress. HEENT: No sclera icterus. Extraocular movements grossly intact. Moist buccal mucosa. Head is atraumatic, normocephalic. ABDOMEN: Soft. Nondistended. Nontender. Incision sites clean dry and intact. JUANA drain with 40 ml serosanguineous output. NEUROLOGIC: Patient is awake and answering questions appropriately ASSESSMENT: 1. Acute cholecystitis status post exploratory laparoscopy and laparoscopic cholecystectomy 2. Abdominal sepsis 3. Encephalopathy likely due to sepsis 4. Postoperative ileus showing improvement 5. Hypokalemia 6. UTI PLAN: -Further recommendations forthcoming per surgeon regarding NG tube -Continue NG tube for decompression -Keep patient nothing by mouth -Continue to replace Potassium -Continue IV fluids -Continue IV antibiotics per ID service -Continue supportive care -DVT prophylaxis subcu heparin Physician Corporate Tax Preparer note has been reviewed by physician. Signing provider agrees with the documented findings, assessment, and plan of care. I have personally seen and examined the patient, reviewed the DECORATOR HAND /PAs history, exam and MDM and agree with the assessment and plan as written. Based on total visit time, I have performed more than 50% of the visit. As above: Patient doing well today. She is alert. No complaints of pain. Nasogastric output slowly decreasing. She has had multiple bowel movements today with flatus. We'll remove nasogastric tube at this time. Continue with sips of liquids for now. Ambulate. Objective - Vital Signs Vital signs: Vital Signs Temp 98.4 F 12/13/21 04:15 Pulse 87 12/13/21 08:30 Resp 15 12/13/21 08:30 BP 153/77 12/13/21 04:15 Pulse Ox 92 L 12/13/21 04:15 FiO2 Intake & Output 12/12/21 12/13/21 12/13/21 18:59 06:59 18:59 Intake Total 100 Output Total 1640 640 Balance -1540 -640 Intake: Intake, IV Titration 100 Amount Potassium Chloride 20 meq 100 In Water For Injection 1 100ml.bag @ 50 mls/hr IVPB Q2H [facility] Rx#: [id number] Oral 0 Output: Gastric Drainage 300 600 Drainage 120 40 Right Abdomen 120 40 Urine 1220 Uretheral (Lee) 200 Other: Voiding Method Indwelling Catheter Toilet Toilet Diaper Diaper # Voids 1 1 # Bowel Movements 1 - Labs CBC & Chem 7: 12/12/21 22:39 12/13/21 10:19 Labs: Abnormal Lab Results - Last 24 Hours (Table) 12/12/21 12/13/21 Range/Units 22:39 10:19 RBC 3.43 L (3.80-5.40) m/uL Hgb 11.0 L (11.4-16.0) gm/dL Hct 33.9 L (34.0-46.0) % Plt Count 451 H (150-450) k/uL Potassium 3.0 L (3.5-5.1) mmol/L Chloride 94 L (98-107) mmol/L Carbon Dioxide 31 H (22-30) mmol/L Creatinine 0.38 L (0.52-1.04) mg/dL Calcium 7.4 L (8.4-10.2) mg/dL Microbiology - Last 24 Hours (Table) 12/10/21 05:03 Blood Culture - Preliminary Blood No Growth after 72 hours
--- NOTE | 2021-12-13 14:44 | P.PN ---
Subjective Progress Note Date: 12/13/21 This is a 71-year-old female patient with a known history of hypertension, hyperlipidemia, tic douloureux. She presented to the emergency room yesterday for nausea vomiting and abdominal pain. She was also having altered mental status, hypotension and diaphoresis. CT angiogram of the chest abdomen and pelvis revealed no arterial aneurysms or dissection. No evidence of pulmonary embolism. There is a possible small bowel ileus. Interstitial infiltrates and atelectasis at the lung bases. She was initially admitted to the selective care unit. Approximately 2:00 this morning the patient was found to be more lethargic with complaints of diffuse abdominal pain most notably in the suprapubic region. She also was hypotensive. She was given a liter of normal saline. Computed tomography scan of the brain revealed mild atrophy and chronic small vessel ischemia. No acute intracranial abnormality. She was transferred to the intensive care unit for closer monitoring. She is seen today in [facility]. She is awake and alert. She is complaining of fatigue and is drowsy at times. She is oriented. She did require norepinephrine infusion at 4 mcg/m. She is on normal saline now at 130 ML's per hour. She has oxygen at 3 L/m. Follow-up CAT scan of the abdomen revealed development of some free fluid in the pelvis. There is constipation and large bowel ileus not significantly differen t. Possibility. Tinnitus should be considered. Dilated gallbladder suggestive of cholecystitis. Culture data and atelectasis of the lung bases. Surgical consult is pending. Urine culture pending. White count 14.2. Hemoglobin 14.4. MCV 104. Sodium 131. Potassium 4.4. Bicarb 19. BUN 15. Creatinine 0.72. Glucose 131. Lactic acid 5.0. AST 45. ALT 21. Alk phos 778. Chronic virus by PCR not detected. She had been given vancomycin and meropenem. Progress note dated 12/06/2021. 71-year-old female that we saw yesterday in consultation, for possible sepsis and hypotension. She was initially admitted to the general medical floor. She has a history of hypertension, hyperlipidemia, and trigeminal neuralgia. We are concerned about abdominal sepsis. She went for laparoscopic exploration, and ended up with a laparoscopic cholecystectomy, for cholecystitis. The patient is currently resting comfortably in the ICU, room 265. Blood cultures are apparently positive for gram-positive cocci. The patient is on vancomycin and meropenem. Today, she is on 2 L of oxygen. The patient remains on lactated Ringer's at 130 mL an hour. In addition, the patient's on norepinephrine at 0.05 mcg/kg/m. She had some tachycardia, and was given some beta tristen from the hospital service. Currently labs include a white count of 7.9, hemoglobin 13.3, hematocrit 41.5, and a platelet count of 315,000. Sodium 133, potassium 4.9, chlorides 106, CO2 22, BUN 20, creatinine 0.62. Albumin was 2.4. Chest x- ray shows bibasilar atelectasis. Blood cultures were positive for staphylococcus epidermidis. Progress note dated 12/07/2021. 72-year-old female seen 2 days ago in consultation, her sepsis and hypotension. The patient went to the operating room, and had a laparoscopic cholecystectomy, for cholecystitis. Apparently last night, she developed significant confusion and disorientation. Currently, the patient's on 4 L nasal cannula. She's receiving lactated Ringer's at 130 mL an hour. Today is postop day #2. The patient did go for computed tomography scan of the brain which was negative, and a CT angiogram which was also negative. Urine is showing evidence of gram-negat josefina bacilli. She remains on vancomycin and meropenem. White count 6.5, hemoglobin 12, hematocrit 36.9, and platelet count 276,000. Sodium 133, potassium 4.7, chlorides 103, CO2 26, BUN 17, creatinine 0.63. Troponins were 0.120 and 0.461. Cardiology was consulted. TSH was normal. Progress note dated 12/08/2021. 71-year-old female seen 3 days ago consultation for sepsis and hypotension. The patient ended up going to the operating room, and had a laparoscopic cholecystectomy for cholecystitis. More recently, she developed significant confusion, and disorientation. This morning, she was going for an MRI scan. She's currently on 2 L of oxygen. She's receiving lactated Ringer's at 130 mL an hour. Staphylococcus epidermidis was found in the blood. Klebsiella species was found in the urine. The patient is on meropenem. White count 7.1, hemoglobin 12.5, hematocrit 37.7, and platelet count 260,000. Sodium 134, potassium 3.8, chlorides 101, CO2 25, BUN 12, creatinine 0.48. Progress note dated 12/09/2021. 71-year-old female, seen 4 days ago in consultation for sepsis and hypotension. The patient was thought to have an intra-abdominal process, and went to the operating room, and had a laparoscopic cholecystectomy for cholecystitis. She developed postoperative confusion and disorientation, likely metabolic in origin. MRI scan of the brain was negative. She's doing better each day. Currently, she is on room air. Her lactated Ringer's is running at 60 mL an hour. She will get Lasix 60 mg IV push once today. Clinically, she is much more awake and alert. White count 6.1, hemoglobin 12.2, hematocrit 38.1, with a normal platelet count. Sodium 133, potassium 3.2, chlorides 97, CO2 27, BUN 13, creatinine 0.54. Urine cultures are positive for Klebsiella pneumoniae. Blood cultures were positive for coag-negative staph. She is currently on meropenem. On 12/10/2021, the patient is doing well. She is postcholecystectomy the patient is postop day #4. She also had a UTI with Klebsiella. The patient denies having any new complaints. No fever or chills. No hemodynamic instability. She is breathing comfortably and she is on room air oxygen. No nausea. No emesis. No diarrhea. This afternoon, an NG tube was inserted and the patient was having his abdominal pain and distention. She is nothing by mouth and the NG tube is still in place and the patient is still elevated output from her NG tube. No flatness. No abdominal distention. Denies any si gnificant pain. She is afebrile. Her blood work, the patient's at present 8.3 with hemoglobin 12.4 and a platelet count of 49. He is a 30 with a creatinine of 0.5 and his sodium level is at 140. The blood culture was positive for staph epidermidis, the fluid cultures also negative. The patient's is assumed to be contamination. The patient remains on Rocephin 2 g every 24 hours and the patient is also on oral Flagyl.Apparently the fecal management system that was draining diarrhea was removed in the last 24-48 hours. It sounds like she has not moved her bowels since then. She has tolerating small volume of clear liquids at this time. 12/11/2021, the patient is essentially sitting up on a chair and she is calm and comfortable and she is postop day #5. As mentioned earlier, the patient developed a component of ileus yesterday and the patient required an NG tube insertion. NG tube remains in place. Meanwhile, the patient was given laxative suppositories and she had a bowel movement yesterday and today. Bowel sounds are hypoactive. The patient is able to produce stool. Abdomen is nondistended. JUANA drain is in place. The patient is taking Dulcolax rectally. She is on IV fluids lactated Ringer at the rate of 60 mL an hour. She remains on examination Flagyl and Rocephin. No nausea. No chest pain. Altered mentation. Her blood work, the patient has a white cell count 9.7 with hemoglobin of 11.7 and a platelet count of 403. Patient also has sodium of 140, potassium is 3.4, chloride of 99 and a bicarb level of 27. The BUN is a 30 with a creatinine of 0.5. 12/12/2021, the patient is postop day #6. NG tube is in place. Output is about 300 over the past 24 hours. As such, NG tube will be kept in place. The patient's producing liquid bowel movement. No abdominal distention. Bowel sounds are hypoactive. The patient is taking popsicles. JUANA drain is in place. Surgical wound sites are clean and intact. No new complaints. The patient is on same antibiotic coverage which included a combination of Rocephin and Flagyl. The patient is also on IV fluids and place. The patient on lactated Ringer. Electrodes are all within normal limits. Creatinine is 0.4. Urine is at 10. Sodium is 141 12/13/2021, the patient is postop day #7. She is having bowel movements. Nevertheless, the output from the NG tube is still considerably higher than she will be kept in place for another 24 hours for gastric decompression. Surgical wound site is dry clean and intact. She is taking popsicles. No other change in her condition. Electrodes are all stable and within normal limits. The nasal same antibiotic coverage. Denies having abdominal pain. No nausea. She is afebrile. Objective - Vital Signs Vital signs: Vital Signs Temp 98.6 F 12/13/21 11:29 Pulse 83 12/13/21 11:29 Resp 16 12/13/21 11:29 BP 127/79 12/13/21 11:29 Pulse Ox 96 12/13/21 11:29 FiO2 Intake & Output 12/12/21 12/13/21 12/13/21 18:59 06:59 18:59 Intake Total 100 Output Total 1640 640 Balance -1540 -640 Intake: Intake, IV Titration 100 Amount Potassium Chloride 20 meq 100 In Water For Injection 1 100ml.bag @ 50 mls/hr IVPB Q2H MCKENNA Rx#: [id number] Oral 0 Output: Gastric Drainage 300 600 Drainage 120 40 Right Abdomen 120 40 Urine 1220 Uretheral (Lee) 200 Other: Voiding Method Indwelling Catheter Toilet Toilet Diaper Diaper # Voids 1 1 # Bowel Movements 1 - Exam No acute distress, confused. Patient currently on room air. NG tube is in place HEENT examination is grossly unremarkable. Neck supple. Full range of motion. No adenopathy thyromegaly or neck vein di stention. Cardiovascular examination reveals regular rhythm rate. S1-S2 normal. No S3 or S4. No discernible murmur noted. Heart sounds are distant. Lungs reveal scattered bilateral rhonchi. No wheezes. No crackles. Breath sounds equal bilaterally. Abdomen soft without bowel sounds. Abdomen is a bit tender. The patient also has a JUANA drain in the right upper quadrant and there is serous drainage collecting in the JUANA drain. Bowel sounds are absent at this point in time. No direct tenderness. No rebound tenderness. No guarding. Extremities are intact. No cyanosis clubbing or edema. Examination of the skin revealed no evidence of significant rashes, suspicious appearing nevi or other concerning lesions. Neurologic examination is brief but nonfocal. - Labs CBC & Chem 7: 12/12/21 22:39 12/13/21 10:19 Labs: Abnormal Lab Results - Last 24 Hours (Table) 12/12/21 12/13/21 Range/Units 22:39 10:19 RBC 3.43 L (3.80-5.40) m/uL Hgb 11.0 L (11.4-16.0) gm/dL Hct 33.9 L (34.0-46.0) % Plt Count 451 H (150-450) k/uL Potassium 3.0 L (3.5-5.1) mmol/L Chloride 94 L (98-107) mmol/L Carbon Dioxide 31 H (22-30) mmol/L Creatinine 0.38 L (0.52-1.04) mg/dL Calcium 7.4 L (8.4-10.2) mg/dL Microbiology - Last 24 Hours (Table) 12/10/21 05:03 Blood Culture - Preliminary Blood No Growth after 72 hours Assessment and Plan Plan: Postop day # 7, status post exploratory laparoscopy, and laparoscopic cholecystectomy, (12/05/2021), for acute cholecystitis. The patient is still on examination Rocephin and Flagyl. JUANA drain is in place and output is serosanguineous. The patient remains on a combination of Rocephin and Flagyl and the peritoneal fluid cultures of been negative. Postoperative ileus, currently has an NG tube in place, the patient received Dulcolax suppositories and the patient was able to produce stool, output from the NG tube is being monitored and NG tube will be kept in place for gastric decompression. She is having bowel movement activity. Nevertheless, the output from the NG tube is still high. Klebsiella pneumoniae urinary tract infection. Abdominal pain, with possible abdominal sepsis. Mental status changes, secondary to encephalopathy from sepsis, initially better, but now a bit worse. Hypotension, likely secondary to sepsis, recovered. Lactic acidosis, secondary to sepsis. History of hypertension. History of hyperlipidemia. History of trigeminal neuralgia/tic douloureux Plan Keep NG tube in place for another 24 hours Continue using incentive spirometer Monitor the output from the JUANA drain Popsicles and been allowed by general surgeon Encouraged use of incentive spirometer Monitor electrolytes General surgeries on the case Infectious disease on the case Hemodynamically stable We'll continue supportive care for now. General surgeries on the case. Increased mobility and activity and ambulation.
--- NOTE | 2021-12-13 18:30 | P.PN ---
Subjective Progress Note Date: 12/13/21 71-year-old female came in with comments of nausea vomiting and severe abdominal pain patient overall clinical condition worsened on stepdown unit patient was subsequently transferred to ICU patient had a CT-guided CT angios gram of the chest and abdomen and pelvis which showed dilated the gallbladder for possibility of cholecystitis and free fluid in the abdomen. Patient was a lethargic with diffuse abdominal pain hypotensive patient was subsequently transferred to ICU and was started on broad-spectrum and Videx vancomycin and meropenem and lactated Ringer's. Patient lactic acid is high because of which am switching to normal saline. Patient was lethargic and drowsy but improving but now. Patient was evaluated by general surgery and going for expiratory laparotomy patient does have fever and elevated white count of 14.2 no evidence of pneumonia or UTI. 12/06/2021 Patient is monitored in intensive care unit. She underwent exploratory laprotomy and also laproscopic cholecystectomy with Dr Aguayo yesterday evening. Prior to she had chest xray for line placement which showed increasing infiltrate and atelectasis in both lower lobes compared to yesterday. Heart failure is possible as well. She is maintained on levophed and continues on lactated ringer at 130 mls per hour. She received a 1L fluid bolus today. Patient did have an echocardiogram in 2019 showing LV function of 40 to 45% with hypokinesis. Surgery has cleared patient for small sips of clear liquid today and discussed a dding [place] for pain management. She has drain present to right abdomen. She had sodium level today of 133, potassium 4.9, BUN 20, creatinine 0.62, glucose 116. C. Dif is negative. Her most recent lactic acid is 5.3, pending repeat today. Blood culture showing staph epi on 1 of 2 cultures. This could be possible contaminant. Stool culture pending. Surgical cultures are pending. She continues on vancomycin and meropenem. 12/07/2021 Patient continues to be monitored in ICU. She had an episode of acute confusion yesterday around dinner time and code stroke was called. Brain CT/CTA completed which are negative for acute, no stroke, mass, or hemorrhage noted. Neurology was consulted. Patient underwent EEG today which is pending. She did have troponin elevation found during routine stroke protocol lab work, for this cardiology was consulted and felt troponin elevation is from sepsis. Echocar diogram showing EF 40 to 45% with septal inferior hypokinesis with moderate TR. Labs today showing sodium 133, potassium 4.7, BUN 17, creatinine 0.63, calcium 7.5, magnesium 2.5. TSH 1.650. She is alert x 2 today with confusion. She is tolerating diet, reports no abdominal pain. She is having diarrhea, FMS is in place, and was checked for C.Dif is pending at this time. Narcotics have been placed on hold. She continues on IV antibiotics. Urine culture showing gram negative bacilli.Temperature 98.4, heart rate 100, blood pressure 128/73, 98% room air. Pressor support has been placed on hold for the last 24 hours. She is being followed by gen surgery, tube mill operator, and neurology. 12/08/2021 Patient continues in intensive care unit. She had a dose of seroquel at HS and nurse reports her sleeping well last night. FMS management system was removed and patient has not had a BM. She is tolerating some clear liquid diet. She is alert x 2, able to state she is in the hospital, thinks it is 1970s. Does have some ongoing speech issues. From a neurology perspective MRI has been ordered to rule out stroke. Continues with JUANA drain to right abdomen with serosanguineous drainage. White count 7.1, sodium 134, potassium 3.8, BUN 12, creatinine 0.48. Troponins are trending 0.120, 0.461 - cardiology is following patient and beta tristen will be increased today as she has remained slightly tachycardic. 12/09/2021 Patient continues to be monitored in intensive care unit. She has been downgraded to med surg with no tele pending available bed. Her mentation is slightly improved. She has klebsiella UTI on IV meropenem and ID will be consulted for further management. Sodium today 133, potassium 3.2. Potassium will be supplemented with total 80 meq IV and also patient received a dose of 60 mg IV lasix today. IV fluids have been decreased to lactated ringer at 60 mls. She does have some increased lower extremity edema greater in her left leg. She has been maintained off pressor support. Continues on some liquid diet. No white count, hgb stable at 12.2. Afebrile, heart rate 98, blood pressure 138/77, 92% on 2L nasal cannula. 12/10/2021 Patient is monitored on medical floor. Today she feels "medium", having abdominal pain, and also having increased abdominal bloating. Gave a dose of to radol today she continues on norco. Surgery is following. She had abdominal xray completed today showing possible postoperative ileus versus bowel obstruction with probable basilar atelectasis. Today she is sitting up in chair. ID has been consulted for further antibiotic management and medications were adjusted to PO flagyl and IV ceftriaxone pending finalized surgical and repeat blood cultures. Labs today showing white count 8.36, hgb 12.4, sodium is 140 which improved with lasix, potassium 3.6, magnesium 1.7, BUN 13.1, creatinine 0.5. CRP 15.60. PT has evaluated the patient today and recommending subacute rehab. 12/11/2021 Patient resting in bed today. Abdominal xray yesterday showing possible postoperative ileus. NG tube in place and patient has had 300 mls of output overnight. She reports decreased abdominal discomfort today about a 3/10. Abdomen is soft today with increased bowel sounds. She states she did have a BM. Overall fatigued but feeling better. She is alert and mentation has improved. Repeat blood culture is pending, Stool culture negatiave, peritoneal fluid culture negative. ID following cultures and she is on IV ceftriaxone and oral flagyl. States lungs feel heavy, diminished breath sounds. Labs pending. Afebrile, heart rate 99, blood pressure 160/87, 91% room air. 12/12/2021 Patient resting in bed. She is alert states she feels exhausted today has not been sleeping well. NG tube remains in place continues with output about 150 mls out. She is hoping NG tube can come out today. Abdominal xray today showing improving ileus. Her abdomen is soft today and bowel sounds are increased. She does have some mild peripheral edema. Blood pressure 160s systolic cardiology is following and adjusting medications. Repeat blood cultures negative so far. Infectious disease on consult, following cultures. Continues on PO and IV antibiotics. Repeat labs pending for today. 12/13/2021 Patient is seen in follow up this morning and continues with NG tube with dark o utput noted. General surgery following recommending to continue with NG tube for decompression. Patient is NPO except medications. Patient continues with significant weakness and PT/OT following daily recommending rehab although patient reports she wants to return home. Patient states she has family support. Patient potassium is 3.0 today and recommend to replace per protocol. Multiple medical consultations following including ID and pulmonary. Cultures repeat remain negative. Patient is afebrile and denies chest pain or shortness of breath. Reports discomfort due to the NG tube. Patient reports having bowel movements. Review of Systems Constitutional: Reports fatigue denied any fever. Cardio vascular: denied any chest pain, palpitations Gastrointestinal: Abdominal pain improved. had BM states it was liquid. Pulmonary: Reports no shortness of breath, no cough Neurologic denied any new focal deficits,, reports weakness. All inpatient medications were reviewed and appropriate changes in these medications as dictated in the interval history and assessment and plan. PHYSICAL EXAMINATION: GENERAL: Patient is awake alert x 2, oriented and less confused, anxious about NG tube HEENT: Pupils are round and equally reacting to light. EOMI. No scleral icterus. No conjunctival pallor. Normocephalic, atraumatic. No pharyngeal erythema. No thyromegaly. CARDIOVASCULAR: S1 and S2 present. No murmurs, rubs, or gallops. PULMONARY: diminished breath sounds bilaterally with no wheezing or crackles. Diminished. ABDOMEN: Post Surgical abdomen incisions intact. Abdomen is soft today, with increased bowel sounds. NG tube in place. IDC in place. MUSCULOSKELETAL: No joint swelling or deformity. EXTREMITIES: No cyanosis, clubbing, Mild lower extremity edema. Non pitting NEUROLOGICAL: Gross neurological examination did not reveal any focal deficits. Generalized weakness. SKIN: No rashes. Assessment: -Septic shock: Possible intra-abdominal source patient is postoperative day #8 laproscopic cholecystectomy secondary to cholecystitis negative peritoneal cultures -Postoperative ileus with NG tube in place, resolving -Toxic encephalopathy altered mental status secondary to sepsis and septic shock, ruled out stroke, now alert and oriented. -Lactic acidosis secondary to sepsis improved -Sinus tachycardia, hypotension from sepsis, patient has also been resumed on home beta tristen and heart rate has improved, medications also increased by cardiology -Troponin Leak from sepsis -Hypertension was hypotensive requiring pressor support initially, improved -Klebsiella UTI -Staph epi bacteremia, possible contaminent repeat cultures negative -Diarrhea, C.Dif negative -hyperlipidemia -Hyponatremia secondary to hypovolemia and sepsis: resolved with IV fluids -History nonischemic cardiomyopathy with most recent LV function 40 to 45% -History trigeminal neuralgia Resumed on home medication, gabapentin has been decreased from home dose -GI prophylaxis: -DVT prophylaxis: Lovenox -Full Code Plan: Patient is monitored on medical floor, continues on IV and PO antibiotics infect ious disease is following cultures. NG tube in place. NPO except medications. Awaiting surgical recommendations regarding NG tube removal. Patient reports is extremely uncomfortable and would like it removed. Patient is having bowel movements per nursing staff and continues with the NG tube for decompression. Abdomen was distended. She is being followed by surgery, cardiology, and pulmonary tube mill operator. Neurology has ruled out acute stroke as cause for altered mental status most likely encephalopathy from sepsis and component of klebsiella UTI and septic abdomen. Mentation has improved she is alert. PT/OT is recommending subacute rehab on discharge. Patient would like to discharge home with homecare pending clinical course. Continue to encourage ambulation and incentive spirometer. Follow up labs and replace electrolytes per protocol. Prognosis is guarded. The impression and plan of care has been dictated by Anny Cortes, Nurse Practitioner as directed. Dr. Kosta MD I have performed a history and physical examination and medical decision making of this patient, discussed the same with the dictator, and agree with the dictators assessment and plan as written, documented as a scribe. Based on total visit time, I have performed more than 50% of this visit. Objective - Vital Signs Vital signs: Vital Signs Temp 98.6 F 12/13/21 11:29 Pulse 83 12/13/21 11:29 Resp 16 12/13/21 11:29 BP 127/79 12/13/21 11:29 Pulse Ox 96 12/13/21 11:29 FiO2 Intake & Output 12/12/21 12/13/21 12/13/21 18:59 06:59 18:59 Intake Total 100 Output Total 1640 640 Balance -1540 -640 Intake: Intake, IV Titration 100 Amount Potassium Chloride 20 meq 100 In Water For Injection 1 100ml.bag @ 50 mls/hr IVPB Q2H [facility] Rx#: [id number] Oral 0 Output: Gastric Drainage 300 600 Drainage 120 40 Right Abdomen 120 40 Urine 1220 Uretheral (Lee) 200 Other: Voiding Method Indwelling Catheter Toilet Toilet Diaper Diaper # Voids 1 1 # Bowel Movements 1 - Labs CBC & Chem 7: 12/12/21 22:39 12/13/21 10:19 Labs: Abnormal Lab Results - Last 24 Hours (Table) 12/12/21 12/13/21 Range/Units 22:39 10:19 RBC 3.43 L (3.80-5.40) m/uL Hgb 11.0 L (11.4-16.0) gm/dL Hct 33.9 L (34.0-46.0) % Plt Count 451 H (150-450) k/uL Potassium 3.0 L (3.5-5.1) mmol/L Chloride 94 L (98-107) mmol/L Carbon Dioxide 31 H (22-30) mmol/L Creatinine 0.38 L (0.52-1.04) mg/dL Calcium 7.4 L (8.4-10.2) mg/dL Microbiology - Last 24 Hours (Table) 12/10/21 05:03 Blood Culture - Preliminary Blood No Growth after 72 hours
[2021-12-13] MEDS ORDERED: POTASSIUM CHLORIDE 20 MEQ in WATER FOR INJECTION 1 100ML.BAG IVPB STA (22:08)
--- NOTE | 2021-12-13 23:01 | P.PN ---
Subjective Progress Note Date: 12/11/21 Principal diagnosis: UTI and cholecystitis Patient is a 71-year-old female presented to hospital with right-sided abdominal pain and nausea and vomiting has been diagnosed with a cholecystitis status post cholecystectomy also with a component of UTI and positive for Kle bsiella and a culture positive for staph epi likely skin contamination. On today's evaluation that is 12/11/2021, the patient remains to be afebrile, patient is breathing comfortably on nasal cannula oxygen, the patient did have NG placed for ileus some nausea but no vomiting and abdominal pain has decreased in intensity, no urinary symptoms Objective - Vital Signs Vital signs: Vital Signs Temp 98 F 12/11/21 07:47 Pulse 99 12/11/21 07:47 Resp 19 12/11/21 07:47 BP 160/87 12/11/21 07:47 Pulse Ox 91 L 12/11/21 07:47 FiO2 Intake & Output 12/10/21 12/11/21 12/11/21 18:59 06:59 18:59 Intake Total 720 Output Total 260 1550 270 Balance -260 -830 -270 Intake: Intake, IV Titration 720 Amount Lactated Ringers 1,000 ml 720 @ 60 mls/hr IV .[id number] [facility] Rx#:[id number] Output: Gastric Drainage 1000 Drainage 60 50 30 Right Abdomen 60 50 30 Urine 200 500 240 Other: Voiding Method Indwelling Catheter Indwelling Catheter Indwelling Catheter # Bowel Movements 1 - Exam GENERAL DESCRIPTION: An elderly female up in the chair in no distress RESPIRATORY SYSTEM: Unlabored breathing , decreased breath sounds at bases HEART: S1 S2 regular rate and rhythm , ABDOMEN: Soft , mild distention and tenderness EXTREMITIES: No edema feet - Labs CBC & Chem 7: 12/12/21 22:39 12/13/21 17:47 Labs: Abnormal Lab Results - Last 24 Hours (Table) 12/11/21 12/11/21 Range/Units 05:06 05:06 RBC 3.56 L (4.10-5.20) X 10*6/uL Hgb 11.5 L (12.0-15.0) g/dL Hct 33.1 L (37.2-46.3) % MCH 32.3 H (27.0-32.0) pg MPV 9.3 L (9.5-12.2) fL Immature Gran # 0.27 H (0.00-0.04) X 10*3/uL Eosinophils # 0.45 H (0.04-0.35) X 10*3/uL Potassium 3.4 L (3.5-5.5) mmol/L Creatinine 0.5 L (0.6-1.5) mg/dL BUN/Creatinine Ratio 26.80 H (12.00-20.00) Ratio Glucose 113 H (70-110) mg/dL Calcium 7.8 L (8.7-10.3) mg/dL Total Bilirubin <0.15 L (0.30-1.20) mg/dL AST 58 H (13-35) U/L Total Protein 4.4 L (6.2-8.2) g/dL Albumin 2.5 L (3.8-4.9) g/dL Albumin/Globulin Ratio 1.32 L (1.60-3.17) g/dL Microbiology - Last 24 Hours (Table) 12/10/21 05:03 Blood Culture - Preliminary Blood No Growth after 24 hours 12/05/21 17:32 Anaerobic Culture - Final Peritoneal Fluid 12/05/21 20:46 Stool Culture - Final Stool 12/05/21 17:32 Gram Stain - Final Peritoneal Fluid Body Fluid Culture - Final Assessment and Plan (1) Cholecystitis Current Visit: Yes Status: Acute Code(s): K81.9 - CHOLECYSTITIS, UNSPECIFIED SNOMED Code(s): 68223074 Plan: 1patient presented to hospital with sepsis secondary to the acute cholecystitis in this patient s/p laparoscopic cholecystectomy with abdominal cultures so far negative. 2positive blood cultures staph epi likely skin contaminant blood cultures if he has been negative 3positive culture with Klebsiella possible component of UTI. 4penicillin allergy but no history of anaphylaxis. 5patient seemed to have some clinical improvement after insertion of the NG and will continue with Rocephin 2 g daily and Flagyl and monitor clinical course closely Time with Patient: Less than 30
--- NOTE | 2021-12-13 23:02 | P.PN ---
Subjective Progress Note Date: 12/12/21 Principal diagnosis: UTI and cholecystitis Patient is a 71-year-old female presented to hospital with right-sided abdominal pain and nausea and vomiting has been diagnosed with a cholecystitis status post cholecystectomy also with a component of UTI and positive for Kle bsiella and a culture positive for staph epi likely skin contamination. On today's evaluation that is 12/12/2021, the patient continues to be afebrile, patient is breathing comfortably on nasal cannula oxygen, the patient is feeling slightly better still have the NG in no nausea no vomiting and abdominal pain has decreased in intensity and no diarrhea Objective - Vital Signs Vital signs: Vital Signs Temp 98.4 F 12/12/21 12:37 Pulse 64 12/12/21 12:37 Resp 18 12/12/21 12:37 BP 110/71 12/12/21 12:37 Pulse Ox 95 12/12/21 12:37 FiO2 Intake & Output 12/11/21 12/12/21 12/12/21 18:59 06:59 18:59 Intake Total 1150 Output Total 1200 1475 1220 Balance -50 -1475 -1220 Weight 90.9 kg Intake: Intake, IV Titration 970 Amount Lactated Ringers 1,000 ml 720 @ 0 mls/hr IV [facility] Rx#:[id number] Potassium Chloride 20 meq 200 In Water For Injection 1 100ml.bag @ 50 mls/hr IVPB Q2H [facility] Rx#: [id number] cefTRIAXone 2 gm In 50 Sodium Chloride 0.9% 50 ml @ 100 mls/hr IVPB Q24HR [facility] Rx#:[id number] Oral 180 Output: Gastric Drainage 600 750 Drainage 60 Right Abdomen 60 Urine 760 504 6571 Uretheral (Lee) 200 Other: Voiding Method Indwelling Catheter Indwelling Catheter Indwelling Catheter # Voids 1 1 # Bowel Movements 1 2 1 - Exam GENERAL DESCRIPTION: An elderly female up in the chair in no distress RESPIRATORY SYSTEM: Unlabored breathing , decreased breath sounds at bases HEART: S1 S2 regular rate and rhythm , ABDOMEN: Soft , mild distention and tenderness EXTREMITIES: No edema feet - Labs CBC & Chem 7: 12/12/21 22:39 12/13/21 17:47 Labs: Abnormal Lab Results - Last 24 Hours (Table) 12/12/21 Range/Units 05:04 Potassium 3.1 L (3.5-5.5) mmol/L Carbon Dioxide 28.2 H (20.0-27.5) mmol/L Creatinine 0.4 L (0.6-1.5) mg/dL BUN/Creatinine Ratio 25.50 H (12.00-20.00) Ratio Calcium 7.5 L (8.7-10.3) mg/dL Microbiology - Last 24 Hours (Table) 12/10/21 05:03 Blood Culture - Preliminary Blood No Growth after 48 hours Assessment and Plan (1) Cholecystitis Current Visit: Yes Status: Acute Code(s): K81.9 - CHOLECYSTITIS, UNSPECIFIED SNOMED Code(s): 31818718 Plan: 1patient presented to hospital with sepsis secondary to the acute cholecystitis in this patient s/p laparoscopic cholecystectomy with abdominal cultures so far negative. 2positive blood cultures staph epi likely skin contaminant blood cultures if he has been negative 3positive culture with Klebsiella possible component of UTI. 4penicillin allergy but no history of anaphylaxis. 5patient seemed to have some clinical improvement , the patient is afebrile white count has normalized patient to Rocephin 2 g daily and Flagyl and monitor clinical course closely Time with Patient: Less than 30
--- NOTE | 2021-12-13 23:04 | P.PN ---
Subjective Progress Note Date: 12/13/21 Principal diagnosis: UTI and cholecystitis Patient is a 71-year-old female presented to hospital with right-sided abdominal pain and nausea and vomiting has been diagnosed with a cholecystitis status post cholecystectomy also with a component of UTI and positive for Kle bsiella and a culture positive for staph epi likely skin contamination. On today's evaluation that is 12/13/2021, the patient remains to be afebrile, patient is breathing comfortably on nasal cannula oxygen, the patient still have the NG in but no vomiting complaining of some shortness of breath and no chest pain or cough no abdominal pain or diarrhea Objective - Vital Signs Vital signs: Vital Signs Temp 98.6 F 12/13/21 11:29 Pulse 83 12/13/21 11:29 Resp 16 12/13/21 11:29 BP 127/79 12/13/21 11:29 Pulse Ox 96 12/13/21 11:29 FiO2 Intake & Output 12/12/21 12/13/21 12/13/21 18:59 06:59 18:59 Intake Total 100 Output Total 1640 640 Balance -1540 -640 Intake: Intake, IV Titration 100 Amount Potassium Chloride 20 meq 100 In Water For Injection 1 100ml.bag @ 50 mls/hr IVPB Q2H [facility] Rx#: [id number] Oral 0 Output: Gastric Drainage 300 600 Drainage 120 40 Right Abdomen 120 40 Urine 1220 Uretheral (Lee) 200 Other: Voiding Method Indwelling Catheter Toilet Toilet Diaper Diaper # Voids 1 1 # Bowel Movements 1 - Exam GENERAL DESCRIPTION: An elderly female up in the chair in no distress RESPIRATORY SYSTEM: Unlabored breathing , decreased breath sounds at bases HEART: S1 S2 regular rate and rhythm , ABDOMEN: Soft , mild distention and tenderness EXTREMITIES: No edema feet - Labs CBC & Chem 7: 12/12/21 22:39 12/13/21 17:47 Labs: Abnormal Lab Results - Last 24 Hours (Table) 12/12/21 12/13/21 Range/Units 22:39 10:19 RBC 3.43 L (3.80-5.40) m/uL Hgb 11.0 L (11.4-16.0) gm/dL Hct 33.9 L (34.0-46.0) % Plt Count 451 H (150-450) k/uL Potassium 3.0 L (3.5-5.1) mmol/L Chloride 94 L (98-107) mmol/L Carbon Dioxide 31 H (22-30) mmol/L Creatinine 0.38 L (0.52-1.04) mg/dL Calcium 7.4 L (8.4-10.2) mg/dL Microbiology - Last 24 Hours (Table) 12/10/21 05:03 Blood Culture - Preliminary Blood No Growth after 72 hours Assessment and Plan (1) Cholecystitis Current Visit: Yes Status: Acute Code(s): K81.9 - CHOLECYSTITIS, UNSPECIFIED SNOMED Code(s): 37081846 Plan: 1patient presented to hospital with sepsis secondary to the acute cholecystitis in this patient s/p laparoscopic cholecystectomy with abdominal cultures so far negative. 2positive blood cultures staph epi likely skin contaminant , blood cultures if he has been negative 3positive urine culture with Klebsiella possible component of UTI. 4penicillin allergy but no history of anaphylaxis. 5patient slowly clinically improving and will continue treatment with Rocephin 2 g daily and Flagyl and monitor clinical course closely Time with Patient: Less than 30
[2021-12-13] MEDS: LACTATED RINGERS 1,000 ML IV SCH (23:22)
[2021-12-14 05:06] LABS: Basophils % (A) 1 %; Eosinophils # (A) 0.2 k/uL (0-0.7); Eosinophils % (A) 4 %; HCT 34.1 % (34.0-46.0); HGB 11.2 gm/dL (11.4-16.0); Lymphocytes # (A) 1.3 k/uL (1.0-4.8); Lymphocytes % (A) 24 %; MCH 32.6 pg (25.0-35.0); MCHC 32.7 g/dL (31.0-37.0); MCV 99.8 fL (80.0-100.0); Mean Platelet Volume 7.2; Monocytes # (A) 0.3 k/uL (0-1.0); Monocytes % (A) 5 %; Neutrophils # (A) 3.5 k/uL (1.3-7.7); Neutrophils % (A) 64 %; Platelet Count 494 k/uL (150-450); RBC 3.42 m/uL (3.80-5.40); RDW 12.7 % (11.5-15.5); WBC 5.5 k/uL (3.8-10.6)
[2021-12-14 05:17] LABS: African American GFR (CKD) >90 (>60 ml/min/1.73 sqM); Anion Gap 12 mmol/L; Blood Urea Nitrogen 6 mg/dL (7-17); Calcium 7.6 mg/dL (8.4-10.2); Carbon Dioxide 30 mmol/L (22-30); Chloride 93 mmol/L (98-107); Glucose 89 mg/dL (74-99); Non-African American GFR(CKD) >90 (>60 ml/min/1.73 sqM); Sodium 135 mmol/L (137-145)
[2021-12-14] MEDS: METOCLOPRAMIDE 5 MG/ML 2 ML VIAL IVP SCH ×4 (05:20→23:51)
[2021-12-14] MEDS: HEPARIN SODIUM,PORCINE/PF 5,000 UNIT/0.5 ML SYRINGE SQ SCH ×3 (09:54→23:50)
[2021-12-14] MEDS: POTASSIUM CHLORIDE ER 20 MEQ TAB.ER PO SCH ×4 (09:54→20:54)
[2021-12-14] MEDS: ATORVASTATIN 20 MG TAB PO SCH (09:56)
[2021-12-14] MEDS: carBAMazepine 200 MG TAB PO SCH ×4 (09:56→20:54)
[2021-12-14] MEDS: ASPIRIN 81 MG PO SCH (09:56)
[2021-12-14] MEDS: GABAPENTIN 100 MG CAP PO SCH ×3 (09:57→20:54)
[2021-12-14] MEDS: metroNIDAZOLE 500 MG TAB PO SCH ×3 (09:58→20:54)
[2021-12-14] MEDS: METOPROLOL TARTRATE 50 MG TAB PO SCH ×2 (09:58→20:54)
[2021-12-14] MEDS: lisinopriL 10 MG TAB PO SCH (09:58)
[2021-12-14] MEDS: bisacodyL 10 MG SUPP RECTAL SCH (09:59)
[2021-12-14] MEDS: LACTULOSE 20 GM/30 ML CUP PO SCH (09:59)
--- NOTE | 2021-12-14 11:58 | P.PN ---
Subjective Progress Note Date: 12/14/21 CHIEF COMPLAINT: Abdominal pain with sepsis HISTORY OF PRESENT ILLNESS: Patient is status post diagnostic laparoscopy and laparoscopic cholecystectomy for cholecystitis on 12/05/21. She denies any abdominal pain. She denies any nausea or vomiting. She is having bowel movements. Afebrile. WBC is 5.5 Hgb 11.2 platelets 494 sodium is 135 potassium 3.0 creatinine 0.4. JUANA drain 15 mL serosanguineous output PHYSICAL EXAM: VITAL SIGNS: Reviewed. GENERAL: Well-developed in no acute distress. HEENT: No sclera icterus. Extraocular movements grossly intact. Moist buccal mucosa. Head is atraumatic, normocephalic. ABDOMEN: Soft. Nondistended. Nontender. Incision sites clean dry and intact. JUANA drain with serosanguineous output. NEUROLOGIC: Patient is awake and answering questions appropriately ASSESSMENT: 1. Acute cholecystitis status post exploratory laparoscopy and laparoscopic cholecystectomy 2. Abdominal sepsis 3. Encephalopathy likely due to sepsis 4. Postoperative ileus showing improvement 5. Hypokalemia 6. UTI PLAN: -Start clear liquid diet -Continue to replace Potassium -Continue IV fluids -Continue IV antibiotics per ID service -Continue supportive care -Continue to increase activity level -DVT prophylaxis subcu heparin Physician Computer System Specialist note has been reviewed by physician. Signing provider agrees with the documented findings, assessment, and plan of care. I have personally seen and examined the patient, reviewed the SENIOR SALES MANAGER /PAs history, exam and MDM and agree with the assessment and plan as written. Based on total visit time, I have performed more than 50% of the visit. As above: Patient doing better. Tolerating liquids thus far. Still having bowel function. No nausea or vomiting. Denies pain. Likely advance diet tomorrow. Objective - Vital Signs Vital signs: Vital Signs Temp 97.6 F 12/14/21 11:25 Pulse 77 12/14/21 11:25 Resp 16 12/14/21 11:25 BP 119/73 12/14/21 11:25 Pulse Ox 94 L 12/14/21 11:42 FiO2 Intake & Output 12/13/21 12/14/21 12/14/21 18:59 06:59 18:59 Intake Total 240 Output Total 640 530 Balance -640 -290 Intake: Oral 240 Output: Gastric Drainage 600 Drainage 40 30 Right Abdomen 40 30 Urine 500 Other: Voiding Method Toilet Toilet Diaper Diaper # Voids 4 4 1 # Bowel Movements 2 1 1 - Labs CBC & Chem 7: 12/14/21 04:40 12/14/21 04:40 Labs: Abnormal Lab Results - Last 24 Hours (Table) 12/13/21 12/14/21 12/14/21 Range/Units 17:47 04:40 04:40 RBC 3.42 L (3.80-5.40) m/uL Hgb 11.2 L (11.4-16.0) gm/dL Plt Count 494 H (150-450) k/uL Sodium 135 L (137-145) mmol/L Potassium 3.3 L 3.0 L (3.5-5.1) mmol/L Chloride 93 L (98-107) mmol/L BUN 6 L (7-17) mg/dL Creatinine 0.44 L (0.52-1.04) mg/dL Calcium 7.6 L (8.4-10.2) mg/dL Microbiology - Last 24 Hours (Table) 12/10/21 05:03 Blood Culture - Preliminary Blood No Growth after 96 hours
[2021-12-14] MEDS: LACTATED RINGERS 1,000 ML IV SCH ×2 (14:12→23:52)
--- NOTE | 2021-12-14 15:05 | P.PN ---
Subjective Progress Note Date: 12/14/21 This is a 71-year-old female patient with a known history of hypertension, hyperlipidemia, tic douloureux. She presented to the emergency room yesterday for nausea vomiting and abdominal pain. She was also having altered mental status, hypotension and diaphoresis. CT angiogram of the chest abdomen and pelvis revealed no arterial aneurysms or dissection. No evidence of pulmonary embolism. There is a possible small bowel ileus. Interstitial infiltrates and atelectasis at the lung bases. She was initially admitted to the selective care unit. Approximately 2:00 this morning the patient was found to be more lethargic with complaints of diffuse abdominal pain most notably in the suprapubic region. She also was hypotensive. She was given a liter of normal saline. Computed tomography scan of the brain revealed mild atrophy and chronic small vessel ischemia. No acute intracranial abnormality. She was transferred to the intensive care unit for closer monitoring. She is seen today in [facility]. She is awake and alert. She is complaining of fatigue and is drowsy at times. She is oriented. She did require norepinephrine infusion at 4 mcg/m. She is on normal saline now at 130 ML's per hour. She has oxygen at 3 L/m. Follow-up CAT scan of the abdomen revealed development of some free fluid in the pelvis. There is constipation and large bowel ileus not significantly differen t. Possibility. Tinnitus should be considered. Dilated gallbladder suggestive of cholecystitis. Culture data and atelectasis of the lung bases. Surgical consult is pending. Urine culture pending. White count 14.2. Hemoglobin 14.4. MCV 104. Sodium 131. Potassium 4.4. Bicarb 19. BUN 15. Creatinine 0.72. Glucose 131. Lactic acid 5.0. AST 45. ALT 21. Alk phos 778. Chronic virus by PCR not detected. She had been given vancomycin and meropenem. Progress note dated 12/06/2021. 71-year-old female that we saw yesterday in consultation, for possible sepsis and hypotension. She was initially admitted to the general medical floor. She has a history of hypertension, hyperlipidemia, and trigeminal neuralgia. We are concerned about abdominal sepsis. She went for laparoscopic exploration, and ended up with a laparoscopic cholecystectomy, for cholecystitis. The patient is currently resting comfortably in the ICU, room 265. Blood cultures are apparently positive for gram-positive cocci. The patient is on vancomycin and meropenem. Today, she is on 2 L of oxygen. The patient remains on lactated Ringer's at 130 mL an hour. In addition, the patient's on norepinephrine at 0.05 mcg/kg/m. She had some tachycardia, and was given some beta tristen from the hospital service. Currently labs include a white count of 7.9, hemoglobin 13.3, hematocrit 41.5, and a platelet count of 315,000. Sodium 133, potassium 4.9, chlorides 106, CO2 22, BUN 20, creatinine 0.62. Albumin was 2.4. Chest x- ray shows bibasilar atelectasis. Blood cultures were positive for staphylococcus epidermidis. Progress note dated 12/07/2021. 72-year-old female seen 2 days ago in consultation, her sepsis and hypotension. The patient went to the operating room, and had a laparoscopic cholecystectomy, for cholecystitis. Apparently last night, she developed significant confusion and disorientation. Currently, the patient's on 4 L nasal cannula. She's receiving lactated Ringer's at 130 mL an hour. Today is postop day #2. The patient did go for computed tomography scan of the brain which was negative, and a CT angiogram which was also negative. Urine is showing evidence of gram-negat josefina bacilli. She remains on vancomycin and meropenem. White count 6.5, hemoglobin 12, hematocrit 36.9, and platelet count 276,000. Sodium 133, potassium 4.7, chlorides 103, CO2 26, BUN 17, creatinine 0.63. Troponins were 0.120 and 0.461. Cardiology was consulted. TSH was normal. Progress note dated 12/08/2021. 71-year-old female seen 3 days ago consultation for sepsis and hypotension. The patient ended up going to the operating room, and had a laparoscopic cholecystectomy for cholecystitis. More recently, she developed significant confusion, and disorientation. This morning, she was going for an MRI scan. She's currently on 2 L of oxygen. She's receiving lactated Ringer's at 130 mL an hour. Staphylococcus epidermidis was found in the blood. Klebsiella species was found in the urine. The patient is on meropenem. White count 7.1, hemoglobin 12.5, hematocrit 37.7, and platelet count 260,000. Sodium 134, potassium 3.8, chlorides 101, CO2 25, BUN 12, creatinine 0.48. Progress note dated 12/09/2021. 71-year-old female, seen 4 days ago in consultation for sepsis and hypotension. The patient was thought to have an intra-abdominal process, and went to the operating room, and had a laparoscopic cholecystectomy for cholecystitis. She developed postoperative confusion and disorientation, likely metabolic in origin. MRI scan of the brain was negative. She's doing better each day. Currently, she is on room air. Her lactated Ringer's is running at 60 mL an hour. She will get Lasix 60 mg IV push once today. Clinically, she is much more awake and alert. White count 6.1, hemoglobin 12.2, hematocrit 38.1, with a normal platelet count. Sodium 133, potassium 3.2, chlorides 97, CO2 27, BUN 13, creatinine 0.54. Urine cultures are positive for Klebsiella pneumoniae. Blood cultures were positive for coag-negative staph. She is currently on meropenem. On 12/10/2021, the patient is doing well. She is postcholecystectomy the patient is postop day #4. She also had a UTI with Klebsiella. The patient denies having any new complaints. No fever or chills. No hemodynamic instability. She is breathing comfortably and she is on room air oxygen. No nausea. No emesis. No diarrhea. This afternoon, an NG tube was inserted and the patient was having his abdominal pain and distention. She is nothing by mouth and the NG tube is still in place and the patient is still elevated output from her NG tube. No flatness. No abdominal distention. Denies any si gnificant pain. She is afebrile. Her blood work, the patient's at present 8.3 with hemoglobin 12.4 and a platelet count of 49. He is a 30 with a creatinine of 0.5 and his sodium level is at 140. The blood culture was positive for staph epidermidis, the fluid cultures also negative. The patient's is assumed to be contamination. The patient remains on Rocephin 2 g every 24 hours and the patient is also on oral Flagyl.Apparently the fecal management system that was draining diarrhea was removed in the last 24-48 hours. It sounds like she has not moved her bowels since then. She has tolerating small volume of clear liquids at this time. 12/11/2021, the patient is essentially sitting up on a chair and she is calm and comfortable and she is postop day #5. As mentioned earlier, the patient developed a component of ileus yesterday and the patient required an NG tube insertion. NG tube remains in place. Meanwhile, the patient was given laxative suppositories and she had a bowel movement yesterday and today. Bowel sounds are hypoactive. The patient is able to produce stool. Abdomen is nondistended. JUANA drain is in place. The patient is taking Dulcolax rectally. She is on IV fluids lactated Ringer at the rate of 60 mL an hour. She remains on examination Flagyl and Rocephin. No nausea. No chest pain. Altered mentation. Her blood work, the patient has a white cell count 9.7 with hemoglobin of 11.7 and a platelet count of 403. Patient also has sodium of 140, potassium is 3.4, chloride of 99 and a bicarb level of 27. The BUN is a 30 with a creatinine of 0.5. 12/12/2021, the patient is postop day #6. NG tube is in place. Output is about 300 over the past 24 hours. As such, NG tube will be kept in place. The patient's producing liquid bowel movement. No abdominal distention. Bowel sounds are hypoactive. The patient is taking popsicles. JUANA drain is in place. Surgical wound sites are clean and intact. No new complaints. The patient is on same antibiotic coverage which included a combination of Rocephin and Flagyl. The patient is also on IV fluids and place. The patient on lactated Ringer. Electrodes are all within normal limits. Creatinine is 0.4. Urine is at 10. Sodium is 141 12/13/2021, the patient is postop day #7. She is having bowel movements. Nevertheless, the output from the NG tube is still considerably higher than she will be kept in place for another 24 hours for gastric decompression. Surgical wound site is dry clean and intact. She is taking popsicles. No other change in her condition. Electrodes are all stable and within normal limits. The nasal same antibiotic coverage. Denies having abdominal pain. No nausea. She is afebrile. 12/14/2021, the patient is postop day #8. The patient is doing extremely well. NG tube was removed and the patient is emanating in the patient is passing bowel movements activity. No nausea or vomiting. Surgical site is clean and a JUANA drain output is essentially serosanguineous. No recent fever or chills. No other complaints otherwise for now. Altered mentation patient is using incentive spirometer.The blood work from today showed a white second of 5.5 with hemoglobin 11.2 and a platelet count of 493, potassium level is at 3.0 to be replaced with a sodium level CXXXV, BUN is at 6 with a creatinine of 0.4 and Acetobacter was at 30. Calcium level is at 7.6. IV Rocephin and Flagyl. Objective - Vital Signs Vital signs: Vital Signs Temp 97.6 F 12/14/21 11:25 Pulse 77 12/14/21 11:25 Resp 16 12/14/21 11:25 BP 119/73 12/14/21 11:25 Pulse Ox 94 L 12/14/21 11:42 FiO2 Intake & Output 12/13/21 12/14/21 12/14/21 18:59 06:59 18:59 Intake Total 240 Output Total 640 530 3 Balance -640 -290 -3 Weight 90.9 kg Intake: Oral 240 Output: Gastric Drainage 600 Drainage 40 30 Right Abdomen 40 30 Urine 500 2 Stool 1 Other: Voiding Method Toilet Toilet Diaper Diaper # Voids 4 4 1 # Bowel Movements 2 1 1 - Exam No acute distress, confused. Patient currently on room air. NG tube was removed HEENT examination is grossly unremarkable. Neck supple. Full range of motion. No adenopathy thyromegaly or neck vein distention. Cardiovascular examination reveals regular rhythm rate. S1-S2 normal. No S3 or S4. No discernible murmur noted. Heart sounds are distant. Lungs reveal scattered bilateral rhonchi. No wheezes. No crackles. Breath sounds equal bilaterally. Abdomen soft without bowel sounds. Abdomen is a bit tender. The patient also has a JUANA drain in the right upper quadrant and there is serous drainage collecting in the JUANA drain. Bowel sounds are absent at this point in time. No direct tenderness. No rebound tenderness. No guarding. Extremities are intact. No cyanosis clubbing or edema. Examination of the skin revealed no evidence of significant rashes, suspicious appearing nevi or other concerning lesions. Neurologic examination is brief but nonfocal. - Labs CBC & Chem 7: 12/14/21 04:40 12/14/21 04:40 Labs: Abnormal Lab Results - Last 24 Hours (Table) 12/13/21 12/14/21 12/14/21 Range/Units 17:47 04:40 04:40 RBC 3.42 L (3.80-5.40) m/uL Hgb 11.2 L (11.4-16.0) gm/dL Plt Count 494 H (150-450) k/uL Sodium 135 L (137-145) mmol/L Potassium 3.3 L 3.0 L (3.5-5.1) mmol/L Chloride 93 L (98-107) mmol/L BUN 6 L (7-17) mg/dL Creatinine 0.44 L (0.52-1.04) mg/dL Calcium 7.6 L (8.4-10.2) mg/dL Microbiology - Last 24 Hours (Table) 12/10/21 05:03 Blood Culture - Preliminary Blood No Growth after 96 hours Assessment and Plan Plan: Postop day # 8, status post exploratory laparoscopy, and laparoscopic cholecystectomy, (12/05/2021), for acute cholecystitis. The patient is still on examination Rocephin and Flagyl. JUANA drain is in place and output is serosanguineous. The patient remains on a combination of Rocephin and Flagyl and the peritoneal fluid cultures of been negative. The NG tube was removed and the patient is able to tolerate clear liquid diet at this point in time. The patient is passing flatus and having bowel movement activity for now. Postoperative ileus, improving and the patient is advancing her diet and the patient's NG tube has been removed. Klebsiella pneumoniae urinary tract infection. Abdominal pain, with possible abdominal sepsis. Mental status changes, secondary to encephalopathy from sepsis, initially be tter, but now a bit worse. Hypotension, likely secondary to sepsis, recovered. Lactic acidosis, secondary to sepsis. History of hypertension. History of hyperlipidemia. History of trigeminal neuralgia/tic douloureux Plan gradually advance diet as tolerated, NG tube is removed continue using incentive spirometer Monitor the output from the JUANA drain Popsicles and been allowed by general surgeon Encouraged use of incentive spirometer Monitor electrolytes General surgeries on the case Infectious disease on the case Hemodynamically stable We'll continue supportive care for now.
[2021-12-15] MEDS: POTASSIUM CHLORIDE ER 20 MEQ TAB.ER PO SCH ×2 (00:54→02:22)
[2021-12-15 04:56] LABS: African American GFR (CKD) >90 (>60 ml/min/1.73 sqM); Anion Gap 7 mmol/L; Blood Urea Nitrogen 4 mg/dL (7-17); Calcium 7.3 mg/dL (8.4-10.2); Carbon Dioxide 32 mmol/L (22-30); Chloride 95 mmol/L (98-107); Glucose 98 mg/dL (74-99); Non-African American GFR(CKD) >90 (>60 ml/min/1.73 sqM); Potassium 3.8 mmol/L (3.5-5.1); Sodium 134 mmol/L (137-145)
[2021-12-15] MEDS: METOCLOPRAMIDE 5 MG/ML 2 ML VIAL IVP SCH ×3 (05:18→16:54)
--- NOTE | 2021-12-15 08:25 | PN ---
PROGRESS NOTE SUBJECTIVE: This is a 71-year-old woman who was admitted with septic shock, also had laparoscopic cholecystectomy. The NG tube was not removed at this time. No chest pain or palpitations. No fever. PHYSICAL EXAMINATION: VITAL SIGNS: Pulse is 75, blood pressure 160/83, respirations 18. HEENT: Conjunctivae normal. NECK: No jugular venous distention. CARDIOVASCULAR: S1, S2 muffled. RESPIRATORY: Breath sounds diminished at the bases. Few rhonchi. No crackles. ABDOMEN: Soft status post surgery. NERVOUS SYSTEM: No focal deficits. LABS: Sodium 130, potassium 3. ASSESSMENT: 1. Status post septic shock and laparoscopic cholecystectomy. 2. Postoperative ileus. 3. Toxic encephalopathy. 4. Sinus tachycardia. 5. Multiple medical issues. RECOMMENDATIONS: Recommended to continue current management and follow closely with surgery. Repeat labs, otherwise prognosis is guarded. Further recommendations to follow. MMODL / IJN: [id number] /
[2021-12-15] MEDS: LACTULOSE 20 GM/30 ML CUP PO SCH (08:49)
[2021-12-15 09:18] LABS: Basophils # (A) 0.04 X 10*3/uL (0.00-0.10); Basophils % (A) 0.7 %; Eosinophils # (A) 0.37 X 10*3/uL (0.04-0.35); Eosinophils % (A) 6.1 %; HCT 28.6 % (37.2-46.3); HGB 9.5 g/dL (12.0-15.0); Immature Grans, Automated 2.1 %; Lymphocytes # (A) 1.04 X 10*3/uL (0.90-5.00); Lymphocytes % (A) 17.1 %; MCH 31.9 pg (27.0-32.0); MCHC 33.2 g/dL (32.0-37.0); Mean Platelet Volume 9.1 fL (9.5-12.2); Monocytes # (A) 0.53 X 10*3/uL (0.20-1.00); Monocytes % (A) 8.7 %; NRBC Per 100 WBC 0 /100 WBCS (0.0-0.0); Neutrophils # (A) 3.96 X 10*3/uL (1.80-7.70); Neutrophils % (A) 65.3 %; Platelet Count 454 X 10*3/uL (140-440); RBC 2.98 X 10*6/uL (4.10-5.20); RDW 13.2 % (11.5-14.5); WBC 6.07 X 10*3/uL (4.50-10.00)
[2021-12-15] MEDS: lisinopriL 10 MG TAB PO SCH (09:23)
[2021-12-15] MEDS: ATORVASTATIN 20 MG TAB PO SCH (09:23)
[2021-12-15] MEDS: ASPIRIN 81 MG PO SCH (09:23)
[2021-12-15] MEDS: carBAMazepine 200 MG TAB PO SCH ×4 (09:23→23:08)
[2021-12-15] MEDS: HEPARIN SODIUM,PORCINE/PF 5,000 UNIT/0.5 ML SYRINGE SQ SCH ×3 (09:23→23:11)
[2021-12-15] MEDS: GABAPENTIN 100 MG CAP PO SCH ×3 (09:23→21:47)
[2021-12-15] MEDS: METOPROLOL TARTRATE 50 MG TAB PO SCH ×2 (09:24→21:47)
[2021-12-15] MEDS: metroNIDAZOLE 500 MG TAB PO SCH ×3 (09:24→21:46)
[2021-12-15] MEDS: bisacodyL 10 MG SUPP RECTAL SCH (10:52)
[2021-12-15] MEDS ORDERED: FUROSEMIDE 10 MG/ML 4 ML VIAL IV STA (10:53)
--- NOTE | 2021-12-15 12:12 | P.PN ---
Subjective Progress Note Date: 12/15/21 Principal diagnosis: Abdominal pain Patient continuing to gradually improve. Tolerating clear liquids. No nausea or vomiting. Still having loose stools. White blood cell count 6 today. She is afebrile. Denies pain. Objective - Vital Signs Vital signs: Vital Signs Temp 97.5 F L 12/15/21 11:12 Pulse 62 12/15/21 11:12 Resp 16 12/15/21 11:12 BP 119/75 12/15/21 11:12 Pulse Ox 93 L 12/15/21 11:12 FiO2 Intake & Output 12/14/21 12/15/21 12/15/21 18:59 06:59 18:59 Intake Total 480 Output Total 3 31 Balance -3 449 Weight 90.9 kg Intake: Oral 480 Output: Drainage 30 Right Abdomen 30 Urine 2 Stool 1 1 Other: Voiding Method Toilet Toilet Toilet Diaper Diaper Diaper # Voids 1 4 # Bowel Movements 1 1 1 - Exam Abdomen: Soft, nondistended, incision clean and dry, JUANA is serous - Labs CBC & Chem 7: 12/15/21 04:23 12/15/21 04:23 Labs: Abnormal Lab Results - Last 24 Hours (Table) 12/14/21 12/14/21 12/15/21 Range/Units 14:56 22:11 04:23 RBC 2.98 L (4.10-5.20) X 10*6/uL Hgb 9.5 L (12.0-15.0) g/dL Hct 28.6 L (37.2-46.3) % Plt Count 454 H (140-440) X 10*3/uL MPV 9.1 L (9.5-12.2) fL Immature Gran # 0.13 H (0.00-0.04) X 10*3/uL Eosinophils # 0.37 H (0.04-0.35) X 10*3/uL Sodium (137-145) mmol/L Potassium 3.1 L 3.0 L (3.5-5.1) mmol/L Chloride (98-107) mmol/L Carbon Dioxide (22-30) mmol/L BUN (7-17) mg/dL Creatinine (0.52-1.04) mg/dL Calcium (8.4-10.2) mg/dL 12/15/21 Range/Units 04:23 RBC (4.10-5.20) X 10*6/uL Hgb (12.0-15.0) g/dL Hct (37.2-46.3) % Plt Count (140-440) X 10*3/uL MPV (9.5-12.2) fL Immature Gran # (0.00-0.04) X 10*3/uL Eosinophils # (0.04-0.35) X 10*3/uL Sodium 134 L (137-145) mmol/L Potassium (3.5-5.1) mmol/L Chloride 95 L (98-107) mmol/L Carbon Dioxide 32 H (22-30) mmol/L BUN 4 L (7-17) mg/dL Creatinine 0.41 L (0.52-1.04) mg/dL Calcium 7.3 L (8.4-10.2) mg/dL Microbiology - Last 24 Hours (Table) 12/10/21 05:03 Blood Culture - Preliminary Blood No Growth after 120 hours Assessment and Plan (1) Ischemic bowel disease Narrative/Plan: 71-year-old female doing well at this time. Continue gradually advancing diet. Ambulate. Possible discharge or rehab early this week. Current Visit: Yes Status: Acute Code(s): K55.9 - VASCULAR DISORDER OF INTESTINE, UNSPECIFIED SNOMED Code(s): 11756438
--- NOTE | 2021-12-15 14:11 | P.PN ---
Subjective Progress Note Date: 12/15/21 This is a 71-year-old female patient with a known history of hypertension, hyperlipidemia, tic douloureux. She presented to the emergency room yesterday for nausea vomiting and abdominal pain. She was also having altered mental status, hypotension and diaphoresis. CT angiogram of the chest abdomen and pelvis revealed no arterial aneurysms or dissection. No evidence of pulmonary embolism. There is a possible small bowel ileus. Interstitial infiltrates and atelectasis at the lung bases. She was initially admitted to the selective care unit. Approximately 2:00 this morning the patient was found to be more lethargic with complaints of diffuse abdominal pain most notably in the suprapubic region. She also was hypotensive. She was given a liter of normal saline. Computed tomography scan of the brain revealed mild atrophy and chronic small vessel ischemia. No acute intracranial abnormality. She was transferred to the intensive care unit for closer monitoring. She is seen today in [facility]. She is awake and alert. She is complaining of fatigue and is drowsy at times. She is oriented. She did require norepinephrine infusion at 4 mcg/m. She is on normal saline now at 130 ML's per hour. She has oxygen at 3 L/m. Follow-up CAT scan of the abdomen revealed development of some free fluid in the pelvis. There is constipation and large bowel ileus not significantly differen t. Possibility. Tinnitus should be considered. Dilated gallbladder suggestive of cholecystitis. Culture data and atelectasis of the lung bases. Surgical consult is pending. Urine culture pending. White count 14.2. Hemoglobin 14.4. MCV 104. Sodium 131. Potassium 4.4. Bicarb 19. BUN 15. Creatinine 0.72. Glucose 131. Lactic acid 5.0. AST 45. ALT 21. Alk phos 778. Chronic virus by PCR not detected. She had been given vancomycin and meropenem. Progress note dated 12/06/2021. 71-year-old female that we saw yesterday in consultation, for possible sepsis and hypotension. She was initially admitted to the general medical floor. She has a history of hypertension, hyperlipidemia, and trigeminal neuralgia. We are concerned about abdominal sepsis. She went for laparoscopic exploration, and ended up with a laparoscopic cholecystectomy, for cholecystitis. The patient is currently resting comfortably in the ICU, room 265. Blood cultures are apparently positive for gram-positive cocci. The patient is on vancomycin and meropenem. Today, she is on 2 L of oxygen. The patient remains on lactated Ringer's at 130 mL an hour. In addition, the patient's on norepinephrine at 0.05 mcg/kg/m. She had some tachycardia, and was given some beta tristen from the hospital service. Currently labs include a white count of 7.9, hemoglobin 13.3, hematocrit 41.5, and a platelet count of 315,000. Sodium 133, potassium 4.9, chlorides 106, CO2 22, BUN 20, creatinine 0.62. Albumin was 2.4. Chest x- ray shows bibasilar atelectasis. Blood cultures were positive for staphylococcus epidermidis. Progress note dated 12/07/2021. 72-year-old female seen 2 days ago in consultation, her sepsis and hypotension. The patient went to the operating room, and had a laparoscopic cholecystectomy, for cholecystitis. Apparently last night, she developed significant confusion and disorientation. Currently, the patient's on 4 L nasal cannula. She's receiving lactated Ringer's at 130 mL an hour. Today is postop day #2. The patient did go for computed tomography scan of the brain which was negative, and a CT angiogram which was also negative. Urine is showing evidence of gram-negat josefina bacilli. She remains on vancomycin and meropenem. White count 6.5, hemoglobin 12, hematocrit 36.9, and platelet count 276,000. Sodium 133, potassium 4.7, chlorides 103, CO2 26, BUN 17, creatinine 0.63. Troponins were 0.120 and 0.461. Cardiology was consulted. TSH was normal. Progress note dated 12/08/2021. 71-year-old female seen 3 days ago consultation for sepsis and hypotension. The patient ended up going to the operating room, and had a laparoscopic cholecystectomy for cholecystitis. More recently, she developed significant confusion, and disorientation. This morning, she was going for an MRI scan. She's currently on 2 L of oxygen. She's receiving lactated Ringer's at 130 mL an hour. Staphylococcus epidermidis was found in the blood. Klebsiella species was found in the urine. The patient is on meropenem. White count 7.1, hemoglobin 12.5, hematocrit 37.7, and platelet count 260,000. Sodium 134, potassium 3.8, chlorides 101, CO2 25, BUN 12, creatinine 0.48. Progress note dated 12/09/2021. 71-year-old female, seen 4 days ago in consultation for sepsis and hypotension. The patient was thought to have an intra-abdominal process, and went to the operating room, and had a laparoscopic cholecystectomy for cholecystitis. She developed postoperative confusion and disorientation, likely metabolic in origin. MRI scan of the brain was negative. She's doing better each day. Currently, she is on room air. Her lactated Ringer's is running at 60 mL an hour. She will get Lasix 60 mg IV push once today. Clinically, she is much more awake and alert. White count 6.1, hemoglobin 12.2, hematocrit 38.1, with a normal platelet count. Sodium 133, potassium 3.2, chlorides 97, CO2 27, BUN 13, creatinine 0.54. Urine cultures are positive for Klebsiella pneumoniae. Blood cultures were positive for coag-negative staph. She is currently on meropenem. On 12/10/2021, the patient is doing well. She is postcholecystectomy the patient is postop day #4. She also had a UTI with Klebsiella. The patient denies having any new complaints. No fever or chills. No hemodynamic instability. She is breathing comfortably and she is on room air oxygen. No nausea. No emesis. No diarrhea. This afternoon, an NG tube was inserted and the patient was having his abdominal pain and distention. She is nothing by mouth and the NG tube is still in place and the patient is still elevated output from her NG tube. No flatness. No abdominal distention. Denies any si gnificant pain. She is afebrile. Her blood work, the patient's at present 8.3 with hemoglobin 12.4 and a platelet count of 49. He is a 30 with a creatinine of 0.5 and his sodium level is at 140. The blood culture was positive for staph epidermidis, the fluid cultures also negative. The patient's is assumed to be contamination. The patient remains on Rocephin 2 g every 24 hours and the patient is also on oral Flagyl.Apparently the fecal management system that was draining diarrhea was removed in the last 24-48 hours. It sounds like she has not moved her bowels since then. She has tolerating small volume of clear liquids at this time. 12/11/2021, the patient is essentially sitting up on a chair and she is calm and comfortable and she is postop day #5. As mentioned earlier, the patient developed a component of ileus yesterday and the patient required an NG tube insertion. NG tube remains in place. Meanwhile, the patient was given laxative suppositories and she had a bowel movement yesterday and today. Bowel sounds are hypoactive. The patient is able to produce stool. Abdomen is nondistended. JUANA drain is in place. The patient is taking Dulcolax rectally. She is on IV fluids lactated Ringer at the rate of 60 mL an hour. She remains on examination Flagyl and Rocephin. No nausea. No chest pain. Altered mentation. Her blood work, the patient has a white cell count 9.7 with hemoglobin of 11.7 and a platelet count of 403. Patient also has sodium of 140, potassium is 3.4, chloride of 99 and a bicarb level of 27. The BUN is a 30 with a creatinine of 0.5. 12/12/2021, the patient is postop day #6. NG tube is in place. Output is about 300 over the past 24 hours. As such, NG tube will be kept in place. The patient's producing liquid bowel movement. No abdominal distention. Bowel sounds are hypoactive. The patient is taking popsicles. JUANA drain is in place. Surgical wound sites are clean and intact. No new complaints. The patient is on same antibiotic coverage which included a combination of Rocephin and Flagyl. The patient is also on IV fluids and place. The patient on lactated Ringer. Electrodes are all within normal limits. Creatinine is 0.4. Urine is at 10. Sodium is 141 12/13/2021, the patient is postop day #7. She is having bowel movements. Nevertheless, the output from the NG tube is still considerably higher than she will be kept in place for another 24 hours for gastric decompression. Surgical wound site is dry clean and intact. She is taking popsicles. No other change in her condition. Electrodes are all stable and within normal limits. The nasal same antibiotic coverage. Denies having abdominal pain. No nausea. She is afebrile. 12/14/2021, the patient is postop day #8. The patient is doing extremely well. NG tube was removed and the patient is emanating in the patient is passing bowel movements activity. No nausea or vomiting. Surgical site is clean and a JUANA drain output is essentially serosanguineous. No recent fever or chills. No other complaints otherwise for now. Altered mentation patient is using incentive spirometer.The blood work from today showed a white second of 5.5 with hemoglobin 11.2 and a platelet count of 493, potassium level is at 3.0 to be replaced with a sodium level CXXXV, BUN is at 6 with a creatinine of 0.4 and Acetobacter was at 30. Calcium level is at 7.6. IV Rocephin and Flagyl. 12/15/2021, patient continued to improve. Tolerating clear liquid diet. No emesis. Positive bowel sounds and the patient is having loose stools. No new complaint otherwise for now. She is postop day #9. The surgical and sized dry clean and intact. The blood work shows a white cell count is 6 with a hemoglobin of 9.5. GI is at 4 with a creatinine of 0.4 and sodium level is at 134. Objective - Vital Signs Vital signs: Vital Signs Temp 97.5 F L 12/15/21 11:12 Pulse 62 12/15/21 11:12 Resp 16 12/15/21 11:12 BP 119/75 12/15/21 11:12 Pulse Ox 93 L 12/15/21 11:12 FiO2 Intake & Output 12/14/21 12/15/21 12/15/21 18:59 06:59 18:59 Intake Total 480 Output Total 3 31 Balance -3 449 Weight 90.9 kg Intake: Oral 480 Output: Drainage 30 Right Abdomen 30 Urine 2 Stool 1 1 Other: Voiding Method Toilet Toilet Toilet Diaper Diaper Diaper # Voids 1 4 # Bowel Movements 1 1 1 - Exam No acute distress, confused. Patient currently on room air. HEENT examination is grossly unremarkable. Neck supple. Full range of motion. No adenopathy thyromegaly or neck vein distention. Cardiovascular examination reveals regular rhythm rate. S1-S2 normal. No S3 or S4. No discernible murmur noted. Heart sounds are distant. Lungs reveal scattered bilateral rhonchi. No wheezes. No crackles. Breath sounds equal bilaterally. Abdomen soft without bowel sounds. Abdomen is a bit tender. The patient also has a JUANA drain in the right upper quadrant and there is serous drainage collecting in the JUANA drain. Bowel sounds are absent at this point in time. No direct tenderness. No rebound tenderness. No guarding. Extremities are intact. No cyanosis clubbing or edema. Examination of the skin revealed no evidence of significant rashes, suspicious appearing nevi or other concerning lesions. Neurologic examination is brief but nonfocal. - Labs CBC & Chem 7: 12/15/21 04:23 12/15/21 04:23 Labs: Abnormal Lab Results - Last 24 Hours (Table) 12/14/21 12/14/21 12/15/21 Range/Units 14:56 22:11 04:23 RBC 2.98 L (4.10-5.20) X 10*6/uL Hgb 9.5 L (12.0-15.0) g/dL Hct 28.6 L (37.2-46.3) % Plt Count 454 H (140-440) X 10*3/uL MPV 9.1 L (9.5-12.2) fL Immature Gran # 0.13 H (0.00-0.04) X 10*3/uL Eosinophils # 0.37 H (0.04-0.35) X 10*3/uL Sodium (137-145) mmol/L Potassium 3.1 L 3.0 L (3.5-5.1) mmol/L Chloride (98-107) mmol/L Carbon Dioxide (22-30) mmol/L BUN (7-17) mg/dL Creatinine (0.52-1.04) mg/dL Calcium (8.4-10.2) mg/dL 12/15/21 Range/Units 04:23 RBC (4.10-5.20) X 10*6/uL Hgb (12.0-15.0) g/dL Hct (37.2-46.3) % Plt Count (140-440) X 10*3/uL MPV (9.5-12.2) fL Immature Gran # (0.00-0.04) X 10*3/uL Eosinophils # (0.04-0.35) X 10*3/uL Sodium 134 L (137-145) mmol/L Potassium (3.5-5.1) mmol/L Chloride 95 L (98-107) mmol/L Carbon Dioxide 32 H (22-30) mmol/L BUN 4 L (7-17) mg/dL Creatinine 0.41 L (0.52-1.04) mg/dL Calcium 7.3 L (8.4-10.2) mg/dL Microbiology - Last 24 Hours (Table) 12/10/21 05:03 Blood Culture - Preliminary Blood No Growth after 120 hours Assessment and Plan Plan: Postop day # 9, status post exploratory laparoscopy, and laparoscopic cholecystectomy, (12/05/2021), for acute cholecystitis. The patient is still on examination Rocephin and Flagyl. JUANA drain is in place and output is serosanguineous. The patient remains on a combination of Rocephin and Flagyl and the peritoneal fluid cultures of been negative. The NG tube was removed and the patient is able to tolerate clear liquid diet at this point in time. The patient is passing flatus and having bowel movement activity for now. She is tolerating clear liquid diet. Postoperative ileus, recovered and the NG tube was removed improving and the patient is advancing her diet and the patient's NG tube has been removed. Klebsiella pneumoniae urinary tract infection. Abdominal pain, with possible abdominal sepsis. Mental status changes, secondary to encephalopathy from sepsis, initially better, but now a bit worse. Hypotension, likely secondary to sepsis, recovered. Lactic acidosis, secondary to sepsis. History of hypertension. History of hyperlipidemia. History of trigeminal neuralgia/tic douloureux Plan gradually advance diet as tolerated, NG tube is removed continue using incentive spirometer Monitor the output from the JUANA drain No active pulmonary or cardiac issue and I'm going to sign off the case
[2021-12-15] MEDS: LACTATED RINGERS 1,000 ML IV SCH (23:14)
[2021-12-16] MEDS: METOCLOPRAMIDE 5 MG/ML 2 ML VIAL IVP SCH ×4 (03:33→17:49)
--- NOTE | 2021-12-16 03:43 | PN ---
PROGRESS NOTE SUBJECTIVE: This is a 71-year-old woman who was admitted after septic shock and laparoscopic cholecystectomy, improved significantly. NG tube is removed. No chest pain. No palpitation. OBJECTIVE: VITAL SIGNS: Pulse is 62 blood pressure is 119/70, respirations 16. CHEST: Clear to auscultation. CARDIOVASCULAR: S1, S2 muffled. ABDOMEN: Soft, nontender. NERVOUS SYSTEM: No focal deficits. LABS: Reviewed. Sodium 135, hemoglobin 9.5. ASSESSMENT: 1. Status post septic shock and laparoscopic cholecystectomy. 2. Postoperative ileus. 3. Toxic encephalopathy, improving. 4. Sinus tachycardia. 5. Multiple medical issues. RECOMMENDATIONS AND DISCUSSION: Recommend to continue current management and symptomatic treatment. Increase ambulation. Incentive spirometry. The patient appears to be improving. We will follow the patient closely with multiple consultants. DVT prophylaxis. See orders for details. Further recommendations to follow. MMODL / IJN: [id number] /
--- NOTE | 2021-12-16 07:46 | XR ---
EXAMINATION TYPE: XR chest 1V portable DATE OF EXAM: 12/16/2021 HISTORY: Shortness of breath. COMPARISON: 12/11/2021 TECHNIQUE: Single view of the chest is submitted. FINDINGS: Demonstrated are scattered senescent parenchymal change. Resolution discoid atelectasis right lung base. Persistent increased density left lower lobe may refl ect atelectasis, infiltrate and/or effusion. Right IJ central venous line unchanged in position. The heart is stable. Hilar and mediastinal structures are within normal limits. Degenerative changes are seen of the dorsal spine. IMPRESSION: 1. Persistent increased density left lower lobe may reflect atelectasis, infiltrate and/or effusion.
[2021-12-16] MEDS: METOPROLOL TARTRATE 50 MG TAB PO SCH ×2 (09:26→21:39)
[2021-12-16] MEDS: HEPARIN SODIUM,PORCINE/PF 5,000 UNIT/0.5 ML SYRINGE SQ SCH ×2 (09:26→16:14)
[2021-12-16] MEDS: carBAMazepine 200 MG TAB PO SCH ×4 (09:26→21:38)
[2021-12-16] MEDS: ASPIRIN 81 MG PO SCH (09:27)
[2021-12-16] MEDS: bisacodyL 10 MG SUPP RECTAL SCH (09:27)
[2021-12-16] MEDS: lisinopriL 10 MG TAB PO SCH (09:27)
[2021-12-16] MEDS: metroNIDAZOLE 500 MG TAB PO SCH ×3 (09:27→21:39)
[2021-12-16] MEDS: LACTULOSE 20 GM/30 ML CUP PO SCH (09:27)
[2021-12-16] MEDS: ATORVASTATIN 20 MG TAB PO SCH (09:27)
[2021-12-16] MEDS: GABAPENTIN 100 MG CAP PO SCH ×3 (09:27→21:39)
[2021-12-16 10:19] LABS: Basophils # (A) 0.04 X 10*3/uL (0.00-0.10); Basophils % (A) 0.8 %; Eosinophils # (A) 0.31 X 10*3/uL (0.04-0.35); Eosinophils % (A) 6.5 %; HCT 28.1 % (37.2-46.3); HGB 9.4 g/dL (12.0-15.0); Immature Grans, Automated 1.3 %; Lymphocytes # (A) 1.03 X 10*3/uL (0.90-5.00); Lymphocytes % (A) 21.5 %; MCH 32.4 pg (27.0-32.0); MCHC 33.5 g/dL (32.0-37.0); MCV 96.9 fL (80.0-97.0); Mean Platelet Volume 9.3 fL (9.5-12.2); Monocytes # (A) 0.48 X 10*3/uL (0.20-1.00); NRBC Per 100 WBC 0 /100 WBCS (0.0-0.0); Neutrophils # (A) 2.87 X 10*3/uL (1.80-7.70); Neutrophils % (A) 59.9 %; Platelet Count 503 X 10*3/uL (140-440); RDW 13.4 % (11.5-14.5); WBC 4.79 X 10*3/uL (4.50-10.00)
[2021-12-16 10:50] LABS: African American GFR (CKD) 120.6 (60.0-200.0); BUN/Creat Ratio 10.75 Ratio (12.00-20.00); Blood Urea Nitrogen 4.3 mg/dL (9.0-27.0); Calcium 7.1 mg/dL (8.7-10.3); Non-African American GFR(CKD) 104.1 (60.0-200.0); Potassium 3.1 mmol/L (3.5-5.5)
--- NOTE | 2021-12-16 11:48 | P.PN ---
Subjective Progress Note Date: 12/16/21 Principal diagnosis: Abdominal pain Patient doing well today. She is ambulating in the room by herself at this point. Still having loose stools. JUANA is serous. Denies pain. Objective - Vital Signs Vital signs: Vital Signs Temp 98 F 12/16/21 04:43 Pulse 78 12/16/21 04:43 Resp 16 12/16/21 04:43 BP 150/88 12/16/21 04:43 Pulse Ox 94 L 12/16/21 04:43 FiO2 Intake & Output 12/15/21 12/16/21 12/16/21 18:59 06:59 18:59 Intake Total 530 300 Output Total 40 10 Balance 490 290 Intake: Intake, IV Titration 530 Amount Lactated Ringers 1,000 ml 480 @ 40 mls/hr IV .Q24H MCKENNA Rx#:[id number] cefTRIAXone 2 gm In 50 Sodium Chloride 0.9% 50 ml @ 100 mls/hr IVPB Q24HR MCKENNA Rx#:[id number] Oral 300 Output: Drainage 40 10 Right Abdomen 40 10 Other: Voiding Method Toilet Toilet Diaper Diaper # Voids 2 6 1 # Bowel Movements 1 - Exam Abdomen: Soft, nondistended, incision clean and dry, JUANA is serous - Labs CBC & Chem 7: 12/16/21 06:54 12/16/21 06:54 Labs: Abnormal Lab Results - Last 24 Hours (Table) 12/16/21 12/16/21 Range/Units 06:54 06:54 RBC 2.90 L (4.10-5.20) X 10*6/uL Hgb 9.4 L (12.0-15.0) g/dL Hct 28.1 L (37.2-46.3) % MCH 32.4 H (27.0-32.0) pg Plt Count 503 H (140-440) X 10*3/uL MPV 9.3 L (9.5-12.2) fL Immature Gran # 0.06 H (0.00-0.04) X 10*3/uL Potassium 3.1 L (3.5-5.5) mmol/L Carbon Dioxide 31.0 H (20.0-27.5) mmol/L Anion Gap 9.00 L (10.00-18.00) mmol/L BUN 4.3 L (9.0-27.0) mg/dL Creatinine 0.4 L (0.6-1.5) mg/dL BUN/Creatinine Ratio 10.75 L (12.00-20.00) Ratio Calcium 7.1 L (8.7-10.3) mg/dL Microbiology - Last 24 Hours (Table) 12/10/21 05:03 Blood Culture - Final Blood No Growth after 144 hours Assessment and Plan (1) Ischemic bowel disease Narrative/Plan: Patient doing well at this time. Continue regular diet. Remove JUANA drain. Stable for discharge to home or rehab per primary service. Current Visit: Yes Status: Acute Code(s): K55.9 - VASCULAR DISORDER OF INTES LANRE, UNSPECIFIED SNOMED Code(s): 85235340
--- NOTE | 2021-12-16 12:36 | US ---
EXAMINATION TYPE: US venous doppler duplex LE DATE OF EXAM: 12/16/2021 12:16 PM COMPARISON: NONE CLINICAL HISTORY: edema. SIDE PERFORMED: TECHNIQUE: The lower extremity deep venous system is examined utilizing real time linear array sonog rukhsana with graded compression, doppler sonography and color-flow sonography. VESSELS IMAGED: Common Femoral Vein Deep Femoral Vein Greater Saphenous Vein * Femoral Vein Popliteal Vein Small Saphenous Vein * Proximal Calf Veins (* superficial vessels) Right Leg: Negative for DVT Left Leg: Negative for DVT Left Kenney's cyst measuring 4.0 x 1.2 x 2.8cm IMPRESSION: No evidence for DVT.
[2021-12-16] MEDS: FUROSEMIDE 10 MG/ML 4 ML VIAL IV SCH (12:42)
[2021-12-16] MEDS: POTASSIUM CHLORIDE ER 20 MEQ TAB.ER PO SCH ×2 (16:14→21:39)
[2021-12-16] MEDS: PANTOPRAZOLE 40 MG TABLET PO SCH (16:14)
[2021-12-17] MEDS: METOCLOPRAMIDE 5 MG/ML 2 ML VIAL IVP SCH ×2 (00:06→05:45)
[2021-12-17] MEDS: HEPARIN SODIUM,PORCINE/PF 5,000 UNIT/0.5 ML SYRINGE SQ SCH ×3 (00:06→15:44)
[2021-12-17] MEDS: PANTOPRAZOLE 40 MG TABLET PO SCH (07:51)
[2021-12-17] MEDS: ATORVASTATIN 20 MG TAB PO SCH (07:51)
[2021-12-17] MEDS: METOPROLOL TARTRATE 50 MG TAB PO SCH ×2 (07:51→20:25)
[2021-12-17] MEDS: POTASSIUM CHLORIDE ER 20 MEQ TAB.ER PO SCH ×4 (07:51→20:30)
[2021-12-17] MEDS: metroNIDAZOLE 500 MG TAB PO SCH ×3 (07:51→20:24)
[2021-12-17] MEDS: ASPIRIN 81 MG PO SCH (07:51)
[2021-12-17] MEDS: GABAPENTIN 100 MG CAP PO SCH ×3 (07:52→20:24)
[2021-12-17] MEDS: lisinopriL 10 MG TAB PO SCH (07:52)
[2021-12-17] MEDS: carBAMazepine 200 MG TAB PO SCH ×4 (07:52→20:25)
[2021-12-17] MEDS: FUROSEMIDE 10 MG/ML 4 ML VIAL IV SCH (07:52)
[2021-12-17 08:38] LABS: Basophils # (A) 0.04 X 10*3/uL (0.00-0.10); Basophils % (A) 0.8 %; Eosinophils # (A) 0.31 X 10*3/uL (0.04-0.35); Eosinophils % (A) 6.1 %; HCT 29.3 % (37.2-46.3); HGB 9.9 g/dL (12.0-15.0); Immature Grans, Automated 1.8 %; Lymphocytes # (A) 1.12 X 10*3/uL (0.90-5.00); MCHC 33.8 g/dL (32.0-37.0); MCV 94.8 fL (80.0-97.0); Monocytes # (A) 0.51 X 10*3/uL (0.20-1.00); NRBC Per 100 WBC 0 /100 WBCS (0.0-0.0); Neutrophils # (A) 3.01 X 10*3/uL (1.80-7.70); Neutrophils % (A) 59.3 %; Platelet Count 557 X 10*3/uL (140-440); RBC 3.09 X 10*6/uL (4.10-5.20); RDW 13.4 % (11.5-14.5); WBC 5.08 X 10*3/uL (4.50-10.00)
--- NOTE | 2021-12-17 08:50 | PN ---
PROGRESS NOTE SUBJECTIVE: This 71-year-old woman was admitted after septic shock and also laparoscopic cholecystomy, also had NG tube. The patient with change in mental status. The patient has now significant fluid retention. The patient is complaining of leg pain also. The patient received a dose of Lasix with not much relief in the symptoms. The portable chest x-ray was ordered by myself, which was reviewed, showed some atelectasis. A venous Doppler which was ordered by me also was negative. PAST MEDICAL HISTORY: Reviewed. REVIEW OF SYSTEMS: Fourteen point review of systems negative except as mentioned earlier. MEDICATIONS: Reviewed include [place]. Doses and rest of the medications noted. PHYSICAL EXAMINATION: VITAL SIGNS: Pulse is 68, blood pressure ntd_, respirations 16. HEENT: Conjunctivae normal. NECK: n. CARDIOVASCULAR: S1, S2. RESPIRATIONS: A few scattered rhonchi. ABDOMEN: Soft, status post surgery. LABORATORY DATA: Hemoglobin 9.4. Potassium 3.1. ASSESSMENT: 1. Status post septic shock and laparoscopic cholecystectomy. 2. Postoperative ileus. 3. Atelectasis. 4. Toxic encephalopathy, improving. 5. Possible fluid overload. 6. Leg swelling, but negative for DVT. 7. Sinus tachycardia. 8. Multiple medical issues. RECOMMENDATIONS: Continue current as mentioned earlier. Ultrasound is found to be negative. However, I would stop the IV fluids. Recommend IV Lasix. Monitor creatinine and BUN closely. Otherwise, I would also recommend supplement potassium . Further recommendations to follow. Prognosis guarded. MMODL / IJN: [id number] / JACKELYN
[2021-12-17 08:59] LABS: ALT 51 U/L (8-44); AST 116 U/L (13-35); African American GFR (CKD) 112.1 (60.0-200.0); Albumin 2.7 g/dL (3.8-4.9); Albumin/Globulin Ratio 1.35 (1.60-3.17); Alkaline Phosphatase 75 U/L (41-126); Calcium 7.4 mg/dL (8.7-10.3); Carbon Dioxide 29.9 mmol/L (20.0-27.5); Chloride 97 mmol/L (96-109); Glucose 104 mg/dL (70-110); Non-African American GFR(CKD) 96.7 (60.0-200.0); Potassium 3.1 mmol/L (3.5-5.5); Sodium 139 mmol/L (135-145); Total Bilirubin <0.15 mg/dL (0.30-1.20); Total Protein 4.7 g/dL (6.2-8.2)
--- NOTE | 2021-12-17 10:09 | P.PN ---
Subjective Progress Note Date: 12/17/21 CHIEF COMPLAINT: Abdominal pain with sepsis HISTORY OF PRESENT ILLNESS: Patient is status post diagnostic laparoscopy and laparoscopic cholecystectomy for cholecystitis on 12/05/21. She denies any abdominal pain. She denies any nausea or vomiting. She is having loose bowel movements. she is up and ambulating. She is afebrile. WBC is 5.08 Hgb 9.9 platelets 557 sodium is 139 potassium 3.1 creatinine 0.5 albumin 2. She is post be discharged to [facility]. JUANA drain removed yesterday. PHYSICAL EXAM: VITAL SIGNS: Reviewed. GENERAL: Well-developed in no acute distress. HEENT: No sclera icterus. Extraocular movements grossly intact. Moist buccal mucosa. Head is atraumatic, normocephalic. ABDOMEN: Soft. Nondistended. Nontender. Incision sites clean dry and intact. NEUROLOGIC: Patient is awake and answering questions appropriately ASSESSMENT: 1. Acute cholecystitis status post exploratory laparoscopy and laparoscopic cholecystectomy 2. Abdominal sepsis 3. Encephalopathy likely due to sepsis 4. Postoperative ileus resolved 5. Hypokalemia 6. UTI 7. Ischemic bowel PLAN: -Patient is stable for discharge from surgical standpoint -Continue regular diet -Continue to correct potassium -Continue to increase activity level -DVT prophylaxis subcu heparin Physician Multiplex Operator note has been reviewed by physician. Signing provider agrees with the documented findings, assessment, and plan of care. Objective - Vital Signs Vital signs: Vital Signs Temp 98.4 F 12/17/21 05:28 Pulse 80 12/17/21 07:49 Resp 16 12/17/21 05:28 BP 148/76 12/17/21 07:49 Pulse Ox 93 L 12/17/21 05:28 FiO2 Intake & Output 12/16/21 12/17/21 12/17/21 18:59 06:59 18:59 Output Total 40 Balance -40 Output: Drainage 40 Right Abdomen 40 Other: Voiding Method Toilet Toilet Diaper Diaper Incontinent # Voids 1 4 - Labs CBC & Chem 7: 12/17/21 05:38 12/17/21 05:38 Labs: Abnormal Lab Results - Last 24 Hours (Table) 12/16/21 12/16/21 12/17/21 Range/Units 06:54 06:54 05:38 RBC 2.90 L 3.09 L (4.10-5.20) X 10*6/uL Hgb 9.4 L 9.9 L (12.0-15.0) g/dL Hct 28.1 L 29.3 L (37.2-46.3) % MCH 32.4 H (27.0-32.0) pg Plt Count 503 H 557 H (140-440) X 10*3/uL MPV 9.3 L 9.0 L (9.5-12.2) fL Immature Gran # 0.06 H 0.09 H (0.00-0.04) X 10*3/uL Potassium 3.1 L (3.5-5.5) mmol/L Carbon Dioxide 31.0 H (20.0-27.5) mmol/L Anion Gap 9.00 L (10.00-18.00) mmol/L BUN 4.3 L (9.0-27.0) mg/dL Creatinine 0.4 L (0.6-1.5) mg/dL BUN/Creatinine Ratio 10.75 L (12.00-20.00) Ratio Calcium 7.1 L (8.7-10.3) mg/dL Total Bilirubin (0.30-1.20) mg/dL AST (13-35) U/L ALT (8-44) U/L Total Protein (6.2-8.2) g/dL Albumin (3.8-4.9) g/dL Albumin/Globulin Ratio (1.60-3.17) g/dL 12/17/21 Range/Units 05:38 RBC (4.10-5.20) X 10*6/uL Hgb (12.0-15.0) g/dL Hct (37.2-46.3) % MCH (27.0-32.0) pg Plt Count (140-440) X 10*3/uL MPV (9.5-12.2) fL Immature Gran # (0.00-0.04) X 10*3/uL Potassium 3.1 L (3.5-5.5) mmol/L Carbon Dioxide 29.9 H (20.0-27.5) mmol/L Anion Gap (10.00-18.00) mmol/L BUN 6.0 L (9.0-27.0) mg/dL Creatinine 0.5 L (0.6-1.5) mg/dL BUN/Creatinine Ratio (12.00-20.00) Ratio Calcium 7.4 L (8.7-10.3) mg/dL Total Bilirubin <0.15 L (0.30-1.20) mg/dL AST 116 H (13-35) U/L ALT 51 H (8-44) U/L Total Protein 4.7 L (6.2-8.2) g/dL Albumin 2.7 L (3.8-4.9) g/dL Albumin/Globulin Ratio 1.35 L (1.60-3.17) g/dL Microbiology - Last 24 Hours (Table) 12/10/21 05:03 Blood Culture - Final Blood No Growth after 144 hours
--- NOTE | 2021-12-17 11:29 | P.DS ---
Providers Date of admission: 12/04/21 22:15 Attending physician: Kulwinder Winkler MD Consults: 12/05/21 01:16 Consult Physician Routine Consulting Provider: Umair Aguayo Consult Reason/Comments: Possible ileus Do you want consulting provider notified?: Yes, Notify in am 12/05/21 04:11 Consult Physician Urgent Consulting Provider: Yosef Caban Consult Reason/Comments: hypotension Do you want consulting provider notified?: Already Contacted 12/06/21 21:01 Consult Physician Stat Consulting Provider: Abdelrahman Caban Consult Reason/Comments: Altered AMS Do you want consulting provider notified?: Yes 12/06/21 22:11 Consult Physician Stat Consulting Provider: Alex Gonzalez Consult Reason/Comments: Elevated troponin Do you want consulting provider notified?: Yes 12/09/21 11:49 Consult Physician Routine Consulting Provider: Leroy Crandall Consult Reason/Comments: Klebsielly UTI Do you want consulting provider notified?: Yes Primary care physician: Stated None Hospital Course: Final diagnosis Status post septic shock and laparoscopic cholecystectomy Postoperative ileus Atelectasis Toxic ebcephalopathy improving Possible fluid overload Leg swelling negative for DVT Sinus tachycardia multiple medical issues Discharge disposition patient discharged in a stable condition with a guarded prognosis patient be discharged to ECF total time taken is 35 minutes. History of present illness This 71-year-old woman with a past medical history multiple medical problems admitted with sepsis and as well as some cholecystitis patient underwent a cholecystectomy postoperative patient multiple medical issues please refer to the chart for further details patient was monitored closely patient was treated empirically with antibiotics infectious also consider consulted please suffer to surgical notes as well. Overall patient was also confused. Speech symptomatic treatment however the patient improved and the patient be discharged in a stable condition with guarded prognosis to ECF with the following of his medications next the On exam vitals stable cardio S1-S2 normal respiration clear to auscultation abdomen soft status post surgery Please refer to the medication reconciliation sheet for list of medications antibiotic Antibiotics per infectious disease rest of recommendations prt surgery Patient Condition at Discharge: Good Plan - Discharge Summary Discharge Rx Participant: Yes New Discharge Prescriptions: New metroNIDAZOLE [Flagyl] 500 mg PO TID #21 tab Pantoprazole [Protonix] 40 mg PO AC-BRKFST tab Potassium Chloride ER [K-Dur 20] 40 meq PO BID tab Furosemide [Lasix] 20 mg PO DAILY #5 tab Acetaminophen Tab [Tylenol] 650 mg PO Q6HR PRN #0 tab PRN Reason: Mild Pain Or Fever > 100.5 Continue Metoprolol Tartrate [Lopressor] 50 mg PO BID Gabapentin [Neurontin] 300 mg PO QID carBAMazepine 200 mg PO QID Atorvastatin [Lipitor] 20 mg PO DAILY lisinopriL [Zestril] 20 mg PO DAILY Meclizine [Antivert] 12.5 mg PO BID Aspirin EC [Ecotrin Low Dose] 81 mg PO DAILY Discharge Medication List Atorvastatin [Lipitor] 20 mg PO DAILY 07/08/19 [History] Gabapentin [Neurontin] 300 mg PO QID 07/08/19 [History] Metoprolol Tartrate [Lopressor] 50 mg PO BID 07/08/19 [History] carBAMazepine 200 mg PO QID 07/08/19 [History] Aspirin EC [Ecotrin Low Dose] 81 mg PO DAILY 12/04/21 [History] Meclizine [Antivert] 12.5 mg PO BID 12/04/21 [History] lisinopriL [Zestril] 20 mg PO DAILY 12/04/21 [History] Acetaminophen Tab [Tylenol] 650 mg PO Q6HR PRN #0 tab 12/17/21 [Rx] Furosemide [Lasix] 20 mg PO DAILY #5 tab 12/17/21 [Rx] Pantoprazole [Protonix] 40 mg PO AC-BRKFST tab 12/17/21 [Rx] Potassium Chloride ER [K-Dur 20] 40 meq PO BID tab 12/17/21 [Rx] metroNIDAZOLE [Flagyl] 500 mg PO TID #21 tab 12/17/21 [Rx] Follow up Appointment(s)/Referral(s): Umair Aguayo MD [Medical Doctor] - 1 Week Tapan Romero MD [STAFF PHYSICIAN] - 3 Days Ambulatory/Diagnostic Orders: Complete Blood Count w/diff [LAB.AMB] Location: None Selected Patient Instructions/Handouts: Low Fat Diet (DC) Activity/Diet/Wound Care/Special Instructions: Antibiotic for ID
--- NOTE | 2021-12-17 23:19 | P.PN ---
Subjective Progress Note Date: 12/14/21 Principal diagnosis: UTI and cholecystitis Patient is a 71-year-old female presented to hospital with right-sided abdominal pain and nausea and vomiting has been diagnosed with a cholecystitis status post cholecystectomy also with a component of UTI and positive for Kle bsiella and a culture positive for staph epi likely skin contamination. On today's evaluation that is 12/14/2021, the patient continues to be afebrile, patient is breathing comfortably on nasal cannula oxygen, the patient denies having any nausea or vomiting abdominal pain is currently controlled and did have a bowel movement, no chest pain shortness of cough Objective - Vital Signs Vital signs: Vital Signs Temp 97.6 F 12/14/21 11:25 Pulse 77 12/14/21 11:25 Resp 16 12/14/21 11:25 BP 119/73 12/14/21 11:25 Pulse Ox 94 L 12/14/21 11:42 FiO2 Intake & Output 12/13/21 12/14/21 12/14/21 18:59 06:59 18:59 Intake Total 240 Output Total 640 530 1 Balance -640 -290 -1 Weight 90.9 kg Intake: Oral 240 Output: Gastric Drainage 600 Drainage 40 30 Right Abdomen 40 30 Urine 500 1 Other: Voiding Method Toilet Toilet Diaper Diaper # Voids 4 4 1 # Bowel Movements 2 1 1 - Exam GENERAL DESCRIPTION: An elderly female up in the chair in no distress RESPIRATORY SYSTEM: Unlabored breathing , decreased breath sounds at bases HEART: S1 S2 regular rate and rhythm , ABDOMEN: Soft , mild distention and tenderness EXTREMITIES: No edema feet - Labs CBC & Chem 7: 12/17/21 05:38 12/17/21 05:38 Labs: Abnormal Lab Results - Last 24 Hours (Table) 12/13/21 12/14/21 12/14/21 Range/Units 17:47 04:40 04:40 RBC 3.42 L (3.80-5.40) m/uL Hgb 11.2 L (11.4-16.0) gm/dL Plt Count 494 H (150-450) k/uL Sodium 135 L (137-145) mmol/L Potassium 3.3 L 3.0 L (3.5-5.1) mmol/L Chloride 93 L (98-107) mmol/L BUN 6 L (7-17) mg/dL Creatinine 0.44 L (0.52-1.04) mg/dL Calcium 7.6 L (8.4-10.2) mg/dL Microbiology - Last 24 Hours (Table) 12/10/21 05:03 Blood Culture - Preliminary Blood No Growth after 96 hours Assessment and Plan (1) Cholecystitis Current Visit: Yes Status: Acute Code(s): K81.9 - CHOLECYSTITIS, UNSPECIFIED SNOMED Code(s): 27033285 Plan: 1patient presented to hospital with sepsis secondary to the acute cholecystitis in this patient s/p laparoscopic cholecystectomy with abdominal cultures so far negative. 2positive blood cultures staph epi likely skin contaminant , blood cultures if he has been negative 3positive urine culture with Klebsiella possible component of UTI. 4 patient seemed to have some clinical improvement and will continue with Roce phin 2 g daily and Flagyl and monitor clinical course closely Time with Patient: Less than 30
--- NOTE | 2021-12-17 23:20 | P.PN ---
Subjective Progress Note Date: 12/15/21 Principal diagnosis: UTI and cholecystitis Patient is a 71-year-old female presented to hospital with right-sided abdominal pain and nausea and vomiting has been diagnosed with a cholecystitis status post cholecystectomy also with a component of UTI and positive for Kle bsiella and a culture positive for staph epi likely skin contamination. On today's evaluation that is 12/15/2021, the patient remains to be afebrile, patient is breathing comfortably on nasal cannula oxygen, the patient denies chest pain shortness of breath or cough, no nausea no vomiting no abdominal pain no diarrhea Objective - Vital Signs Vital signs: Vital Signs Temp 97.5 F L 12/15/21 11:12 Pulse 62 12/15/21 11:12 Resp 16 12/15/21 11:12 BP 119/75 12/15/21 11:12 Pulse Ox 93 L 12/15/21 11:12 FiO2 Intake & Output 12/14/21 12/15/21 12/15/21 18:59 06:59 18:59 Intake Total 480 Output Total 3 31 Balance -3 449 Weight 90.9 kg Intake: Oral 480 Output: Drainage 30 Right Abdomen 30 Urine 2 Stool 1 1 Other: Voiding Method Toilet Toilet Toilet Diaper Diaper Diaper # Voids 1 4 # Bowel Movements 1 1 1 - Exam GENERAL DESCRIPTION: An elderly female up in the chair in no distress RESPIRATORY SYSTEM: Unlabored breathing , decreased breath sounds at bases HEART: S1 S2 regular rate and rhythm , ABDOMEN: Soft , mild distention and tenderness EXTREMITIES: No edema feet - Labs CBC & Chem 7: 12/17/21 05:38 12/17/21 05:38 Labs: Abnormal Lab Results - Last 24 Hours (Table) 12/14/21 12/14/21 12/15/21 Range/Units 14:56 22:11 04:23 RBC 2.98 L (4.10-5.20) X 10*6/uL Hgb 9.5 L (12.0-15.0) g/dL Hct 28.6 L (37.2-46.3) % Plt Count 454 H (140-440) X 10*3/uL MPV 9.1 L (9.5-12.2) fL Immature Gran # 0.13 H (0.00-0.04) X 10*3/uL Eosinophils # 0.37 H (0.04-0.35) X 10*3/uL Sodium (137-145) mmol/L Potassium 3.1 L 3.0 L (3.5-5.1) mmol/L Chloride (98-107) mmol/L Carbon Dioxide (22-30) mmol/L BUN (7-17) mg/dL Creatinine (0.52-1.04) mg/dL Calcium (8.4-10.2) mg/dL 12/15/21 Range/Units 04:23 RBC (4.10-5.20) X 10*6/uL Hgb (12.0-15.0) g/dL Hct (37.2-46.3) % Plt Count (140-440) X 10*3/uL MPV (9.5-12.2) fL Immature Gran # (0.00-0.04) X 10*3/uL Eosinophils # (0.04-0.35) X 10*3/uL Sodium 134 L (137-145) mmol/L Potassium (3.5-5.1) mmol/L Chloride 95 L (98-107) mmol/L Carbon Dioxide 32 H (22-30) mmol/L BUN 4 L (7-17) mg/dL Creatinine 0.41 L (0.52-1.04) mg/dL Calcium 7.3 L (8.4-10.2) mg/dL Microbiology - Last 24 Hours (Table) 12/10/21 05:03 Blood Culture - Preliminary Blood No Growth after 120 hours Assessment and Plan (1) Cholecystitis Current Visit: Yes Status: Acute Code(s): K81.9 - CHOLECYSTITIS, UNSPECIFIED SNOMED Code(s): 74041980 Plan: 1patient presented to hospital with sepsis secondary to the acute cholecystitis in this patient s/p laparoscopic cholecystectomy with abdominal cultures so far negative. 2positive blood cultures staph epi likely skin contaminant , blood cultures if he has been negative 3positive urine culture with Klebsiella possible component of UTI. 4 patient has shown clinical improvement and white count has normalized, patient will continue with Rocephin 2 g daily and Flagyl and monitor clinical course closely Time with Patient: Less than 30
--- NOTE | 2021-12-17 23:21 | P.PN ---
Subjective Progress Note Date: 12/16/21 Principal diagnosis: UTI and cholecystitis Patient is a 71-year-old female presented to hospital with right-sided abdominal pain and nausea and vomiting has been diagnosed with a cholecystitis status post cholecystectomy also with a component of UTI and positive for Kle bsiella and a culture positive for staph epi likely skin contamination. On today's evaluation that is 12/16/2021, the patient denies any fever or rigors, patient is breathing comfortably on room air, the patient denies chest pain shortness of breath or cough, no nausea no vomiting no abdominal pain no diarrhea Objective - Vital Signs Vital signs: Vital Signs Temp 97.5 F L 12/16/21 13:00 Pulse 68 12/16/21 13:00 Resp 16 12/16/21 13:00 BP 128/73 12/16/21 13:00 Pulse Ox 97 12/16/21 13:00 FiO2 Intake & Output 12/15/21 12/16/21 12/16/21 18:59 06:59 18:59 Intake Total 530 300 Output Total 40 10 40 Balance 490 290 -40 Intake: Intake, IV Titration 530 Amount Lactated Ringers 1,000 ml 480 @ 40 mls/hr IV .Q24H MCKENNA Rx#:[id number] cefTRIAXone 2 gm In 50 Sodium Chloride 0.9% 50 ml @ 100 mls/hr IVPB Q24HR MCKENNA Rx#:[id number] Oral 300 Output: Drainage 40 10 40 Right Abdomen 40 10 40 Other: Voiding Method Toilet Toilet Diaper Diaper # Voids 2 6 1 # Bowel Movements 1 - Exam GENERAL DESCRIPTION: An elderly female up in the chair in no distress RESPIRATORY SYSTEM: Unlabored breathing , decreased breath sounds at bases HEART: S1 S2 regular rate and rhythm , ABDOMEN: Soft , mild distention and tenderness EXTREMITIES: No edema feet - Labs CBC & Chem 7: 12/17/21 05:38 12/17/21 05:38 Labs: Abnormal Lab Results - Last 24 Hours (Table) 12/16/21 12/16/21 Range/Units 06:54 06:54 RBC 2.90 L (4.10-5.20) X 10*6/uL Hgb 9.4 L (12.0-15.0) g/dL Hct 28.1 L (37.2-46.3) % MCH 32.4 H (27.0-32.0) pg Plt Count 503 H (140-440) X 10*3/uL MPV 9.3 L (9.5-12.2) fL Immature Gran # 0.06 H (0.00-0.04) X 10*3/uL Potassium 3.1 L (3.5-5.5) mmol/L Carbon Dioxide 31.0 H (20.0-27.5) mmol/L Anion Gap 9.00 L (10.00-18.00) mmol/L BUN 4.3 L (9.0-27.0) mg/dL Creatinine 0.4 L (0.6-1.5) mg/dL BUN/Creatinine Ratio 10.75 L (12.00-20.00) Ratio Calcium 7.1 L (8.7-10.3) mg/dL Microbiology - Last 24 Hours (Table) 12/10/21 05:03 Blood Culture - Final Blood No Growth after 144 hours Assessment and Plan (1) Cholecystitis Current Visit: Yes Status: Acute Code(s): K81.9 - CHOLECYSTITIS, UNSPECIFIED SNOMED Code(s): 79558249 Plan: 1patient presented to hospital with sepsis secondary to the acute cholecystitis in this patient s/p laparoscopic cholecystectomy with abdominal cultures so far negative. 2positive blood cultures staph epi likely skin contaminant , blood cultures if he has been negative 3positive urine culture with Klebsiella possible component of UTI. 4 patient slowly clinical improvement the patient is afebrile white count is normal, patient will continue with Rocephin 2 g daily and Flagyl and will finish therapy with oral antibiotics Time with Patient: Less than 30
--- NOTE | 2021-12-17 23:22 | P.PN ---
Subjective Progress Note Date: 12/17/21 Principal diagnosis: UTI and cholecystitis Patient is a 71-year-old female presented to hospital with right-sided abdominal pain and nausea and vomiting has been diagnosed with a cholecystitis status post cholecystectomy also with a component of UTI and positive for Kle bsiella and a culture positive for staph epi likely skin contamination. On today's evaluation that is 12/17/2021, the patient remains to be afebrile, patient is breathing comfortably on room air, the patient denies chest pain shortness of breath or cough, the patient denies nausea no vomiting no abdominal pain no diarrhea Objective - Vital Signs Vital signs: Vital Signs Temp 97.6 F 12/17/21 11:58 Pulse 64 12/17/21 11:58 Resp 16 12/17/21 11:58 BP 100/67 12/17/21 11:58 Pulse Ox 95 12/17/21 11:58 FiO2 Intake & Output 12/16/21 12/17/21 12/17/21 18:59 06:59 18:59 Output Total 40 Balance -40 Output: Drainage 40 Right Abdomen 40 Other: Voiding Method Toilet Toilet Diaper Diaper Incontinent # Voids 1 4 - Exam GENERAL DESCRIPTION: An elderly female up in the chair in no distress RESPIRATORY SYSTEM: Unlabored breathing , decreased breath sounds at bases HEART: S1 S2 regular rate and rhythm , ABDOMEN: Soft , mild distention and tenderness EXTREMITIES: No edema feet - Labs CBC & Chem 7: 12/17/21 05:38 12/17/21 05:38 Labs: Abnormal Lab Results - Last 24 Hours (Table) 12/17/21 12/17/21 Range/Units 05:38 05:38 RBC 3.09 L (4.10-5.20) X 10*6/uL Hgb 9.9 L (12.0-15.0) g/dL Hct 29.3 L (37.2-46.3) % Plt Count 557 H (140-440) X 10*3/uL MPV 9.0 L (9.5-12.2) fL Immature Gran # 0.09 H (0.00-0.04) X 10*3/uL Potassium 3.1 L (3.5-5.5) mmol/L Carbon Dioxide 29.9 H (20.0-27.5) mmol/L BUN 6.0 L (9.0-27.0) mg/dL Creatinine 0.5 L (0.6-1.5) mg/dL Calcium 7.4 L (8.7-10.3) mg/dL Total Bilirubin <0.15 L (0.30-1.20) mg/dL AST 116 H (13-35) U/L ALT 51 H (8-44) U/L Total Protein 4.7 L (6.2-8.2) g/dL Albumin 2.7 L (3.8-4.9) g/dL Albumin/Globulin Ratio 1.35 L (1.60-3.17) g/dL Assessment and Plan (1) Cholecystitis Current Visit: Yes Status: Acute Code(s): K81.9 - CHOLECYSTITIS, UNSPECIFIED SNOMED Code(s): 60359474 Plan: 1patient presented to hospital with sepsis secondary to the acute cholecystitis in this patient s/p laparoscopic cholecystectomy with abdominal cultures so far negative. 2positive blood cultures staph epi likely skin contaminant , blood cultures if he has been negative 3positive urine culture with Klebsiella possible component of UTI. 4 patient has shown clinical improvement, patient is afebrile white count is normal, patient will finish therapy with oral Ceftin and Flagyl 1 week and close outpatient follow-up Time with Patient: Less than 30
[2021-12-18] MEDS: HEPARIN SODIUM,PORCINE/PF 5,000 UNIT/0.5 ML SYRINGE SQ SCH ×3 (00:06→15:51)
[2021-12-18] MEDS: carBAMazepine 200 MG TAB PO SCH ×4 (09:14→21:02)
[2021-12-18] MEDS: GABAPENTIN 100 MG CAP PO SCH ×3 (09:14→21:01)
[2021-12-18] MEDS: METOPROLOL TARTRATE 50 MG TAB PO SCH ×2 (09:15→21:02)
[2021-12-18] MEDS: ASPIRIN 81 MG PO SCH (09:15)
[2021-12-18] MEDS: metroNIDAZOLE 500 MG TAB PO SCH ×3 (09:15→21:02)
[2021-12-18] MEDS: PANTOPRAZOLE 40 MG TABLET PO SCH (09:15)
[2021-12-18] MEDS: ATORVASTATIN 20 MG TAB PO SCH (09:15)
[2021-12-18] MEDS: FUROSEMIDE 10 MG/ML 4 ML VIAL IV SCH (09:15)
[2021-12-18] MEDS: lisinopriL 10 MG TAB PO SCH (09:15)
[2021-12-18] MEDS: POTASSIUM CHLORIDE ER 20 MEQ TAB.ER PO SCH ×2 (09:16→21:02)
[2021-12-18 09:34] LABS: Basophils # (A) 0.04 X 10*3/uL (0.00-0.10); Basophils % (A) 0.7 %; Eosinophils # (A) 0.25 X 10*3/uL (0.04-0.35); Eosinophils % (A) 4.7 %; HCT 28.1 % (37.2-46.3); HGB 9.5 g/dL (12.0-15.0); Immature Grans, Automated 1.1 %; Lymphocytes # (A) 1.33 X 10*3/uL (0.90-5.00); Lymphocytes % (A) 24.9 %; MCH 32.3 pg (27.0-32.0); MCHC 33.8 g/dL (32.0-37.0); MCV 95.6 fL (80.0-97.0); Monocytes # (A) 0.61 X 10*3/uL (0.20-1.00); Monocytes % (A) 11.4 %; NRBC Per 100 WBC 0 /100 WBCS (0.0-0.0); Neutrophils # (A) 3.05 X 10*3/uL (1.80-7.70); Neutrophils % (A) 57.2 %; Platelet Count 560 X 10*3/uL (140-440); RBC 2.94 X 10*6/uL (4.10-5.20); RDW 13.6 % (11.5-14.5); WBC 5.34 X 10*3/uL (4.50-10.00)
[2021-12-18 09:59] LABS: African American GFR (CKD) 109.9 (60.0-200.0); Anion Gap 10.4 mmol/L (10.00-18.00); BUN/Creat Ratio 11.53 Ratio (12.00-20.00); Blood Urea Nitrogen 6.1 mg/dL (9.0-27.0); Calcium 7.5 mg/dL (8.7-10.3); Carbon Dioxide 29.8 mmol/L (20.0-27.5); Non-African American GFR(CKD) 94.9 (60.0-200.0); Potassium 3.7 mmol/L (3.5-5.5)
[2021-12-18] MEDS: HYDROCORTISONE SUPPOSITORY 25 MG SUPP RECTAL SCH (12:06)
--- NOTE | 2021-12-18 12:57 | P.PN ---
Subjective Progress Note Date: 12/18/21 CHIEF COMPLAINT: Abdominal pain with sepsis HISTORY OF PRESENT ILLNESS: Patient is status post diagnostic laparoscopy and laparoscopic cholecystectomy for cholecystitis on 12/05/21. She denies any abdominal pain. She denies any nausea or vomiting. She is having loose bowel movements. Patient reports that her hemorrhoids are flaring up. She did report some blood noted on her brief with a mucousy, loose stool. She has been up and ambulating. She is awaiting placement at [facility]. She is afebrile. WBC 5.3 for hemoglobin 9.5 potassium 3.7 improved from 3.1 PHYSICAL EXAM: VITAL SIGNS: Reviewed. GENERAL: Well-developed in no acute distress. HEENT: No sclera icterus. Extraocular movements grossly intact. Moist buccal mucosa. Head is atraumatic, normocephalic. ABDOMEN: Soft. Nondistended. Nontender. Incision sites clean dry and intact. NEUROLOGIC: Patient is awake and answering questions appropriately ASSESSMENT: 1. Acute cholecystitis status post exploratory laparoscopy and laparoscopic cholecystectomy 2. Abdominal sepsis 3. Encephalopathy likely due to sepsis 4. Postoperative ileus resolved 5. Hypokalemia resolved 6. UTI 7. Ischemic bowel PLAN: -Patient is stable for discharge from surgical standpoint -Continue regular diet -Add Anusol HC suppository for hemorrhoids. Continue Tucks pads -Continue to increase activity level -DVT prophylaxis subcu heparin Physician Field Collector note has been reviewed by physician. Signing provider agrees with the documented findings, assessment, and plan of care. Objective - Vital Signs Vital signs: Vital Signs Temp 97.4 F L 12/18/21 11:32 Pulse 69 12/18/21 11:32 Resp 15 12/18/21 11:32 BP 105/62 12/18/21 11:32 Pulse Ox 95 12/18/21 11:32 FiO2 Intake & Output 12/17/21 12/18/21 12/18/21 18:59 06:59 18:59 Output Total 2 Balance -2 Output: Urine 1 Stool 1 Other: Voiding Method Toilet Toilet Diaper Diaper Incontinent # Voids 4 1 1 # Bowel Movements 1 1 2 - Labs CBC & Chem 7: 12/18/21 06:12 12/18/21 06:12 Labs: Abnormal Lab Results - Last 24 Hours (Table) 12/18/21 12/18/21 Range/Units 06:12 06:12 RBC 2.94 L (4.10-5.20) X 10*6/uL Hgb 9.5 L (12.0-15.0) g/dL Hct 28.1 L (37.2-46.3) % MCH 32.3 H (27.0-32.0) pg Plt Count 560 H (140-440) X 10*3/uL MPV 9.0 L (9.5-12.2) fL Immature Gran # 0.06 H (0.00-0.04) X 10*3/uL Carbon Dioxide 29.8 H (20.0-27.5) mmol/L BUN 6.1 L (9.0-27.0) mg/dL Creatinine 0.5 L (0.6-1.5) mg/dL BUN/Creatinine Ratio 11.53 L (12.00-20.00) Ratio Calcium 7.5 L (8.7-10.3) mg/dL
[2021-12-19] MEDS: HEPARIN SODIUM,PORCINE/PF 5,000 UNIT/0.5 ML SYRINGE SQ SCH ×2 (00:18→08:28)
[2021-12-19 07:47] VITALS: BP 123/73; PULSE 80; RESP 17; TEMP 97.8
[2021-12-19] MEDS: lisinopriL 10 MG TAB PO SCH (08:27)
[2021-12-19] MEDS: ATORVASTATIN 20 MG TAB PO SCH (08:27)
[2021-12-19] MEDS: metroNIDAZOLE 500 MG TAB PO SCH (08:27)
[2021-12-19] MEDS: ASPIRIN 81 MG PO SCH (08:27)
[2021-12-19] MEDS: GABAPENTIN 100 MG CAP PO SCH (08:27)
[2021-12-19] MEDS: PANTOPRAZOLE 40 MG TABLET PO SCH (08:27)
[2021-12-19] MEDS: carBAMazepine 200 MG TAB PO SCH ×2 (08:27→12:14)
[2021-12-19] MEDS: METOPROLOL TARTRATE 50 MG TAB PO SCH (08:28)
[2021-12-19] MEDS: FUROSEMIDE 10 MG/ML 4 ML VIAL IV SCH (08:28)
[2021-12-19] MEDS: HYDROCORTISONE SUPPOSITORY 25 MG SUPP RECTAL SCH (08:28)
[2021-12-19] MEDS: POTASSIUM CHLORIDE ER 20 MEQ TAB.ER PO SCH (08:29)
--- NOTE | 2021-12-19 08:54 | PN ---
PROGRESS NOTE SUBJECTIVE: This is a 71-year-old woman, who was admitted with significant cholecystitis, and laparoscopic cholecystectomy. The patient is awaiting ECF rehab. No chest pain. No palpitation. PHYSICAL EXAMINATION: VITAL SIGNS: Pulse is 76, blood pressure 140/70, respirations 15. CHEST: Clear to auscultation. ABDOMEN: Soft, status post surgery. NERVOUS SYSTEM: No focal deficits. LABS: Reviewed. ASSESSMENT: 1. Status post septic shock and laparoscopic cholecystectomy. 2. Postoperative ileus. 3. Atelectasis. 4. Multiple medical issues. RECOMMENDATIONS AND DISCUSSION: Recommend to continue current management and symptomatic treatment. Continue with PT/OT evaluation and possible ECF rehab. Further recommendations to follow. MMODL / IJN: [id number] /
--- NOTE | 2021-12-19 09:01 | DS ---
DISCHARGE SUMMARY This 71-year-old woman laparoscopic cholecystectomy. The patient also had multiple complications, but the patient improved significantly. The patient was cleared to go to ECF yesterday. Preauthorization note has not come through per Case Management. The patient is being discharged today. Please refer to the previous dictation for list of medications and further details. Prognosis guarded. Stable for discharge. MMODL / IJN: [id number] / MTDD
--- NOTE | 2021-12-19 09:47 | P.PN ---
Subjective Progress Note Date: 12/19/21 CHIEF COMPLAINT: Abdominal pain with sepsis HISTORY OF PRESENT ILLNESS: Patient is status post diagnostic laparoscopy and laparoscopic cholecystectomy for cholecystitis on 12/05/21. She denies any abdominal pain. She denies any nausea or vomiting. She reports that her loose stools are less frequent and improving. Afebrile. She is awaiting insurance authorization for ECF placement. PHYSICAL EXAM: VITAL SIGNS: Reviewed. GENERAL: Well-developed in no acute distress. HEENT: No sclera icterus. Extraocular movements grossly intact. Moist buccal mucosa. Head is atraumatic, normocephalic. ABDOMEN: Soft. Nondistended. Nontender. Incision sites clean dry and intact. NEUROLOGIC: Patient is awake and answering questions appropriately ASSESSMENT: 1. Acute cholecystitis status post exploratory laparoscopy and laparoscopic cholecystectomy 2. Abdominal sepsis 3. Encephalopathy likely due to sepsis 4. Postoperative ileus resolved 5. Hypokalemia resolved 6. UTI 7. Ischemic bowel PLAN: -Patient is stable for discharge from surgical standpoint -Continue regular diet -continue Anusol HC suppository for hemorrhoids. Continue Tucks pads -Continue to increase activity level -DVT prophylaxis subcu heparin Physician Steam Setter note has been reviewed by physician. Signing provider agrees with the documented findings, assessment, and plan of care. Objective - Vital Signs Vital signs: Vital Signs Temp 97.8 F 12/19/21 07:46 Pulse 80 12/19/21 07:46 Resp 17 12/19/21 07:46 BP 123/73 12/19/21 07:46 Pulse Ox 95 12/19/21 07:46 FiO2 Intake & Output 12/18/21 12/19/21 12/19/21 18:59 06:59 18:59 Intake Total 540 Balance 540 Intake: Oral 540 Other: Voiding Method Toilet Toilet Diaper Diaper # Voids 5 3 # Bowel Movements 2 - Labs CBC & Chem 7: 12/18/21 06:12 12/18/21 06:12 Labs: Abnormal Lab Results - Last 24 Hours (Table) 12/18/21 Range/Units 06:12 Carbon Dioxide 29.8 H (20.0-27.5) mmol/L BUN 6.1 L (9.0-27.0) mg/dL Creatinine 0.5 L (0.6-1.5) mg/dL BUN/Creatinine Ratio 11.53 L (12.00-20.00) Ratio Calcium 7.5 L (8.7-10.3) mg/dL
--- NOTE | 2021-12-20 12:06 | CDI ---
Documentation Clarification Form Date: 12/20/2021 11:39:13 AM From: Araceli Lauren Phone: Admit Date: 12/04/2021 10:15:00 PM Patient Name: Lucia Ireland Visit Number: [id number] Discharge Date: 12/19/2021 01:42:00 PM ATTENTION: The Clinical Documentation Specialists (CDI) and [facility] Coding Staff appreciate your assistance in clarifying documentation. Please respond to the clarification below the line at the bottom and electronically sign. The CDI & [facility] Coding staff will review the response and follow-up if needed. Please note: Queries are made part of the Legal Health Record. If you have any questions, please contact the author of this message via ITS. Dr. Yasmine Brambila Postoperative ileus is documented per 12/11/21 Progress Note. Additional clarification regarding Postoperative ileus is requested. Patients Admitting Diagnosis: acute on chronic cholecystitis Post-Operative Diagnosis: acute on chronic cholecystitis with peritonitis Procedure performed: Diagnostic laparoscopy, laparoscopic cholecystectomy History/Risk Factors: 71yo F, cholecystitis and peritonitis, CAD, Toxic encephalopathy, septic shock, lactic acidosis, HTN, HLD, Hyponatremia d/t to hypovolemia and sepsis Clinical Indicators: CT angiogram of the chest abdomen and pelvis revealed no arterial aneurysms or dissection. No evidence of pulmonary embolism. There is a possible small bowel ileus. Interstitial infiltrates and atelectasis at the lung bases Treatment: 12/11 Patient seen and examined at bedside, abdominal x-ray revealed postoperative ileus rather than bowel obstruction.NG tube was placed. She continues to have abdominal pain but improved from yesterday. Please clarify if the Ileus is a complication of the surgical procedure? [ ] Yes [ ] No [ ] Other, please specify [ ] Unable to determine (Template Last Revised: May 2020) No MTDD
--- NOTE | 2021-12-20 12:19 | PN ---
PROGRESS NOTE SUBJECTIVE: This 71-year-old woman was admitted with sepsis and cholecystectomy, being closely monitored. ECF rehab is being explored at this time. PHYSICAL EXAMINATION: VITAL SIGNS: Pulse is 82, blood pressure 140/72, respirations 16. HEENT: Conjunctivae normal. NECK: No JVD. CARDIOVASCULAR: S1, S2. RESPIRATIONS: Breath sounds diminished at the bases. ABDOMEN: Soft. Status post surgery. LEGS: No edema. NERVOUS SYSTEM: No focal deficits. LABORATORY DATA: Labs are reviewed. ASSESSMENT: 1. Status post septic shock and laparoscopic cholecystectomy. 2. Postoperative ileus. 3. Atelectasis. 4. Multiple medical issues. RECOMMENDATIONS: Recommend to continue current management. Continue with PT/OT evaluation. Possible ECF, rehab. See orders for further details. Prognosis guarded. Further recommendations to follow. MMODL / IJN: [id number] /
--- NOTE | 2021-12-20 12:34 | DS ---
DISCHARGE SUMMARY ADDENDUM: This 71-year-old woman was admitted with sepsis, cholecystectomy, and multiple complex medical issues. We were trying to send the patient to rehab for continued monitoring and rehab, but I had [id number] review with one of the insurance physicians who denied it because of the fact the patient is able to walk on level ground more than 50 feet. So, at this point, explained to the patient and family and will discharge the patient home with possible home care, stable, but overall prognosis is guarded. PHYSICAL EXAMINATION: VITAL SIGNS: Stable. CARDIOVASCULAR: S1, S2. ABDOMEN: Soft. NERVOUS SYSTEM: Mild diffuse weakness. Please refer to the previous discharge summary for list of diagnosis and rest of information. MMODL / IJN: [id number] /
== END 2021-12-19 13:42 | disposition home health service (06) | DRG 853 ==
LOC: EC 18:34 → 3SCARD 22:15 → 2SICU 12-05 04:42 → 5NMEDONC 12-09 14:08
PROVIDERS: ADMIT Internal Medicine; ATTEND Internal Medicine
PROC: 3E033XZ Introduction of Vasopressor into Peripheral Vein, Percutaneous Approach (ICD-10-PCS; 2021-12-05)
PROC: 0FT44ZZ Resection of Gallbladder, Percutaneous Endoscopic Approach (ICD-10-PCS; principal; 2021-12-05 07:30)
PROC: 0WJF4ZZ Inspection of Abdominal Wall, Percutaneous Endoscopic Approach (ICD-10-PCS; 2021-12-05 07:30)
DX: A41.9 Sepsis, unspecified organism (principal); G92.8 Other toxic encephalopathy; R65.21 Severe sepsis with septic shock; K65.1 Peritoneal abscess; K55.9 Vascular disorder of intestine, unspecified; K81.0 Acute cholecystitis; E87.2 Acidosis; I42.8 Other cardiomyopathies; T79.7XXA Traumatic subcutaneous emphysema, initial encounter; I5A Non-ischemic myocardial injury (non-traumatic); R47.01 Aphasia; E87.1 Hypo-osmolality and hyponatremia; K56.7 Ileus, unspecified; J98.11 Atelectasis; N39.0 Urinary tract infection, site not specified; I10 Essential (primary) hypertension; K81.1 Chronic cholecystitis; E86.1 Hypovolemia; R01.1 Cardiac murmur, unspecified; I25.10 Atherosclerotic heart disease of native coronary artery without angina pectoris; E87.6 Hypokalemia; K64.9 Unspecified hemorrhoids; M79.89 Other specified soft tissue disorders; R60.0 Localized edema; I44.7 Left bundle-branch block, unspecified; G50.0 Trigeminal neuralgia; B96.1 Klebsiella pneumoniae [K. pneumoniae] as the cause of diseases classified elsewhere; E78.5 Hyperlipidemia, unspecified; Z88.0 Allergy status to penicillin; Z79.82 Long term (current) use of aspirin; Z79.891 Long term (current) use of opiate analgesic; Z98.61 Coronary angioplasty status; Z72.820 Sleep deprivation; Z79.899 Other long term (current) drug therapy
CPT/HCPCS: 70450; 70496; 70498; 70551; 71045; 71046; 71275; 74019; 74174; 74177; 80048; 80053; 80156; 80202; 80306; 81001; 82140; 82150; 82565; 83605; 83690; 83735; 83880; 84132; 84443; 84484; 85025; 85027; 85379; 85610; 85730; 86140; 87040; 87045; 87046; 87070; 87075; 87077; 87086; 87186; 87205; 87324; 87635; 88108; 88304; 88305; 93005; 93306; 93970; 94760; 95816; 96360; 99285

== ENCOUNTER 2022-07-10 17:05 | Emergency (ER) | payer MEDICARE ==
--- NOTE | 2022-07-10 18:18 | ED ---
Weakness HPI - General Chief complaint: Weakness Stated complaint: altered mental/dizzy Time Seen by Provider: 07/10/22 17:56 Source: patient, family, RN notes reviewed Mode of arrival: ambulatory Limitations: no limitations - History of Present Illness Initial comments: 71-year-old female history of UTI history of not drinking enough fluids per family who presents with complaints of weakness that started during lunch today. She also has some dizziness. She also had chills. She has a history of decreased fluid intake in the past with urinary tract infections she has similar episode of this last fall which time she urinary tract infection with sepsis. Today she demonstrates some urinary incontinence and had poor recall of the events of today. She was found to have elevated temperature upon arrival. She denies any pain denies any other complaints this time information was a paper the patient and from her [id number]. Complaint: generalized weakness - Related Data Home Medications Medication Instructions Recorded Confirmed Atorvastatin [Lipitor] 20 mg PO DAILY 07/08/19 07/10/22 Metoprolol Tartrate [Lopressor] 50 mg PO BID 07/08/19 07/10/22 carBAMazepine 200 mg PO QID 07/08/19 07/10/22 Aspirin EC [Ecotrin Low Dose] 81 mg PO DAILY 12/04/21 07/10/22 Meclizine [Antivert] 12.5 mg PO BID 12/04/21 07/10/22 lisinopriL [Zestril] 20 mg PO DAILY 12/04/21 07/10/22 Previous Rx's Medication Instructions Recorded Gabapentin [Neurontin] 300 mg PO QID #4 cap 12/18/21 Cephalexin [Keflex] 500 mg PO Q6HR 1 Days #40 cap 07/10/22 Allergies Allergy/AdvReac Type Severity Reaction Status Date / Time Penicillins AdvReac Rash/Hives Verified 07/10/22 18:18 Review of Systems ROS Statement: Those systems with pertinent positive or pertinent negative responses have been documented in the HPI. ROS Other: All systems not noted in ROS Statement are negative. Past Medical History Past Medical History: Hyperlipidemia, Hypertension Additional Past Medical History / Comment(s): heart murmur, trigeminal neuralgia, UTI History of Any Multi-Drug Resistant Organisms: None Reported Past Surgical History: Hysterectomy Additional Past Surgical History / Comment(s): surgery for trigeminal neuralgia, Past Anesthesia/Blood Transfusion Reactions: No Reported Reaction Past Psychological History: No Psychological Hx Reported Smoking Status: Never smoker Past Alcohol Use History: None Reported Past Drug Use History: None Reported - Past Family History Mother Additional Family Medical History / Comment(s): passed from colon cancer in her 60's family Family Medical History: No Reported History General Exam - General Exam Comments Initial Comments: This is a well-developed well-nourished awake alert oriented 4 female Limitations: no limitations General appearance: alert, in no apparent distress Head exam: Present: atraumatic, normocephalic, normal inspection Eye exam: Present: normal appearance, PERRL, EOMI. Absent: scleral icterus, conjunctival injection, periorbital swelling ENT exam: Present: mucous membranes dry Neck exam: Present: normal inspection. Absent: tenderness, meningismus, lymphadenopathy Respiratory exam: Present: normal lung sounds bilaterally. Absent: respiratory distress, wheezes, rales, rhonchi, stridor Cardiovascular Exam: Present: regular rate, normal rhythm, normal heart sounds. Absent: systolic murmur, diastolic murmur, rubs, gallop, clicks GI/Abdominal exam: Present: soft, normal bowel sounds. Absent: distended, tenderness, guarding, rebound, rigid, bruit, pulsatile mass Extremities exam: Present: normal inspection, full ROM, normal capillary refill. Absent: tenderness, pedal edema, joint swelling, calf tenderness Back exam: Present: normal inspection Neurological exam: Present: alert, oriented X3, CN II-XII intact Psychiatric exam: Present: normal affect, normal mood Skin exam: Present: warm, dry, intact, normal color. Absent: rash Course Vital Signs 07/10/22 07/10/22 07/10/22 17:21 18:58 19:58 Temperature 101.2 F H 99.0 F 98.4 F Pulse Rate 79 71 77 Respiratory 20 16 12 Rate Blood Pressure 137/80 134/56 93/72 O2 Sat by Pulse 95 95 98 Oximetry EKG Findings - EKG Results: EKG: interpreted by SONALID (EKG interpreted by me normal sinus rhythm a 72. Interval 160 QRS temple 150 QT since QTC 42/427 left exodeviation evidence a left bundle branch block) Medical Decision Making - Medical Decision Making I did a long discussion with the patient and her family were present patient does not want to be admitted to the hospital I did discuss the findings with him and which included UTI clinical dehydration COVID-19 and fever feel competent that she can handle this at home. Patient will get a dose of IV antibiotics prior to discharge be placed on oral medication. We did discuss also the COVID- 19 treatmentWas pt. sent in by a medical professional or institution (JEANCARLOS Rhodes, APPLICATION PROJECT LEADER, urgent care, hospital, or longterm...) When possible be specific @ -[No] Did you speak to anyone other than the patient for history (EMS, parent, family, police, friend...)? What history was obtained from this source @ -[No] Did you review nursing and triage notes (agree or disagree)? Why? @ -[I reviewed and agree with nursing and triage notes] Were old charts reviewed (outside hosp., previous admission, EMS record, old EKG, old radiological studies, urgent care reports/EKG's, longterm records)? Report findings @ -[No old charts were reviewed] Differential Diagnosis (chest pain, altered mental status, abdominal pain women, abdominal pain men, vaginal bleeding, weakness, fever, dyspnea, syncope, headache, dizziness, GI bleed, back pain, seizure, CVA, palpatations, mental health, musculoskeletal)? @ -[Weakness, UTI, dehydration, fever] EKG interpreted by me (3pts min.). @ -[As above] X-rays interpreted by me (1pt min.). @ -[As above] CT interpreted by me (1pt min.). @ -[None done] U/S interpreted by me (1pt. min.). @ -[None done] What testing was considered but not performed or refused? (CT, X-rays, U/S, labs)? Why? @ -[None] What meds were considered but not given or refused? Why? @ -[None] Did you discuss the management of the patient with other professionals (reina cardoso i.e. JEANCARLOS Rhodes, APPLICATION PROJECT LEADER, lab, RT, psych nurse, marriage and family social worker, mail carrier technician, teacher, light armored vehicle officer, supervisor case loading)? Give summary @ -[No] Was smoking cessation discussed for >3mins.? @ -[No] Was critical care preformed (if so, how long)? @ -[No] Were there social determinants of health that impacted care today? How? (Homelessness, low income, unemployed, alcoholism, drug addiction, transpor tation, low edu. Level, literacy, decrease access to med. care, fpc, rehab)? @ -[No] Was there de-escalation of care discussed even if they declined (Discuss DNR or withdrawal of care, Hospice)? DNR status @ -[No] What co-morbidities impacted this encounter? (DM, HTN, Smoking, COPD, CAD, Cancer, CVA, ARF, Chemo, Hep., AIDS, mental health diagnosis, sleep apnea, morbid obesity)? @ -[Hypertension history of UTI, hyperlipidemia] Was patient admitted / discharged? Hospital course, mention meds given and route, prescriptions, significant lab abnormalities, going to OR and other perti nent info. @ -[hospital course] patient was discharged home with oral medications instructions for increase oral fluids and the usual treatment for COVID-19 Undiagnosed new problem with uncertain prognosis? @ -[COVID-19] Drug Therapy requiring intensive monitoring for toxicity (Heparin, Nitro, Insulin, Cardizem)? @ -[No] Were any procedures done? @ -[No] Diagnosis/symptom? @ -[Urinary tract infection, weakness, COVID-19] Acute, or Chronic, or Acute on Chronic? @ -[Acute] Uncomplicated (without systemic symptoms) or Complicated (systemic symptoms)? @ -[default] Side effects of treatment? @ -[No] Exacerbation, Progression, or Severe Exacerbation? @ -[No] Poses a threat to life or bodily function? How? (Chest pain, [place], [place], pneumonia, PE, COPD, DKA, ARF, appy, cholecystitis, CVA, Diverticulitis, Homicidal, Suicidal, threat to staff... and all critical care pts) @ -[No] - Lab Data Result diagrams: 07/10/22 17:58 07/10/22 17:58 Lab Results 07/10/22 07/10/22 07/10/22 Range/Units 17:58 17:58 17:58 WBC 5.7 (3.8-10.6) k/uL RBC 3.54 L (3.80-5.40) m/uL Hgb 11.5 (11.4-16.0) gm/dL Hct 33.4 L (34.0-46.0) % MCV 94.3 (80.0-100.0) fL MCH 32.5 (25.0-35.0) pg MCHC 34.4 (31.0-37.0) g/dL RDW 12.7 (11.5-15.5) % Plt Count 249 (150-450) k/uL MPV 7.4 Neutrophils % 79 % Lymphocytes % 11 % Monocytes % 7 % Eosinophils % 1 % Basophils % 0 % Neutrophils # 4.5 (1.3-7.7) k/uL Lymphocytes # 0.6 L (1.0-4.8) k/uL Monocytes # 0.4 (0-1.0) k/uL Eosinophils # 0.0 (0-0.7) k/uL Basophils # 0.0 (0-0.2) k/uL Sodium 128 L (137-145) mmol/L Potassium 4.4 (3.5-5.1) mmol/L Chloride 94 L (98-107) mmol/L Carbon Dioxide 27 (22-30) mmol/L Anion Gap 7 mmol/L BUN 16 (7-17) mg/dL Creatinine 0.59 (0.52-1.04) mg/dL Est GFR (CKD-EPI)AfAm >90 (>60 ml/min/1.73 sqM) Est GFR (CKD-EPI)NonAf >90 (>60 ml/min/1.73 sqM) Glucose 107 H (74-99) mg/dL Calcium 8.7 (8.4-10.2) mg/dL Magnesium 1.9 (1.6-2.3) mg/dL Total Bilirubin 0.3 (0.2-1.3) mg/dL AST 26 (14-36) U/L ALT 20 (4-34) U/L Alkaline Phosphatase 99 (38-126) U/L Creatine Kinase 36 (30-135) U/L Troponin I (0.000-0.034) ng/mL NT-Pro-B Natriuret Pep 296 pg/mL Total Protein 7.0 (6.3-8.2) g/dL Albumin 4.2 (3.5-5.0) g/dL Urine Color Urine Appearance (Clear) Urine pH (5.0-8.0) Ur Specific [place] (1.001-1.035) Urine Protein (Negative) Urine Glucose (UA) (Negative) Urine Ketones (Negative) Urine Blood (Negative) Urine Nitrite (Negative) Urine Bilirubin (Negative) Urine Urobilinogen (<2.0) mg/dL Ur Leukocyte Esterase (Negative) Urine RBC (0-5) /hpf Urine WBC (0-5) /hpf Ur Squamous Epith Cells (0-4) /hpf Amorphous Sediment (None) /hpf Urine Bacteria (None) /hpf Influenza Type A (PCR) (Not Detectd) Influenza Type B (PCR) (Not Detectd) RSV (PCR) (Not Detectd) SARS-CoV-2 (PCR) (Not Detectd) 07/10/22 07/10/22 07/10/22 Range/Units 17:58 18:14 19:53 WBC (3.8-10.6) k/uL RBC (3.80-5.40) m/uL Hgb (11.4-16.0) gm/dL Hct (34.0-46.0) % MCV (80.0-100.0) fL MCH (25.0-35.0) pg MCHC (31.0-37.0) g/dL RDW (11.5-15.5) % Plt Count (150-450) k/uL MPV Neutrophils % % Lymphocytes % % Monocytes % % Eosinophils % % Basophils % % Neutrophils # (1.3-7.7) k/uL Lymphocytes # (1.0-4.8) k/uL Monocytes # (0-1.0) k/uL Eosinophils # (0-0.7) k/uL Basophils # (0-0.2) k/uL Sodium (137-145) mmol/L Potassium (3.5-5.1) mmol/L Chloride (98-107) mmol/L Carbon Dioxide (22-30) mmol/L Anion Gap mmol/L BUN (7-17) mg/dL Creatinine (0.52-1.04) mg/dL Est GFR (CKD-EPI)AfAm (>60 ml/min/1.73 sqM) Est GFR (CKD-EPI)NonAf (>60 ml/min/1.73 sqM) Glucose (74-99) mg/dL Calcium (8.4-10.2) mg/dL Magnesium (1.6-2.3) mg/dL Total Bilirubin (0.2-1.3) mg/dL AST (14-36) U/L ALT (4-34) U/L Alkaline Phosphatase (38-126) U/L Creatine Kinase (30-135) U/L Troponin I <0.012 (0.000-0.034) ng/mL NT-Pro-B Natriuret Pep pg/mL Total Protein (6.3-8.2) g/dL Albumin (3.5-5.0) g/dL Urine Color Light Yellow Urine Appearance Cloudy H (Clear) Urine pH 7.0 (5.0-8.0) Ur Specific [place] 1.013 (1.001-1.035) Urine Protein Negative (Negative) Urine Glucose (UA) Negative (Negative) Urine Ketones Negative (Negative) Urine Blood Negative (Negative) Urine Nitrite Positive H (Negative) Urine Bilirubin Negative (Negative) Urine Urobilinogen <2.0 (<2.0) mg/dL Ur Leukocyte Esterase Negative (Negative) Urine RBC 2 (0-5) /hpf Urine WBC 17 H (0-5) /hpf Ur Squamous Epith Cells 1 (0-4) /hpf Amorphous Sediment Rare H (None) /hpf Urine Bacteria Moderate H (None) /hpf Influenza Type A (PCR) Not Detected (Not Detectd) Influenza Type B (PCR) Not Detected (Not Detectd) RSV (PCR) Not Detected (Not Detectd) SARS-CoV-2 (PCR) Detected A (Not Detectd) - Radiology Data Interpreted by me: I did interpret the imaging negative findings. Disposition Clinical Impression: Urinary tract infection, Weakness, COVID-19 Disposition: HOME SELF-CARE Condition: Good Instructions (If sedation given, give patient instructions): Coronavirus Disease 2019 (COVID-19), Droplet Precautions (ED), How to Recover from COVID-19 at Home (ED), Urinary Tract Infection in Women (ED) Prescriptions: Cephalexin [Keflex] 500 mg PO Q6HR 1 Days #40 cap Is patient prescribed a controlled substance at d/c from ED?: No Referrals: Forrest Muñoz MD [Primary Care Provider] - 1-2 days Decision Date: 07/10/22 Decision Time: 20:55
[2022-07-10 18:45] LABS: Basophils % (A) 0 %; Eosinophils % (A) 1 %; HCT 33.4 % (34.0-46.0); HGB 11.5 gm/dL (11.4-16.0); Lymphocytes # (A) 0.6 k/uL (1.0-4.8); Lymphocytes % (A) 11 %; MCH 32.5 pg (25.0-35.0); MCHC 34.4 g/dL (31.0-37.0); MCV 94.3 fL (80.0-100.0); Mean Platelet Volume 7.4; Monocytes # (A) 0.4 k/uL (0-1.0); Monocytes % (A) 7 %; Neutrophils # (A) 4.5 k/uL (1.3-7.7); Neutrophils % (A) 79 %; Platelet Count 249 k/uL (150-450); RBC 3.54 m/uL (3.80-5.40); RDW 12.7 % (11.5-15.5); WBC 5.7 k/uL (3.8-10.6)
--- NOTE | 2022-07-10 18:45 | XR ---
EXAMINATION TYPE: XR chest 2V DATE OF EXAM: 07/10/2022 6:39 PM COMPARISON: Chest radiographs from 12/15/2021. TECHNIQUE: XR chest 2V Frontal and lateral views of the chest. CLINICAL INDICATION:Female, 71 years old with history of Weakness; FINDINGS: Lungs/Pleura: There is no evidence of pleural effusion, focal consolidation, or pneumothorax. Chroni c senescent parenchymal change. Pulmonary vascularity: Unremarkable. Heart/mediastinum: Cardiomediastinal silhouette is enlarged and stable. Musculoskeletal: No acute osseous pathology. IMPRESSION: Cardiomegaly without evidence for acute process.
[2022-07-10 18:59] LABS: ALT 20 U/L (4-34); AST 26 U/L (14-36); African American GFR (CKD) >90 (>60 ml/min/1.73 sqM); Albumin 4.2 g/dL (3.5-5.0); Alkaline Phosphatase 99 U/L (38-126); Anion Gap 7 mmol/L; Blood Urea Nitrogen 16 mg/dL (7-17); Calcium 8.7 mg/dL (8.4-10.2); Carbon Dioxide 27 mmol/L (22-30); Chloride 94 mmol/L (98-107); Creatine Kinase 36 U/L (30-135); Glucose 107 mg/dL (74-99); Magnesium 1.9 mg/dL (1.6-2.3); Non-African American GFR(CKD) >90 (>60 ml/min/1.73 sqM); Potassium 4.4 mmol/L (3.5-5.1); Sodium 128 mmol/L (137-145); Total Bilirubin 0.3 mg/dL (0.2-1.3)
--- NOTE | 2022-07-10 19:03 | CT ---
EXAMINATION TYPE: CT brain wo con CT DLP: 1074.4 mGycm, Automated exposure control for dose reduction was used. DATE OF EXAM: 07/10/2022 6:51 PM COMPARISON: 12/06/2021 CLINICAL INDICATION:Female, 71 years old with history of Altered mental status, c/o weakness, fatigue TECHNIQUE: Brain: Axial CT images of the brain were obtained with coronal and sagittal reformats created and rev iewed. Contrast used: None. Oral contrast used: None. FINDINGS: Brain: Extra-axial spaces: No abnormal extra-axial fluid collections. Ventricular system: Dilatation in proportion to cerebral atrophy. Cerebral parenchyma: Cerebral atrophy. No acute intraparenchymal hemorrhage or mass effect. The cee -white junction is well differentiated. Scattered hypoattenuating areas are seen within the white mat ter. Cerebellum: Unremarkable. Mass effect: No evidence of midline shift. Intracranial vasculature: unremarkable Soft tissues: Normal. Calvarium/osseous structures: No depressed skull fracture. Paranasal sinuses and mastoid air cells: Mild scattered paranasal sinus disease. Visualized orbits: Orbital contents are intact. IMPRESSION: 1. No acute intracranial process. 2. Nonspecific white matter changes, likely secondary to chronic small vessel ischemic disease.
[2022-07-10 19:59] VITALS: BP 93/72; PULSE 77; RESP 12; TEMP 98.4
[2022-07-10 20:25] LABS: Amorphous Sediment,Urine Rare /hpf; Appearance,Urine Cloudy (Clear); Bacteria,Urine Moderate /hpf; Bilirubin,Urine Negative (Negative); Blood,Urine Negative (Negative); Color,Urine Light Yellow; Glucose,Urine (UA) Negative (Negative); Ketones,Urine Negative (Negative); Leukocyte Esterase,Urine Negative (Negative); Nitrite,Urine Positive (Negative); Protein,Urine Negative (Negative); RBC,Urine 2 /hpf (0-5); Specific Gravity,Urine 1.013 (1.001-1.035); Squamous Epithelial Cell,Urine 1 /hpf (0-4); Urobilinogen,Urine <2.0 mg/dL (<2.0); WBC,Urine 17 /hpf (0-5)
[2022-07-10] MEDS ORDERED: cefTRIAXone IN SWFI 1,000 MG/10 ML SYRINGE IVP STA (20:44)
--- NOTE | 2022-07-10 20:59 | ED ---
Medical Decision Making - Lab Data Result diagrams: 07/10/22 17:58 07/10/22 17:58 Lab Results 07/10/22 07/10/22 07/10/22 Range/Units 17:58 17:58 17:58 WBC 5.7 (3.8-10.6) k/uL RBC 3.54 L (3.80-5.40) m/uL Hgb 11.5 (11.4-16.0) gm/dL Hct 33.4 L (34.0-46.0) % MCV 94.3 (80.0-100.0) fL MCH 32.5 (25.0-35.0) pg MCHC 34.4 (31.0-37.0) g/dL RDW 12.7 (11.5-15.5) % Plt Count 249 (150-450) k/uL MPV 7.4 Neutrophils % 79 % Lymphocytes % 11 % Monocytes % 7 % Eosinophils % 1 % Basophils % 0 % Neutrophils # 4.5 (1.3-7.7) k/uL Lymphocytes # 0.6 L (1.0-4.8) k/uL Monocytes # 0.4 (0-1.0) k/uL Eosinophils # 0.0 (0-0.7) k/uL Basophils # 0.0 (0-0.2) k/uL Sodium 128 L (137-145) mmol/L Potassium 4.4 (3.5-5.1) mmol/L Chloride 94 L (98-107) mmol/L Carbon Dioxide 27 (22-30) mmol/L Anion Gap 7 mmol/L BUN 16 (7-17) mg/dL Creatinine 0.59 (0.52-1.04) mg/dL Est GFR (CKD-EPI)AfAm >90 (>60 ml/min/1.73 sqM) Est GFR (CKD-EPI)NonAf >90 (>60 ml/min/1.73 sqM) Glucose 107 H (74-99) mg/dL Calcium 8.7 (8.4-10.2) mg/dL Magnesium 1.9 (1.6-2.3) mg/dL Total Bilirubin 0.3 (0.2-1.3) mg/dL AST 26 (14-36) U/L ALT 20 (4-34) U/L Alkaline Phosphatase 99 (38-126) U/L Creatine Kinase 36 (30-135) U/L Troponin I (0.000-0.034) ng/mL NT-Pro-B Natriuret Pep 296 pg/mL Total Protein 7.0 (6.3-8.2) g/dL Albumin 4.2 (3.5-5.0) g/dL Urine Color Urine Appearance (Clear) Urine pH (5.0-8.0) Ur Specific [place] (1.001-1.035) Urine Protein (Negative) Urine Glucose (UA) (Negative) Urine Ketones (Negative) Urine Blood (Negative) Urine Nitrite (Negative) Urine Bilirubin (Negative) Urine Urobilinogen (<2.0) mg/dL Ur Leukocyte Esterase (Negative) Urine RBC (0-5) /hpf Urine WBC (0-5) /hpf Ur Squamous Epith Cells (0-4) /hpf Amorphous Sediment (None) /hpf Urine Bacteria (None) /hpf Influenza Type A (PCR) (Not Detectd) Influenza Type B (PCR) (Not Detectd) RSV (PCR) (Not Detectd) SARS-CoV-2 (PCR) (Not Detectd) 07/10/22 07/10/22 07/10/22 Range/Units 17:58 18:14 19:53 WBC (3.8-10.6) k/uL RBC (3.80-5.40) m/uL Hgb (11.4-16.0) gm/dL Hct (34.0-46.0) % MCV (80.0-100.0) fL MCH (25.0-35.0) pg MCHC (31.0-37.0) g/dL RDW (11.5-15.5) % Plt Count (150-450) k/uL MPV Neutrophils % % Lymphocytes % % Monocytes % % Eosinophils % % Basophils % % Neutrophils # (1.3-7.7) k/uL Lymphocytes # (1.0-4.8) k/uL Monocytes # (0-1.0) k/uL Eosinophils # (0-0.7) k/uL Basophils # (0-0.2) k/uL Sodium (137-145) mmol/L Potassium (3.5-5.1) mmol/L Chloride (98-107) mmol/L Carbon Dioxide (22-30) mmol/L Anion Gap mmol/L BUN (7-17) mg/dL Creatinine (0.52-1.04) mg/dL Est GFR (CKD-EPI)AfAm (>60 ml/min/1.73 sqM) Est GFR (CKD-EPI)NonAf (>60 ml/min/1.73 sqM) Glucose (74-99) mg/dL Calcium (8.4-10.2) mg/dL Magnesium (1.6-2.3) mg/dL Total Bilirubin (0.2-1.3) mg/dL AST (14-36) U/L ALT (4-34) U/L Alkaline Phosphatase (38-126) U/L Creatine Kinase (30-135) U/L Troponin I <0.012 (0.000-0.034) ng/mL NT-Pro-B Natriuret Pep pg/mL Total Protein (6.3-8.2) g/dL Albumin (3.5-5.0) g/dL Urine Color Light Yellow Urine Appearance Cloudy H (Clear) Urine pH 7.0 (5.0-8.0) Ur Specific [place] 1.013 (1.001-1.035) Urine Protein Negative (Negative) Urine Glucose (UA) Negative (Negative) Urine Ketones Negative (Negative) Urine Blood Negative (Negative) Urine Nitrite Positive H (Negative) Urine Bilirubin Negative (Negative) Urine Urobilinogen <2.0 (<2.0) mg/dL Ur Leukocyte Esterase Negative (Negative) Urine RBC 2 (0-5) /hpf Urine WBC 17 H (0-5) /hpf Ur Squamous Epith Cells 1 (0-4) /hpf Amorphous Sediment Rare H (None) /hpf Urine Bacteria Moderate H (None) /hpf Influenza Type A (PCR) Not Detected (Not Detectd) Influenza Type B (PCR) Not Detected (Not Detectd) RSV (PCR) Not Detected (Not Detectd) SARS-CoV-2 (PCR) Detected A (Not Detectd) Disposition Clinical Impression: Urinary tract infection, Weakness, COVID-19, Febrile illness, acute Disposition: HOME SELF-CARE Condition: Good Instructions (If sedation given, give patient instructions): Coronavirus [place] 2019 (COVID-19), Urinary Tract Infection in Women (ED), Droplet Precautions (ED), How to Recover from COVID-19 at Home (ED), Fever in Adults (ED) Additional Instructions: Vitamin C 1 g per day, vitamin D3 7713-2168 international units per day, [id number] zinc supplementation, adequate oral fluids Prescriptions: Cephalexin [Keflex] 500 mg PO Q6HR 1 Days #40 cap Is patient prescribed a controlled substance at d/c from ED?: No Referrals: Forrest Muñoz MD [Primary Care Provider] - 1-2 days
== END 2022-07-10 22:19 | disposition home or self-care (01) ==
LOC: EC 17:05
DX: U07.1 COVID-19 (principal); N39.0 Urinary tract infection, site not specified; I11.0 Hypertensive heart disease with heart failure; E78.5 Hyperlipidemia, unspecified; Z88.0 Allergy status to penicillin; Z79.82 Long term (current) use of aspirin; Z79.899 Other long term (current) drug therapy
CPT/HCPCS: 36415; 93005; 83880; 80053; 82550; 83735; 84484; 85025; 81001; 87040; 84145; 87636; 71046; 70450; 99285; 96374; J0696